=== PATIENT | female | born 1965 | race Caucasian/White ===

== ENCOUNTER 2020-05-30 13:15 | Outpatient (REF) | payer MEDICARE, OTHER, SELFPAY ==
[2020-05-30 13:58] LABS: MANUAL DIFF FLAG NO
[2020-05-30 14:02] LABS: Basophils Absolute Auto 0.1 X10*3/uL (0.0-0.2); Basophils Percent Auto 1.4 % (0-2); Eosinophils Absolute Auto 0.4 X10*3/uL (0.0-0.4); Eosinophils Percent Auto 5.3 % (0-4); Hematocrit 42.1 % (37-47); Imm Gran Abs Auto 0.01 X10*3/uL (0.00-0.03); Imm Gran Pct Auto 0.1 % (0.0-0.4); Lymphocytes Absolute Auto 3.3 X10*3/uL (1.2-4.9); Lymphocytes Percent Auto 44.7 % (20-40); Mean Corpuscular HGB Conc 30.9 g/dl (31.0-35.0); Mean Corpuscular Hemoglobin 27.7 pg (27.0-33.0); Mean Corpuscular Volume 89.6 fL (80-98); Mean Platelet Volume 10.5 fL (9.4-12.3); Monocytes Absolute Auto 0.5 X10*3/uL (0.1-1.2); Monocytes Percent Auto 6.3 % (2-11); Neutrophils Absolute Auto 3.1 X10*3/uL (2.0-8.3); Neutrophils Percent Auto 42.2 % (45-73); Platelet Count 393 X10*3/uL (160-400); Red Cell Distribution Width 14.8 % (11.0-16.0); White Blood Count 7.4 X10*3/uL (4.8-10.8)
[2020-05-30 14:43] LABS: Anion Gap 15 (12-20); Blood Urea Nitrogen 12 mg/dL (9-16); Calcium 9.3 mg/dL (8.4-10.2); Carbon Dioxide 25 mmol/L (22-29); Chloride 104 mmol/L (96-108); Estimated Glomerular Filt Rate > 60; Glucose Random 108 mg/dL (60-115); Potassium 4.3 mmol/l (3.3-5.1); Sodium 140 mmol/L (135-145)
[2020-05-30 15:13] LABS: TSH reflex Free T4 11.95 mIU/mL (0.32-4.0)
== END 2020-05-30 13:16 | disposition home or self-care (01) ==
LOC: HO.LAB 13:15
PROVIDERS: PCP Physician Assistant; Visit Provider Physician Assistant
DX: E03.9 Hypothyroidism, unspecified (principal); L40.9 Psoriasis, unspecified
CPT/HCPCS: 36415; 80048; 84439; 84443; 85025

== ENCOUNTER 2020-06-20 10:11 | Outpatient (REF) | payer MEDICARE, OTHER, SELFPAY ==
--- NOTE | 2020-06-20 10:16 | US_ITS ---
EXAMINATION: US THYROID CLINICAL INFORMATION: Iodine deficiency related diffuse (endemic) goiter. COMPARISON: None TECHNIQUE: Linear transducer almeida-scale and color Doppler examination with attention to the region of the thyroid. FINDINGS: SIZE: Measurements of the thyroid lobes and nodules are given in sagittal, anteroposterior and transverse dimensions respectively. Right Thyroid Lobe: 2.7 x 1.7 x 1.2 cm, volume 2.7 mL. Parenchyma: The gland echotexture is heterogeneous. Thyroid vascularity is increased. Left Thyroid Lobe: 2.9 x 1.3 x 1.4 cm, volume 2.7 mL. Parenchyma: The gland echotexture is heterogeneous. Thyroid vascularity is increased. Isthmus: 0.35 cm in maximum AP dimension. RIGHT THYROID LOBE: No nodules. ISTHMUS: No nodules. LEFT THYROID LOBE: No nodules. NODES: No lymphadenopathy is seen in the tissue surrounding the thyroid gland. US/US thyroid IMPRESSION: Heterogeneous thyroid gland with increased Doppler vascularity. This could represent thyroiditis. Correlate with thyroid function. No discrete focal nodules are identified..
== END 2020-06-20 10:12 | disposition home or self-care (01) ==
LOC: HO.HMGCX 10:11
PROVIDERS: Visit Provider Physician Assistant
DX: E01.0 Iodine-deficiency related diffuse (endemic) goiter (principal)
CPT/HCPCS: 76536

== ENCOUNTER → 2020-06-23 12:31 | Outpatient (BNVA) | payer MEDICARE, OTHER, SELFPAY | PROVIDERS: PCP Physician Assistant; Referring Provider Physician Assistant; Visit Provider Student in an Organized Health Care Education/Training Program | DX: M79.7 Fibromyalgia (principal); L40.9 Psoriasis, unspecified; Z79.899 Other long term (current) drug therapy | CPT/HCPCS: 99212 ==

== ENCOUNTER → 2020-10-19 15:04 | Outpatient (BNVA) | payer MEDICARE, SELFPAY | PROVIDERS: PCP Physician Assistant; Referring Provider Physician Assistant; Visit Provider Internal Medicine | DX: Z13.89 Encounter for screening for other disorder (principal) | CPT/HCPCS: Q3014 ==

== ENCOUNTER 2020-10-20 12:04 | Outpatient (REF) | payer MEDICARE, SELFPAY ==
[2020-10-20 14:11] LABS: Free T4 (Free Thyroxine) 1.03 ng/dL (0.71-1.85); Thyroid Stimulating Hormone 4.65 uIU/mL (0.32-4.0)
[2020-10-21 09:07] LABS: Thyroid Peroxidase Antibodies 417 IU/mL (<9)
[2020-10-21 17:56] LABS: Thyroglobulin Antibodies 54 IU/mL (< or = 1)
== END 2020-10-20 12:05 | disposition home or self-care (01) ==
LOC: HO.LAB 12:04
PROVIDERS: PCP Physician Assistant; Visit Provider Internal Medicine
DX: E03.9 Hypothyroidism, unspecified (principal)
CPT/HCPCS: 36415; 84439; 84443; 86376; 86800

== ENCOUNTER 2020-12-08 10:21 | Outpatient (REF) | payer MEDICARE, SELFPAY ==
[2020-12-08 11:32] LABS: Estimated Average Glucose 117 mg/dL; Hemoglobin A1c % 5.7 %
[2020-12-08 11:43] LABS: Alanine Aminotransferase 27 U/L (0-31); Albumin Level 4.3 g/dL (3.5-5.0); Alkaline Phosphatase 91 U/L (39-117); Anion Gap 13 (12-20); Aspartate Amino Transferase 25 U/L (5-31); Bilirubin Total 0.5 mg/dL (0.0-1.0); Blood Urea Nitrogen 13 mg/dL (9-16); Calcium 9.9 mg/dL (8.4-10.2); Carbon Dioxide 28 mmol/L (22-29); Chloride 108 mmol/L (96-108); Cholesterol 161 mg/dL; Estimated Glomerular Filt Rate > 60; Glucose Fasting 112 mg/dL (60-99); HDL Cholesterol 55 mg/dL; Iron 48 mcg/dL (30-160); LDL Cholesterol Calculated 83 mg/dl; Percent Iron Saturation 11 % (15-50); Potassium 4.6 mmol/L (3.3-5.1); Sodium 144 mmol/L (135-145); Total Iron Binding Capacity 419 mcg/dL (228-428); Total Protein 7.2 g/dL (6.5-8.0); Triglycerides 116 mg/dL; Unsaturated Iron Binding 371 ug/dL
[2020-12-08 11:54] LABS: Thyroid Stimulating Hormone 0.05 uIU/mL (0.32-4.0)
[2020-12-08 11:56] LABS: Free T4 (Free Thyroxine) 1.46 ng/dL (0.71-1.85)
== END 2020-12-08 10:22 | disposition home or self-care (01) ==
LOC: HO.LAB 10:21
PROVIDERS: Internal Medicine; PCP Physician Assistant; Visit Provider Physician Assistant
DX: Z13.220 Encounter for screening for lipoid disorders (principal); Z13.1 Encounter for screening for diabetes mellitus; E03.9 Hypothyroidism, unspecified; D50.9 Iron deficiency anemia, unspecified; F33.1 Major depressive disorder, recurrent, moderate
CPT/HCPCS: 36415; 80053; 80061; 83036; 83540; 84439; 84443

== ENCOUNTER → 2020-12-15 11:17 | Outpatient (BNVA) | payer MEDICARE, SELFPAY | PROVIDERS: PCP Physician Assistant; Visit Provider Internal Medicine | CPT/HCPCS: Q3014 ==

== ENCOUNTER 2020-12-27 12:31 | Outpatient (REF) | payer MEDICARE, SELFPAY ==
--- NOTE | ~2020-12-27 | MM_ITS ---
EXAMINATION: MM SCREENING DIGITAL BREAST TOMOSYNTHESIS, BILATERAL CLINICAL INFORMATION: Screening. Asymptomatic. The lifetime risk of breast cancer based on the Tyrer-Cuzick Model is 12%. COMPARISON: Mammography: 12/06/2018, 12/31/2014 TECHNIQUE: Digital breast tomosynthesis is performed in both the craniocaudal and mediolateral oblique views along with computer-aided detection (CAD). Synthesized 2D images are generated from the tomosynthesis. FINDINGS: The breasts are almost entirely fatty (ACR BI-RADS breast composition Category a). There are no significant masses, abnormal calcifications, or other abnormalities. Background stromal markings are unremarkable. The skin contours are smooth. MM/MM tomosynthesis screening BI IMPRESSION: No mammographic evidence of malignancy. ASSESSMENT: BI-RADS 1: Negative RECOMMENDATION: Routine annual mammography screening. This patient's information was entered into a reminder system with a target due date for their next mammogram.
== END 2020-12-27 12:32 | disposition home or self-care (01) ==
LOC: HO.MAMMO 12:31
PROVIDERS: PCP Physician Assistant; Visit Provider Physician Assistant
DX: Z12.31 Encounter for screening mammogram for malignant neoplasm of breast (principal)
CPT/HCPCS: 77063; 77067

== ENCOUNTER 2021-02-16 15:03 | Outpatient (REF) | payer MEDICARE, OTHER, SELFPAY ==
[2021-02-16 18:13] LABS: Thyroid Stimulating Hormone 10.73 uIU/mL (0.32-4.0)
== END 2021-02-16 15:04 | disposition home or self-care (01) ==
LOC: HO.LAB 15:03
PROVIDERS: PCP Physician Assistant; Visit Provider Internal Medicine
DX: E03.9 Hypothyroidism, unspecified (principal); E06.3 Autoimmune thyroiditis; Z79.899 Other long term (current) drug therapy
CPT/HCPCS: 36415; 84439; 84443; 99212

== ENCOUNTER 2021-06-27 12:31 | Outpatient (REF) | payer MEDICARE, OTHER, SELFPAY ==
[2021-06-27 13:37] LABS: MANUAL DIFF FLAG NO
[2021-06-27 14:38] LABS: Basophils Absolute Auto 0.1 X10*3/uL (0.0-0.2); Basophils Percent Auto 1.3 % (0-2); Eosinophils Absolute Auto 0.4 X10*3/uL (0.0-0.4); Eosinophils Percent Auto 4.4 % (0-4); Hematocrit 39.1 % (37.0-47.0); Hemoglobin 12.1 g/dl (12.0-16.0); Imm Gran Abs Auto 0.01 X10*3/uL (0.00-0.03); Imm Gran Pct Auto 0.1 % (0.0-0.4); Lymphocytes Absolute Auto 2.9 X10*3/uL (1.2-4.9); Lymphocytes Percent Auto 35.6 % (20-40); Mean Corpuscular HGB Conc 30.9 g/dl (31.0-35.0); Mean Corpuscular Hemoglobin 25.9 pg (27.0-33.0); Mean Corpuscular Volume 83.7 fL (80.0-98.0); Monocytes Absolute Auto 0.6 X10*3/uL (0.1-1.2); Neutrophils Absolute Auto 4.2 x10*3/uL (2.0-8.3); Neutrophils Percent Auto 51.6 % (45-73); Platelet Count 427 X10*3/uL (160-400); Red Blood Count 4.67 X10*6/uL (4.20-5.50); Red Cell Distribution Width 15.7 % (11.0-16.0); White Blood Count 8.2 X10*3/uL (4.8-10.8)
[2021-06-27 15:01] LABS: Alanine Aminotransferase 20 U/L (0-31); Albumin Level 4.6 g/dL (3.5-5.0); Alkaline Phosphatase 91 U/L (39-117); Anion Gap 13 (12-20); Aspartate Amino Transferase 22 U/L (5-31); Bilirubin Total 0.2 mg/dL (0.0-1.0); Blood Urea Nitrogen 9 mg/dL (9-16); C Reactive Protein 0.18 mg/dL (< or = 0.50); Calcium 9.9 mg/dL (8.4-10.2); Carbon Dioxide 28 mmol/L (22-29); Chloride 108 mmol/L (96-108); Estimated Glomerular Filt Rate > 60; Glucose Random 91 mg/dL (60-115); Potassium 4.7 mmol/L (3.3-5.1); Sodium 144 mmol/L (135-145); Total Protein 7.9 g/dL (6.5-8.0)
[2021-06-27 15:20] LABS: Free T4 (Free Thyroxine) 0.86 ng/dL (0.71-1.85); Thyroid Stimulating Hormone 8.48 uIU/mL (0.32-4.0)
[2021-06-27 15:43] LABS: Erythrocyte Sedimentation Rate 16 MM/HR (0-20)
[2021-06-28 04:23] LABS: HBS Num1 1.12 mIU/mL (0-7.99); HBc Num1 0.05 S/CO (0.00-0.79); Hepatitis B Core Antibody Nonreactive (Nonreactive); ~HepC Num1 0.22 S/CO (0.00-0.79); ~Hepatitis B Surface Antibody NONREACTIVE (Nonreactive); ~Hepatitis C Antibody Nonreactive (Nonreactive)
[2021-06-28 04:29] LABS: HBsAGNum1 0.17 S/CO (0.00-0.99); Hepatitis A Antibody IgM 0.19 Index (0-0.79); Hepatitis B Surface Antigen Negative (Negative); ~Hepatitis A Antibody IgM Nonreactive (Nonreactive)
[2021-06-29 22:06] LABS: TS Negative Control Passed; TS Panel A 2; TS Panel B 0; TS Positive Control Passed; TSpotTB Negative (Negative)
== END 2021-06-27 12:32 | disposition home or self-care (01) ==
LOC: HO.LAB 12:31
PROVIDERS: Internal Medicine; PCP Physician Assistant; Visit Provider Nurse Practitioner Family
DX: M79.7 Fibromyalgia (principal); L40.9 Psoriasis, unspecified; E03.9 Hypothyroidism, unspecified
CPT/HCPCS: 36415; 80053; 84439; 84443; 85025; 85652; 86140; 86481; 86704; 86706; 86709; 86803; 87340; 99212

== ENCOUNTER 2021-08-24 09:29 | Outpatient (REF) | payer MEDICARE, OTHER, SELFPAY ==
[2021-08-24 15:28] LABS: Free T4 (Free Thyroxine) 1.05 ng/dL (0.71-1.85); Thyroid Stimulating Hormone 2.45 uIU/mL (0.32-4.0); Vitamin D 25-OH Total 40.5 ng/mL (>30)
== END 2021-08-24 09:30 | disposition home or self-care (01) ==
LOC: HO.LAB 09:29
PROVIDERS: PCP Physician Assistant; Visit Provider Internal Medicine
DX: E03.9 Hypothyroidism, unspecified (principal); E55.9 Vitamin D deficiency, unspecified
CPT/HCPCS: 36415; 82306; 84439; 84443; Q3014

== ENCOUNTER 2021-10-02 11:01 | Outpatient (REF) | payer MEDICARE, OTHER, SELFPAY ==
[2021-10-02 11:37] LABS: Hemoglobin 11.9 g/dl (12.0-16.0); Mean Corpuscular HGB Conc 30.5 g/dl (31.0-35.0); Mean Corpuscular Hemoglobin 25.6 pg (27.0-33.0); Mean Corpuscular Volume 84.1 fL (80.0-98.0); Mean Platelet Volume 10.1 fL (9.4-12.3); Platelet Count 381 X10*3/uL (160-400); Red Blood Count 4.64 X10*6/uL (4.20-5.50); Red Cell Distribution Width 16.5 % (11.0-16.0); White Blood Count 6.8 X10*3/uL (4.8-10.8)
[2021-10-02 11:50] LABS: Estimated Average Glucose 123 mg/dL; Hemoglobin A1c % 5.9 %
[2021-10-02 12:16] LABS: Alanine Aminotransferase 24 U/L (0-31); Albumin Level 4.5 g/dL (3.5-5.0); Alkaline Phosphatase 77 U/L (39-117); Anion Gap 15 (12-20); Aspartate Amino Transferase 20 U/L (5-31); Bilirubin Total 0.4 mg/dL (0.0-1.0); Blood Urea Nitrogen 13 mg/dL (9-16); Calcium 10.2 mg/dL (8.4-10.2); Carbon Dioxide 27 mmol/L (22-29); Chloride 105 mmol/L (96-108); Cholesterol 217 mg/dL; Estimated Glomerular Filt Rate > 60; Glucose Fasting 102 mg/dL (60-99); HDL Cholesterol 81 mg/dL; Iron 28 mcg/dL (30-160); LDL Cholesterol Calculated 113 mg/dl; Magnesium 2.4 mg/dL (1.6-2.6); Percent Iron Saturation 6 % (15-50); Potassium 4.6 mmol/L (3.3-5.1); Sodium 142 mmol/L (135-145); Total Iron Binding Capacity 483 mcg/dL (228-428); Total Protein 7.6 g/dL (6.5-8.0); Triglycerides 115 mg/dL; Unsaturated Iron Binding 455 ug/dL
[2021-10-02 13:12] LABS: Folate 15.4 ng/mL (> or = 4.0); Vitamin B12 361 pg/mL (200-900)
== END 2021-10-02 11:02 | disposition home or self-care (01) ==
LOC: HO.LAB 11:01
PROVIDERS: PCP Physician Assistant; Visit Provider Physician Assistant
DX: Z13.220 Encounter for screening for lipoid disorders (principal); D50.9 Iron deficiency anemia, unspecified; E03.9 Hypothyroidism, unspecified; E66.09 Other obesity due to excess calories; Z68.37 Body mass index [BMI] 37.0-37.9, adult; E83.41 Hypermagnesemia
CPT/HCPCS: 36415; 80053; 80061; 82607; 82746; 83036; 83540; 83735; 85027

== ENCOUNTER → 2021-10-17 09:54 | Outpatient (BNV) | payer MEDICARE, SELFPAY | PROVIDERS: PCP Physician Assistant; Visit Provider Internal Medicine | DX: D50.9 Iron deficiency anemia, unspecified (principal); E53.8 Deficiency of other specified B group vitamins; Z98.84 Bariatric surgery status | CPT/HCPCS: 99213; 99214; G2211 ==

== ENCOUNTER 2021-11-28 11:41 | Outpatient (REF) | payer MEDICARE, OTHER, SELFPAY ==
[2021-11-28 13:09] LABS: Hematocrit 41.5 % (37.0-47.0); Hemoglobin 12.7 g/dl (12.0-16.0); Mean Corpuscular HGB Conc 30.6 g/dl (31.0-35.0); Mean Corpuscular Hemoglobin 27.2 pg (27.0-33.0); Mean Corpuscular Volume 88.9 fL (80.0-98.0); Mean Platelet Volume 11.6 fL (9.4-12.3); Platelet Count 449 X10*3/uL (160-400); Red Blood Count 4.67 X10*6/uL (4.20-5.50); Red Cell Distribution Width 19.1 % (11.0-16.0); White Blood Count 8.7 X10*3/uL (4.8-10.8)
[2021-11-28 13:33] LABS: Iron 45 mcg/dL (30-160); Percent Iron Saturation 11 % (15-50); Total Iron Binding Capacity 409 mcg/dL (228-428); Unsaturated Iron Binding 364 ug/dL
[2021-11-28 13:56] LABS: Thyroid Stimulating Hormone 2.47 uIU/mL (0.32-4.0)
[2021-11-28 13:57] LABS: Free T4 (Free Thyroxine) 1.04 ng/dL (0.71-1.85); Vitamin D 25-OH Total 46.2 ng/mL (>30)
== END 2021-11-28 11:42 | disposition home or self-care (01) ==
LOC: HO.LAB 11:41
PROVIDERS: PCP Physician Assistant; Visit Provider Internal Medicine
DX: D50.9 Iron deficiency anemia, unspecified (principal); E03.9 Hypothyroidism, unspecified; E55.9 Vitamin D deficiency, unspecified
CPT/HCPCS: 36415; 82306; 83540; 84439; 84443; 85027

== ENCOUNTER → 2021-11-29 11:02 | Outpatient (BNVA) | payer MEDICARE, OTHER, SELFPAY | PROVIDERS: PCP Physician Assistant; Visit Provider Internal Medicine | DX: Z13.89 Encounter for screening for other disorder (principal) ==

== ENCOUNTER → 2022-01-09 10:09 | Outpatient (BNVA) | payer MEDICARE, OTHER, SELFPAY | PROVIDERS: PCP Physician Assistant; Visit Provider Internal Medicine | DX: E03.9 Hypothyroidism, unspecified (principal); E55.9 Vitamin D deficiency, unspecified; E66.9 Obesity, unspecified; Z79.899 Other long term (current) drug therapy | CPT/HCPCS: Q3014 ==

== ENCOUNTER 2022-05-01 15:00 | Outpatient (REF) | payer MEDICARE, OTHER, SELFPAY ==
[2022-05-01 15:29] LABS: MANUAL DIFF FLAG NO
[2022-05-01 16:04] LABS: Basophils Percent Auto 0.4 % (0-2); Eosinophils Percent Auto 0.1 % (0-4); Hematocrit 40.2 % (37.0-47.0); Hemoglobin 12.7 g/dl (12.0-16.0); Imm Gran Abs Auto 0.04 X10*3/uL (0.00-0.03); Imm Gran Pct Auto 0.4 % (0.0-0.4); Lymphocytes Absolute Auto 2.1 X10*3/uL (1.2-4.9); Lymphocytes Percent Auto 20.8 % (20-40); Mean Corpuscular HGB Conc 31.6 g/dl (31.0-35.0); Mean Corpuscular Hemoglobin 27.9 pg (27.0-33.0); Mean Corpuscular Volume 88.4 fL (80.0-98.0); Mean Platelet Volume 10.9 fL (9.4-12.3); Monocytes Absolute Auto 0.5 X10*3/uL (0.1-1.2); Monocytes Percent Auto 4.7 % (2-11); Neutrophils Absolute Auto 7.5 x10*3/uL (2.0-8.3); Neutrophils Percent Auto 73.6 % (45-73); Platelet Count 438 X10*3/uL (160-400); Red Blood Count 4.55 X10*6/uL (4.20-5.50); Red Cell Distribution Width 14.6 % (11.0-16.0); White Blood Count 10.2 X10*3/uL (4.8-10.8)
[2022-05-01 16:25] LABS: Anion Gap 19 (12-20); Blood Urea Nitrogen 20 mg/dL (9-16); Calcium 10.1 mg/dL (8.4-10.2); Carbon Dioxide 23 mmol/L (22-29); Chloride 106 mmol/L (96-108); Estimated Glomerular Filt Rate > 60; Glucose Random 106 mg/dL (60-115); Potassium 4.5 mmol/L (3.3-5.1); Sodium 143 mmol/L (135-145)
[2022-05-04 10:11] LABS: TS Negative Control Passed; TS Panel A 1; TS Panel B 0; TS Positive Control Passed; TSpotTB Negative (Negative)
== END 2022-05-01 15:01 | disposition home or self-care (01) ==
LOC: HO.LAB 15:00
PROVIDERS: PCP Physician Assistant; Visit Provider Dermatology
DX: Z11.1 Encounter for screening for respiratory tuberculosis (principal); L30.9 Dermatitis, unspecified
CPT/HCPCS: 36415; 80048; 85025; 86481

== ENCOUNTER 2022-09-21 15:26 | Outpatient (REF) | payer OTHER, SELFPAY ==
--- NOTE | ~2022-09-21 | US_ITS ---
EXAMINATION: ULTRASOUND SOFT TISSUES RIGHT SHOULDER CLINICAL INFORMATION: Mass/palpable lump in the right posterior shoulder. COMPARISON: None TECHNIQUE: Using a linear transducer with grayscale and color modalities, ultrasound examination performed of the soft tissues of the posterior right shoulder. FINDINGS: The cutaneous, subcutaneous, muscular and fascial planes are unremarkable. Corresponding with the palpable finding described by the patient in the posterior right shoulder soft tissues, a 6.2 x 5.6 x 2.2 cm isoechoic, circumscribed mass is seen. This shows little associated color Doppler flow. No lymphadenopathy or fluid collection is seen. There is no foreign body. US/US extremity nonvascular IMPRESSION: Corresponding with the palpable finding in the posterior right shoulder, a 6.2 cm in maximal diameter circumscribed mass is seen. The possibility of a lipoma is raised; the exact etiology is indeterminate. If of continued clinical concern, this can be further evaluated with MRI.
== END 2022-09-21 15:27 | disposition home or self-care (01) ==
LOC: HO.US 15:26
PROVIDERS: PCP Nurse Practitioner Family; Visit Provider Nurse Practitioner Family
DX: R22.9 Localized swelling, mass and lump, unspecified (principal)
CPT/HCPCS: 76882

== ENCOUNTER → 2022-10-12 09:59 | Outpatient (BNVA) | payer OTHER, SELFPAY | PROVIDERS: PCP Physician Assistant; Referring Provider Nurse Practitioner Family; Visit Provider Surgery | DX: R22.9 Localized swelling, mass and lump, unspecified (principal) | CPT/HCPCS: 99202 ==

== ENCOUNTER 2022-10-22 07:07 | Day surgery (SDC) | payer OTHER, SELFPAY ==
[2022-10-16 11:42] VITALS: BMI 36.8
--- NOTE | 2022-10-19 11:32 | P.CONAN_ITS ---
Documented by User: Kamala Adam NP 10/19/22 11:35 HPI - Anesthesia Eval Consult details Narrative: 57yo F for Right Excision Mass of posterior shoulder PMFSH Active Problems Active Problems: All Active Problems (Updated 10/16/22 @ 11:09 by Salome Townsend RN) Hypothyroid (Acute) Psoriasis (Acute) Thyromegaly (Acute) Depression (Acute) Cervical cancer screening (Acute) Breast cancer screening (Acute) Screening for diabetes mellitus (DM) (Acute) Screening for hypercholesterolemia (Acute) Medicare annual wellness visit, initial (Acute) Hypermagnesemia (Acute) Obese (Acute) Deficiency anemia (Acute) Iron deficiency anemia (Chronic) BESSY (generalized anxiety disorder) (Acute) MDD (major depressive disorder), recurrent episode, moderate (Acute) Lump of skin (Acute) Obesity (Acute) Vitamin D deficiency (Acute) Psoriasis (Acute) Fibromyalgia (Acute) Past Medical History Medical History (Updated 10/16/22 @ 11:09 by Salome Townsend RN) Anemia Anxiety Depression Fibromyalgia Hypothyroid Obesity Psoriasis Vitamin D deficiency Family History Family History Father CVD (cardiovascular disease) Stroke Hypertension Myocardial infarction Thyroid cancer Mother Hypertension Maternal Grandmother Colon cancer Glaucoma Surgical History Surgical History (Updated 10/16/22 @ 11:37 by Salome Townsend RN) History of cholecystectomy History of gastric bypass History of tooth extraction Hx of colonoscopy S/P panniculectomy Social History Social History Household Members: None Housing: Other (Mobile Home) Alcohol intake: never Patient Tobacco Use Status: Former Tobacco user Quit Date: 2019 Cigarette Packs Per Day: 1 Years Smoked: 30 e-Cigarette/Vaping Use: Never Used Use of substances other than those prescribed or required for medical reasons: No Substance Use Type: Marijuana Are you DNR?: No Advance Directives: No Advance Directives Information Provided: Yes service: No Current occupational status: unemployed Cognitive needs: No Hearing needs: No Vision needs: No Meds Allergies Allergy/AdvReac Type Severity Reaction Status Date / Time Sulfa (Sulfonamide Allergy Intermediate RASH Verified 10/12/22 10:17 Antibiotics) [SULFA (SULFONAMIDE ANTIBIOTICS)] morphine [MORPHINE] Allergy Mild NIGHTMARES Verified 10/12/22 10:17 oxycodone [Percocet] Allergy Mild nausea and Verified 10/12/22 10:17 vomiting Penicillins Allergy Mild RASH Verified 10/12/22 10:17 Home Medications Medication Instructions Recorded Confirmed Last Taken Type gabapentin 300 mg capsule 300 mg PO TID PRN Pain 10/17/21 10/16/22 Unknown History tildrakizumab-asmn 100 mg/mL 100 mg subcut Q12W 10/12/22 10/16/22 Unknown History subcutaneous syringe (Ilumya) Exam Exam Date and Time: October 19, 2022 1132 Height,Weight and Vital Signs: Height 5 ft 7 in Weight 106.764 kg Pertinent Lab Results Pertinent Lab Results: Laboratory Tests 05/01/22 09/28/22 15:26 15:12 WBC 8.6 Hgb 13.2 Hct 42.3 Plt Count 370 Sodium 143 Potassium 4.5 Chloride 106 Carbon Dioxide 23 BUN 20 H D Creatinine 0.78 Assessment and Plan Assessment Anesthesia Assessment: Chart Reviewed Documented by User: Marin Kent MD 10/22/22 08:18 [facility] Past Medical History Medical History (Updated 10/16/22 @ 11:09 by Salome Townsend RN) Anemia Anxiety Depression Fibromyalgia Hypothyroid Obesity Psoriasis Vitamin D deficiency Family History Family History Father CVD (cardiovascular disease) Stroke Hypertension Myocardial infarction Thyroid cancer Mother Hypertension Maternal Grandmother Colon cancer Glaucoma Family history of problems with anesthesia: No Surgical History Surgical History (Updated 10/16/22 @ 11:37 by Salome Townsend RN) History of cholecystectomy History of gastric bypass History of tooth extraction Hx of colonoscopy S/P panniculectomy History of Problems with Anesthesia: No Social History Social History Household Members: None Housing: Other (Mobile Home) Alcohol intake: never Patient Tobacco Use Status: Former Tobacco user Quit Date: 2019 Cigarette Packs Per Day: 1 Years Smoked: 30 e-Cigarette/Vaping Use: Never Used Use of substances other than those prescribed or required for medical reasons: No Substance Use Type: Marijuana Are you DNR?: No Advance Directives: No Advance Directives Information Provided: Yes service: No Current occupational status: unemployed Cognitive needs: No Hearing needs: No Vision needs: No Meds Allergies Allergy/AdvReac Type Severity Reaction Status Date / Time Sulfa (Sulfonamide Allergy Intermediate RASH Verified 10/12/22 10:17 Antibiotics) [SULFA (SULFONAMIDE ANTIBIOTICS)] morphine [MORPHINE] Allergy Mild NIGHTMARES Verified 10/12/22 10:17 oxycodone [Percocet] Allergy Mild nausea and Verified 10/12/22 10:17 vomiting Penicillins Allergy Mild RASH Verified 10/12/22 10:17 Home Medications Medication Instructions Recorded Confirmed Last Taken Type gabapentin 300 mg capsule 300 mg PO TID PRN Pain 10/17/21 10/16/22 Unknown History tildrakizumab-asmn 100 mg/mL 100 mg subcut Q12W 10/12/22 10/16/22 Unknown History subcutaneous syringe (Ilumya) Exam Airway Mallampati Class: II TM Dist: >3cm Neck ROM: Limited Denture: Upper Loose/Missing/Broken Teeth: No Heart: rrr Lungs: cta Assessment and Plan Final Anesthetic Review Family History of Problems with Anesthesia: No History of Problems with Anesthesia: No NPO: Yes ASA Class: III Final Preanesthetic Review: No Changes in Pt Med Stat, Meds/Allgs Chart Reviewed, Consent Obtained/Reviewed and Anes Risks/Benef Reviewed Patient Risk: Intermediate Procedure Risk: Low Anesthetic Plan Anesthetic Plan: MAC: Disposition: Standard PACU
[2022-10-22 07:26] VITALS: BMI 36.0
[2022-10-22 07:36] VITALS: BP 144/50; PULSE 64; RESP 18; TEMP 36.4; O2SAT 97
[2022-10-22] MEDS: Lactated Ringers 1,000 ML 100 ML IVCONT (07:47)
[2022-10-22 08:14] VITALS: BP 116/47; PULSE 51; RESP 16; TEMP 36.3; O2SAT 96
--- NOTE | 2022-10-22 08:22 | PC.NURSE ---
pt initially stated pcn allergy rash, then while dr. guthrie present added shortness of breath (edited allergy and oharmacy aware. ok to use cefotetan 2g iv
--- NOTE | 2022-10-22 08:52 | W.PM.OPN ---
Operative Note Operative Note Date of Service: 10/22/22 Narrative: Preoperative diagnosis: [Right posterior shoulder lipoma] Postop diagnosis: [] Same Surgeon: [] Ab Prescription Clerk Lenses: [] Ezra Type of Anesthesia: [] MAC Indication for surgery: [] Symptomatic enlarging deeply situated right posterior shoulder lipoma Findings: [] Approximately 8 by7 cm large lipoma Procedure: [] Patient is brought to the operating room, placed in a room table supine position, and after an adequate level of MAC anesthesia was induced, the patient was placed in left lateral decubitus position. Right posterior shoulder was prepped and draped in usual sterile fashion and the premarked incision was infiltrated with local anesthesia. Incision was carried down through skin, subcutaneous tissue, with a large lipoma was encountered and using digital dissection was uneventfully enucleated with dimensions as described above. Wound was irrigated, secured hemostasis, and closed in the following manner; interrupted inverted deep dermal 3-0 Vicryl interrupted sutures followed by running subcuticular 4-0 Vicryl sutures were placed. Steri-Strips and sterile dressings were applied. Sponge, needle, and instrument counts were reported to be correct. Patient tolerated the procedure well and emerge from anesthesia in stable condition. EBL 0
[2022-10-22 08:59] VITALS: BP 98/62; PULSE 68; RESP 16; TEMP 36.3; O2SAT 96
== END 2022-10-22 10:00 | disposition home or self-care (01) ==
PROVIDERS: PCP Physician Assistant; Visit Provider Surgery
PROC: (CPT 23071; principal; 2022-10-22 08:50)
DX: D17.21 Benign lipomatous neoplasm of skin and subcutaneous tissue of right arm (principal); D50.9 Iron deficiency anemia, unspecified; E55.9 Vitamin D deficiency, unspecified; L40.8 Other psoriasis; E03.9 Hypothyroidism, unspecified; F33.1 Major depressive disorder, recurrent, moderate; F41.1 Generalized anxiety disorder; M79.7 Fibromyalgia; E66.9 Obesity, unspecified; Z68.36 Body mass index [BMI] 36.0-36.9, adult; Z79.899 Other long term (current) drug therapy; Z88.0 Allergy status to penicillin; Z88.2 Allergy status to sulfonamides; Z88.8 Allergy status to other drugs, medicaments and biological substances; Z98.84 Bariatric surgery status; Z87.891 Personal history of nicotine dependence; F12.90 Cannabis use, unspecified, uncomplicated
CPT/HCPCS: 23071; 88304; J0690; J1885; J2250; J2405; J3010

== ENCOUNTER → 2022-10-30 09:02 | Outpatient (BNVA) | payer OTHER, SELFPAY | PROVIDERS: PCP Physician Assistant; Visit Provider Surgery ==

== ENCOUNTER 2022-11-05 12:13 | Outpatient (REF) | payer OTHER, SELFPAY ==
--- NOTE | ~2022-11-05 | XR_ITS ---
EXAMINATION: XR CERVICAL SPINE CLINICAL INFORMATION: Neck pain COMPARISON: None available. TECHNIQUE: 4 views of the cervical spine were obtained including swimmer's view. FINDINGS: Bone alignment is normal. No fracture or dislocation. Multilevel degenerative spondylosis and degenerative disc disease from C4-C5 to C6-C7. Prevertebral soft tissues are normal. XR/XR cervical spine 2V IMPRESSION: Degenerative changes.
== END 2022-11-05 12:14 | disposition home or self-care (01) ==
LOC: HO.XRAY 12:13
PROVIDERS: PCP Physician Assistant; Visit Provider Nurse Practitioner Family
DX: M54.2 Cervicalgia (principal)
CPT/HCPCS: 72040

== ENCOUNTER 2022-12-05 10:56 | Outpatient (RCR) | payer OTHER, SELFPAY ==
--- NOTE | 2022-12-05 12:00 | MHC.PT.EP ---
[facility] [place] Office [place] Office [place] Office [address] Edson Lockhart [address] [phone] F: [phone] F: [phone] F: [phone] F: [phone] Physical Therapy Plan of Care Date of Evaluation: Date of Surgery: lipoma removed 3 months ago Diagnosis: cervicalgia Assessment: Patient is a 57 year old R handed female who presents with s/s consistent with cervicalgia, neck pain. She is disabled and not currently working. Patient past medical history includes fibromyalgia and gastric bypass surgery. Current impairments include pain, posture, ROM, strength, activity tolerance and functional mobility. Functional limitations include decreased ability to sleep, dress, lift, carry and do hair. Patient is motivated with good rehab potential. Skilled PT will address impairments and functional limitations in order to achieve goals. Frequency and Duration: The patient will be seen 2x/week for 5 weeks Short Term Goals: I with HEP - 2 weeks Full AROM R shoulder - 3 weeks Full rotation pain free of c-spine - 3 weeks Halfway Goals: Improved postural awareness - 5 weeks no s/s into R UE with ADLs - 5 weeks NPDI 20% or less - 5 weeks Strength 4+/5 or better - 5 weeks (-) R impingement cluster - 5 weeks Able to paddleboard pain free - 5 weeks Treatment Plan: Modalities to reduce pain, spasms and effusion. Manual therapy to restore motion and function. Therapeutic exercise to improve strength and flexibility. Neuromuscular re-education for posture and balance. Therapeutic activities to return to functional activities of daily living. Electronically signed by: Abe Fierro, PT Please sign and return to therapist. Thank you for your referral.
--- NOTE | 2023-01-15 09:01 | MHC.PT.DC ---
[facility] [place] Office [place] Office [place] Office [address] Edson Lockhart [address] [facility] [phone] F: [phone] F: [phone] F: [phone] F: [phone] Physical Therapy Discharge Report Diagnosis: cervicalgia Date of Surgery: lipoma removed 3 months ago Date of Evaluation: 12/05/22 Date of Discharge: 12/06/22 Treatments to Date: 1 Cancellations to Date: No Shows to Date: Discharge Status: Patient Elected to Stop Discharge Summary: Pt did not return after evaluation. Patient is a 57 year old R handed female who presents with s/s consistent with cervicalgia, neck pain. She is disabled and not currently working. Patient past medical history includes fibromyalgia and gastric bypass surgery. Current impairments include pain, posture, ROM, strength, activity tolerance and functional mobility. Functional limitations include decreased ability to sleep, dress, lift, carry and do hair. Patient is motivated with good rehab potential. Skilled PT will address impairments and functional limitations in order to achieve goals. Electronically signed by: Abe Fierro, PT Please sign and return to therapist. Thank you for your referral.
== END 2023-01-15 09:03 | disposition home or self-care (01) ==
LOC: HO.PTCHIC 10:56
PROVIDERS: PCP Internal Medicine; Visit Provider Nurse Practitioner Family
DX: M54.2 Cervicalgia (principal)
CPT/HCPCS: 97110; 97162

== ENCOUNTER → 2022-12-17 13:48 | Outpatient (BNVA) | payer OTHER, SELFPAY | PROVIDERS: PCP Internal Medicine; Visit Provider Anesthesiology | DX: M50.30 Other cervical disc degeneration, unspecified cervical region (principal); M54.12 Radiculopathy, cervical region; G56.01 Carpal tunnel syndrome, right upper limb; G56.21 Lesion of ulnar nerve, right upper limb; G89.4 Chronic pain syndrome | CPT/HCPCS: 99202 ==

== ENCOUNTER 2022-12-18 08:59 | Outpatient (REF) | payer OTHER, SELFPAY ==
[2022-12-18 10:30] LABS: Hematocrit 41.2 % (37.0-47.0); Hemoglobin 12.8 g/dl (12.0-16.0); Mean Corpuscular HGB Conc 31.1 g/dl (31.0-35.0); Mean Corpuscular Hemoglobin 26.9 pg (27.0-33.0); Mean Corpuscular Volume 86.7 fL (80.0-98.0); Mean Platelet Volume 10.5 fL (9.4-12.3); Platelet Count 397 X10*3/uL (160-400); Red Blood Count 4.75 X10*6/uL (4.20-5.50); Red Cell Distribution Width 15.5 % (11.0-16.0); White Blood Count 5.9 X10*3/uL (4.8-10.8)
[2022-12-18 10:59] LABS: Creatinine Urine 179.84 mg/dL; Microalbum/Creatinine Ratio Ur 2.7 ug/mg cr
[2022-12-18 11:08] LABS: Alanine Aminotransferase 17 U/L (0-31); Albumin Level 4.6 g/dL (3.5-5.0); Alkaline Phosphatase 82 U/L (39-117); Anion Gap 15 (12-20); Aspartate Amino Transferase 17 U/L (5-31); Bilirubin Total 0.6 mg/dL (0.0-1.0); Blood Urea Nitrogen 16 mg/dL (9-16); Calcium 9.9 mg/dL (8.4-10.2); Carbon Dioxide 26 mmol/L (22-29); Chloride 108 mmol/L (96-108); Cholesterol 158 mg/dL; Estimated Glomerular Filt Rate > 60; Glucose Fasting 101 mg/dL (60-99); HDL Cholesterol 58 mg/dL; LDL Cholesterol Calculated 79 mg/dl; Potassium 4.9 mmol/L (3.3-5.1); Sodium 144 mmol/L (135-145); Total Protein 7.5 g/dL (6.5-8.0); Triglycerides 107 mg/dL
[2022-12-18 11:19] LABS: Free T4 (Free Thyroxine) 1.13 ng/dL (0.71-1.85)
[2022-12-18 11:25] LABS: TSH reflex Free T4 2.97 uIU/mL (0.32-4.0); Thyroid Stimulating Hormone 2.97 uIU/mL (0.32-4.0)
== END 2022-12-18 09:00 | disposition home or self-care (01) ==
LOC: HO.LAB 08:59
PROVIDERS: Internal Medicine; PCP Physician Assistant; Visit Provider Physician Assistant
DX: I10 Essential (primary) hypertension (principal); E03.9 Hypothyroidism, unspecified
CPT/HCPCS: 36415; 80053; 80061; 82043; 84439; 84443; 85027

== ENCOUNTER 2023-01-31 07:18 | Outpatient (REF) | payer OTHER, SELFPAY ==
--- NOTE | 2023-01-31 08:34 | EMG_ITS ---
Bilateral median and ulnar motor and sensory studies were performed. Bilateral radial sensory studies were performed and paraspinal muscles were tested with a needle. IMPRESSION: 1. Mild bilateral median neuropathy across carpal tunnel. 2. Mild bilateral ulnar neuropathy across cubital tunnel. MD LEATHA Dawn/NILAM / [id number]
== END 2023-01-31 07:19 | disposition home or self-care (01) ==
LOC: HO.MRI 07:18
PROVIDERS: PCP Physician Assistant; Visit Provider Anesthesiology
DX: M50.30 Other cervical disc degeneration, unspecified cervical region (principal); M54.12 Radiculopathy, cervical region
CPT/HCPCS: 72141; 95886; 95911

== ENCOUNTER → 2023-02-06 12:55 | Outpatient (BNVA) | payer OTHER, SELFPAY | PROVIDERS: Visit Provider Anesthesiology | DX: M50.30 Other cervical disc degeneration, unspecified cervical region (principal); M54.12 Radiculopathy, cervical region; G56.20 Lesion of ulnar nerve, unspecified upper limb; G56.00 Carpal tunnel syndrome, unspecified upper limb; G89.4 Chronic pain syndrome | CPT/HCPCS: 99212 ==

== ENCOUNTER 2023-02-20 14:00 | Outpatient (AMB) | payer OTHER, SELFPAY ==
[2023-02-20 14:05] VITALS: BP 126/80; PULSE 94; O2SAT 97; BMI 36.6
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
[2023-02-20 14:26] VITALS: BP 140/78
== END 2023-02-20 14:35 | disposition home or self-care (01) ==
PROVIDERS: PCP Physician Assistant; Visit Provider Physician Assistant
DX: I10 Essential (primary) hypertension (principal); L40.9 Psoriasis, unspecified; E66.09 Other obesity due to excess calories; Z68.37 Body mass index [BMI] 37.0-37.9, adult; M48.02 Spinal stenosis, cervical region
CPT/HCPCS: 99214

== ENCOUNTER 2023-02-21 09:03 | Outpatient (REF) | payer OTHER, SELFPAY ==
[2023-02-21 10:25] LABS: Hematocrit 43.2 % (37.0-47.0); Hemoglobin 13.3 g/dl (12.0-16.0); Mean Corpuscular HGB Conc 30.8 g/dl (31.0-35.0); Mean Corpuscular Hemoglobin 27.1 pg (27.0-33.0); Mean Platelet Volume 10.8 fL (9.4-12.3); Platelet Count 415 X10*3/uL (160-400); Red Blood Count 4.91 X10*6/uL (4.20-5.50); Red Cell Distribution Width 15.4 % (11.0-16.0); White Blood Count 6.5 X10*3/uL (4.8-10.8)
[2023-02-21 11:06] LABS: Alanine Aminotransferase 22 U/L (0-31); Albumin Level 4.3 g/dL (3.5-5.0); Alkaline Phosphatase 76 U/L (39-117); Anion Gap 12 (12-20); Aspartate Amino Transferase 20 U/L (5-31); Bilirubin Total 0.4 mg/dL (0.0-1.0); Blood Urea Nitrogen 8 mg/dL (9-16); Carbon Dioxide 30 mmol/L (22-29); Chloride 107 mmol/L (96-108); Estimated Glomerular Filt Rate > 60; Glucose Fasting 96 mg/dL (60-99); Potassium 4.6 mmol/L (3.3-5.1); Sodium 144 mmol/L (135-145); Total Protein 7.4 g/dL (6.5-8.0)
[2023-02-21 12:03] LABS: Free T4 (Free Thyroxine) 0.66 ng/dL (0.71-1.85)
== END 2023-02-21 09:04 | disposition home or self-care (01) ==
LOC: HO.LAB 09:03
PROVIDERS: PCP Physician Assistant; Visit Provider Physician Assistant
DX: Z13.1 Encounter for screening for diabetes mellitus (principal); E03.9 Hypothyroidism, unspecified
CPT/HCPCS: 36415; 80053; 84439; 84443; 85027

== ENCOUNTER 2023-02-26 12:49 | Outpatient (AMB) | payer OTHER, SELFPAY ==
--- NOTE | 2023-02-26 13:03 | A.SPINEOV_ITS ---
Intake Intake Visit Reasons: spinal stenosis Intake Note: Ms. Robertson is here today c/o neck pain. [place] done [place] [facility] [place] Sales Account Representative Required: No Allergies Sulfa (Sulfonamide Antibiotics) [SULFA (SULFONAMIDE ANTIBIOTICS)] Allergy (I ntermediate, Verified 02/20/23 14:15) RASH morphine [MORPHINE] Allergy (Mild, Verified 02/20/23 14:15) NIGHTMARES oxycodone [Percocet] Allergy (Mild, Verified 02/20/23 14:15) nausea and vomiting Penicillins Allergy (Mild, Verified 02/20/23 14:15) Anaphylaxis Assessment & Plan Assessment & Plan (1) Cervical myelopathy: Code(s): G95.9 - Disease of spinal cord, unspecified Plan Dear Dr Bell, Thank you for referring Mrs Robertson to our office today. She is a very nice 57-year-old female with a history of psoriatic arthritis who presents here to a office today for evaluation of a set of symptoms that she has had for 2+ years. This includes neck pain which radiates down across the top of her shoulders and goes into her elbows and if she extends her head backwards will also give her numbness into her hands. She underwent a series of conservative treatments including physical therapy, anti-inflammatories including ibuprofen, gabapentin and has seen no relief from these symptoms. She also tried some cortisone injections in her shoulders thinking that it could be coming from that spot but it did not help. She underwent an MRI showing significant spinal cord compression with myelomalacia at C6-7 and is here to see us for evaluation. She does not report any gait instability but does report that her hands are numb and she drops things . This is concerning her. Also when she is riding her bike and her head is in an extended position her hands will go numb. PMH: She has a history of gastric bypass, panniculectomy. Apparently she suffers from what is called dumping syndrome, where she will have a syncopal event if she eats or drinks certain foods including chocolate. She has had this worked up, underwent a stress test and it was negative. History of psoriatic arthritis, hypothyroidism, hypertension, hyper magnesium, iron deficiency anemia, anxiety, depression, lipoma removal, fibromyalgia Social hx: She does not smoke Medications: Levothyroxine, gabapentin, ibuprofen, intramuscular B12 injections, and she also takes certolizumab for her psoriatic arthritis Allergies: Penicillin, morphine, Percocet and sulfa Physical exam: The patient is able to stand on her own and walk with what appears to be normal gait, she does not have any focal strength loss outside of some mild hand weakness. She does have hyperreflexia in the right arm as well as both lower extremities with clonus in the right ankle. Negative Rpice sign. Imaging review: Cervical MRI done at [facility] shows multilevel degenerative disc disease, C4-5, C5-6 both have foraminal narrowing on the left, but at C6-7 there was a significant collapse of the disc with a posterior disc bulge and moderate to severe spinal cord compression with cord signal change posteriorly. Impression: This is a 57-year-old female history of psoriatic arthritis, who presents with a progressive cervical myelopathy with cord signal change and hyperreflexia in the setting of neck pain with bilateral arm pain and numbness of her hands. She also has weakness of her hands bilaterally. I reviewed her imaging with Dr. Hyatt, because of the compression of the spinal cord and the cord signal change, we think she should undergo anterior cervical fusion at C6- 7. We discussed the procedure length with the patient. We quoted success for improvement of symptoms at 90% for her arm pain. Pt was given risk and benefits of surgery including but not limited to infection, hematoma , nerve injury,durotomy, weakness,bowel/bladder injury, persistent pain, vocal hoarseness. The patient wishes to proceed with surgery. Pt is aware they should stop their motrin, aspirin 7 days prior to surgery. She will also stop her certolizumab 2 weeks prior surgery. All questions were answered to the best of our ability. If there is anything about this patients medical history that we have overlooked or concerns you have about us proceeding with surgery we would appreciate any input you can offer. Thank you for allowing us to care for your patient. The total time spent with this visit with this patient was 45 minutes reviewing history, physical exam, cervical spine imaging review, and implementation of treatment plan or further diagnostic testing Lexx Hyatt MD,PhD [facility] Coding Level of Care Code New Pt Level 4 (62545) Diagnoses Cervical myelopathy G95.9
== END 2023-02-26 13:50 | disposition home or self-care (01) ==
PROVIDERS: PCP Physician Assistant; Referring Provider Nurse Practitioner Family; Visit Provider Physician Assistant
DX: G95.9 Disease of spinal cord, unspecified (principal)
CPT/HCPCS: 99204

== ENCOUNTER → 2023-02-26 12:49 | Outpatient (BNVA) | payer OTHER, SELFPAY | PROVIDERS: PCP Physician Assistant; Visit Provider Physician Assistant | DX: G95.9 Disease of spinal cord, unspecified (principal) | CPT/HCPCS: 99202 ==

== ENCOUNTER → 2023-03-21 10:49 | Outpatient (BNV) | payer OTHER, SELFPAY | PROVIDERS: PCP Physician Assistant; Visit Provider Neurological Surgery | DX: M50.023 Cervical disc disorder at C6-C7 level with myelopathy (principal) | CPT/HCPCS: 20936; 22551; 22845; 22853 ==

== ENCOUNTER 2023-03-21 14:53 | Inpatient (IN) | payer OTHER, SELFPAY ==
[2023-03-14 15:18] VITALS: BMI 36.0
--- NOTE | 2023-03-20 13:44 | P.CONAN_ITS ---
Documented by User: Kamala Adam NP 03/20/23 13:47 HPI - Anesthesia Eval Consult details Narrative: 57yo F for Ant Cerv Discectomy w/ fusion s/p shoulder mass excision 10/2022 with [place] PMFSH Active Problems Active Problems: All Active Problems (Updated 03/18/23 @ 15:14 by Tayla Kingston MD) Hypothyroid (Acute) Psoriasis (Acute) Thyromegaly (Acute) Depression (Acute) Cervical cancer screening (Acute) Breast cancer screening (Acute) Screening for diabetes mellitus (DM) (Acute) Screening for hypercholesterolemia (Acute) Medicare annual wellness visit, initial (Acute) Hypermagnesemia (Acute) Obese (Acute) Deficiency anemia (Acute) Iron deficiency anemia (Chronic) BESSY (generalized anxiety disorder) (Acute) MDD (major depressive disorder), recurrent episode, moderate (Acute) Lump of skin (Acute) Radiculopathy, cervical (Acute) Carpal tunnel syndrome (Acute) Cubital tunnel syndrome (Acute) Chronic pain syndrome (Acute) HTN (hypertension) (Acute) Spinal stenosis, cervical region (Acute) Cervical myelopathy (Acute) Degenerative disc disease, cervical (Acute) Neck Pain (Acute) Obesity (Acute) Vitamin D deficiency (Acute) Psoriasis (Acute) Fibromyalgia (Acute) Past Medical History Medical History Anemia Anxiety Degenerative disc disease, cervical Depression Fibromyalgia History of lipoma Hypothyroid Lipoma of back (10/22/22) Neck Pain Obesity Psoriasis Vitamin D deficiency Family History Family History Father CVD (cardiovascular disease) Stroke Hypertension Myocardial infarction Thyroid cancer Mother Hypertension Maternal Grandmother Colon cancer Glaucoma Family history of problems with anesthesia: No Surgical History Surgical History History of cholecystectomy History of gastric bypass History of shoulder surgery History of tooth extraction Hx of colonoscopy S/P panniculectomy History of Problems with Anesthesia: No Social History Social History Household Members: None Housing: Other (Mobile Home) Housing Other:: mobile home Are you a primary direct care provider to a significant other at home: No Do you presently have visiting nurse or other home services: No Alcohol intake: never Patient Tobacco Use Status: Former Tobacco user Quit Date: 2019 Tobacco use type: Cigarette Cigarette Packs Per Day: 1 Years Smoked: 30 e-Cigarette/Vaping Use: Never Used Use of substances other than those prescribed or required for medical reasons: No Have you been hit, kicked, punched, or otherwise hurt by someone within the past year? If so, by whom?: No Are you DNR?: No Advance Directives: No Advance Directives Information Provided: Yes Advance Directives on File: No Recently lost weight without trying: No service: No Current occupational status: unemployed Cognitive needs: No Hearing needs: No Vision needs: No Meds Allergies Allergy/AdvReac Type Severity Reaction Status Date / Time morphine [MORPHINE] Allergy Intermediate NIGHTMARES Verified 03/14/23 15:14 oxycodone [Percocet] Allergy Intermediate nausea and Verified 03/14/23 15:14 vomiting Penicillins Allergy Intermediate rash,sob Verified 03/14/23 15:14 Sulfa (Sulfonamide Allergy Intermediate RASH Verified 03/14/23 15:14 Antibiotics) [SULFA (SULFONAMIDE ANTIBIOTICS)] Home Medications Medication Instructions Recorded Confirmed Last Taken Type gabapentin 300 mg capsule 300 mg PO TID PRN Pain 10/17/21 03/18/23 Unknown History certolizumab pegol 400 mg (200 mg 200 mg subcut Q2W 02/20/23 03/18/23 03/05/23 History x 2 vials) subcutaneous kit Exam Exam Date and Time: March 20, 2023 1344 Height,Weight and Vital Signs: Height 5 ft 7 in Weight 104.326 kg Pertinent Lab Results Pertinent Lab Results: Laboratory Tests 02/21/23 02/21/23 09:22 09:22 WBC 6.5 Hgb 13.3 Hct 43.2 Plt Count 415 H Sodium 144 Potassium 4.6 Chloride 107 Carbon Dioxide 30 H BUN 8 L Creatinine 0.86 Assessment and Plan Assessment Anesthesia Assessment: Chart Reviewed Final Anesthetic Review Family History of Problems with Anesthesia: No History of Problems with Anesthesia: No Documented by User: Daina Pandey MD 03/21/23 11:02 [facility] Past Medical History Medical History Anemia Anxiety Degenerative disc disease, cervical Depression Fibromyalgia History of lipoma Hypothyroid Lipoma of back (10/22/22) Neck Pain Obesity Psoriasis Vitamin D deficiency Family History Family History Father CVD (cardiovascular disease) Stroke Hypertension Myocardial infarction Thyroid cancer Mother Hypertension Maternal Grandmother Colon cancer Glaucoma Surgical History Surgical History History of cholecystectomy History of gastric bypass History of shoulder surgery History of tooth extraction Hx of colonoscopy S/P panniculectomy Social History Social History Household Members: None Housing: Other (Mobile Home) Housing Other:: mobile home Are you a primary direct care provider to a significant other at home: No Do you presently have visiting nurse or other home services: No Alcohol intake: never Patient Tobacco Use Status: Former Tobacco user Quit Date: 2019 Tobacco use type: Cigarette Cigarette Packs Per Day: 1 Years Smoked: 30 e-Cigarette/Vaping Use: Never Used Use of substances other than those prescribed or required for medical reasons: No Have you been hit, kicked, punched, or otherwise hurt by someone within the past year? If so, by whom?: No Are you DNR?: No Advance Directives: No Advance Directives Information Provided: Yes Advance Directives on File: No Recently lost weight without trying: No service: No Current occupational status: unemployed Cognitive needs: No Hearing needs: No Vision needs: No Meds Allergies Allergy/AdvReac Type Severity Reaction Status Date / Time morphine [MORPHINE] Allergy Intermediate NIGHTMARES Verified 03/14/23 15:14 oxycodone [Percocet] Allergy Intermediate nausea and Verified 03/14/23 15:14 vomiting Penicillins Allergy Intermediate rash,sob Verified 03/14/23 15:14 Sulfa (Sulfonamide Allergy Intermediate RASH Verified 03/14/23 15:14 Antibiotics) [SULFA (SULFONAMIDE ANTIBIOTICS)] Home Medications Medication Instructions Recorded Confirmed Last Taken Type gabapentin 300 mg capsule 300 mg PO TID PRN Pain 10/17/21 03/18/23 Unknown History certolizumab pegol 400 mg (200 mg 200 mg subcut Q2W 02/20/23 03/18/23 03/05/23 History x 2 vials) subcutaneous kit Exam Airway Mallampati Class: II TM Dist: <=3cm Neck ROM: Limited Heart: rrr Lungs: cta Assessment and Plan Assessment Anesthesia Assessment: Anesthesia Plan Discussed Final Anesthetic Review NPO: Yes ASA Class: III Final Preanesthetic Review: No Changes in Pt Med Stat, Meds/Allgs Chart Reviewed, Consent Obtained/Reviewed and Anes Risks/Benef Reviewed Patient Risk: Intermediate Procedure Risk: Intermediate Anesthetic Plan Anesthetic Plan: GA Disposition: Standard PACU
[2023-03-21] VITALS (12 sets, daily range): BP systolic 139–177; BP diastolic 66–88; PULSE 60–81; RESP 12–18; TEMP 36.3–36.7; O2SAT 95–99; BMI 36.8; BMI 38.2
--- NOTE | ~2023-03-21 | FL_ITS ---
EXAMINATION: XR FLUOROSCOPY WITH IMAGES CLINICAL INFORMATION: Anterior cervical discectomy COMPARISON: None available. TECHNIQUE: Fluoroscopy Supervised By: Dr. Khadar Hyatt Fluoroscopy Time: 0.0 minutes. Cumulative Dose: 3.23 mGy. DAP: 0.505 Gycm2. Images: 3. FINDINGS: Images demonstrate anterior surgical instruments and disc prosthesis at the C6-C7 level. FL/FL guidance in OR IMPRESSION: Fluoroscopy guidance for cervical spine surgery
--- NOTE | 2023-03-21 10:23 | MHC.SHP ---
Pre-Procedural Eval Section A Date of Service: 03/21/23 The patient is an INPATIENT: No Changes since office visit: No Cold of Flu in the past 2 weeks, No New Medical Problems, No Changes in Medication and No Patient answered all questions Section B Chief Complaint: Disease of spinal cord, unspecified Allergies: Allergies Allergy/AdvReac Type Severity Reaction Status Date / Time morphine [MORPHINE] Allergy Intermediate NIGHTMARES Verified 03/14/23 15:14 oxycodone [Percocet] Allergy Intermediate nausea and Verified 03/14/23 15:14 vomiting Penicillins Allergy Intermediate rash,sob Verified 03/14/23 15:14 Sulfa (Sulfonamide Allergy Intermediate RASH Verified 03/14/23 15:14 Antibiotics) [SULFA (SULFONAMIDE ANTIBIOTICS)] Review of Systems Sugical H&P ROS: Negative: Constitution, Cardiovascular, Respiratory, Neurological, Psychiatric, Hem-Onc, Allergic/Immunologic, Gastrointestinal, Genitourinary, Musculoskeletal, Integumentary, Endocrine and Eyes/Ears/Nose/Throat Exam Surgical H&P Exam: Not Evaluated: HEENT, Not Evaluated: Heart, Not Evaluated: Lungs, Not Evaluated: Extremities, Not Evaluated: Abdomen, Not Evaluated: Skin and Not Evaluated: Neurological Plan Diagnosis/Plan: Unchanged I have reviewed the history and physical and performed a pertinent physical examination on my patient. No changes have occurred unless specified. plan is for C6-7 ACDF as planned Time Spent With Patient Time: Total time managing care of this patient today _10___ minutes.
[2023-03-21] MEDS: Gabapentin 300 MG CAPSULE PO ×2 (11:51→21:01)
[2023-03-21] MEDS: methocarbamoL 750 MG TABLET PO (11:51)
[2023-03-21] MEDS: Lactated Ringers 1,000 ML 100 ML IVCONT (11:57)
[2023-03-21] MEDS: vancomycin HCL 1,500 MG in 0.9 % Sodium Chloride 500 ML 333.33 MG IV ×2 (11:57→23:33)
--- NOTE | 2023-03-21 14:14 | P.OP_ITS ---
Operative Note Operative Note Date of Service: 03/21/23 Narrative: Preoperative Diagnosis: Cervical myelopathy Procedure: C6-7 Anterior discectomy, arthrodesis and implantation cage ; C6-7 anterior instrumentation ; local autograft; microscope Informed Consent was obtained for this operation. I have explained the nature, purpose and benefits of the operation. I have discussed the risks and benefit of the operation including possible complications or adverse events with patient/family. Alternative(s) were discussed with the patient with their relative benefits and risks as well as the consequences of not accepting the operation were included in obtaining consent. Surgeon: NOMI MALCOLM MD, PHD Procedure Assisted By: Lexx Miranda Description of Procedure: Patient is having symptoms of cervical myelopathy. An MRI shows spinal cord compression C6-C7 The procedure complications were explained. The patient was consented. The patient was brought to the operating room and endotracheally intubated. The patient was put in supine position with slight extension of the neck. Prep and drape was done followed by timeout. A mid cervical incision was made followed by opening of the platysma. The prevertebral fascia was reached following the natural planes while the physician licensed occupational therapy assistant provided manual retraction. The prevertebral fascia was opened to expose the disc space. A spinal needle was placed in the disk space to confirm the correct level with xray. The longus colli muscles were released bilaterally and a self retaining retractor was inserted. Two [place] pins were placed in the C6 and C7 vertebral bodies and distraction was give over the interspace. The discectomy was completed toward the posterior annulus of the disc. The microscope was brought in. The remainder of the discectomy was completed. The posterior ligament was opened and resected to expose the underlying dura. Osteophytes were resected from the body of C6 and C7 and saved for autograft. Bilateral foraminotomies were done. The endplates were prepared after which a 6 mm [place] cage filled with autograft was inserted into the disc space. A separate attached plate was locked down with 2 x 14 mm screws as anterior instrumentation. Final x-rays in AP and lateral projection showed a satisfactory position of the implant. The physician licensed occupational therapy assistant took over. The [place] pin was removed. Hemostasis was done. He closed the incision in 2 layers with a 3-0 Vicryl. Steri-Strips used to appro ximate incision. An OpSite with Tegaderm was used to cover the incision. All sponge and needle counts were correct. Patient was extubated and transported in stable is to recovery room. Anesthesia: General Estimated Blood Loss (ml): 20 mL Duration of Surgery: Less than 60 minute Postoperative Plan: Discharge home Complications: None
[2023-03-21] MEDS: HYDROmorphone HCl 0.5 MG/0.5 ML SYRINGE 0.25 MG IVPUSH (14:50)
--- NOTE | 2023-03-21 14:54 | PM.DS ---
DS: Providers Provider Date of Service: 03/22/23 Primary care physician: Ayad Brewer PA-C DS: Summary Time Spent with Patient Time attestation: Total time managing care of this patient today ____ minutes. Discharge coordination time: Less than 30 minutes Quality: Safe Use of Opioids Does Pt have an Active Cancer Diagnosis on the Problem List?: No Quality: Stroke Does the patient have a stroke diagnosis?: No Physical Exam Vital Signs: Vital Signs: Last Vital Signs Temp 98.0 F 03/21/23 14:40 Pulse 81 03/21/23 14:40 Resp 18 03/21/23 14:45 BP 155/83 H 03/21/23 14:40 Pulse Ox 98 03/21/23 14:40 O2 Del Method Nasal Cannula wit h Capnography 03/21/23 14:40 O2 Flow Rate 3 03/21/23 14:40 BMI result Body Mass Index 36.8 Discharge Plan Discharge Anticipated Discharge Date/Time: 03/22/23 08:56 Patient Disposition: Home, Self-Care Discharge Diagnosis: s/p C6-7 ACDF Referrals: Ayad Brewer PA-C [Primary Care Provider] - 1 Week Discharge Medications: New hydromorphone [Dilaudid] 2 mg tablet 2 mg PO Q6H Qty: 24 0RF Rx Instructions: Partial Fill upon patient request. acetaminophen 500 mg tablet 1,000 mg PO Q8H Qty: 30 0RF docusate sodium 100 mg capsule 100 mg PO BID Qty: 20 0RF Continued ferrous sulfate 325 mg (65 mg iron) tablet 325 mg PO DAILY Qty: 90 1RF gabapentin 300 mg capsule 300 mg PO TID PRN (Reason: Pain) cyanocobalamin (vitamin B-12) 1,000 mcg/mL solution 1,000 mcg IM QMONTH Qty: 12 19RF (DME) Syringe 3cc/21Gx1 3 mL 21 gauge x 1 Syringe Qty: 1 12RF Rx Instructions: As Directed lisinopril 5 mg tablet 5 mg PO DAILY 30 Days Qty: 30 3RF Hold Instructions: Doctor's Order (DME) Blood Pressure Cuff Misc See Rx Instructions .ROUTE .MEDSUPPLY Qty: 1 0RF Rx Instructions: As directed levothyroxine 125 mcg tablet 125 mcg PO DAILY 30 Days Qty: 30 11RF Held certolizumab pegol 400 mg (200 mg x 2 vials) kit 200 mg subcut Q2W Hold Instructions: Resume on 04/05/23. Discharge Orders: Discharge Order (Routine); Ordered 03/22/23 Ordered By: Dominik Sandoval Diet: Advance to usual diet Activity on Discharge: As tolerated Activity Restrictions/Additional Instructions: After your spinal surgery we ask you to observe the following restrictions/guidelines: Activity: It is normal to feel some discomfort as you increase your activity, but that will improve with time. We ask you avoid heavy lifting or acitivities that cause pain. As a general rule, 8lbs is a safe limit for lifting right after surgery. Walk as much as you feel comfortable but not to exhaustion. You will feel extra tired the first few days after surgery. Stay well hydrated. It is OK to walk up and down stairs You may return to driving when you are off narcotics (such as vicodin, oxycodone, dilaudid, etc), and you are back to normal functional capacity. If you have any concerns please check with office before driving. Return to work is specific to each patient and each surgery, so please speak with your doctor/PA at first follow up. Please bring paperwork such as FMLA at that time if you need it filled out. Medications: We will give you a short supply of narcotics after surgery (usually one weeks worth). If you need more please call the office but do not use more than prescribed. You will need to give our office 48 hours notice if you need narcotics refilled and we do not fill narcotics on weekends or evenings. If you are on a narcotic, it is a good idea to take a stool softener such as colace or senna to avoid constipation If you take blood thinner such as aspirin, Plavix, Coumadin, Effient, Eliquis etc for conditions such as Afib, DVT, Pulmonary embolus, coronary disease, stents etc please speak with your surgeon about specific details as to when you can resume these medications. You can resume NSAIDs on post op day 1 (eg: Motrin, Naproxen, etc). Follow up: Please call the office, , after surgery to arrange a 3 week follow up for wound check. Wound Care: You may remove your dressing on the first day after surgery. You may leave open to air. Please do not remove the steri strips underneath. they will fall off on their own in one week. IT IS NORMAL FOR THE WOUND TO OOZE OR BE BLOODY FOR A FEW DAYS AFTER SURGERY. IF THIS HAPPENS JUST PLACE NEW DRESSING OVER IT TO AVOID STAINING CLOTHES. You may shower on post op day # 1 We ask that you do not let the water soak the wound. If it does get wet, just towel dry lightly. Please do not scrub your incision or place any type of chemical/ointment on the wound. No tub baths, pools or jacuzzis for one month. If you have any leaking or redness from your wound, or fevers, please call office Care Plan Goals: Return to activity as tolerated Health Concerns: None Plan of Treatment: Follow-up in the office in 3 weeks Assessment: Stable
--- NOTE | 2023-03-21 14:57 | HO.NEUROPN_ITS ---
Neurosurgery Operative Note Date of Service: 03/21/23 Narrative: POD: 0 Procedure: C6-7 ACDF Patient seen in PACU. Patient reports she is up conversing and is otherwise doing well. She feels her symptoms are much better than pre-operatively. She still reports mild pain in her shoulders, terminating superior to the deltoids. She did endorse some nausea as well, both an antiemetic and pain medication were placed in her orders. Afebrile, vital signs stable. CNII-XII grossly intact. Full strength 5/5 in UE. Sensation intact and equal in UE. Anterior neck dressing C/D/I. No sanguineous drainage. Area is dry. Plan: Will be admitted to [address] [place] [id number] for recovery, pain management, and further evaluation. I will round on the patient in the morning, and if she is doing well she can be discharged pending PT eval. This was discussed with Dr. Hyatt who is in agreement with this plan. Dominik Hyatt MD,PhD [facility]
[2023-03-21] MEDS: Ketorolac Tromethamine 15 MG/ML VIAL IVPUSH ×2 (16:15→21:02)
[2023-03-21] MEDS: oxyCODONE HCl Immed Release 5 MG TABLET 10 MG PO (17:53)
[2023-03-21] MEDS: 0.9 % Sodium Chloride 1,000 ML 75 ML IVCONT (18:23)
--- NOTE | 2023-03-21 18:53 | PHA.MEDREC ---
Pharmacy Consult ? Medication Reconciliation Pharmacy has reviewed the medication reconciliation completed by nursing. Per PC's note, he did prescribed lisinopril but most recent not reported that lisinopril is on hold. Therefore left unconfirmed. Amanda Christian, KristineD
[2023-03-21] MEDS: Acetaminophen 1,000 MG/100 ML PIGGYBACK 400 MG IV (19:13)
[2023-03-21] MEDS: Acetaminophen 325 MG TABLET 975 MG PO (21:00)
[2023-03-21] MEDS: Docusate Sodium 100 MG CAPSULE PO (21:01)
[2023-03-22] MEDS: Ketorolac Tromethamine 15 MG/ML VIAL IVPUSH ×2 (02:19→07:59)
[2023-03-22] MEDS: Acetaminophen 325 MG TABLET 975 MG PO ×2 (02:21→07:58)
[2023-03-22 03:08] VITALS: BP 142/65; PULSE 60; RESP 18; TEMP 36.3; O2SAT 96
[2023-03-22 03:12] VITALS: RESP 18
[2023-03-22] MEDS: HYDROmorphone HCl 1 MG/ML SYRINGE IVPUSH ×2 (03:12→06:33)
--- NOTE | 2023-03-22 04:07 | PC.NURSE ---
2030; Patient ambulated in the hallway with standby assist. Patient ambulated with a steady gait, no complaints of discomfort. Ambulated to the bathroom with standby assist.
[2023-03-22 06:30] VITALS: BP 148/75; PULSE 72
[2023-03-22 06:33] VITALS: RESP 18
[2023-03-22 07:52] VITALS: BP 126/74; PULSE 60; RESP 16; TEMP 36.6; O2SAT 95
[2023-03-22 07:56] VITALS: BP 126/74; PULSE 60; O2SAT 95
[2023-03-22] MEDS: Gabapentin 300 MG CAPSULE PO (07:58)
[2023-03-22] MEDS: Docusate Sodium 100 MG CAPSULE PO (07:58)
--- NOTE | 2023-03-22 09:03 | HO.NEUROPN_ITS ---
Neurosurgery Operative Note Date of Service: 03/22/23 Narrative: POD: 1 Procedure: C6-7 ACDF Patient seen on [address] sitting upright eating breakfast. Patient reports she is getting up out of bed, ambulating, voiding and is otherwise feeling well. She feels her symptoms continue to improve and feel better than pre-operatively. She still reports mild pain in her R shoulders terminating superior to the deltoid. No pain reported in L shoulder this morning.?She endorses good control of pain with her pain medication regimen. Afebrile, vital signs stabe. CNII-XII grossly intact. Full strength 5/5 in UE. Sensation intact and equal in UE. Anterior neck dressing C/D/I, with some slight staining. No sanguineous drainage, no signs of hematoma. Area is dry. Plan: The patient is seen physical therapy, is up able to ambulate, eat, void and has a pleasant positive demeanor. She may be discharged home, her medications have been sent to [facility] on [address]. This was discussed with Dr. Hyatt who is in agreement with this plan. Dominik Hyatt MD,PhD [facility]
--- NOTE | 2023-03-22 09:36 | MHC.CM.PN ---
Patient discharged prior to being seen by cayla.
--- NOTE | 2023-03-22 09:52 | MHC.CM.PN ---
IMM 03/22/23 Female 57 S/P C6-7 ACDF She is discharged to home self care today. She has arranged for transport home from her brother.
[2023-03-22] MEDS: oxyCODONE HCl Immed Release 5 MG TABLET 10 MG PO (11:41)
--- NOTE | 2023-03-22 14:44 | HO.POSTANES ---
Post Anesthesia Evaluation Post Anesthesia Evaluation Date of Service: 03/21/23 Vital Signs: Vital Signs Temp Pulse Resp BP Pulse Ox O2 Del Method 03/22/23 07:56 60 126/74 95 03/22/23 07:52 97.8 F 60 16 126/74 95 Room Air 03/22/23 06:30 72 148/75 H 03/22/23 06:33 18 03/22/23 03:12 18 03/22/23 03:08 97.3 F 60 18 142/65 H 96 Room Air Anesthesia: General Endotracheal-GETA Mental Status: Awake Pain Control: Satisfactory Nausea/Vomiting: None Hydration: Adequate Anesthesia-Related Issues: No Anes. Related Issues
== END 2023-03-22 14:45 | disposition home or self-care (01) | DRG 473 ==
LOC: HO.SSS 14:55 → HO.S3 17:11
PROVIDERS: Admitting Provider Physician Assistant; PCP Physician Assistant; Visit Provider Neurological Surgery
PROC: 0RG10A0 Fusion of Cervical Vertebral Joint with Interbody Fusion Device, Anterior Approach, Anterior Column, Open Approach (ICD-10-PCS; principal; 2023-03-21 12:50)
DX: M50.023 Cervical disc disorder at C6-C7 level with myelopathy (principal); E03.9 Hypothyroidism, unspecified; Z98.84 Bariatric surgery status; Z87.891 Personal history of nicotine dependence; Z79.890 Hormone replacement therapy; Z79.899 Other long term (current) drug therapy
CPT/HCPCS: 97162; C1713; J0131; J1100; J1170; J1885; J2371; J2405; J3010; J3371

== ENCOUNTER 2023-04-12 13:13 | Outpatient (AMB) | payer OTHER, SELFPAY ==
--- NOTE | 2023-04-12 13:23 | HO.SPINEOV ---
Intake Intake Visit Reasons: 1st post op Intake Note: Ms. Robertson is here today for her 1st post-op visit. 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 Required: No Allergies morphine [MORPHINE] Allergy (Intermediate, Verified 03/14/23 15:14) NIGHTMARES oxycodone [Percocet] Allergy (Intermediate, Verified 03/14/23 15:14) nausea and vomiting Penicillins Allergy (Intermediate, Verified 03/14/23 15:14) rash,sob Sulfa (Sulfonamide Antibiotics) [SULFA (SULFONAMIDE ANTIBIOTICS)] Allergy (Intermediate, Verified 03/14/23 15:14) RASH Assessment & Plan Assessment & Plan (1) History of cervical spinal surgery: Code(s): Z98.890 - Other specified postprocedural states Plan The patient is a 57-year-old female comes in for 1st postoperative visit after a C6-7 ACDF. She states that she feels much better today than she did pre-operatively. She reports that she has regained full strength and sensation in her bilateral upper extremities and is able to pick things up, grasp them and move them without difficulty. She feels like she has very little restrictions at this time, and states that the only day that she felt that she had significant neck pain was the day in which she slept over a friend's house on a new mattress. Overall she feels like she is significantly improved and is very happy with her surgery. On physical exam her incision site is well healing without any signs of erythema, edema, or fluctuance. She is able to rise from a seated position without difficulty he has full strength of her bilateral upper extremities. She is able to ambulate well without any deficit. She was scheduled for a follow-up in 6 weeks for 2nd postoperative visit. She will need to have cervical spine x-rays completed before her visit which had been ordered for her. If she continues to do well from now until her next visit she may be discharged as a patient after that. Total amount of time spent in this visit was 20 minutes in discussion of symptoms, and subsequent plan of care. Dominik Hyatt MD,PhD [facility] Orders: Orders XR cervical spine 4V 05/03/23 Z98.890 - Other specified postprocedural states Coding Level of Care Code Est Pt Level 3 (54590) Diagnoses History of cervical spinal surgery Z98.890
== END 2023-04-12 13:51 | disposition home or self-care (01) ==
PROVIDERS: PCP Physician Assistant; Visit Provider Physician Assistant
DX: Z98.890 Other specified postprocedural states (principal)
CPT/HCPCS: 99213

== ENCOUNTER → 2023-04-12 13:13 | Outpatient (BNVA) | payer OTHER, SELFPAY | PROVIDERS: PCP Physician Assistant; Visit Provider Physician Assistant | DX: Z48.89 Encounter for other specified surgical aftercare (principal) | CPT/HCPCS: 99212 ==

== ENCOUNTER 2023-05-03 10:26 | Outpatient (REF) | payer OTHER, SELFPAY | END 2023-05-03 10:27 | disposition home or self-care (01) | LOC: HO.HOSX 10:26 | PROVIDERS: Visit Provider Physician Assistant | DX: Z13.89 Encounter for screening for other disorder (principal) ==

== ENCOUNTER 2023-05-14 11:37 | Outpatient (AMB) | payer OTHER, SELFPAY ==
--- NOTE | 2023-05-14 11:42 | MHC.PC.OV ---
Vital Signs 05/14/23 11:46 Height 5 ft 4.57 in Weight 236 lb 8 oz BMI 39.9 BP 142/90 H Blood Pressure Location Lt brachial Position Sitting Respiration 17 Pulse 76 Pulse Source Pulse Oximeter Pulse Oximetry (%) 98 Oxygen Delivery Method Room Air Intake Visit Reasons: f/u HTN Intake Note: Pt is here for F/U HTN and Spine surgery done 03/22. ? UTI symptoms since last with LBP. 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 Accompanied by: Self / Same As Patient Allergies morphine [MORPHINE] Allergy (Intermediate, Verified 05/14/23 12:14) NIGHTMARES oxycodone [Percocet] Allergy (Intermediate, Verified 05/14/23 12:14) nausea and vomiting Penicillins Allergy (Intermediate, Verified 05/14/23 12:14) rash,sob Sulfa (Sulfonamide Antibiotics) [SULFA (SULFONAMIDE ANTIBIOTICS)] Allergy (Intermediate, Verified 05/14/23 12:14) RASH Medication List - Last Reconciled 05/14/23 by Ayad Brewer PA-C acetaminophen 1,000 mg (2 x 500 mg) PO Q8H certolizumab pegol 200 mg subcut Q2W cyanocobalamin (vitamin B-12) 1,000 mcg IM QMONTH docusate sodium 100 mg PO BID ferrous sulfate 325 mg PO DAILY gabapentin 300 mg PO TID PRN levothyroxine 125 mcg PO DAILY 30 days lisinopril 5 mg PO DAILY 30 days miscellaneous medical supply (Blood Pressure Cuff) As directed syringe with needle (Syringe) As Directed Tobacco use date assessed: 02/20/23 Dental Screening Dental Screen Date: 05/14/23 Did you have a dental visit in the last 12 months?: Yes Did you have a dental problem in the last 6 months where you did not have access to dental care?: No Was dental information given to patient?: Patient has dentist HPI f/u HTN HPI Details Patient is a 57-year-old female here today for follow-up visit.? Patient has a past medical history significant for hypothyroidism, fibromyalgia, obesity Concern--> reports over last 6 days having decreased urinary output and dysuria. She feels she has UTI. Urinalysis today in office showing 3+ leukocytes and RBCs. .. Cervical spine disc disease: Recently underwent cervical spine surgery and reports better strength in her upper extremities unless pain down her left upper extremity. Has been taken off her sorry as his medication to help heal after surgery. She does report increase right shoulder pain. Hypertension: Has been able to get herself a blood pressure cuff to do home blood pressure monitoring. Today in office blood pressures are elevated. She is willing to start lisinopril 5 mg to control blood pressure. . Psoriasis: Followed by [employer] commerce consultant and has been started on new disease modifying injection. Reports much more clear skin over upper extremities and happy with the results. Denies any significant side effects of the injectable therapy. .. Hypothyroidism:? Has been more consistent with the use of her levothyroxine. Most recent TSH elevated due to not using levothyroxine med. Patient continues to follow Endocrinology and most recent TSH stable.? Continues on levothyroxine 125 mcg. .. Fibromyalgia:? Has seen rheumatology and continues on gabapentin 300 mg t.i.d though reports she only takes gabapentin on an as-needed basis at night for sleep. ?.. Obesity:? Patient does understand her BMI is over 30 and has been working on being more physically active and adapting to better eating habits to reduce her weight though has not been successful. [facility] Medical History History of lipoma Degenerative disc disease, cervical Neck Pain Lipoma of back (10/22/22) Hypothyroid Anemia Depression Anxiety Obesity Vitamin D deficiency Psoriasis Fibromyalgia Surgical History History of shoulder surgery History of tooth extraction Hx of colonoscopy S/P panniculectomy History of cholecystectomy History of gastric bypass Family History Father CVD (cardiovascular disease) Stroke Hypertension Myocardial infarction Thyroid cancer Mother Hypertension Maternal Grandmother Colon cancer Glaucoma Social History Household Members: None Housing: House Housing Other:: mobile home Are you a primary gericare aide to a significant other at home: No Do you presently have visiting nurse or other home services: No Alcohol intake: never Patient Tobacco Use Status: Former Tobacco user Quit Date: 2019 Tobacco use type: Cigarette Cigarette Packs Per Day: 1 Years Smoked: 30 e-Cigarette/Vaping Use: Never Used Second Hand Smoke Exposure: No service: No Current occupational status: unemployed Cognitive needs: No Hearing needs: No Vision needs: No Questionnaire Thrive Questionnaire Date Thrive assessed: 03/22/23 BESSY-7 AMB Questionnaire BESSY-7 Date BESSY - 7 assessed: 02/20/23 Source: Developed by Drs. Fish Damon, Marguerite Thompson, Vishal Churchill and colleagues, with an educational shea from [employer]. Review of Systems Const Denies headache(s) Eyes Denies loss of vision ENT Denies vertigo, Denies dizziness, Denies headache(s) and Denies sore throat Card Denies chest pain, Denies leg edema and Denies lightheadedness Resp Denies cough, Denies hemoptysis and Denies wheezing GI Denies abdominal pain, Denies melena, Denies constipation, Denies diarrhea and Denies vomiting Denies urinary frequency, Reports dysuria, Reports urinary hesitancy and Denies urinary urgency Musc Denies arthralgias, Denies joint swelling, Denies numbness and Denies tingling Neuro Denies Abnormal speech present, Denies behavioral changes, Denies vertigo, Denies dizziness, Denies headache(s), Denies loss of vision, Denies memory loss, Denies numbness and Denies tingling Psych Denies anxiety, Denies behavioral changes, Denies depression, Denies memory loss and Denies panic attacks Uli/Lymph Denies easy bleeding and Denies easy bruising Aller/Immun Denies wheezing Physical exam (Primary Care) Vital Signs: Last Vital Signs Pulse 76 05/14/23 11:46 Resp 17 05/14/23 11:46 BP 142/90 H 05/14/23 11:46 Pulse Ox 98 05/14/23 11:46 Oxygen Delivery Method Room Air 05/14/23 11:46 BMI result Body Mass Index 39.9 Tobacco/Smoking Status: Tobacco use Status Tobacco use date assessed 02/20/23 05/14/23 11:42 Patient Tobacco Use Status Former Tobacco user 05/14/23 11:42 Tobacco use type Cigarette 05/14/23 11:42 e-Cigarette/Vaping Use Never Used 05/14/23 11:42 Thrive Assessment: Date of Thrive Assessment Date Thrive assessed 03/22/23 05/14/23 11:42 Const General: healthy appearing, no acute distress, alert and awake Nutritional Appearance: well nourished Orientation/consciousness: oriented to person, oriented to place and oriented to time HENMT Ears: TM's normal bilaterally General nose exam: Normal nasal mucous membranes and turbinates present Eyes Conjunctivae: conjunctivae normal Sclerae: sclerae normal Pupils: Equal, round and reactive pupils present Neck Neck: Yes no lymphadenopathy and Yes no JVD Thyroid: Thyroid normal Carotids: no bruits Resp Effort & Inspection: normal respiratory effort and not tachypneic Auscultation: no crackles, no rales, no rhonchi and no wheezes Cardio Rate: regular rate Rhythm: regular rhythm Heart sounds: no murmurs and normal S1 and S2 GI Palpation (GI): Soft to palpation, nontender, no hepatomegaly and no splenomegaly Auscultation: normal bowel sounds Skin General skin exam: no rashes or lesions noted and dry skin Neuro General: oriented to person, oriented to place and oriented to time Cranial nerves: Yes Equal, round and reactive pupils present Speech: No Abnormal speech present Gait exam (Neuro): Normal gait present Motor exam (neuro): no tremor noted Extrem Right upper extremity: full ROM Left upper extremity: full ROM Right lower extremity: full ROM; no edema Left lower extremity: full ROM; no edema Psych Mental Status: mental status grossly normal Speech and movement: Normal speech and movement present Affect: normal affect Attitude: cooperative Thought process: Normal thought process present Assessment and Plan Assessment & Plan (1) HTN (hypertension): Code(s): I10 - Essential (primary) hypertension Qualifiers: Hypertension type: primary hypertension Qualified Code(s): I10 - Essential (primary) hypertension Plan: Blood pressure is still elevated today in office. She is willing to start lisinopril 5 mg. Advised to monitor blood pressure at home with goal blood pressure to be below 140/90 (2) Psoriasis: Code(s): L40.9 - Psoriasis, unspecified Plan: Has been started on new disease modifying drug which has been helpful for her psoriasis. (3) Obese: Code(s): E66.9 - Obesity, unspecified Qualifiers: Body mass index: BMI 37.0-37.9 Obesity classification: adult class 2 (BMI 35 - 39.9) Obesity type: due to excess calories Serious obesity comorbidity presence: without serious comorbidity Qualified Code(s): E66.09 - Other obesity due to excess calories; Z68.37 - Body mass index [BMI] 37.0-37.9, adult Plan: Has lost some weight since last office visit.. Patient does understand her BMI remains above 30 will continue working on dietary modifications and being more physically active to reduce her weight. (4) Spinal stenosis, cervical region: Code(s): M48.02 - Spinal stenosis, cervical region Plan: She is status post cervical spine surgery. Doing better with less weakness in the upper extremities. (5) UTI (urinary tract infection): Code(s): N39.0 - Urinary tract infection, site not specified Qualifiers: Hematuria presence: with hematuria Urinary tract infection type: acute cystitis Qualified Code(s): N30.01 - Acute cystitis with hematuria Plan: Today's urinalysis showing positive evidence a UTI. Will supply patient with ciprofloxacin Orders: Orders Microalbumin, Random (w Creat) Today I10 - Essential (primary) hypertension Comprehensive [place]. Panel Fast Today I10 - Essential (primary) hypertension IRON PROFILE Today D50.9 - Iron deficiency anemia, unspecified Medications: New ciprofloxacin HCl 250 mg PO BID 5 days 10 tabs 0RF N39.0 - Urinary tract infection, site not specified Refilled lisinopril 5 mg PO DAILY 30 days 30 tabs 3RF I10 - Essential (primary) hypertension Coding Level of Care Code Est Pt Level 4 (18085) Diagnoses Primary hypertension I10 Hypertension type: primary hypertension Psoriasis L40.9 Class 2 obesity due to excess calories without serious comorbidity with body mass index (BMI) of 37.0 to 37.9 in adult E66.09; Z68.37 Body mass index: BMI 37.0-37.9 Obesity classification: adult class 2 (BMI 35 - 39.9) Obesity type: due to excess calories Serious obesity comorbidity presence: without serious comorbidity Spinal stenosis, cervical region M48.02 Acute cystitis with hematuria N30.01 Hematuria presence: with hematuria Urinary tract infection type: acute cystitis
[2023-05-14 11:46] VITALS: BP 142/90; PULSE 76; RESP 17; O2SAT 98; BMI 39.9
== END 2023-05-14 12:30 | disposition home or self-care (01) ==
PROVIDERS: PCP Physician Assistant; Visit Provider Physician Assistant
DX: I10 Essential (primary) hypertension (principal); L40.9 Psoriasis, unspecified; E66.09 Other obesity due to excess calories; Z68.37 Body mass index [BMI] 37.0-37.9, adult; M48.02 Spinal stenosis, cervical region; N30.01 Acute cystitis with hematuria
CPT/HCPCS: 99214

== ENCOUNTER 2023-05-15 09:04 | Outpatient (REF) | payer OTHER, SELFPAY ==
[2023-05-17 21:48] LABS: TS Negative Control Passed; TS Panel A 0; TS Panel B 0; TS Positive Control Passed; TSpotTB Negative (Negative)
== END 2023-05-15 09:05 | disposition home or self-care (01) ==
LOC: HO.LAB 09:04
PROVIDERS: PCP Physician Assistant; Visit Provider Dermatology
DX: I10 Essential (primary) hypertension (principal); D50.9 Iron deficiency anemia, unspecified; E03.9 Hypothyroidism, unspecified; L40.3 Pustulosis palmaris et plantaris
CPT/HCPCS: 36415; 80053; 82043; 82570; 83540; 84443; 85025; 86481

== ENCOUNTER 2023-05-24 13:27 | Outpatient (AMB) | payer OTHER, SELFPAY ==
--- NOTE | 2023-05-24 13:50 | HO.SPINEOV ---
Intake Intake Visit Reasons: 2nd post op with xrays Allergies morphine [MORPHINE] Allergy (Intermediate, Verified 05/14/23 12:14) NIGHTMARES oxycodone [Percocet] Allergy (Intermediate, Verified 05/14/23 12:14) nausea and vomiting Penicillins Allergy (Intermediate, Verified 05/14/23 12:14) rash,sob Sulfa (Sulfonamide Antibiotics) [SULFA (SULFONAMIDE ANTIBIOTICS)] Allergy (Intermediate, Verified 05/14/23 12:14) RASH Assessment & Plan Assessment & Plan (1) S/P spinal surgery: Code(s): Z98.890 - Other specified postprocedural states Plan Procedure: C6-7 ACDF The patient is a 57-year-old female who comes in for her 2nd postoperative visit. Teri reports that she continues to do well, and has had an uncomplicated healing course. She reports that she is back to her normal activities including driving, bike riding, and walking / cardio exercise. She feels that she healed very quickly, and is very satisfied with her surgery. We had her get a set of x-rays today, which shows stable placement of her cage construct at C6-7. She reports no concerns at this time, aside from some right shoulder pain/tenderness which she states she believes is due to her psoriatic arthritis. She did inquire about restarting her psoriasis medications which I advised her to not begin at her last appointment. I do believe that she is far enough out from her surgery to begin them again at this point. On physical exam she has full strength of her upper and lower extremities. She does have full range of motion of both shoulders. Her incision site is well healed, without signs of drainage. She is able to ambulate well, rises from a seated position without difficulty. Teri will not need to follow up with our office routinely any further. She was encouraged to reach out to our office if she feels she needs to see us for any future concerns. Dominik Hyatt MD,PhD [facility] [place] Coding Level of Care Code Global (04147) Diagnoses S/P spinal surgery Z98.890
== END 2023-05-24 13:56 | disposition home or self-care (01) ==
PROVIDERS: PCP Physician Assistant; Visit Provider Physician Assistant
DX: Z98.890 Other specified postprocedural states (principal)
CPT/HCPCS: 99024

== ENCOUNTER → 2023-05-24 13:27 | Outpatient (BNVA) | payer OTHER, SELFPAY | PROVIDERS: PCP Physician Assistant; Visit Provider Physician Assistant ==

== ENCOUNTER 2023-05-24 13:29 | Outpatient (REF) | payer OTHER, SELFPAY ==
--- NOTE | ~2023-05-24 | XR_ITS ---
EXAMINATION: XR CERVICAL SPINE CLINICAL INFORMATION: Other specified postprocedural states. COMPARISON: Radiographs dated 11/05/2022. TECHNIQUE: Frontal and lateral (neutral, flexion and extension) views of the cervical spine were obtained. FINDINGS: There is bony demineralization. At C4-C5 and C5-C6, there is moderately severe degenerative disc disease and spondylosis. At C6-C7, there is an intact anterior Low Profile fixator device. No hardware failure loosening is seen. There is no acute fracture or spondylolisthesis. No instability is seen with flexion or extension. The posterior elements are intact. The dens is intact. No prevertebral soft tissue swelling or gas is seen. XR/XR cervical spine 4V IMPRESSION: 1. There is well-maintained alignment status-post C6-C7 anterior fusion and discectomy. No hardware failure or loosening is seen. 2. At C4-C5 and C5-C6, there is moderately severe degenerative disc disease and spondylosis. 3. There is no instability with flexion or extension.
== END 2023-05-24 13:30 | disposition home or self-care (01) ==
LOC: HO.HOSX 13:29
PROVIDERS: Visit Provider Physician Assistant
DX: Z09 Encounter for follow-up examination after completed treatment for conditions other than malignant neoplasm (principal)
CPT/HCPCS: 72050; 99212

== ENCOUNTER 2023-09-24 11:10 | Outpatient (AMB) | payer OTHER, SELFPAY ==
[2023-09-24 11:14] VITALS: BP 160/82; PULSE 65; RESP 17; O2SAT 99; BMI 37.0
--- NOTE | 2023-09-24 11:14 | MHC.PC.OV ---
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 [employer] Required: No Accompanied by: Self / Same As Patient Allergies morphine [MORPHINE] Allergy (Intermediate, Verified 09/24/23 11:32) NIGHTMARES oxycodone [Percocet] Allergy (Intermediate, Verified 09/24/23 11:32) nausea and vomiting Penicillins Allergy (Intermediate, Verified 09/24/23 11:32) rash,sob Sulfa (Sulfonamide Antibiotics) [SULFA (SULFONAMIDE ANTIBIOTICS)] Allergy (Intermediate, Verified 09/24/23 11:32) RASH Medication List - Last Reconciled 09/24/23 by Ayad Brewer PA-C acetaminophen 1,000 mg (2 x 500 mg) PO Q8H certolizumab pegol 200 mg subcut Q2W cyanocobalamin (vitamin B-12) 1,000 mcg IM QMONTH docusate sodium 100 mg PO BID ferrous sulfate 325 mg PO DAILY gabapentin 300 mg PO TID PRN levothyroxine 125 mcg PO DAILY 30 days miscellaneous medical supply (Blood Pressure Cuff) As directed syringe with needle (Syringe) As Directed Tobacco use date assessed: 09/24/23 Dental Screening Dental Screen Date: 09/24/23 Did you have a dental visit in the last 12 months?: Yes Did you have a dental problem in the last 6 months where you did not have access to dental care?: No Was dental information given to patient?: Patient has dentist HPI f/u HTN HPI Details Patient is a 58-year-old female here today for follow-up visit.? Patient has a past medical history significant for hypothyroidism, fibromyalgia, obesity Concern--> inability to lose weight .. Hypertension: Has been able to get herself a blood pressure cuff to do home blood pressure monitoring. Today in office blood pressures are elevated. She reports starting lisinopril though made her psoriasis dermatology manifestation worse. PLAN: Will try to help her lose weight, advised to monitor blood pressure at home . Psoriasis: Followed by clothing trades workers and has been started on new disease modifying injection which did not help her psoriasis. She is due to try a new disease modifying drug. .. Hypothyroidism:? Has been more consistent with the use of her levothyroxine. Most recent TSH elevated due to not using levothyroxine med. Patient continues to follow Endocrinology and most recent TSH stable.? Continues on levothyroxine 125 mcg. .. Fibromyalgia:? Has seen rheumatology and continues on gabapentin 300 mg t.i.d though reports she only takes gabapentin on an as-needed basis at night for sleep. ?.. Obesity:? Patient does understand her BMI is over 30 and has been working on being more physically active and adapting to better eating habits to reduce her weight though has not been successful. Has a history of bariatric surgery years ago with Dr. Wiggins though has seemed to gain her weight back. She reports she has a mostly vegetarian diet and is somewhat physically active riding her bike and walking on a nearly everyday basis. She was found to have a slightly elevated fasting blood sugar 104 She is interested in GP 1 to help her reduce her weight. Is again interested in being seen by cardiology clinical nurse specialist [facility] Medical History History of lipoma Degenerative disc disease, cervical Neck Pain Lipoma of back (10/22/22) Hypothyroid Anemia Depression Anxiety Obesity Vitamin D deficiency Psoriasis Fibromyalgia Surgical History History of shoulder surgery History of tooth extraction Hx of colonoscopy S/P panniculectomy History of cholecystectomy History of gastric bypass Family History Father CVD (cardiovascular disease) Stroke Hypertension Myocardial infarction Thyroid cancer Mother Hypertension Maternal Grandmother Colon cancer Glaucoma Social History Household Members: None Housing: House Housing Other:: mobile home Are you a primary care management specialist to a significant other at home: No Do you presently have visiting nurse or other home services: No Alcohol intake: never Comment: rings appropriately Patient Tobacco Use Status: Former Tobacco user Quit Date: 2019 Tobacco use type: Cigarette Cigarette Packs Per Day: 1 Years Smoked: 30 e-Cigarette/Vaping Use: Never Used Second Hand Smoke Exposure: No service: No Current occupational status: unemployed Cognitive needs: No Hearing needs: No Vision needs: No Questionnaire PHQ-9 Over the last 2 weeks, how often have you been bothered by any of the following problems? 1. Little interest or pleasure in doing things: more than half the days 2. Feeling down, depressed, or hopeless: more than half the days 3. Trouble falling or staying asleep, or sleeping too much: more than half the days 4. Feeling tired or having little energy: nearly every day 5. Poor appetite or overeating: nearly every day 6. Feeling bad about yourself - or that you are a failure or have let yourself or your family down: more than half the days 7. Trouble concentrating on things, such as reading the newspaper or watching television: several days 8. Moving or speaking so slowly that other people could have noticed. Or the opposite - being so fidgety or restless that you have been moving around a lot more than usual: more than half the days 9. Thoughts that you would be better off or of hurting yourself in some way: several days Total score: 18 [id number] - PHQ-9 Billing: Yes Source: Developed by Drs. Fish Damon, Marguerite Thompson, Vishal Churchill and colleagues, with an educational shea from [employer]. Thrive Questionnaire Date Thrive assessed: 09/24/23 I am a: Patient What is your living situation today?: I have a steady place to live Within the past 12 months, did the food you bought not last and you didn't have the money to get more?: Never true Within the past 12 months, did you worry whether your food would run out before you got money to buy more?: Never true Do you have trouble paying for medicines?: No Do you have trouble getting transportation to medical appointments?: No Do you have trouble paying your heating and electricity bill?: No Do you have trouble taking care of your child, family member or friend?: No Do you have trouble with day-to-day activities such as bathing, preparing meals, shopping, managing finances, etc.?: No Are you currently unemployed and looking for a job?: No Are you interested in more education?: No Please select the resources that you would like help with: None Currently or been in a relationship where the following occur: no concerns reported THRIVE Score: 0 AUDIT C Alcohol Use Questionnaire (AUDIT-C) 1. How often do you have a drink containing alcohol?: Monthly or less 2. How many drinks containing alcohol do you have on a typical day when you are drinking?: 1 or 2 3. How often do you have six or more drinks on one occasion?: Never Total Score: 1 BESSY-7 AMB Questionnaire BESSY-7 Date BESSY - 7 assessed: 09/24/23 Feeling nervous, anxious, or on edge: 3 = Nearly every day Not being able to stop or control worryin = Nearly every day Worrying too much about different things: 3 = Nearly every day Trouble relaxin = More than half the days Being so restless that it is hard to sit still: 1 = Several days Becoming easily annoyed or irritable: 3 = Nearly every day Feeling afraid as if something awful might happen: 2 = More than half the days Total BESSY-7 score (0-4 normal; 5-9 mild; 10-14 moderate; 15-21 severe): 17 Source: Developed by Drs. Fish Damon, Marguerite Thompson, Vishal Churchill and colleagues, with an educational shea from [employer]. BESSY-7 Assessment Billing BESSY-7 Assessment Tool: BESSY-7 Assessment [id number] Review of Systems Const Denies headache(s) Eyes Denies loss of vision ENT Denies vertigo, Denies dizziness, Denies headache(s) and Denies sore throat Card Denies chest pain, Denies leg edema and Denies lightheadedness Resp Denies cough, Denies hemoptysis and Denies wheezing GI Denies abdominal pain, Denies melena, Denies constipation, Denies diarrhea and Denies vomiting Denies urinary frequency, Denies dysuria and Denies urinary urgency Musc Denies arthralgias, Denies joint swelling, Denies numbness and Denies tingling Neuro Denies Abnormal speech present, Denies behavioral changes, Denies vertigo, Denies dizziness, Denies headache(s), Denies loss of vision, Denies memory loss, Denies numbness and Denies tingling Psych Denies anxiety, Denies behavioral changes, Denies depression, Denies memory loss and Denies panic attacks Uli/Lymph Denies easy bleeding and Denies easy bruising Aller/Immun Denies wheezing Physical exam (Primary Care) Vital Signs: Last Vital Signs Pulse 65 09/24/23 11:14 Resp 17 09/24/23 11:14 BP 160/82 H 09/24/23 11:14 Pulse Ox 99 09/24/23 11:14 Oxygen Delivery Method Room Air 09/24/23 11:14 BMI result Body Mass Index 37.0 BMI Assessment/Plan discussion: High Tobacco/Smoking Status: Tobacco use Status Tobacco use date assessed 09/24/23 09/24/23 11:25 Patient Tobacco Use Status Former Tobacco user 09/24/23 11:14 Tobacco use type Cigarette 09/24/23 11:14 e-Cigarette/Vaping Use Never Used 09/24/23 11:14 PHQ-9: PHQ-9 Score PHQ-9: Total score 18 09/24/23 11:34 Thrive Assessment: Date of Thrive Assessment Date Thrive assessed 09/24/23 09/24/23 11:25 Currently or been in a relationship where the following occur: no concerns reported Const General: healthy appearing, no acute distress, alert and awake Nutritional Appearance: well nourished Orientation/consciousness: oriented to person, oriented to place and oriented to time HENMT Ears: TM's normal bilaterally General nose exam: Normal nasal mucous membranes and turbinates present Eyes Conjunctivae: conjunctivae normal Sclerae: sclerae normal Pupils: Equal, round and reactive pupils present Neck Neck: Yes no lymphadenopathy and Yes no JVD Thyroid: Thyroid normal Carotids: no bruits Resp Effort & Inspection: normal respiratory effort and not tachypneic Auscultation: no crackles, no rales, no rhonchi and no wheezes Cardio Rate: regular rate Rhythm: regular rhythm Heart sounds: no murmurs and normal S1 and S2 GI Palpation (GI): Soft to palpation, nontender, no hepatomegaly and no splenomegaly Auscultation: normal bowel sounds Skin General skin exam: no rashes or lesions noted and dry skin Neuro General: oriented to person, oriented to place and oriented to time Cranial nerves: Yes Equal, round and reactive pupils present Speech: No Abnormal speech present Gait exam (Neuro): Normal gait present Motor exam (neuro): no tremor noted Extrem Right upper extremity: full ROM Left upper extremity: full ROM Right lower extremity: full ROM; no edema Left lower extremity: full ROM; no edema Psych Mental Status: mental status grossly normal Speech and movement: Normal speech and movement present Affect: normal affect Attitude: cooperative Thought process: Normal thought process present Assessment and Plan Assessment & Plan (1) HTN (hypertension): Code(s): I10 - Essential (primary) hypertension Qualifiers: Hypertension type: primary hypertension Qualified Code(s): I10 - Essential (primary) hypertension Plan: Blood pressure remains elevated today in office. Strongly advised to start new blood pressure medication amlodipine 2 stabilize her blood pressure though patient declines. She attributes her blood pressure being high due to her weight and would like to focus on reducing her weight. She is interested in trying a GLP1 (2) Elevated fasting glucose: Code(s): R73.01 - Impaired fasting glucose Plan: Noted most recent fasting blood sugar 104. She is concerned about this and would like to try GLP 1 for weight loss. (3) Obese: Code(s): E66.9 - Obesity, unspecified Qualifiers: Obesity type: due to excess calories Obesity classification: adult class 2 (BMI 35 - 39.9) Serious obesity comorbidity presence: without serious comorbidity Body mass index: BMI 37.0-37.9 Qualified Code(s): E66.09 - Other obesity due to excess calories; Z68.37 - Body mass index [BMI] 37.0-37.9, adult Plan: Patient does understand her BMI is over 30 and has been working on better eating habits and trying to be more physically active though has not been effective on losing weight. She has a history of bariatric surgery though unfortunately gained weight back. She does feel very frustrated about not losing weight. She is interested in articulating and weight management program again. Orders: Orders TSH reflex Free T4 Today E03.9 - Hypothyroidism, unspecified Comprehensive [place]. Panel Fast Today R73.01 - Impaired fasting glucose Magnesium Today E83.41 - Hypermagnesemia Hemoglobin A1c Today R73.01 - Impaired fasting glucose Referrals Medical Weight Management Referral E66.09 - Other obesity due to excess calories, Z68.37 - Body mass index [BMI] 37.0-37.9, adult Medications: New semaglutide (weight loss) (Wegovy) administer weeks 1 through 4 of therapy 0.25 mg (0.5 mL) subcut QWEEK 4 weeks 2 mL 0RF E66.09 - Other obesity due to excess calories, Z68.37 - Body mass index [BMI] 37.0-37.9, adult Coding Level of Care Code Est Pt Level 4 (91797) Diagnoses Primary hypertension I10 Hypertension type: primary hypertension Elevated fasting glucose R73.01 Class 2 obesity due to excess calories without serious comorbidity with body mass index (BMI) of 37.0 to 37.9 in adult E66.09; Z68.37 Obesity type: due to excess calories Obesity classification: adult class 2 (BMI 35 - 39.9) Serious obesity comorbidity presence: without serious comorbidity Body mass index: BMI 37.0-37.9 Additional Codes BESSY-7 Assessment Billing - BESSY-7 Assessment Tool: BESSY-7 Assessment [id number] ([id number])
== END 2023-09-24 12:01 | disposition home or self-care (01) ==
PROVIDERS: PCP Physician Assistant; Visit Provider Physician Assistant
DX: I10 Essential (primary) hypertension (principal); R73.01 Impaired fasting glucose; E66.09 Other obesity due to excess calories; Z68.37 Body mass index [BMI] 37.0-37.9, adult
CPT/HCPCS: 99214

== ENCOUNTER 2023-09-25 07:50 | Outpatient (REF) | payer OTHER, SELFPAY ==
[2023-09-25 09:08] LABS: Estimated Average Glucose 111 mg/dL; Hemoglobin A1c % 5.5 % (<6.0)
[2023-09-25 09:19] LABS: Creatinine Urine 187.91 mg/dL; Microalbum/Creatinine Ratio Ur 4.2 ug/mg cr (<30)
[2023-09-25 09:20] LABS: Alanine Aminotransferase 24 U/L (0-31); Albumin Level 4.3 g/dL (3.5-5.0); Alkaline Phosphatase 84 U/L (39-117); Anion Gap 11 (12-20); Aspartate Amino Transferase 23 U/L (5-31); Bilirubin Total 0.5 mg/dL (0.0-1.0); Blood Urea Nitrogen 11 mg/dL (9-16); Calcium 9.5 mg/dL (8.4-10.2); Carbon Dioxide 30 mmol/L (22-29); Chloride 108 mmol/L (96-108); Estimated Glomerular Filt Rate > 60; Glucose Fasting 102 mg/dL (60-99); Magnesium 2.4 mg/dL (1.6-2.6); Potassium 3.7 mmol/L (3.3-5.1); Sodium 145 mmol/L (135-145); Total Protein 7.5 g/dL (6.5-8.0)
[2023-09-25 09:36] LABS: TSH reflex Free T4 4.18 uIU/mL (0.32-4.0)
[2023-09-25 10:09] LABS: Free T4 (Free Thyroxine) 0.99 ng/dL (0.71-1.85)
== END 2023-09-25 07:51 | disposition home or self-care (01) ==
LOC: HO.LAB 07:50
PROVIDERS: PCP Physician Assistant; Visit Provider Physician Assistant
DX: E03.9 Hypothyroidism, unspecified (principal); E83.41 Hypermagnesemia; R80.9 Proteinuria, unspecified; R73.01 Impaired fasting glucose
CPT/HCPCS: 36415; 80053; 82043; 82570; 83036; 83735; 84439; 84443

== ENCOUNTER 2023-12-26 11:04 | Outpatient (AMB) | payer OTHER, SELFPAY ==
[2023-12-26 11:14] VITALS: BP 152/78; PULSE 94; O2SAT 96; BMI 35.3
--- NOTE | 2023-12-26 11:14 | MHC.PC.OV ---
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: No Accompanied by: Self / Same As Patient Allergies morphine [MORPHINE] Allergy (Intermediate, Verified 12/26/23 11:32) NIGHTMARES oxycodone [Percocet] Allergy (Intermediate, Verified 12/26/23 11:32) nausea and vomiting Penicillins Allergy (Intermediate, Verified 12/26/23 11:32) rash,sob Sulfa (Sulfonamide Antibiotics) [SULFA (SULFONAMIDE ANTIBIOTICS)] Allergy (Intermediate, Verified 12/26/23 11:32) RASH Medication List - Last Reconciled 12/26/23 by Ayad Brewer PA-C acetaminophen 1,000 mg (2 x 500 mg) PO Q8H certolizumab pegol 200 mg subcut Q2W cyanocobalamin (vitamin B-12) 1,000 mcg IM QMONTH docusate sodium 100 mg PO BID ferrous sulfate 325 mg PO DAILY gabapentin 300 mg PO TID PRN levothyroxine 125 mcg PO DAILY 30 days metformin ER 500 mg PO DAILY 30 days miscellaneous medical supply (Blood Pressure Cuff) As directed semaglutide (weight loss) (Wegovy) 0.5 mg (0.5 mL) subcut QWEEK 4 weeks syringe with needle (Syringe) As Directed Tobacco use date assessed: 09/24/23 Dental Screening Dental Screen Date: 09/24/23 HPI f/u IGM/ Weight check HPI Details Patient is a 58-year-old female here today for follow-up visit.? Patient has a past medical history significant for hypothyroidism, fibromyalgia, obesity Concern--> has broke out with a rash over the last month. She is stopped taking the biologic for her psoriasis. 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 Does have beclomethasone topical treatment. .. Hypertension: Blood pressure slightly elevated today in office though on recheck blood pressure improved. . Psoriasis: Followed by ship laborer and has been started on new disease modifying injection which did not help her psoriasis. She is due to try a new disease modifying drug. .. Hypothyroidism:? Has been more consistent with the use of her levothyroxine. Most recent TSH elevated due to not using levothyroxine med. Patient continues to follow Endocrinology and most recent TSH stable.? Continues on levothyroxine 125 mcg. .. Fibromyalgia:? Has seen rheumatology and continues on gabapentin 300 mg t.i.d though reports she only takes gabapentin on an as-needed basis at night for sleep. ?.. Obesity:? Patient does understand her BMI is over 30 and has been working on being more physically active and adapting to better eating habits to reduce her weight though has not been successful. Has a history of bariatric surgery years ago with Dr. Wiggins though has seemed to gain her weight back. She reports she has a mostly vegetarian diet and is somewhat physically active riding her bike and walking on a nearly everyday basis. She was found to have a slightly elevated fasting blood sugar 104. She is started GLP 1 has lost significant amount of weight. She does admit she has not been to physically active with formal exercises and will try to do so. Laboratory Tests 09/11/23 09/25/23 09/25/23 10:25 07:54 07:55 RBC 4.57 Fasting Glucose 102 H Hemoglobin A1c % 5.5 TSH 4.18 H Urine Microalbumin 8.0 PFSH Medical History History of lipoma Degenerative disc disease, cervical Neck Pain Lipoma of back (10/22/22) Hypothyroid Anemia Depression Anxiety Obesity Vitamin D deficiency Psoriasis Fibromyalgia Surgical History History of shoulder surgery History of tooth extraction Hx of colonoscopy S/P panniculectomy History of cholecystectomy History of gastric bypass Family History Father CVD (cardiovascular disease) Stroke Hypertension Myocardial infarction Thyroid cancer Mother Hypertension Maternal Grandmother Colon cancer Glaucoma Social History Household Members: None Housing: House Housing Other:: mobile home Are you a primary home health care coordinator to a significant other at home: No Do you presently have visiting nurse or other home services: No Alcohol intake: never Comment: rings appropriately Patient Tobacco Use Status: Former Tobacco user Quit Date: 2019 Tobacco use type: Cigarette Cigarette Packs Per Day: 1 Years Smoked: 30 e-Cigarette/Vaping Use: Never Used Second Hand Smoke Exposure: No service: No Current occupational status: unemployed Cognitive needs: No Hearing needs: No Vision needs: No Questionnaire Thrive Questionnaire Date Thrive assessed: 09/24/23 BESSY-7 AMB Questionnaire BESSY-7 Date BESSY - 7 assessed: 09/24/23 Source: Developed by Drs. Fish Damon, Marguerite Thompson, Vishal Churchill and colleagues, with an educational shea from [employer]. Review of Systems Const Denies headache(s) Eyes Denies loss of vision ENT Denies vertigo, Denies dizziness, Denies headache(s) and Denies sore throat Card Denies chest pain, Denies leg edema and Denies lightheadedness Resp Denies cough, Denies hemoptysis and Denies wheezing GI Denies abdominal pain, Denies melena, Denies constipation, Denies diarrhea and Denies vomiting Denies urinary frequency, Denies dysuria and Denies urinary urgency Musc Denies arthralgias, Denies joint swelling, Denies numbness and Denies tingling Neuro Denies Abnormal speech present, Denies behavioral changes, Denies vertigo, Denies dizziness, Denies headache(s), Denies loss of vision, Denies memory loss, Denies numbness and Denies tingling Psych Denies anxiety, Denies behavioral changes, Denies depression, Denies memory loss and Denies panic attacks Uli/Lymph Denies easy bleeding and Denies easy bruising Aller/Immun Denies wheezing Physical exam (Primary Care) Vital Signs: Last Vital Signs Pulse 94 12/26/23 11:14 BP 130/78 12/26/23 11:48 Pulse Ox 96 12/26/23 11:14 Oxygen Delivery Method Room Air 12/26/23 11:14 BMI result Body Mass Index 35.3 Tobacco/Smoking Status: Tobacco use Status Tobacco use date assessed 09/24/23 12/26/23 11:22 Patient Tobacco Use Status Former Tobacco user 12/26/23 11:22 Tobacco use type Cigarette 12/26/23 11:22 e-Cigarette/Vaping Use Never Used 12/26/23 11:22 Thrive Assessment: Date of Thrive Assessment Date Thrive assessed 09/24/23 12/26/23 11:22 Const General: healthy appearing, no acute distress, alert and awake Nutritional Appearance: well nourished Orientation/consciousness: oriented to person, oriented to place and oriented to time HENMT Ears: TM's normal bilaterally General nose exam: Normal nasal mucous membranes and turbinates present Eyes Conjunctivae: conjunctivae normal Sclerae: sclerae normal Pupils: Equal, round and reactive pupils present Neck Neck: Yes no lymphadenopathy and Yes no JVD Thyroid: Thyroid normal Carotids: no bruits Resp Effort & Inspection: normal respiratory effort and not tachypneic Auscultation: no crackles, no rales, no rhonchi and no wheezes Cardio Rate: regular rate Rhythm: regular rhythm Heart sounds: no murmurs and normal S1 and S2 GI Palpation (GI): Soft to palpation, nontender, no hepatomegaly and no splenomegaly Auscultation: normal bowel sounds Skin Other: + rash noted underneath each breast, on arms and legs, palms and soles. General skin exam: dry skin Neuro General: oriented to person, oriented to place and oriented to time Cranial nerves: Yes Equal, round and reactive pupils present Speech: No Abnormal speech present Gait exam (Neuro): Normal gait present Motor exam (neuro): no tremor noted Extrem Right upper extremity: full ROM Left upper extremity: full ROM Right lower extremity: full ROM; no edema Left lower extremity: full ROM; no edema Psych Mental Status: mental status grossly normal Speech and movement: Normal speech and movement present Affect: normal affect Attitude: cooperative Thought process: Normal thought process present Assessment and Plan Assessment & Plan (1) HTN (hypertension): Code(s): I10 - Essential (primary) hypertension Qualifiers: Hypertension type: primary hypertension Qualified Code(s): I10 - Essential (primary) hypertension Plan: Blood pressure slightly elevated on initial reading though stabilize during 2nd reading. She continues to manage her blood pressure with lifestyle and dietary modifications. She attributes her blood pressure being high due to her weight and would like to focus on reducing her weight. She is interested in trying a GLP1 Goal blood pressure is to be below 140/90 (2) Elevated fasting glucose: Code(s): R73.01 - Impaired fasting glucose Plan: Noted most recent fasting blood sugar 104. (3) Obese: Code(s): E66.9 - Obesity, unspecified Qualifiers: Body mass index: BMI 37.0-37.9 Obesity classification: adult class 2 (BMI 35 - 39.9) Obesity type: due to excess calories Serious obesity comorbidity presence: without serious comorbidity Qualified Code(s): E66.09 - Other obesity due to excess calories; Z68.37 - Body mass index [BMI] 37.0-37.9, adult Plan: Patient has lost weight since starting GLP 1. Has struggled with weight her whole entire life. Does seem to have some kind of insulin resistance as she does have slightly elevated fasting blood sugars. 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 Will continue on GLP 1 and up titrate per response. (4) Psoriasis: Code(s): L40.9 - Psoriasis, unspecified Plan: Seems to be having a psoriasis flare. Does have topical steroid treatment available to her. Has stopped biologic agent. Has been having difficulty getting biological agents due to insurance issues. Does follow a ship laborer and has upcoming appointment in 4 months. Orders: Orders Comprehensive [place]. Panel Fast Today R73.09 - Other abnormal glucose IRON PROFILE Today D50.9 - Iron deficiency anemia, unspecified Hemoglobin A1c Today R73.09 - Other abnormal glucose Complete Blood Count no Diff Today D53.9 - Nutritional anemia, unspecified TSH reflex Free T4 Today E03.9 - Hypothyroidism, unspecified Medications: Changed From metformin ER 500 mg PO DAILY 30 days 30 tabs 1RF R73.09 - Other abnormal glucose To metformin ER 500 mg PO DAILY 90 tabs 1RF 90 days R73.09 - Other abnormal glucose Patient Instructions: Goal: Blood pressure to be below 140/90 Barrier: Adherence to physical activity and healthy eating habits. Coding Level of Care Code Est Pt Level 4 (64736) Diagnoses Primary hypertension I10 Hypertension type: primary hypertension Elevated fasting glucose R73.01 Class 2 obesity due to excess calories without serious comorbidity with body mass index (BMI) of 37.0 to 37.9 in adult E66.09; Z68.37 Body mass index: BMI 37.0-37.9 Obesity classification: adult class 2 (BMI 35 - 39.9) Obesity type: due to excess calories Serious obesity comorbidity presence: without serious comorbidity Psoriasis L40.9
[2023-12-26 11:48] VITALS: BP 130/78
== END 2023-12-26 11:59 | disposition home or self-care (01) ==
PROVIDERS: PCP Physician Assistant; Visit Provider Physician Assistant
DX: I10 Essential (primary) hypertension (principal); R73.01 Impaired fasting glucose; E66.09 Other obesity due to excess calories; Z68.37 Body mass index [BMI] 37.0-37.9, adult; L40.9 Psoriasis, unspecified
CPT/HCPCS: 99214

== ENCOUNTER 2023-12-31 08:26 | Outpatient (REF) | payer OTHER, SELFPAY ==
[2023-12-31 09:04] LABS: Hematocrit 41.9 % (37.0-47.0); Hemoglobin 13.2 g/dl (12.0-16.0); Mean Corpuscular HGB Conc 31.5 g/dl (31.0-35.0); Mean Corpuscular Hemoglobin 27.7 pg (27.0-33.0); Mean Corpuscular Volume 87.8 fL (80.0-98.0); Mean Platelet Volume 10.6 fL (9.4-12.3); Platelet Count 402 X10*3/uL (160-400); Red Blood Count 4.77 X10*6/uL (4.20-5.50); Red Cell Distribution Width 14.1 % (11.0-16.0); White Blood Count 7.1 X10*3/uL (4.8-10.8)
[2023-12-31 09:34] LABS: Estimated Average Glucose 114 mg/dL; Hemoglobin A1c % 5.6 % (<6.0)
[2023-12-31 09:37] LABS: Alanine Aminotransferase 18 U/L (0-31); Albumin Level 4.3 g/dL (3.5-5.0); Alkaline Phosphatase 101 U/L (39-117); Anion Gap 12 (12-20); Aspartate Amino Transferase 19 U/L (5-31); Bilirubin Total 0.3 mg/dL (0.0-1.0); Blood Urea Nitrogen 9 mg/dL (9-16); Calcium 9.8 mg/dL (8.4-10.2); Carbon Dioxide 27 mmol/L (22-29); Chloride 109 mmol/L (96-108); Estimated Glomerular Filt Rate > 60; Glucose Fasting 103 mg/dL (60-99); Iron 38 mcg/dL (30-160); Percent Iron Saturation 12 % (15-50); Potassium 4.3 mmol/L (3.3-5.1); Sodium 144 mmol/L (135-145); Total Iron Binding Capacity 324 mcg/dL (228-428); Total Protein 7.5 g/dL (6.5-8.0); Unsaturated Iron Binding 286 ug/dL
[2023-12-31 09:53] LABS: TSH reflex Free T4 0.11 uIU/mL (0.32-4.0)
== END 2023-12-31 08:27 | disposition home or self-care (01) ==
LOC: HO.LAB 08:26
PROVIDERS: PCP Physician Assistant; Visit Provider Physician Assistant
DX: R73.09 Other abnormal glucose (principal); D50.9 Iron deficiency anemia, unspecified; D53.9 Nutritional anemia, unspecified; E03.9 Hypothyroidism, unspecified
CPT/HCPCS: 36415; 80053; 83036; 83540; 84439; 84443; 85027

== ENCOUNTER 2024-01-04 19:26 | Emergency (ER) | payer OTHER, SELFPAY ==
--- NOTE | ~2024-01-04 | XR_ITS ---
EXAMINATION: XR CHEST CLINICAL INFORMATION: fall, pain with breathing COMPARISON: None available. TECHNIQUE: 2 views of the chest were obtained. FINDINGS: The lungs are adequately expanded. No focal consolidation, effusion, edema, or pneumothorax. The cardiomediastinal silhouette is within normal limits for technique. No acute osseous abnormality. XR/XR chest 2V IMPRESSION: No acute pulmonary disease. No displaced rib fracture.
[2024-01-04 19:36] VITALS: BP 118/88; PULSE 64; RESP 20; TEMP 36.2; O2SAT 99; BMI 36.0
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
== END 2024-01-04 23:03 | disposition left against medical advice (07) ==
PROVIDERS: Emergency Provider Emergency Medicine; PCP Physician Assistant
DX: Z04.3 Encounter for examination and observation following other accident (principal); R07.81 Pleurodynia
CPT/HCPCS: 71046; 99281; 99283

== ENCOUNTER 2024-01-20 09:42 | Outpatient (AMB) | payer OTHER, SELFPAY ==
[2024-01-20 09:43] VITALS: BP 114/72; PULSE 73; BMI 34.9
--- NOTE | 2024-01-20 09:43 | MHC.OFFVIS ---
Vital Signs 01/20/24 09:43 Height 5 ft 7 in Weight 222 lb 10.67 oz BMI 34.9 BP 114/72 Blood Pressure Location Rt brachial Position Sitting Pulse 73 Pulse Source Pulse Oximeter Intake Visit Reasons: F/U Hypothyroidism Intake Note: Patient presents today for Hypothyroidism follow up, last seen by Dr. Haider on 01/09/2022. 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: No Accompanied by: Self / Same As Patient Allergies morphine [MORPHINE] Allergy (Intermediate, Verified 01/20/24 09:47) NIGHTMARES oxycodone [Percocet] Allergy (Intermediate, Verified 01/20/24 09:47) nausea and vomiting Penicillins Allergy (Intermediate, Verified 01/20/24 09:47) rash,sob Sulfa (Sulfonamide Antibiotics) [SULFA (SULFONAMIDE ANTIBIOTICS)] Allergy (Intermediate, Verified 01/20/24 09:47) RASH Medication List - Last Reconciled 01/20/24 by Fish Costa MD acetaminophen 1,000 mg (2 x 500 mg) PO Q8H azithromycin 250 mg PO DIRECTED certolizumab pegol 200 mg subcut Q2W cyanocobalamin (vitamin B-12) 1,000 mcg IM QMONTH docusate sodium 100 mg PO BID ferrous sulfate 325 mg PO DAILY gabapentin 300 mg PO TID 30 days levothyroxine 125 mcg PO DAILY 30 days metformin ER 500 mg PO DAILY 90 days miscellaneous medical supply (Blood Pressure Cuff) As directed semaglutide (weight loss) (Wegovy) 1 mg (0.5 mL) subcut QWEEK 4 weeks syringe with needle (Syringe) As Directed HPI Comments Details: 58 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 She was previously followed by Jacqueline Schmitt. The patient last saw Dr. Haider on 01/09/2022 First diagnosed with Hypothyroidism in 2013. Currently using Levothyroxine 125 mcg PO daily. She takes this in the evening approximately 2-3 hours after dinner. Does report difficulty losing weight and fatigue. Menses: Postmenopausal Biotin: Denies using this. She is frustrated by her inability to lose weight. Labs: Laboratory Tests 11/28/21 11/28/21 11:55 11:55 25-OH Vitamin D Total 46.2 TSH 2.47 Free T4 1.04 Had lost 20 lbs . Takes L-t4 every morning on empty stomach and away from other meds . No sx of hyperthyroidism , C/O fatigue PFSH Medical History (Updated 01/07/24 @ 00:01 by Stefanie Galvan) History of lipoma Degenerative disc disease, cervical Neck Pain Lipoma of back (10/22/22) Hypothyroid Anemia Depression Anxiety Obesity Vitamin D deficiency Psoriasis Fibromyalgia Surgical History Hx of neck surgery History of shoulder surgery History of tooth extraction Hx of colonoscopy S/P panniculectomy History of cholecystectomy History of gastric bypass Family History Father CVD (cardiovascular disease) Stroke Hypertension Myocardial infarction Thyroid cancer Mother Hypertension Maternal Grandmother Colon cancer Glaucoma Social History Household Members: None Housing: House Housing Other:: mobile home Are you a primary medical care evaluation specialist to a significant other at home: No Do you presently have visiting nurse or other home services: No Alcohol intake: never Comment: rings appropriately Patient Tobacco Use Status: Former Tobacco user Tobacco use type: Cigarette Cigarette Packs Per Day: 1 Years Smoked: 30 e-Cigarette/Vaping Use: Never Used Second Hand Smoke Exposure: No service: No Current occupational status: unemployed Cognitive needs: No Hearing needs: No Vision needs: No Physical Exam Vital Signs: Last Vital Signs Pulse 73 01/20/24 09:43 BP 114/72 01/20/24 09:43 BMI result Body Mass Index 34.9 Const Other: Thyroid gland is of normal size weighs about 15 g. There are no thyroid nodules palpated Assessment & Plan Assessment & Plan (1) Hypothyroid: Code(s): E03.9 - Hypothyroidism, unspecified Category: Medical Qualifiers: Hypothyroidism type: unspecified Qualified Code(s): E03.9 - Hypothyroidism, unspecified Plan: This 58-year-old white female with a history of hypothyroidism being treated with levothyroxine 125 mcg q.d.. She appears to be clinically euthyroid but has suppressed TSH. Will decrease levothyroxine to 112 mcg and recheck TSH and free T4 in 6 weeks time. We will talk to the patient about using branded levothyroxine namely Synthroid but patient wants to stay on generic Orders: Orders Thyroid Stimulating Hormone 6 Weeks E03.9 - Hypothyroidism, unspecified Free T4 (Free Thyroxine) 6 Weeks E03.9 - Hypothyroidism, unspecified Medications: New levothyroxine 112 mcg PO DAILY 30 tabs 4RF Discontinued levothyroxine Discontinued Reason: Doctor's Order 125 mcg PO DAILY 30 days 30 tabs 3RF Coding Level of Care Code Est Pt Level 3 (93645) Diagnoses Hypothyroidism, unspecified type E03.9 Hypothyroidism type: unspecified
== END 2024-01-20 10:08 | disposition home or self-care (01) ==
PROVIDERS: PCP Physician Assistant; Visit Provider Internal Medicine Endocrinology, Diabetes & Metabolism
DX: E03.9 Hypothyroidism, unspecified (principal)
CPT/HCPCS: 99213

== ENCOUNTER → 2024-01-20 09:42 | Outpatient (BNVA) | payer OTHER, SELFPAY | PROVIDERS: PCP Physician Assistant; Visit Provider Internal Medicine Endocrinology, Diabetes & Metabolism | DX: E03.9 Hypothyroidism, unspecified (principal) | CPT/HCPCS: 99212 ==

== ENCOUNTER 2024-01-20 14:52 | Outpatient (AMB) | payer OTHER, SELFPAY ==
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
[2024-01-20 15:05] VITALS: BP 160/78; PULSE 55; O2SAT 97; BMI 34.7
== END 2024-01-20 15:22 | disposition home or self-care (01) ==
PROVIDERS: PCP Physician Assistant; Visit Provider Physician Assistant
DX: H66.001 Acute suppurative otitis media without spontaneous rupture of ear drum, right ear (principal); S29.011S Strain of muscle and tendon of front wall of thorax, sequela
CPT/HCPCS: 99213

== ENCOUNTER 2024-02-24 08:56 | Outpatient (REF) | payer OTHER, SELFPAY ==
[2024-02-24 10:09] LABS: Free T4 (Free Thyroxine) 1.14 ng/dL (0.71-1.85); Thyroid Stimulating Hormone 3.54 uIU/mL (0.32-4.0)
== END 2024-02-24 08:57 | disposition home or self-care (01) ==
LOC: HO.LAB 08:56
PROVIDERS: PCP Physician Assistant; Visit Provider Internal Medicine Endocrinology, Diabetes & Metabolism
DX: E03.9 Hypothyroidism, unspecified (principal)
CPT/HCPCS: 36415; 84439; 84443

== ENCOUNTER 2024-03-16 08:39 | Outpatient (AMB) | payer OTHER, SELFPAY ==
--- NOTE | 2024-03-16 08:40 | A.OFFVIS_ITS ---
Vital Signs 03/16/24 08:59 Height 5 ft 7 in Weight 207 lb 7.28 oz BMI 32.5 BP 115/72 Blood Pressure Location Lt brachial Position Sitting Pulse 66 Pulse Source Pulse Oximeter Pulse Oximetry (%) 97 Oxygen Delivery Method Room Air Intake Visit Reasons: arthropathic Psoriasis Intake Note: Patient presents for arthropathic Psoriasis. 'Usually in palms and hands but feeling itchy everywhere. Been feeling symptoms for 8 years now. Taking Cimzia for it. Allergies morphine [MORPHINE] Allergy (Intermediate, Verified 03/16/24 08:55) NIGHTMARES oxycodone [Percocet] Allergy (Intermediate, Verified 03/16/24 08:55) nausea and vomiting Penicillins Allergy (Intermediate, Verified 03/16/24 08:55) rash,sob Sulfa (Sulfonamide Antibiotics) [SULFA (SULFONAMIDE ANTIBIOTICS)] Allergy (Intermediate, Verified 03/16/24 08:55) RASH Medication List - Last Reconciled 03/16/24 by Aditya Gant MD acetaminophen 1,000 mg (2 x 500 mg) PO Q8H certolizumab pegol 200 mg subcut Q2W cyanocobalamin (vitamin B-12) 1,000 mcg IM QMONTH docusate sodium 100 mg PO BID ferrous sulfate 325 mg PO DAILY gabapentin 300 mg PO TID 30 days levothyroxine 125 mcg PO DAILY levothyroxine 112 mcg PO DAILY metformin ER 500 mg PO DAILY 90 days miscellaneous medical supply (Blood Pressure Cuff) As directed semaglutide (weight loss) (Wegovy) 1.7 mg (0.75 mL) subcut QWEEK 4 weeks syringe with needle (Syringe) As Directed HPI Comments Details: This is a 58-year-old female with psoriasis, fibromyalgia and osteoarthritis who presents for follow-up. She states that she was diagnosed with psoriasis about 8 years ago and has been on different DMARDs. She was on methotrexate earlier and stated that it was not effective. She was also on Humira & Ilumya, she does not recall why they were change, he has been on Cimzia for the last 6 months. She states that her skin is doing well overall. She states that she has diffuse pain to light touch everywhere. States that her psoriasis is relatively well controlled. [facility] Medical History History of lipoma Degenerative disc disease, cervical Neck Pain Lipoma of back (10/22/22) Hypothyroid Anemia Depression Anxiety Obesity Vitamin D deficiency Psoriasis Fibromyalgia Surgical History Hx of neck surgery History of shoulder surgery History of tooth extraction Hx of colonoscopy S/P panniculectomy History of cholecystectomy History of gastric bypass Family History Father CVD (cardiovascular disease) Stroke Hypertension Myocardial infarction Thyroid cancer Mother Hypertension Maternal Grandmother Colon cancer Glaucoma Social History Household Members: None Housing: House Housing Other:: mobile home Are you a primary complex care nurse to a significant other at home: No Do you presently have visiting nurse or other home services: No Alcohol intake: never Comment: rings appropriately Patient Tobacco Use Status: Former Tobacco user Tobacco use type: Cigarette Cigarette Packs Per Day: 1 Years Smoked: 30 e-Cigarette/Vaping Use: Never Used Second Hand Smoke Exposure: No service: No Current occupational status: unemployed Cognitive needs: No Hearing needs: No Vision needs: No Female Reproductive History Menstrual Total pregnancies: 3 Number of Living Children: 2 Ab spontaneous: 1 Review of Systems Const Reports fatigue ENT Reports neck pain Musc Reports back pain, Reports myalgias, Reports arthralgias, Denies joint swelling, Reports neck pain and Reports numbness Skin/Breast Reports pruritus Neuro Reports numbness Psych Reports abnormal sleep pattern and Reports anxiety Endo Reports fatigue Physical Exam Vital Signs: Last Vital Signs Pulse 66 03/16/24 08:59 BP 115/72 03/16/24 08:59 Pulse Ox 97 03/16/24 08:59 Oxygen Delivery Method Room Air 03/16/24 08:59 BMI result Body Mass Index 32.5 Const General: cooperative and healthy appearing Nutritional Appearance: obese Orientation/consciousness: oriented to time Limitations: no limitations HEENT Head: Yes normocephalic and Yes atraumatic Mouth: oropharynx normal Resp Effort & Inspection: normal respiratory effort and able to speak in complete sentences Auscultation: clear to auscultation bilaterally Cardio Rate: regular rate Rhythm: regular rhythm GI Inspection: No distended Palpation (GI): Soft to palpation and nontender Skin General skin exam: no rashes or lesions noted Neuro General: oriented to time Extrem Other: Mild osteoarthritic changes of both hands with no active synovitis 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 She is currently on Cimzia 200 mg every other week. I do not see any active psoriatic arthritis or psoriasis on exam. I think both are well controlled with Cimzia Her complaints today are due to fibromyalgia Discussed management of fibromyalgia with patient. Is a noninflammatory, non- autoimmune central afferent processing disorder leading to a diffuse pain syndrome. I suggested that patient try to address her underlying psychiatric issues, anxiety/depression. She stated that she was evaluated by multiple psychologists in the past and she did not feel it was helpful. I suggested evaluation by a psychiatrist. Try to follow sleep hygiene practices. Consider a referral for a sleep study by her PCP. Patient's cycles at least 3 days a week. Advised patient not to stop and consider adding some low-impact exercises such as water aerobics, stretching, light weights, yoga She takes gabapentin 600 mg nightly and it seems to help Follow-up with PCP Plan I spent 30 minutes reviewing patient's chart, evaluating patient, counseling patient and documenting in the chart Coding Level of Care Code New Pt Level 3 (08762) Diagnoses Fibromyalgia M79.7
[2024-03-16 08:59] VITALS: BP 115/72; PULSE 66; O2SAT 97; BMI 32.5
== END 2024-03-16 09:22 | disposition home or self-care (01) ==
PROVIDERS: PCP Physician Assistant; Visit Provider Student in an Organized Health Care Education/Training Program
DX: M79.7 Fibromyalgia (principal)
CPT/HCPCS: 99203

== ENCOUNTER → 2024-03-16 08:39 | Outpatient (BNVA) | payer OTHER, SELFPAY | PROVIDERS: PCP Physician Assistant; Visit Provider Student in an Organized Health Care Education/Training Program | DX: M79.7 Fibromyalgia (principal) | CPT/HCPCS: 99202 ==

== ENCOUNTER 2024-03-16 13:43 | Outpatient (AMB) | payer OTHER, SELFPAY ==
[2024-03-16 13:46] VITALS: BP 122/84; PULSE 76; O2SAT 98; BMI 32.4
--- NOTE | 2024-03-16 13:46 | MHC.PC.OV ---
Vital Signs 03/16/24 13:46 Height 5 ft 7 in Weight 207 lb 0.4 oz BMI 32.4 BP 122/84 Blood Pressure Location Lt brachial Position Sitting Pulse 76 Pulse Source Pulse Oximeter Pulse Oximetry (%) 98 Oxygen Delivery Method Room Air Intake Visit Reasons: Leg pain, bump painful Finish Specialist Required: No Allergies morphine [MORPHINE] Allergy (Intermediate, Verified 03/16/24 13:47) NIGHTMARES oxycodone [Percocet] Allergy (Intermediate, Verified 03/16/24 13:47) nausea and vomiting Penicillins Allergy (Intermediate, Verified 03/16/24 13:47) rash,sob Sulfa (Sulfonamide Antibiotics) [SULFA (SULFONAMIDE ANTIBIOTICS)] Allergy (Intermediate, Verified 03/16/24 13:47) RASH Medication List - Last Reconciled 03/16/24 by Catie Geronimo PA-C acetaminophen 1,000 mg (2 x 500 mg) PO Q8H certolizumab pegol 200 mg subcut Q2W cyanocobalamin (vitamin B-12) 1,000 mcg IM QMONTH docusate sodium 100 mg PO BID ferrous sulfate 325 mg PO DAILY gabapentin 300 mg PO TID 30 days levothyroxine 125 mcg PO DAILY levothyroxine 112 mcg PO DAILY metformin ER 500 mg PO DAILY 90 days miscellaneous medical supply (Blood Pressure Cuff) As directed semaglutide (weight loss) (Wegovy) 1.7 mg (0.75 mL) subcut QWEEK 4 weeks syringe with needle (Syringe) As Directed Tobacco use date assessed: 09/24/23 Dental Screening Dental Screen Date: 09/24/23 HPI Leg pain, bump painful HPI Details 58-year-old female with past medical history fibromyalgia, psoriasis, hypothyroid, depression, generalized anxiety disorder, hypertension, and impaired glucose tolerance last seen by TEJAL 01/2024 coming in for acute problem.? In review of the notes, patient was seen by Rheumatology March 2024 considered stable on Cimzia for psoriatic arthritis and referred to psychiatry for further management of fibromyalgia along with low-impact exercises. Patient states she has a mass on the medial aspect of the right lower leg that is painful and soft that she 1st noticed 2 weeks ago and has been growing over the last few weeks. She denies any redness over the area but does state sometimes it is warm. The mass does not change but it has been growing. She also mentions she continues to have discomfort in her right ear after being evaluated at her last appointment. [facility] Medical History History of lipoma Degenerative disc disease, cervical Neck Pain Lipoma of back (10/22/22) Hypothyroid Anemia Depression Anxiety Obesity Vitamin D deficiency Psoriasis Fibromyalgia Surgical History Hx of neck surgery History of shoulder surgery History of tooth extraction Hx of colonoscopy S/P panniculectomy History of cholecystectomy History of gastric bypass Family History Father CVD (cardiovascular disease) Stroke Hypertension Myocardial infarction Thyroid cancer Mother Hypertension Maternal Grandmother Colon cancer Glaucoma Social History Household Members: None Housing: House Housing Other:: mobile home Are you a primary long term care phlebotomist to a significant other at home: No Do you presently have visiting nurse or other home services: No Alcohol intake: never Comment: rings appropriately Patient Tobacco Use Status: Former Tobacco user Tobacco use type: Cigarette Cigarette Packs Per Day: 1 Years Smoked: 30 e-Cigarette/Vaping Use: Never Used Second Hand Smoke Exposure: No service: No Current occupational status: unemployed Cognitive needs: No Hearing needs: No Vision needs: No Questionnaire Thrive Questionnaire Date Thrive assessed: 09/24/23 AUDIT C Alcohol Use Questionnaire (AUDIT-C) 1. How often do you have a drink containing alcohol?: Monthly or less 2. How many drinks containing alcohol do you have on a typical day when you are drinking?: 1 or 2 3. How often do you have six or more drinks on one occasion?: Never Total Score: 1 BESSY-7 AMB Questionnaire BESSY-7 Date BESSY - 7 assessed: 09/24/23 Source: Developed by Drs. Fish Damon, Marguerite Thompson, Vishal Churchill and colleagues, with an educational shea from [employer]. Review of Systems Const Denies body aches, Denies chills, Denies fever(s), Denies headache(s) and Denies poor appetite Eyes Reports no additional complaints ENT Details: Right ear difficulty hearing and buzzing sound Denies dizziness and Denies headache(s) Card Denies chest pain, Denies syncope, Denies edema, Denies irregular heart rhythm, Denies lightheadedness and Denies dyspnea Resp Denies cough and Denies dyspnea GI Denies abdominal pain, Denies constipation, Denies diarrhea, Denies nausea and Denies vomiting Reports no additional complaints Musc Reports as per HPI and Denies abnormal gait Skin/Breast Reports system reviewed and no additional complaints, except as documented Neuro Denies abnormal gait, Denies dizziness, Denies syncope and Denies headache(s) Psych Reports no additional complaints Physical exam (Primary Care) Vital Signs: Last Vital Signs Pulse 76 03/16/24 13:46 BP 122/84 03/16/24 13:46 Pulse Ox 98 03/16/24 13:46 Oxygen Delivery Method Room Air 03/16/24 13:46 BMI result Body Mass Index 32.4 Tobacco/Smoking Status: Tobacco use Status Tobacco use date assessed 09/24/23 03/16/24 13:47 Patient Tobacco Use Status Former Tobacco user 03/16/24 13:47 Tobacco use type Cigarette 03/16/24 13:47 e-Cigarette/Vaping Use Never Used 03/16/24 13:47 Thrive Assessment: Date of Thrive Assessment Date Thrive assessed 09/24/23 03/16/24 13:47 Const General: cooperative, healthy appearing, comfortable and no acute distress Orientation/consciousness: patient oriented x3 HENMT Head: Yes normocephalic Ears: hearing grossly normal bilaterally, TM normal on the left and TM abnormal bulging on the right and dull on the right General nose exam: Normal external nose present Eyes General: appearance normal, both eyes and all related structures Conjunctivae: conjunctivae normal Neck Neck: Yes full ROM and Yes no lymphadenopathy Resp Effort & Inspection: normal respiratory effort Auscultation: clear to auscultation bilaterally, no crackles, no rales, no rhonchi and no wheezes Cardio Rate: regular rate Rhythm: regular rhythm Skin General skin exam: no rashes or lesions noted Neuro General: patient oriented x3 Gait exam (Neuro): Normal gait present Extrem Other: Soft, small bulge on the medial lower aspect of the right lower extremity tender to deep palpation without overlying erythema or warmth. No skin changes or edema of bilateral lower extremities. General: Yes full ROM and No edema Psych Affect: normal affect Attitude: cooperative Insight: Good insight present (Psych) Judgement: Good judgement present (Psych) Assessment and Plan Assessment & Plan (1) Otitis media: Code(s): H66.90 - Otitis media, unspecified, unspecified ear Qualifiers: Otitis media type: suppurative Chronicity: acute Laterality: right Recurrence: non-recurrent Spontaneous tympanic membrane rupture: without spontaneous rupture Qualified Code(s): H66.001 - Acute suppurative otitis media without spontaneous rupture of ear drum, right ear Plan: Patient continues to have bulging of the right TM without erythema or pain. Endorses a fullness feeling along with a buzzing in her ear. Declines additional antibiotics at this time. Referral to Ear Nose and Throat placed. Follow up at next appointment. (2) Mass of lower extremity: Code(s): R22.40 - Localized swelling, mass and lump, unspecified lower limb Plan: Ordered for stat ultrasound of right lower extremity for evaluation of medial mass. We will follow up after results. Plan This note was constructed using voice recognition software. While every effort has been made to ensure accuracy and volunteer services supervisor, still areas may have been included sometimes these areas may affect the content or meeting of the given symptoms. Total time spent caring for the patient today was 30 minutes. This includes time spent before the visit reviewing the chart, time spent during the visit, and time spent after the visit and documentation. Orders: Orders US venous duplex LE RT Today R22.40 - Localized swelling, mass and lump, unspecified lower limb Referrals Ear/Nose/Throat Referral H66.001 - Acute suppurative otitis media without spontaneous rupture of ear drum, right ear Coding Level of Care Code Est Pt Level 4 (68024) Diagnoses Non-recurrent acute suppurative otitis media of right ear without spontaneous rupture of tympanic membrane H66.001 Otitis media type: suppurative Chronicity: acute Laterality: right Recurrence: non-recurrent Spontaneous tympanic membrane rupture: without spontaneous rupture Mass of lower extremity R22.40
== END 2024-03-16 14:14 | disposition home or self-care (01) ==
PROVIDERS: PCP Physician Assistant
DX: H66.001 Acute suppurative otitis media without spontaneous rupture of ear drum, right ear (principal); R22.40 Localized swelling, mass and lump, unspecified lower limb
CPT/HCPCS: 99214

== ENCOUNTER 2024-03-24 11:14 | Outpatient (REF) | payer OTHER, SELFPAY ==
--- NOTE | ~2024-03-24 | US_ITS ---
EXAMINATION: US EXTREMITY NONVASCULAR COMPLETE, LEFT CLINICAL INFORMATION: Medial right lower leg swelling/mass. COMPARISON: None. TECHNIQUE: Grayscale and Doppler images were obtained in the region of the patient's complaint. FINDINGS: No soft tissue mass or fluid collection. No inflammatory change. No significant simultaneous edema. US/US extremity nonvascular rivas IMPRESSION: Unremarkable examination. Electronically signed by: Reji Nolan MD 03/24/2024 02:25 PM EDT
== END 2024-03-24 11:15 | disposition home or self-care (01) ==
LOC: HO.HMGCX 11:14
PROVIDERS: PCP Physician Assistant
DX: R22.40 Localized swelling, mass and lump, unspecified lower limb (principal)
CPT/HCPCS: 76882

== ENCOUNTER 2024-03-31 11:18 | Outpatient (AMB) | payer OTHER, SELFPAY ==
[2024-03-31 11:24] VITALS: BP 132/80; PULSE 68; O2SAT 97; BMI 32.1
--- NOTE | 2024-03-31 11:24 | A.OFFPC_ITS ---
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 Accompanied by: Self / Same As Patient Allergies morphine [MORPHINE] Allergy (Intermediate, Verified 03/31/24 11:30) NIGHTMARES oxycodone [Percocet] Allergy (Intermediate, Verified 03/31/24 11:30) nausea and vomiting Penicillins Allergy (Intermediate, Verified 03/31/24 11:30) rash,sob Sulfa (Sulfonamide Antibiotics) [SULFA (SULFONAMIDE ANTIBIOTICS)] Allergy (Intermediate, Verified 03/31/24 11:30) RASH Medication List - Last Reconciled 03/31/24 by Ayad Brewer PA-C acetaminophen 1,000 mg (2 x 500 mg) PO Q8H certolizumab pegol 200 mg subcut Q2W cyanocobalamin (vitamin B-12) 1,000 mcg IM QMONTH docusate sodium 100 mg PO BID ferrous sulfate 325 mg PO DAILY gabapentin 300 mg PO TID 30 days levothyroxine 125 mcg PO DAILY levothyroxine 112 mcg PO DAILY metformin ER 500 mg PO DAILY 90 days miscellaneous medical supply (Blood Pressure Cuff) As directed semaglutide (weight loss) (Ashgovy) 1.7 mg (0.75 mL) subcut QWEEK 4 weeks syringe with needle (Syringe) As Directed Tobacco use date assessed: 09/24/23 Dental Screening Dental Screen Date: 09/24/23 HPI f/u IGM, Weight check HPI Details Patient is a 58-year-old female here today for follow-up visit.? Patient has a past medical history significant for hypothyroidism, fibromyalgia, obesity Concern--> has noted cystic like rashes over her axillary, groin and gluteal fold regions over the last few weeks. Has been trying to use antibacterial soaps and cleaning all over sheets. Of note this has started since increasing her dose of disease modifying drug for her psoriatic arthritis. .. Hypertension: Blood pressure acceptable today in office. . 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 .. Hypothyroidism:? Has been more consistent with the use of her levothyroxine. Most recent TSH elevated due to not using levothyroxine med. Patient continues to follow Endocrinology and most recent TSH stable.? Continues on levothyroxine 125 mcg. .. Fibromyalgia:? Has seen rheumatology and continues on gabapentin 300 mg t.i.d t kaitlin reports she only takes gabapentin on an as-needed basis at night for sleep. ?.. Obesity:? Patient continues on Wegovy which has offered her benefit on weight loss and some glycemic control. She would like to continue on 1.7 mg weekly. Laboratory Tests 12/31/23 02/24/24 03/16/24 08:46 09:05 13:23 RBC 4.77 Ferritin 12 TSH 0.11 L 3.54 PFSH Medical History History of lipoma Degenerative disc disease, cervical Neck Pain Lipoma of back (10/22/22) Hypothyroid Anemia Depression Anxiety Obesity Vitamin D deficiency Psoriasis Fibromyalgia Surgical History Hx of neck surgery History of shoulder surgery History of tooth extraction Hx of colonoscopy S/P panniculectomy History of cholecystectomy History of gastric bypass Family History Father CVD (cardiovascular disease) Stroke Hypertension Myocardial infarction Thyroid cancer Mother Hypertension Maternal Grandmother Colon cancer Glaucoma Social History Household Members: None Housing: House Housing Other:: mobile home Are you a primary point of care specialist to a significant other at home: No Do you presently have visiting nurse or other home services: No Alcohol intake: never Comment: rings appropriately Patient Tobacco Use Status: Former Tobacco user Tobacco use type: Cigarette Cigarette Packs Per Day: 1 Years Smoked: 30 e-Cigarette/Vaping Use: Never Used Second Hand Smoke Exposure: No service: No Current occupational status: unemployed Cognitive needs: No Hearing needs: No Vision needs: No Questionnaire Thrive Questionnaire Date Thrive assessed: 09/24/23 BESSY-7 AMB Questionnaire BESSY-7 Date BESSY - 7 assessed: 09/24/23 Source: Developed by Drs. Fish Damon, Marguerite Thompson, Vishal Churchill and colleagues, with an educational shea from [employer] Plan. Review of Systems Const Denies headache(s) Eyes Denies loss of vision ENT Denies vertigo, Denies dizziness, Denies headache(s) and Denies sore throat Card Denies chest pain, Denies leg edema and Denies lightheadedness Resp Denies cough, Denies hemoptysis and Denies wheezing GI Denies abdominal pain, Denies melena, Denies constipation, Denies diarrhea and Denies vomiting Denies urinary frequency, Denies dysuria and Denies urinary urgency Musc Denies arthralgias, Denies joint swelling, Denies numbness and Denies tingling Neuro Denies Abnormal speech present, Denies behavioral changes, Denies vertigo, Denies dizziness, Denies headache(s), Denies loss of vision, Denies memory loss, Denies numbness and Denies tingling Psych Denies anxiety, Denies behavioral changes, Denies depression, Denies memory loss and Denies panic attacks Uli/Lymph Denies easy bleeding and Denies easy bruising Aller/Immun Denies wheezing Physical exam (Primary Care) Vital Signs: Last Vital Signs Pulse 68 03/31/24 11:24 BP 132/80 03/31/24 11:24 Pulse Ox 97 03/31/24 11:24 Oxygen Delivery Method Room Air 03/31/24 11:24 BMI result Body Mass Index 32.1 Tobacco/Smoking Status: Tobacco use Status Tobacco use date assessed 09/24/23 03/31/24 11:24 Patient Tobacco Use Status Former Tobacco user 03/31/24 11:24 Tobacco use type Cigarette 03/31/24 11:24 e-Cigarette/Vaping Use Never Used 03/31/24 11:24 Thrive Assessment: Date of Thrive Assessment Date Thrive assessed 09/24/23 03/31/24 11:24 Const General: healthy appearing, no acute distress, alert and awake Nutritional Appearance: well nourished Orientation/consciousness: oriented to person, oriented to place and oriented to time HENMT Ears: TM's normal bilaterally General nose exam: Normal nasal mucous membranes and turbinates present Eyes Conjunctivae: conjunctivae normal Sclerae: sclerae normal Pupils: Equal, round and reactive pupils present Neck Neck: Yes no lymphadenopathy and Yes no JVD Thyroid: Thyroid normal Carotids: no bruits Resp Effort & Inspection: normal respiratory effort and not tachypneic Auscultation: no crackles, no rales, no rhonchi and no wheezes Cardio Rate: regular rate Rhythm: regular rhythm Heart sounds: no murmurs and normal S1 and S2 GI Palpation (GI): Soft to palpation, nontender, no hepatomegaly and no splenomegaly Auscultation: normal bowel sounds Skin General skin exam: no rashes or lesions noted and dry skin Neuro General: oriented to person, oriented to place and oriented to time Cranial nerves: Yes Equal, round and reactive pupils present Speech: No Abnormal speech present Gait exam (Neuro): Normal gait present Motor exam (neuro): no tremor noted Extrem Other: NOTED SOME DILATED VARICOSITIES LOWER EXTREMITIES, THEY ARE SOMEWHAT TENDER TO PALPATION. Right upper extremity: full ROM Left upper extremity: full ROM Right lower extremity: full ROM; no edema Left lower extremity: full ROM; no edema Psych Mental Status: mental status grossly normal Speech and movement: Normal speech and movement present Affect: normal affect Attitude: cooperative Thought process: Normal thought process present Assessment and Plan Assessment & Plan (1) Folliculitis: Code(s): L73.9 - Follicular disorder, unspecified Plan: Patient's skin manifestation appears to be folliculitis. Will supply patient with 1 week's worth of doxycycline. Unclear if this is secondary to the change in dose of her disease modifying drug. Could be a bit more immunocompromised at this time.. Warned her about UV radiation exposure during treatment with doxycycline. (2) HTN (hypertension): Code(s): I10 - Essential (primary) hypertension Qualifiers: Hypertension type: primary hypertension Qualified Code(s): I10 - Essential (primary) hypertension Plan: Blood pressure acceptable today in office. Is able to manage her blood pressure withlifestyle and dietary modifications . Goal blood pressure is to be below 140/90 (3) Elevated fasting glucose: Code(s): R73.01 - Impaired fasting glucose Plan: Noted most recent fasting blood sugar 104. (4) Obese: Code(s): E66.9 - Obesity, unspecified Qualifiers: Body mass index: BMI 37.0-37.9 Obesity classification: adult class 2 (BMI 35 - 39.9) Obesity type: due to excess calories Serious obesity comorbidity presence: without serious comorbidity Qualified Code(s): E66.09 - Other obesity due to excess calories; Z68.37 - Body mass index [BMI] 37.0-37.9, adult Plan: Patient has lost weight since starting GLP 1. Has struggled with weight her whole entire life. It does seem that GLP 1 injections have offered her benefit on weight loss. She would like to continue 1.7 mg weekly (5) Psoriasis: Code(s): L40.9 - Psoriasis, unspecified Plan: Has started new disease modifying drug and has significantly cleared her psoriasis skin manifestations. Unfortunately has developed some rash cystic like lesions over her axillary and groin regions. (6) Symptomatic varicose veins: Code(s): I83.899 - Varicose veins of unspecified lower extremity with other complications Qualifiers: Laterality: right Qualified Code(s): I83.891 - Varicose veins of right lower extremity with other complications Plan: She has noted painful varicosities in her lower extremities. Ultrasound of lower extremity without any significant from flatus. Will like to see a vascular surgeon about treatment for varicosities. Orders: Orders 2 Microalbumin, Random (w Creat) Today I10 - Essential (primary) hypertension Comprehensive [place]. Panel Fast Today I10 - Essential (primary) hypertension Complete Blood Count no Diff Today I10 - Essential (primary) hypertension IRON PROFILE Today D50.9 - Iron deficiency anemia, unspecified Magnesium Today E83.41 - Hypermagnesemia TSH reflex Free T4 Today E03.9 - Hypothyroidism, unspecified Referrals Vascular Surgery Referral I83.899 - Varicose veins of unspecified lower extremity with other complications Medications: New doxycycline monohydrate 100 mg PO BID 14 caps 0RF 7 days L73.9 - Follicular disorder, unspecified Changed From semaglutide (weight loss) (Wegovy) administer weeks 13 through 16 of therapy 1.7 mg (0.75 mL) subcut QWEEK 4 weeks 3 mL 1RF E66.09 - Other obesity due to excess calories, I10 - Essential (primary) hypertension, Z68.37 - Body mass index [BMI] 37.0-37.9, adult To semaglutide (weight loss) (Wegovy) 1.7 mg (0.75 mL) subcut QWEEK 3 mL 1RF 4 weeks E66.09 - Other obesity due to excess calories, I10 - Essential (primary) hypertension, Z68.37 - Body mass index [BMI] 37.0-37.9, adult Coding Level of Care Code Est Pt Level 4 (59230) Diagnoses Folliculitis L73.9 Primary hypertension I10 Hypertension type: primary hypertension Elevated fasting glucose R73.01 Class 2 obesity due to excess calories without serious comorbidity with body mass index (BMI) of 37.0 to 37.9 in adult E66.09; Z68.37 Body mass index: BMI 37.0-37.9 Obesity classification: adult class 2 (BMI 35 - 39.9) Obesity type: due to excess calories Serious obesity comorbidity presence: without serious comorbidity Psoriasis L40.9 Symptomatic varicose veins of right lower extremity I83.891 Laterality: right
== END 2024-03-31 11:50 | disposition home or self-care (01) ==
PROVIDERS: PCP Physician Assistant; Visit Provider Physician Assistant
DX: L73.9 Follicular disorder, unspecified (principal); I10 Essential (primary) hypertension; R73.01 Impaired fasting glucose; E66.09 Other obesity due to excess calories; Z68.37 Body mass index [BMI] 37.0-37.9, adult; L40.9 Psoriasis, unspecified; I83.891 Varicose veins of right lower extremity with other complications
CPT/HCPCS: 99214

== ENCOUNTER 2024-05-19 14:48 | Outpatient (AMB) | payer OTHER, SELFPAY ==
[2024-05-19 15:14] VITALS: BP 140/84; PULSE 70; O2SAT 98; BMI 31.9
--- NOTE | 2024-05-19 15:14 | AM.OFFVISMDC ---
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 Accompanied by: Self / Same As Patient Allergies morphine [MORPHINE] Allergy (Intermediate, Verified 05/19/24 15:20) NIGHTMARES oxycodone [Percocet] Allergy (Intermediate, Verified 05/19/24 15:20) nausea and vomiting Penicillins Allergy (Intermediate, Verified 05/19/24 15:20) rash,sob Sulfa (Sulfonamide Antibiotics) [SULFA (SULFONAMIDE ANTIBIOTICS)] Allergy (Intermediate, Verified 05/19/24 15:20) RASH Medication List - Last Reconciled 05/19/24 by Ayad Brewer PA-C acetaminophen 1,000 mg (2 x 500 mg) PO Q8H alcohol swabs (Alcohol Wipes) 1 pad topical DIRECTED certolizumab pegol 200 mg subcut Q2W cyanocobalamin (vitamin B-12) 1,000 mcg IM QMONTH docusate sodium 100 mg PO BID doxycycline monohydrate 100 mg PO BID 7 days ferrous sulfate 325 mg PO DAILY gabapentin 300 mg PO TID 30 days levothyroxine 125 mcg PO DAILY levothyroxine 112 mcg PO DAILY metformin ER 500 mg PO DAILY 90 days miscellaneous medical supply (Blood Pressure Cuff) As directed semaglutide (weight loss) (Wegovy) 1.7 mg (0.75 mL) subcut QWEEK 4 weeks syringe with needle (Syringe) As Directed syringe with needle (Syringe) As Directed HPI V G0439 HPI Details Patient is a 58-year-old female here today for follow-up visit.? Patient has a past medical history significant for hypothyroidism, fibromyalgia, obesity Today we discussed patient's need for mammogram and cervical cancer screening, inpatient willing to start screening. Patient was educated on the importance of such screenings. Patient is up-to-date with immunizations. [place] of care was reviewed with the patient and she was provided with a written screening schedule. Patient has declined a healthcare proxy form and she was provided with a MOLST form. Laboratory Tests 05/16/23 07/22/24 08/12/24 09:29 09:05 13:23 RBC 4.77 Ferritin 12 Cholesterol 158 TSH 3.54 HPI Comments History of Present Illness Details reviewed past medical history- yes reviewed surgical / hospitalization history- yes reviewed current medications- yes reviewed family history- yes home safety throw rugs? grab bars? raised toilet seat? working smoke detectors? activities of daily living difficulty bathing or showering? difficulty dressing? difficulty using the toilet? difficulty getting in and out of bed? difficulty walking? receives help from other person's with any of the above tasks? instrumental activities of daily living uses telephone - gets to place out of walking distance- go shopping for groceries- repairs own meals- does own minor home maintenance- does own laundry- does own housework- manages own money- currently takes medication- end of life planning discussed advanced directives- yes advanced directives on file? discussed wishes expressed in advanced directives. fall risk have you had any falls with injuries in the past year? have you had 2 or more falls in the past year? fall risk assessment: [facility] Medical History History of lipoma Degenerative disc disease, cervical Neck Pain Lipoma of back (10/22/22) Hypothyroid Anemia Depression Anxiety Obesity Vitamin D deficiency Psoriasis Fibromyalgia Surgical History Hx of neck surgery History of shoulder surgery History of tooth extraction Hx of colonoscopy S/P panniculectomy History of cholecystectomy History of gastric bypass Family History Father CVD (cardiovascular disease) Stroke Hypertension Myocardial infarction Thyroid cancer Mother Hypertension Maternal Grandmother Colon cancer Glaucoma Social History Household Members: None Housing: House Housing Other:: mobile home Are you a primary healthcare technician to a significant other at home: No Do you presently have visiting nurse or other home services: No Alcohol intake: never Comment: rings appropriately Patient Tobacco Use Status: Former Tobacco user Tobacco use type: Cigarette Cigarette Packs Per Day: 1 Years Smoked: 30 e-Cigarette/Vaping Use: Never Used Second Hand Smoke Exposure: No service: No Current occupational status: unemployed Cognitive needs: No Hearing needs: No Vision needs: No Questionnaire Mini Mental State Exam (MMSE) Orientation What is the (year) (season) (date) (day) (month)?: year and season Where are we (state) (county) (town or city) (hospital) (floor[place]: county Attention & Calculation (CHOOSE ONE) Spell WORLD backwards (DLROW): 5 letters Score Score: 8 Activity of Daily Living Bathing - sponge bath, tub bath or shower: receives no assistance (gets in/out by self, if usual bathing means Dressing - getting clothes from closets & drawers, including inner/outer garments & fasteners.: gets clothes & gets completely dressed without help Toileting - going to the 'toilet room' for urine/bowel elimination & cleaning self/arranging clothes: goes to toilet room, cleans self, arranges clothes without help Transfer: moves in & out of bed and chair without help (may use support object) Continence: controls urination/bowel movements completely by self Feeding: feeds self without help Total Score: 0 Information obtained from: patient Using telephone: independent Traveling: independent Shopping: independent Preparing meals: independent Housework: independent Taking medicine: independent Managing money: independent Physical Exam Vital Signs: Last Vital Signs Pulse 70 05/19/24 15:14 BP 140/84 H 05/19/24 15:14 Pulse Ox 98 05/19/24 15:14 Oxygen Delivery Method Room Air 05/19/24 15:14 BMI result Body Mass Index 31.9 HEENT Other: hearing screening whisper test- pass Eyes Other: vision screening- 20 20 OS OD OU Other: urinary incontinence? no Neuro Other: balance Romberg- normal tandem walk test- able walk-in turned test- able rise from sit to stand- within 2 seconds Assessment & Plan Assessment & Plan (1) Annual wellness visit: Code(s): Z00.00 - Encounter for general adult medical examination without abnormal findings Plan: As per HPI (2) Breast cancer screening: Code(s): Z12.39 - Encounter for other screening for malignant neoplasm of breast Qualifiers: Breast cancer screening modality: mammogram Qualified Code(s): Z12.31 - Encounter for screening mammogram for malignant neoplasm of breast Plan: Patient willing to do screening mammogram (3) Colon cancer screening: Code(s): Z12.11 - Encounter for screening for malignant neoplasm of colon Plan: Patient at average risk Patient willing to do Cologuard Orders: Orders MM screening mammo BI Today Z12.31 - Encounter for screening mammogram for malignant neoplasm of breast Referrals Cologuard Test Z12.11 - Encounter for screening for malignant neoplasm of colon STORE PROM[facility]ER Referral Z12.4 - Encounter for screening for malignant neoplasm of cervix Coding Level of Care Code Medicare Subsequent (G0439) Diagnoses Annual wellness visit Z00.00 Encounter for screening mammogram for malignant neoplasm of breast Z12.31 Breast cancer screening modality: mammogram Colon cancer screening Z12.11 CPT Codes Advance Care Planning - Time spent: 1-15 minutes, on File ([id number]) Advance Care Planning Advance Care Planning discussion: Completed/Scanned Date of discussion: 05/19/24 Forms completed: DIMITRI Time spent: 1-15 minutes, on File Actual minutes spent: 5
== END 2024-05-19 15:46 | disposition home or self-care (01) ==
PROVIDERS: PCP Physician Assistant; Visit Provider Physician Assistant
DX: Z00.00 Encounter for general adult medical examination without abnormal findings (principal); Z12.31 Encounter for screening mammogram for malignant neoplasm of breast; Z12.11 Encounter for screening for malignant neoplasm of colon

== ENCOUNTER → 2024-05-19 14:48 | Outpatient (BNVA) | payer OTHER, SELFPAY | PROVIDERS: PCP Physician Assistant; Visit Provider Physician Assistant | DX: Z00.00 Encounter for general adult medical examination without abnormal findings (principal) | CPT/HCPCS: 90471 ==

== ENCOUNTER 2024-06-03 09:32 | Outpatient (REF) | payer OTHER, SELFPAY ==
[2024-06-03 09:55] LABS: MANUAL DIFF FLAG NO
[2024-06-03 10:36] LABS: Basophils Absolute Auto 0.1 X10*3/uL (0.0-0.2); Basophils Percent Auto 1.5 % (0-2); Eosinophils Absolute Auto 0.2 X10*3/uL (0.0-0.4); Eosinophils Percent Auto 3.6 % (0-4); Hematocrit 38.5 % (37.0-47.0); Hemoglobin 12.3 g/dl (12.0-16.0); Imm Gran Abs Auto 0.01 X10*3/uL (0.00-0.03); Imm Gran Pct Auto 0.2 % (0.0-0.4); Lymphocytes Absolute Auto 2.6 X10*3/uL (1.2-4.9); Lymphocytes Percent Auto 39.5 % (20-40); Mean Corpuscular HGB Conc 31.9 g/dl (31.0-35.0); Mean Corpuscular Hemoglobin 28.5 pg (27.0-33.0); Mean Corpuscular Volume 89.1 fL (80.0-98.0); Mean Platelet Volume 10.9 fL (9.4-12.3); Monocytes Absolute Auto 0.5 X10*3/uL (0.1-1.2); Monocytes Percent Auto 7.7 % (2-11); Neutrophils Absolute Auto 3.2 x10*3/uL (2.0-8.3); Neutrophils Percent Auto 47.5 % (45-73); Platelet Count 379 X10*3/uL (160-400); Red Blood Count 4.32 X10*6/uL (4.20-5.50); Red Cell Distribution Width 15.7 % (11.0-16.0); White Blood Count 6.6 X10*3/uL (4.8-10.8)
[2024-06-03 11:29] LABS: Alanine Aminotransferase 23 U/L (0-31); Albumin Level 4.2 g/dL (3.5-5.0); Alkaline Phosphatase 89 U/L (39-117); Anion Gap 13 (12-20); Aspartate Amino Transferase 21 U/L (5-31); Bilirubin Total 0.3 mg/dL (0.0-1.0); Blood Urea Nitrogen 8 mg/dL (9-16); Calcium 9.4 mg/dL (8.4-10.2); Carbon Dioxide 28 mmol/L (22-29); Chloride 105 mmol/L (96-108); Estimated Glomerular Filt Rate > 60; Glucose Random 84 mg/dL (60-115); Potassium 3.7 mmol/L (3.3-5.1); Sodium 142 mmol/L (135-145); Total Protein 7.8 g/dL (6.5-8.0)
[2024-06-06 03:14] LABS: TS Negative Control Passed; TS Panel A 1; TS Panel B 1; TS Positive Control Passed; TSpotTB Negative (Negative)
== END 2024-06-03 09:33 | disposition home or self-care (01) ==
LOC: HO.LAB 09:32
PROVIDERS: PCP Physician Assistant; Visit Provider Dermatology
DX: L40.0 Psoriasis vulgaris (principal)
CPT/HCPCS: 36415; 80053; 85025; 86481

== ENCOUNTER 2024-06-22 12:35 | Outpatient (REF) | payer OTHER, SELFPAY | END 2024-06-22 12:36 | disposition home or self-care (01) | LOC: HO.MAMMO 12:35 | PROVIDERS: PCP Physician Assistant; Visit Provider Physician Assistant | DX: Z13.89 Encounter for screening for other disorder (principal) ==

== ENCOUNTER 2024-06-24 15:28 | Outpatient (AMB) | payer OTHER, SELFPAY ==
[2024-06-24 15:36] VITALS: BP 126/84; PULSE 91; O2SAT 97; BMI 31.0
--- NOTE | 2024-06-24 15:36 | A.OFFPC_ITS ---
Vital Signs 3 06/24/24 15:36 Height 5 ft 7 in Weight 198 lb BMI 31.0 BP 126/84 Blood Pressure Location Lt brachial Position Sitting Pulse 91 Pulse Source Pulse Oximeter Pulse Oximetry (%) 97 Oxygen Delivery Method Room Air Intake Visit Reasons: possible allergic reaction open sores Wet Trimmer Required: No Accompanied by: Self / Same As Patient Allergies morphine [MORPHINE] Allergy (Intermediate, Verified 06/24/24 15:49) NIGHTMARES oxycodone [Percocet] Allergy (Intermediate, Verified 06/24/24 15:49) nausea and vomiting Penicillins Allergy (Intermediate, Verified 06/24/24 15:49) rash,sob Sulfa (Sulfonamide Antibiotics) [SULFA (SULFONAMIDE ANTIBIOTICS)] Allergy (Intermediate, Verified 06/24/24 15:49) RASH Medication List - Last Reconciled 06/24/24 by Ayad Brewer PA-C acetaminophen 1,000 mg (2 x 500 mg) PO Q8H alcohol swabs (Alcohol Wipes) 1 pad topical DIRECTED certolizumab pegol 200 mg subcut Q2W cyanocobalamin (vitamin B-12) 1,000 mcg IM QMONTH docusate sodium 100 mg PO BID doxycycline monohydrate 100 mg PO BID 7 days ferrous sulfate 325 mg PO DAILY gabapentin 300 mg PO TID 30 days levothyroxine 125 mcg PO DAILY levothyroxine 112 mcg PO DAILY metformin ER 500 mg PO DAILY 90 days miscellaneous medical supply (Blood Pressure Cuff) As directed semaglutide (weight loss) (Wegovy) 1.7 mg (0.75 mL) subcut QWEEK 4 weeks syringe with needle (Syringe) As Directed syringe with needle (Syringe) As Directed Tobacco use date assessed: 06/24/24 Dental Screening Dental Screen Date: 06/24/24 HPI possible allergic reaction open sores 2 HPI0 Details Patient is a 58-year-old female here today for problem visit. She reports her skin issue has gotten worse over the last 2 months. She has found more try plaque-like skin lesions over her entire body. She has changed her biologic for her psoriasis recently with her sap analyst. She reports some of the skin manifestations do, but has pustules that she is able to express purulent material from. She recently underwent dental work and is on an antibiotic( azithromycin). [facility] Medical History History of lipoma Degenerative disc disease, cervical Neck Pain Lipoma of back (10/22/22) Hypothyroid Anemia Depression Anxiety Obesity Vitamin D deficiency Psoriasis Fibromyalgia Surgical History Hx of neck surgery History of shoulder surgery History of tooth extraction Hx of colonoscopy S/P panniculectomy History of cholecystectomy History of gastric bypass Family History Father CVD (cardiovascular disease) Stroke Hypertension Myocardial infarction Thyroid cancer Mother Hypertension Maternal Grandmother Colon cancer Glaucoma Social History Household Members: None Housing: House Housing Other:: mobile home Are you a primary post anesthesia care unit nurse to a significant other at home: No Do you presently have visiting nurse or other home services: No Alcohol intake: never Comment: rings appropriately Patient Tobacco Use Status: Former Tobacco user Tobacco use type: Cigarette Cigarette Packs Per Day: 1 Years Smoked: 30 Packs Per Year: 30 e-Cigarette/Vaping Use: Never Used Second Hand Smoke Exposure: No service: No Current occupational status: unemployed Cognitive needs: No Hearing needs: No Vision needs: No Questionnaire PHQ-9 Over the last 2 weeks, how often have you been bothered by any of the following problems? 1. Little interest or pleasure in doing things: more than half the days 2. Feeling down, depressed, or hopeless: more than half the days 3. Trouble falling or staying asleep, or sleeping too much: more than half the days 4. Feeling tired or having little energy: nearly every day 5. Poor appetite or overeating: nearly every day 6. Feeling bad about yourself - or that you are a failure or have let yourself or your family down: more than half the days 7. Trouble concentrating on things, such as reading the newspaper or watching television: several days 8. Moving or speaking so slowly that other people could have noticed. Or the opposite - being so fidgety or restless that you have been moving around a lot more than usual: more than half the days 9. Thoughts that you would be better off or of hurting yourself in some way: several days Total score: 18 Depression Screening Interpretation: Positive Depression Screening Follow-up: Existing condition Depression Screening Done: Yes 15439 - PHQ-9 Billing: Yes Source: Developed by Drs. Fish Damon, Marguerite Thompson, Vishal Churchill and colleagues, with an educational shea from [employer]. Thrive Questionnaire Date Thrive assessed: 06/24/24 I am a: Patient What is your living situation today?: I have a steady place to live Within the past 12 months, did the food you bought not last and you didn't have the money to get more?: Never true Within the past 12 months, did you worry whether your food would run out before you got money to buy more?: Never true Do you have trouble paying for medicines?: No Do you have trouble getting transportation to medical appointments?: No Do you have trouble paying your heating and electricity bill?: No Do you have trouble taking care of your child, family member or friend?: No Do you have trouble with day-to-day activities such as bathing, preparing meals, shopping, managing finances, etc.?: No Are you currently unemployed and looking for a job?: No Are you interested in more education?: No Please select the resources that you would like help with: None Currently or been in a relationship where the following occur: No concerns reported THRIVE Score: 0 AUDIT C Alcohol Use Questionnaire (AUDIT-C) 1. How often do you have a drink containing alcohol?: Monthly or less 2. How many drinks containing alcohol do you have on a typical day when you are drinking?: 1 or 2 3. How often do you have six or more drinks on one occasion?: Never Total Score: 1 BESSY-7 AMB Questionnaire BESSY-7 Date BESSY - 7 assessed: 06/24/24 Feeling nervous, anxious, or on edge: 0 = Not at all Not being able to stop or control worryin = Not at all Worrying too much about different things: 0 = Not at all Trouble relaxin = Not at all Being so restless that it is hard to sit still: 0 = Not at all Becoming easily annoyed or irritable: 0 = Not at all Feeling afraid as if something awful might happen: 0 = Not at all Total BESSY-7 score (0-4 normal; 5-9 mild; 10-14 moderate; 15-21 severe): 0 Source: Developed by Drs. Fish Damon, Marguerite Thompson, Vishal Churchill and colleagues, with an educational shea from [employer]. BESSY-7 Assessment Billing BESSY-7 Assessment Tool: BESSY-7 Assessment 25322 Review of Systems Const Denies headache(s) Eyes Denies loss of vision ENT Denies vertigo, Denies dizziness, Denies headache(s) and Denies sore throat Card Denies chest pain, Denies leg edema and Denies lightheadedness Resp Denies cough, Denies hemoptysis and Denies wheezing GI Denies abdominal pain, Denies melena, Denies constipation, Denies diarrhea and Denies vomiting Denies urinary frequency, Denies dysuria and Denies urinary urgency Musc Denies arthralgias, Denies joint swelling, Denies numbness and Denies tingling Neuro Denies Abnormal speech present, Denies behavioral changes, Denies vertigo, Denies dizziness, Denies headache(s), Denies loss of vision, Denies memory loss, Denies numbness and Denies tingling Psych Denies anxiety, Denies behavioral changes, Denies depression, Denies memory loss and Denies panic attacks Uli/Lymph Denies easy bleeding and Denies easy bruising Aller/Immun Denies wheezing Physical exam (Primary Care) Vital Signs: Last Vital Signs Pulse 91 06/24/24 15:36 BP 126/84 06/24/24 15:36 Pulse Ox 97 06/24/24 15:36 Oxygen Delivery Method Room Air 06/24/24 15:36 BMI result Body Mass Index 31.0 Tobacco/Smoking Status: Tobacco use Status Tobacco use date assessed 06/24/24 06/24/24 15:37 Patient Tobacco Use Status Former Tobacco user 06/24/24 15:37 Tobacco use type Cigarette 06/24/24 15:37 e-Cigarette/Vaping Use Never Used 06/24/24 15:37 PHQ-9: PHQ-9 Score PHQ-9: Total score 18 06/24/24 15:59 Depression Screening Interpretation: Positive Depression Screening Follow-up: Existing condition Thrive Assessment: Date of Thrive Assessment Date Thrive assessed 11/20/24 11/20/24 15:37 Currently or been in a relationship where the following occur: No concerns reported Const General: healthy appearing, no acute distress, alert and awake Nutritional Appearance: well nourished Orientation/consciousness: oriented to person, oriented to place and oriented to time HENMT Ears: TM's normal bilaterally General nose exam: Normal nasal mucous membranes and turbinates present Eyes Conjunctivae: conjunctivae normal Sclerae: sclerae normal Pupils: Equal, round and reactive pupils present Neck Neck: Yes no lymphadenopathy and Yes no JVD Thyroid: Thyroid normal Carotids: no bruits Resp Effort & Inspection: normal respiratory effort and not tachypneic Auscultation: no crackles, no rales, no rhonchi and no wheezes Cardio Rate: regular rate Rhythm: regular rhythm Heart sounds: no murmurs and normal S1 and S2 GI Palpation (GI): Soft to palpation, nontender, no hepatomegaly and no splenomegaly Auscultation: normal bowel sounds Skin Other: Neuro General: oriented to person, oriented to place and oriented to time Cranial nerves: Yes Equal, round and reactive pupils present Speech: No Abnormal speech present Gait exam (Neuro): Normal gait present Motor exam (neuro): no tremor noted Extrem Right upper extremity: full ROM Left upper extremity: full ROM Right lower extremity: full ROM; no edema Left lower extremity: full ROM; no edema Psych Mental Status: mental status grossly normal Speech and movement: Normal speech and movement present Affect: normal affect Attitude: cooperative Thought process: Normal thought process present Coding Level of Care Code Est Pt Level 4 (14122) Diagnoses Psoriasis L40.9 Immunocompromised D84.9 Additional Codes PHQ-9 - 22652 - PHQ-9 Billing: Yes ([id number]) BESSY-7 Assessment Billing - BESSY-7 Assessment Tool: BESSY-7 Assessment [id number] ([id number]) Assessment & Plan Assessment & Plan (1) Psoriasis: Comment: dx 2016 MTX ineffective Humira Ilumya effective insurance issues Cimzia approx 09/2023 Code(s): L40.9 - Psoriasis, unspecified Category: Medical Plan: PLEASE SEE PICTURE SECTION IN SKIN PHYSICAL EXAM. Patient's white spread rash plaque-like try lesions most consistent with a psoriasis flare. She has changed her new disease biologic medication recently. Will supply patient with a prednisone taper for what seems to be a psoriasis flare. (2) Immunocompromised: Code(s): D84.9 - Immunodeficiency, unspecified Category: Medical Plan: Patient's seems to be somewhat immunocompromised due to her biologics for her psoriatic arthritis and psoriasis. Medications: New 2 prednisone Take 3 tablets x3 days, 2 tablets x3 days, 1 tablet x3 days 10 mg PO DIRECTED 18 tabs 0RF 9 days L40.9 - Psoriasis, unspecified
== END 2024-06-24 16:12 | disposition home or self-care (01) ==
PROVIDERS: PCP Physician Assistant; Visit Provider Physician Assistant
DX: L40.9 Psoriasis, unspecified (principal); D84.9 Immunodeficiency, unspecified

== ENCOUNTER → 2024-06-24 15:28 | Outpatient (BNVA) | payer OTHER, SELFPAY | PROVIDERS: PCP Physician Assistant; Visit Provider Physician Assistant | DX: L40.9 Psoriasis, unspecified (principal); D84.9 Immunodeficiency, unspecified | CPT/HCPCS: 96127; 99212 ==

== ENCOUNTER 2024-07-07 12:53 | Outpatient (AMB) | payer OTHER, SELFPAY ==
[2024-07-07 13:09] VITALS: BMI 31.0
--- NOTE | 2024-07-07 13:09 | A.OFFVIS_ITS ---
Vital Signs 07/07/24 13:09 Height 5 ft 7 in Weight 198 lb BMI 31.0 Intake Visit Reasons: PATIENT ACCOUNTS CLERK/ PCP ref for VV w/ pain Intake Note: PATIENT ACCOUNTS CLERK/PCP referral for bilateral LE VV. Left LE has bigger VV than the right LE but Right LE is more painful. Has had them for years but states just started bothering her recently. 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 Complaints include pain over varicosities, swelling of lower extremities, cramping, fatigue, and heaviness of the lower extremities. It has been affecting their daily activities including walking, standing, and physical activity. She states that her left shows more varicosities but her right leg is more painful. She is a former smoker, quit more than 20 years ago. She states she is not diabetic but does take daily metformin. Patient denies any previous venous surgery or injections. Patient denies any history of DVT/ PE. Patient denies any history of phlebitis. Trial of compression includes - elevation daily, sometimes compression stockings. They now present for vascular evaluation regarding their varicose veins. [facility] Medical History History of lipoma Degenerative disc disease, cervical Neck Pain Lipoma of back (10/22/22) Hypothyroid Anemia Depression Anxiety Obesity Vitamin D deficiency Psoriasis Fibromyalgia Surgical History Hx of neck surgery History of shoulder surgery History of tooth extraction Hx of colonoscopy S/P panniculectomy History of cholecystectomy History of gastric bypass Family History Father CVD (cardiovascular disease) Stroke Hypertension Myocardial infarction Thyroid cancer Mother Hypertension Maternal Grandmother Colon cancer Glaucoma Social History Household Members: None Housing: House Housing Other:: mobile home Are you a primary clinical care leader to a significant other at home: No Do you presently have visiting nurse or other home services: No Alcohol intake: never Comment: rings appropriately Patient Tobacco Use Status: Former Tobacco user Tobacco use type: Cigarette Cigarette Packs Per Day: 1 Years Smoked: 30 e-Cigarette/Vaping Use: Never Used Second Hand Smoke Exposure: No service: No Current occupational status: unemployed Cognitive needs: No Hearing needs: No Vision needs: No Review of Systems Const Reports as per HPI and Denies weakness ENT Reports Normal hearing present and Denies dizziness Card Reports as per HPI, Denies chest pain, Denies chest pain at rest, Denies chest pain with activity, Denies dyspnea and Denies dyspnea on exertion Resp Reports as per HPI, Denies cough, Denies dyspnea and Denies dyspnea on exertion GI Reports as per HPI, Denies abdominal pain, Denies nausea and Denies vomiting Musc Denies numbness Skin/Breast Reports as per HPI, Denies erythema and Denies wounds Neuro Reports Normal hearing present, Denies dizziness, Denies numbness, Denies Sensory deficit (Neuro) and Denies weakness Psych Reports no additional complaints Endo Reports no additional complaints Physical Exam Vital Signs: BMI result Body Mass Index 31.0 Const General: healthy appearing and no acute distress Orientation/consciousness: patient oriented x3 HEENT Head: Yes normal to inspection Ears: hearing grossly normal bilaterally Mouth: Normal oral and palatal mucosa present Resp Effort & Inspection: normal respiratory effort and able to speak in complete sentences Auscultation: clear to auscultation bilaterally Cardio Jugular venous distension: no JVD Rate: regular rate Rhythm: regular rhythm Heart sounds: S1 normal heart sound present and S2 normal heart sound present Bruits: no abdominal aortic bruits, no carotid bruits, no femoral bruits and no renal bruits Peripheral pulses: Peripheral pulses 2+ throughout GI Inspection: Yes normal to inspection Palpation (GI): No Abdominal aortic bruit present Skin General skin exam: no rashes or lesions noted Wounds: no wounds Hair: normal Neuro General: patient oriented x3 Cranial nerves: Yes Normal hearing present Cognition (Neuro): normal cognition Gait exam (Neuro): Normal gait present Motor exam (neuro): 5/5 motor strength present throughout Sensory Exam: No Sensory deficit (Neuro) Extrem Other: Left lower extremity: Varicosity, proximally 6 cm long, noted on the medial aspect of the left lower leg. Smaller varicosities noted behind the knee. Right lower extremity: Small spider veins and small varicosities noted behind the knee. Bilateral lower extremities: Trace peripheral edema noted. CEAP: C - 3 E - primary A - superficial P - reflux General: Yes normal to inspection, Yes full ROM, Yes capillary refill normal and Yes normal gait Assessment & Plan Assessment & Plan (1) Varicose veins of both lower extremities with inflammation: Code(s): I83.11 - Varicose veins of right lower extremity with inflammation; I83.12 - Varicose veins of left lower extremity with inflammation Category: Medical Plan: Teri is presenting today as a referral from PCP for ongoing varicose veins, getting worse over the last year. She states she is having increased pain and swelling with walking or any physical activity. She states the pain usually goes away when she elevates her legs or stops the activity. In short, the patient has evidence of venous insufficiency. I have discussed the pathophysiology with the patient. In addition I have provided informational material regarding venous disease to the patient. We have discussed conservative measures including compression, elevation, and exercise. I have also provided a handout regarding appropriate use of compression stockings and where to purchase good compression stockings as well. I have taken the liberty of ordering venous insufficiency testing with the patient. They will follow up with me after testing. The patient had an opportunity to ask questions regarding the treatment plan. All questions were answered. Imaging studies, laboratory studies and physical exam results were discussed and reviewed in detail. No major barriers to understanding were identified. The patient expressed understanding and agreement with the above treatment plan. The patient is aware they should contact our office by phone for worsening of the current condition or the appearance of new symptoms. Thank you for allowing me to participate in the vascular care of this patient. If you have any questions or concerns regarding the treatment for the above condition please do not hesitate to contact me. The office telephone contact is [phone]. This note is constructed using voice recognition software. While every effort has been made to ensure accuracy, coin machine service repairer errors may have been included. Thank you for allowing me to participate in the care of your patient. Yours sincerely, TEJAL Mckee Orders: Orders US venous duplex LE BI 1 Week I83.11 - Varicose veins of right lower extremity with inflammation, I83.12 - Varicose veins of left lower extremity with infla mmation Coding Level of Care Code New Pt Level 4 (49179) Diagnoses Varicose veins of both lower extremities with inflammation I83.11; I83.12
== END 2024-07-07 14:07 | disposition home or self-care (01) ==
PROVIDERS: PCP Physician Assistant; Visit Provider Physician Assistant Surgical
DX: I83.11 Varicose veins of right lower extremity with inflammation (principal); I83.12 Varicose veins of left lower extremity with inflammation
CPT/HCPCS: 99204

== ENCOUNTER → 2024-07-07 12:53 | Outpatient (BNVA) | payer OTHER, SELFPAY | PROVIDERS: PCP Physician Assistant; Visit Provider Physician Assistant Surgical | DX: I83.11 Varicose veins of right lower extremity with inflammation (principal); I83.811 Varicose veins of right lower extremity with pain; I83.12 Varicose veins of left lower extremity with inflammation; Z87.891 Personal history of nicotine dependence | CPT/HCPCS: 99202 ==

== ENCOUNTER 2024-07-08 14:04 | Outpatient (REF) | payer OTHER, SELFPAY ==
--- NOTE | ~2024-07-08 | MM_ITS ---
EXAMINATION: MM SCREENING DIGITAL BREAST TOMOSYNTHESIS, BILATERAL CLINICAL INFORMATION: Screening. Asymptomatic. COMPARISON: Mammography: Comparison is made with available priors TECHNIQUE: Digital breast mammography with tomosynthesis is performed in both the craniocaudal and mediolateral oblique views along with computer-aided detection (CAD). FINDINGS: There are scattered areas of fibroglandular density (ACR BI-RADS breast composition Category b). There are no significant masses, abnormal calcifications, or other abnormalities. MM/MM tomosynthesis screening BI IMPRESSION: No mammographic evidence of malignancy. ASSESSMENT: BI-RADS BI-RADS 1 - Negative RECOMMENDATION: Routine annual mammography screening. 1 year F/U This examination should not preclude the clinical evaluation of a suspicious palpable abnormality. This patient's information was entered into a reminder system with a target due date for their next mammogram. Electronically signed by: Felicity Samuels DO 07/15/2024 08:46 AM [email or web address]
== END 2024-07-08 14:05 | disposition home or self-care (01) ==
LOC: HO.MAMMO 14:04
PROVIDERS: PCP Physician Assistant; Visit Provider Physician Assistant
DX: Z12.31 Encounter for screening mammogram for malignant neoplasm of breast (principal)
CPT/HCPCS: 77063; 77067

== ENCOUNTER → 2024-07-08 14:15 | Outpatient (BNV) | payer OTHER, SELFPAY | PROVIDERS: PCP Physician Assistant; Visit Provider Internal Medicine | DX: Z12.31 Encounter for screening mammogram for malignant neoplasm of breast (principal) | CPT/HCPCS: 77063; 77067 ==

== ENCOUNTER 2024-07-17 12:35 | Outpatient (REF) | payer OTHER, SELFPAY | END 2024-07-17 12:36 | disposition home or self-care (01) | LOC: HO.US 12:35 | PROVIDERS: PCP Physician Assistant; Visit Provider Physician Assistant Surgical | DX: I83.11 Varicose veins of right lower extremity with inflammation (principal); I83.12 Varicose veins of left lower extremity with inflammation | CPT/HCPCS: 93970 ==

== ENCOUNTER 2024-07-20 08:47 | Outpatient (REF) | payer OTHER, SELFPAY ==
[2024-07-20 09:34] LABS: Hematocrit 39.7 % (37.0-47.0); Hemoglobin 12.4 g/dl (12.0-16.0); Mean Corpuscular HGB Conc 31.2 g/dl (31.0-35.0); Mean Corpuscular Hemoglobin 28.5 pg (27.0-33.0); Mean Corpuscular Volume 91.3 fL (80.0-98.0); Mean Platelet Volume 10.3 fL (9.4-12.3); Platelet Count 381 X10*3/uL (160-400); Red Blood Count 4.35 X10*6/uL (4.20-5.50); Red Cell Distribution Width 14.8 % (11.0-16.0); White Blood Count 6.9 X10*3/uL (4.8-10.8)
[2024-07-20 10:15] LABS: Alanine Aminotransferase 37 U/L (0-31); Albumin Level 4.1 g/dL (3.5-5.0); Alkaline Phosphatase 126 U/L (39-117); Anion Gap 11 (12-20); Aspartate Amino Transferase 30 U/L (5-31); Bilirubin Total 0.3 mg/dL (0.0-1.0); Blood Urea Nitrogen 10 mg/dL (9-16); Calcium 9.8 mg/dL (8.4-10.2); Carbon Dioxide 28 mmol/L (22-29); Chloride 108 mmol/L (96-108); Estimated Glomerular Filt Rate > 60; Glucose Fasting 106 mg/dL (60-99); Iron 45 mcg/dL (30-160); Magnesium 2.2 mg/dL (1.6-2.6); Percent Iron Saturation 14 % (15-50); Potassium 4.1 mmol/L (3.3-5.1); Sodium 143 mmol/L (135-145); Total Iron Binding Capacity 316 mcg/dL (228-428); Total Protein 7.7 g/dL (6.5-8.0); Unsaturated Iron Binding 271 ug/dL
[2024-07-20 10:20] LABS: TSH reflex Free T4 2.75 uIU/mL (0.32-4.0)
[2024-07-20 10:33] LABS: Thyroid Stimulating Hormone 2.75 uIU/mL (0.32-4.0)
[2024-07-20 11:41] LABS: Microalbum/Creatinine Ratio Ur 4.8 ug/mg cr (<30)
== END 2024-07-20 08:48 | disposition home or self-care (01) ==
LOC: HO.LAB 08:47
PROVIDERS: PCP Physician Assistant; Visit Provider Internal Medicine Endocrinology, Diabetes & Metabolism
DX: I10 Essential (primary) hypertension (principal); E03.9 Hypothyroidism, unspecified; D50.9 Iron deficiency anemia, unspecified; E83.41 Hypermagnesemia
CPT/HCPCS: 36415; 80053; 82043; 82570; 83540; 83735; 84439; 84443; 85027

== ENCOUNTER 2024-09-24 13:49 | Outpatient (AMB) | payer OTHER, SELFPAY ==
--- NOTE | 2024-09-24 13:53 | MHC.OFFVIS ---
Vital Signs 09/24/24 13:55 Height 5 ft 7 in Weight 198 lb BMI 31.0 Intake Visit Reasons: Follow up 07/17 US Intake Note: follow up US 07/17/24, pt states Left LE is worse than Right LE Infrastructure Administrator Required: No Accompanied by: Self / Same As Patient Allergies morphine [MORPHINE] Allergy (Intermediate, Verified 09/24/24 13:57) NIGHTMARES oxycodone [Percocet] Allergy (Intermediate, Verified 09/24/24 13:57) nausea and vomiting Penicillins Allergy (Intermediate, Verified 09/24/24 13:57) rash,sob Sulfa (Sulfonamide Antibiotics) [SULFA (SULFONAMIDE ANTIBIOTICS)] Allergy (Intermediate, Verified 09/24/24 13:57) RASH HPI HPI Follow up 07/17 US: Details: Very pleasant 59-year-old female presents for follow-up regarding venous insufficiency. She is quite active and reports swelling and discomfort. It has been affecting her daily activities including skiing and being an active outdoor hiker. In addition she has significant psoriasis and a history of fibromyalgia. She now presents for follow-up with venous insufficiency testing. Of note she has used compression with minimal relief. [facility] Medical History History of lipoma Degenerative disc disease, cervical Neck Pain Lipoma of back (10/22/22) Hypothyroid Anemia Depression Anxiety Obesity Vitamin D deficiency Psoriasis Fibromyalgia Surgical History Hx of neck surgery History of shoulder surgery History of tooth extraction Hx of colonoscopy S/P panniculectomy History of cholecystectomy History of gastric bypass Family History Father CVD (cardiovascular disease) Stroke Hypertension Myocardial infarction Thyroid cancer Mother Hypertension Maternal Grandmother Colon cancer Glaucoma Social History Household Members: None Housing: House Housing Other:: mobile home Are you a primary personal caregiver to a significant other at home: No Do you presently have visiting nurse or other home services: No Alcohol intake: never Comment: rings appropriately Patient Tobacco Use Status: Former Tobacco user Tobacco use type: Cigarette Cigarette Packs Per Day: 1 Years Smoked: 30 e-Cigarette/Vaping Use: Never Used Second Hand Smoke Exposure: No service: No Current occupational status: unemployed Cognitive needs: No Hearing needs: No Vision needs: No Review of Systems Const All systems reviewed & are unremarkable except as noted in HPI and below Reports no additional complaints ENT Reports Normal hearing present Card Denies chest pain, Denies chest pain at rest, Denies chest pain with activity and Denies pedal edema Resp Denies cough GI Denies abdominal pain Musc Denies abnormal gait, Denies muscle cramps and Denies radiating pain into limb Skin/Breast Denies skin ulcer and Denies wounds Neuro Reports Normal hearing present and Denies abnormal gait Psych Reports no additional complaints Physical Exam Vital Signs: BMI result Body Mass Index 31.0 Const General: cooperative, healthy appearing and comfortable Orientation/consciousness: oriented to person, oriented to place and oriented to time HEENT Head: Yes normal to inspection Neck Neck: Yes normal visual inspection Carotids: no bruits Chest Chest palpation & inspection: normal inspection of the chest Resp Effort & Inspection: normal respiratory effort and able to speak in complete sentences Auscultation: clear to auscultation bilaterally, no crackles, no rales, no rhonchi and no wheezes Cardio Rate: regular rate Rhythm: regular rhythm Heart sounds: S1 normal heart sound present and S2 normal heart sound present Bruits: no carotid bruits Peripheral pulses: Peripheral pulses 2+ throughout GI Inspection: Yes normal to inspection Skin Other: Psoriasis of skin Wounds: no wounds Hair: normal Neuro General: oriented to person, oriented to place and oriented to time Cranial nerves: Yes CN's II-XII intact bilaterally and Yes Normal hearing present Cognition (Neuro): normal cognition Motor exam (neuro): 5/5 motor strength present throughout Extrem Other: venous exam: No significant superficial varicosities or spider telangiectasias, minimal edema General: No clubbing, No cyanosis and No edema Psych Appearance: grossly normal Mental Status: mental status grossly normal Speech and movement: Normal speech and movement present Results Reviewed Results Reviewed: Brief summary of venous insufficiency testing is as follows: right great saphenous vein: Positive right small saphenous vein: negative right accessory vein: none present left great saphenous vein: Positive left small saphenous vein: negative left accessory vein: none present Please note there is no evidence of any venous aneurysms or significant tortuosity Assessment & Plan Assessment & Plan (1) Varicose veins of left lower extremity with inflammation: Code(s): I83.12 - Varicose veins of left lower extremity with inflammation Category: Medical Plan: This patient has varicose veins with inflammation. They continue to be a source of discomfort for the patient. The patient has tried conservative treatment with compression, leg elevation and exercise program for over 3 months time. They have been compliant with all treatment. This has provided minimal relief for the patient. I do not anticipate this course of treatment will alter the underlying etiology. The patient has been scheduled for lower extremity venous treatment inclusive of --- left great saphenous vein radiofrequency ablation. Risks, benefits, and complications of this procedure has been discussed in detail with the patient including but not limited to bleeding, infection, and the development of a DVT. The patient has demonstrated a clear understanding and has consented. We will schedule the patient as soon as possible. Thank you for allowing us to participate in this patient's care. If there are any questions or concerns please do not hesitate to contact us. Coding Level of Care Code Est Pt Level 4 (71018) Diagnoses Varicose veins of left lower extremity with inflammation I83.12
[2024-09-24 13:55] VITALS: BMI 31.0
--- OUTSIDE RECORDS SUMMARY | 2024-09-24 14:51 | XMS_ITS | Data Portability ---
Author Organization [place] - [facility], Allergy Address [address] [place] [phone] Care Team Providers Care Rag Sorter And Cutter Name Role Phone JOSÉ PATRICK Primary Care Provider [phone] Assessment No assessment recorded. Plan of Treatment Reminders Order Date Submit Date Provider Last Modified By Organization Details Last Modified Time Details Appointments None record ed. Lab None record ed. Referral None record ed. Procedures None record ed. Surgeries None record ed. Imaging None record ed. Medication Orders None record ed. Patient TargetsNo targets recorded. Patient InstructionsNo instructions recorded. Reason for Referral None Reported. Results Created Date Observation Date Name Description Value Unit Range Abnormal Flag Note LastModifiedBy Organization Detail LastModifiedTime 09/01/19 25 audio gram No observ ation record ed. BARCODE Not Available 2024 09:52:09 Result Notes None recorded. Problems Name Problem SNOMED Code Status Onset Date Resolution Date Notes Provider Name and Address Organization Details Recorded Time Bilateral earache 854528295 Active 2016 Otalgi a, bilate ral; Note: Date Diagno sed: 03/08/20 17 4:42 PM (H92.0 3) Not Available [facility] 4 02:16:43 Abnormal auditory perception 16393126 Active 2024 MENDOZA HARDY MD [address] [place] [address],[place] [address], [address] , [place] - [facility] 5 14:09:25 Foreign body in auditory canal 44656790 Active 2024 MENDOZA HARDY MD [address] [facility],[place] [address], [address] , [place] - [facility] 5 14:09:31 Abnormal auditory perception 08309180 Active 2024 MENDOZA HRADY MD [address] [facility],[place] [address], [place], [address] , [facility] - [facility] 5 14:09:44 Chronic rhinitis 99928083 Active 2024 MENDOZA HARDY MD [address] [facility],[place] [address], [place], [address] , [facility] - [facility] 14:10:07 Problem Notes None recorded. Procedures Surgical History Date Name Laterality Status Provider Name and Address Organization Details Recorded Time Removal of foreign body from ear canal completed MENDOZA HODGSON MD [address] [facility],[place] [address], [place], [address], [facility] - [facility] 08/31/2024 14:09:10 Air & Speech Audio with Tymps (44893, 33890 & 35702) completed SLADE MCKENNA [address] [facility],[place] [address], [place], [address], [facility] 08/31/2024 14:14:34 Imaging Results Imaging Date Name Status LastModified by Organiz ation Details LastModified Time 09/01/2024 audiogram completed BARCODE Information no t available 09/01/2024 09:52:09 Procedure Notes None recorded. Medical Equipment None Reported. Allergies Allergen ID Allergen Name Allergen Category Reaction Reaction Severity Criticality Documentation Date Start Date Code Code System Note Provider Name and Address Organization Details Recorded Time 64370 morphine medicatio n other Not available Not available 12/17/2023 7052 RxNorm React ion: unkno wn, unspe cifie d;; Not Available [facility] 4 00:48:28 15751 penicilli n V potassium medicatio n other Not available Not available 12/17/2023 64642 5 RxNorm React ion: unkno wn, unspe cifie d;; Not Available [facility] 4 00:48:53 87489 acetamino phen / oxycodone medicatio n other Not available Not available 12/17/2023 71667 3 RxNorm React ion: unkno wn, unspe lupee d;; Not Available [facility] 4 00:49:20 Medications Name Sig Start Date Stop Date Status Note LastModified by Organization Details LastModified Time prednison e 10 mg tablet TAKE 3 TABLETS BY MOUTH FOR 3 DAYS THEN 2 TABLETS FOR 3 DAYS, THEN 1 TABLET FOR 3 DAYS 08/31 completed Not Available Not Available Not Available clindamyc in HCl 300 mg capsule TAKE 1 CAPSULE BY MOUTH EVERY 12 HOURS UNTIL FINISHED 08/31 completed Not Available Not Available Not Available triazolam 0.25 mg tablet TAKE 1 TABLET BY MOUTH 90 MINUTES PRIOR TO DENTAL VISIT 08/31 completed Not Available Not Available Not Available azithromy urmila 250 mg tablet TAKE 2 TABLETS BY MOUTH TODAY, THEN TAKE 1 TABLET DAILY FOR 4 DAYS DIRECTED 08/31 completed Not Available Not Available Not Available ibuprofen 800 mg tablet TAKE 1 TABLET BY MOUTH EVERY 8 HOURS NEEDED FOR PAIN 08/31 completed Not Available Not Available Not Available clindamyc in HCl 150 mg capsule TAKE 1 CAPSULE 3 TIMES A DAY FOR 10 DAYS 08/31 completed Not Available Not Available Not Available fluocinon shania 0.05 % topical ointment APPLY TO THE AFFECTED AREAS OF THE ARM TWICE DAILY FOR 2 WEEKS, BREAK FOR ONE WEEK, REPEAT NEEDED 08/31 completed Not Available Not Available Not Available amitripty line 50 mg tablet 08/31 completed Medicati on ID: [id number] D uration Value: 30 Brand Name: amitript yline Se nd Method: E-Prescr ibed Sub s Allowed: subs OK Speci al Instruct ion: TAKE 1 TABLET BY MOUTH EVERY DAY Medi cationGe nericNam e: amitript yline Not Available Not Available Not Available acetamino phen 500 mg tablet TAKE 1 TABLET EVERY 6 HOURS NEEDED FOR PAIN 08/31 completed Not Available Not Available Not Available triamcino lone acetonide 0.1 % topical cream APPLY TO AFFECTED AREAS IN GROIN TWICE DAILY FOR ONE WEEK, BREAK ONE WEEK REPEAT NEEDED 08/31 completed Not Available Not Available Not Available acetamino phen ER 650 mg tablet,ex tended release TAKE 1 TABLET EVERY 6 HOURS NEEDED FOR PAIN 08/31 completed Not Available Not Available Not Available levothyro xine 75 mcg tablet 08/31 completed Medicati on ID: [id number] D uration Value: 30 Brand Name: levothyr oxine Se nd Method: E-Prescr ibed Sub s Allowed: subs OK Speci al Instruct ion: TAKE 1 TAB BY MOUTH DAILY Me dication GenericN tessy: levothyr oxine Not Available Not Available Not Available doxycycli ne monohydra te 100 mg capsule TAKE 1 CAPSULE BY MOUTH 2 TIMES A DAY FOR 7 DAYS 08/31 completed Not Available Not Available Not Available cyanocoba perry (vit B-12) 1,000 mcg/mL injection solution INJECT 1 ML (1000MCG ) INTRANMU SCULARY EVERY MONTH 08/31 completed Not Available Not Available Not Available tacrolimu s 0.1 % topical ointment APPLY TO AFFECTED AREAS IN GROIN TWICE DAILY NEEDED 08/31 completed Not Available Not Available Not Available ferrous sulfate 325 mg (65 mg iron) tablet TAKE 1 TABLET BY MOUTH EVERY DAY 08/31 completed Not Available Not Available Not Available levothyro xine 125 mcg tablet TAKE 1 TABLET BY MOUTH EVERY DAY. ALTERNAT E WITH 112MG active Not Available Not Available No t Available triamcino lone acetonide 0.1 % topical ointment PLEASE SEE ATTACHED FOR DETAILED DIRECTIO NS 08/31 completed Not Available Not Available Not Available gabapenti n 300 mg capsule TAKE 1 CAPSULE ORALLY 3 TIMES A DAY FOR PAIN FOR 30 DAYS active Not Available Not Available No t Available betametha sone dipropion ate 0.05 % topical ointment APPLY TOPICALL Y TO THE FEET TWICE DAILY FOR TWO WEEKS, BREAK ONE WEEK, REPEAT NEEDED 08/31 completed Not Available Not Available Not Available metformin ER 500 mg tablet,ex tended release 24 hr TAKE 1 TABLET BY MOUTH EVERY DAY active Not Available Not Available No t Available BD Luer-Chalo Syringe 3 mL 21 gauge x 1 USE FOR B12 INJECTIO N active Not Available Not Available No t Available levothyro xine 112 mcg tablet TAKE 1 TABLET BY MOUTH EVERY DAY 08/31 completed Not Available Not Available Not Available calcipotr iene 0.005 % topical ointment APPLY TO AFFECTED AREAS OF PSORIASI S ONCE TO TWICE DAILY. 08/31 completed Not Available Not Available Not Available Alcohol Prep Pads USE 1 DIRECTED FOR WIPE PRIOR TO THE B12 INJECTIO N active Not Available Not Available No t Available hydrocodo ne 5 mg-acetam inophen 300 mg tablet TAKE 1 TABLET BY MOUTH EVERY 4 TO 6 HOURS NEEDED FOR PAIN 08/31 completed Not Available Not Available Not Available Cimzia 400 mg/2 mL (200 mg/mL x 2) subcutane ous syringe kit 08/31 completed Not Available Not Available Not Available Skyrizi 150 mg/mL subcutane ous pen injector active Not Available Not Available Not Available Wegovy 1.7 mg/0.75 mL subcutane ous pen injector INJECT 1.7 MG (0.75 ML) SUBCUTAN EOUSLY EVERY WEEK FOR 4 WEEKS active Not Available Not Available No t Available Wegovy 1 mg/0.5 mL subcutane ous pen injector INJECT 1 MG SUBCUTAN EOUS EVERY WEEK active Not Available Not Available No t Available Wegovy 0.25 mg/0.5 mL subcutane ous pen injector INJECT 0.5ML SUBCUTAN EOUSLY EVERY 4 WEEKS WEEKS 1 THROUGH 4 OF THERAPY 08/31 completed Not Available Not Available Not Available Wegovy 0.5 mg/0.5 mL subcutane ous pen injector INJECT 0.5 MG (0.5 ML) SUBCUTAN EOUSLY EVERY WEEK FOR 4 WEEKS ADMINIST ER WEEKS 5 THROUGH 8 OF THERAPY active Not Available Not Available No t Available Zepbound 5 mg/0.5 mL subcutane ous pen injector INJECT 0.5 ML SUBCUTAN EOUSLY EVERY WEEK FOR 4 WEEKS 08/31 completed Not Available Not Available Not Available Vitals Date Recorded Body weight Body mass index (BMI) Body height Provider Name and Address Organization Details Last Updated DateTime 08/31/2024 99246.63 g 28.2 kg/m2 170.18 cm Aurora Troncoso [place] - [facility] 08/31/2024 13:59:27 Social History None recorded. Functional Status None recorded. Mental Status None recorded. Family History Nothing Reported. Medical History Condition Response Emphysema Y Thyroid Problems Y Anemia Y Arthritis Y Hypertension Y Gynecological HistoryNo gynecological history recorded. Obstetrics History GPAL:G 0 P 0 0 0 0 Past Encounters Encounter ID Performer Location Encounter Start Date Encounter Closed Date Diagnosis/Indication Diagnosis SNOMED-CT Code Diagnosis ICD10 Code Diagnosis Note [id number] MENDOZA HARDY MD [facility] [address] [place] [address] 08/31/2024 13:40:32 08/31/2024 14:45:18 Foreign body in auditory canal 01392923 T16.1XXA T16.2XXA Abnormal a uditory perception 47956538 H93.293 Cerumen and bilateral silicone foreign bodies were noted. These were removed with the operative microscope . She still noticed some fullness in the left ear. Audiometri c testing was performed. Right Ear:Normal hearing with excellent speech discrimina tion.Type A tympanogra m.Left Ear:Normal hearing with excellent speech discrimina tion.Type A tympanogra m. Chronic rhinitis 7773694 6 J31.0 Patient complained of postnasal drip. I suggested saline solution and saline irrigation s as needed Health Concerns Section Related Observation LastModified by Organization Detai ls LastModified Time None Recorded Concern Status LastModified by Organization Details LastModified Time None Recorded Advance Directives Directive None Recorded Payers Encounter Date Sequence Insurance Name Policy Number Policy Abraham Covered Member ID Abraham Member ID Guarantor Name 08/31/2024 1 [facility] Teri Robertson [id number] Teri Robertson Notes Date Note Type Note Provider Name and Address Organization Details Recorded Time 08/31/2024 text/html Patient seen for hearing loss and possible lesion in her right ear. MENDOZA HODGSON MD [address] [place] [address], [place], [address], [facility] - [facility] 08/31/2024 14:41:44 OBGyn Episode No OBEpisode recorded.
--- OUTSIDE RECORDS SUMMARY | 2024-09-24 14:51 | XMS_ITS | Clinical Summary ---
Author Organization [facility] ity Address [address] [place] [address] Care Team Providers Care Curtain Framer Name Role Phone Unavailable Primary Care Provider Unavailabl e Social History Tobacco Use Types Packs/Day Years Used Date Smoking Tobacco: Never Assessed Comments Unknown Sex and Gender Information Value Date Recorded Sex Assigned at Not on file Legal Sex Female 4:42 AM EST Gender Identity Not on file Sexual Orientation Not on file Plan of Treatment Upcoming Encounters Date Type Department Care Team (Late st Contact Info) Description 10/15/2024 1:30 PM EDT Consult Bariatric Surgery - [place] [address] [facility] [address] [place] [phone] Wally Wiggins MD [address] [facility] [address] [place] [address] Health Maintenance Due Date Last Done Comments Breast Cancer Screening 1965 DTaP,Tdap,and Td Vaccines (1 - Tdap) 1983 Cervical Cancer Screening: P ap Smear 1985 Pneumococcal Vaccine: 50+ Ye ars (1 of 1 - PCV) 2014 Zoster Vaccines (1 of 2) 2014 COVID-19 Vaccine ( - 2023-2 5 season) 2024 Influenza Vaccine (#1) 2024 Colorectal Cancer Screening: Colonoscopy 07/13/2024 Depression Screening 07/13/2024 HIV Screening 07/13/2024 Hepatitis C Screening 07/13/2024 Social Influencers of Health Screening 07/13/2024 RSV Immunization Patients 60 + Years Old (1 - 1-dose 75+ series) 2039 HIB Vaccines Aged Out No longer eligi ble based on patient's age to complete this topic HPV Vaccines Aged Out No longer eligi ble based on patient's age to complete this topic Hepatitis A Vaccines Aged Out No long er eligible based on patient's age to complete this topic Hepatitis B Vaccines Aged Out No long er eligible based on patient's age to complete this topic IPV Vaccines Aged Out No longer eligi ble based on patient's age to complete this topic MMR Vaccines Aged Out No longer eligi ble based on patient's age to complete this topic Meningococcal ACWY Vaccine Aged Out N o longer eligible based on patient's age to complete this topic Meningococcal B Vacine Aged Out No lo nger eligible based on patient's age to complete this topic Pneumococcal Vaccine: Pediat rics (0 to 5 Years) and At-Risk Patients (6 to 64 Years) Aged Out No longer eligible b ased on patient's age to complete this topic RSV Immunization Patients Un ilene 20 months Aged Out No longer eligible b ased on patient's age to complete this topic Varicella Vaccines Aged Out No longer eligible based on patient's age to complete this topic
--- OUTSIDE RECORDS SUMMARY | 2024-09-24 14:52 | XMS_ITS | Continuity of Care Document ---
Author Organization [place] - [facility], [facility] Address [address] [place] [phone] Care Team Providers Care Cream Dumper Name Role Phone PATRICK KUMAR Primary Care Provider Assessment No assessment recorded. Plan of Treatment [...] Address Organization Details Recorded Time Bilateral earache 748140821 Active 2016 Otalgi a, bilate ral; Note: Date Diagno sed: 03/08/20 17 4:42 PM (H92.0 3) Not Available [facility] 4 02:16:43 Abnormal auditory perception 22979828 Active 2024 MENDOZA HARDY MD [address] [place], [place] [address], [phone] , [place] - [facility] 5 14:09:25 Foreign body in auditory canal 72615777 Active 2024 MENDOZA HARDY MD [address] [place] [address],[place] [address], [address] , [facility] - [facility] 5 14:09:31 Abnormal auditory perception 85880784 Active 2024 MENDOZA HARDY MD [address] [facility],[place] [address], [place], [address] , [facility] - [facility] 5 14:09:44 Chronic rhinitis 59840473 Active 2024 MENDOZA HARDY MD [address] [facility],[place] [address], [place], [address] , [facility] 5 14:10:07 Problem Notes None recorded. Procedures Surgical History Date Name Laterality Status Provider Name and Address Organization Details Recorded Time 5 Removal of foreign body from ear canal completed MENDOZA HODGSON MD [address] [facility],[place] [address], [place], [address], [facility] 08/31/2024 14:09:10 Air & Speech Audio with Tymps (84247, 34608 & 19799) completed SLADE MCKENNA [address] [facility],[place] [address], [place], [address], [facility] 08/31/2024 14:14:34 Imaging Results None recorded. Procedure Notes None recorded. Medical Equipment None Reported. Allergies Allergen ID Allergen Name Allergen Category Reaction Reaction Severity Criticality Documentation Date Start Date Code Code System Note Provider Name and Address Organization Details Recorded Time 65540 morphine medicatio n other Not available Not available 12/17/2023 7052 RxNorm React ion: unkno wn, unspe cifie d;; Not Available [facility] 4 00:48:28 88572 penicilli n V potassium medicatio n other Not available Not available 12/17/202379958 5 RxNorm React ion: unkno wn, unspe cifie d;; Not Available [facility] 4 00:48:53 50510 acetamino phen / oxycodone medicatio n other Not available Not available 12/17/202313292 3 RxNorm React ion: unkno wn, unspe cifie d;; Not Available [facility] 4 00:49:20 Medications Name Sig Start Date [...] mg tablet 08/31 completed Medicati on ID: [id number] D uration Value: 30 Brand Name: amitript [...] mcg tablet 08/31 completed Medicati on ID: [id number] D uration Value: 30 Brand Name: levothyr [...] Address Organization Details Last Updated DateTime 08/31/2024 36133.63 g 28.2 kg/m2 170.18 cm Aurora Troncoso [place] - [facility] 08/31/2024 13:59:27 Social History None recorded. Functional Status None recorded. Mental Status None recorded. Family History Nothing Reported. Medical History Condition Response Arthritis Y Emphysema Y Thyroid Problems Y Anemia Y Hypertension Y Gynecological HistoryNo gynecological history recorded. Obstetrics History GPAL:G 0 P 0 0 0 0 Past Encounters Encounter ID Performer Location Encounter Start Date Encounter Closed Date Diagnosis/Indication Diagnosis SNOMED-CT Code Diagnosis ICD10 Code Diagnosis Note [id number] MENDOZA HARDY MD [facility] [address] [address] 08/31/2024 13:40:32 08/31/2024 14:45:18 Foreign body in auditory canal 62519435 T16.1XXA T16.2XXA Abnormal a uditory perception 57827323 H93.293 Cerumen and bilateral silicone foreign bodies were noted. These were removed with the operative microscope . She still noticed some fullness in the left ear. Audiometri c testing was performed. Right Ear:Normal hearing with excellent speech discrimina tion.Type A tympanogra m.Left Ear:Normal hearing with excellent speech discrimina tion.Type A tympanogra m. Chronic rhinitis 4802851 6 J31.0 Patient complained of postnasal drip. I suggested saline solution and saline irrigation s as needed Health Concerns Section Related Observation LastModified by Organization Detai ls LastModified Time None Recorded Concern Status LastModified by Organization Details LastModified Time None Recorded Payers Encounter Date Sequence Insurance Name Policy Number Policy Abraham Covered Member ID Abraham Member ID Guarantor Name 08/31/2024 1 [facility] Teri Robertson [id number] Teri Robertson Notes Date Note Type Note Provider Name and Address Organization Details Recorded Time 08/31/2024 text/html Patient seen for hearing loss and possible lesion in her right ear. MENDOZA HODGSON MD [address] [place] [address], [place], [address], [facility] - [facility] 08/31/2024 14:41:44 OBGyn Episode No OBEpisode recorded.
== END 2024-09-24 14:20 | disposition home or self-care (01) ==
PROVIDERS: PCP Physician Assistant; Visit Provider Surgery Vascular Surgery
DX: I83.12 Varicose veins of left lower extremity with inflammation (principal)
CPT/HCPCS: 99214

== ENCOUNTER → 2024-09-24 13:49 | Outpatient (BNVA) | payer OTHER, SELFPAY | PROVIDERS: PCP Physician Assistant; Visit Provider Surgery Vascular Surgery | DX: I83.12 Varicose veins of left lower extremity with inflammation (principal) | CPT/HCPCS: 99212 ==

== ENCOUNTER 2024-09-29 11:42 | Outpatient (AMB) | payer OTHER, SELFPAY ==
--- NOTE | 2024-09-29 11:47 | MHC.PC.OV ---
Vital Signs 09/29/24 11:49 Height 5 ft 7 in Weight 189 lb 8 oz BMI 29.7 BP 130/62 Blood Pressure Location Lt brachial Position Sitting Pulse 60 Pulse Source Pulse Oximeter Temp 97.5 F Temp Source Temporal Artery Scan Pulse Oximetry (%) 97 Oxygen Delivery Method Room Air Intake Visit Reasons: 6 Month F/U Intake Note: Patient is here to follow up on HTN, Chronic pain. Forestry Adviser Required: No Earthmoving Plant Operator: Not Required per policy Accompanied by: Self / Same As Patient Allergies morphine [MORPHINE] Allergy (Intermediate, Verified 09/29/24 12:00) NIGHTMARES oxycodone [Percocet] Allergy (Intermediate, Verified 09/29/24 12:00) nausea and vomiting Penicillins Allergy (Intermediate, Verified 09/29/24 12:00) rash,sob Sulfa (Sulfonamide Antibiotics) [SULFA (SULFONAMIDE ANTIBIOTICS)] Allergy (Intermediate, Verified 09/29/24 12:00) RASH Medication List - Last Reconciled 09/29/24 by Ayad Brewer PA-C acetaminophen 1,000 mg (2 x 500 mg) PO Q8H alcohol swabs (Alcohol Wipes) 1 pad topical DIRECTED cyanocobalamin (vitamin B-12) 1,000 mcg IM QMONTH docusate sodium 100 mg PO BID ferrous sulfate 325 mg PO DAILY gabapentin 300 mg PO TID 30 days levothyroxine 125 mcg PO DAILY levothyroxine 112 mcg PO DAILY metformin ER 500 mg PO DAILY 90 days miscellaneous medical supply (Blood Pressure Cuff) As directed risankizumab-rzaa (Skyrizi) mg subcut syringe with needle (Syringe) As Directed syringe with needle (Syringe) As Directed tirzepatide (weight loss) (Zepbound) 7.5 mg (0.5 mL) subcut QWEEK 4 weeks Tobacco use date assessed: 09/29/24 Dental Screening Dental Screen Date: 09/29/24 Did you have a dental visit in the last 12 months?: Yes Did you have a dental problem in the last 6 months where you did not have access to dental care?: No Was dental information given to patient?: Patient has dentist HPI 6 Month F/U HPI Details Patient is a 59 year-old female here today for follow-up visit.? Patient has a past medical history significant for hypothyroidism, fibromyalgia, obesity Concern--> has been having some left shoulder pain decreased range of motion. She usually gets cortisone injections which do help reduce her pain. She will be calling her Orthopedics about a cortisone injection left shoulder. She does not recall any acute trauma recently to her left shoulder. .. Hypertension: Blood pressure acceptable today in office. Managing her blood pressure without medication at this time. . Psoriasis: Continues to have psoriasis patches worse on her palms of her hands. She continues on Rinvoq .. Hypothyroidism:? Has been more consistent with the use of her levothyroxine. Most recent TSH elevated due to not using levothyroxine med. Patient continues to follow Endocrinology and most recent TSH stable.? Continues on levothyroxine 125 mcg. .. Fibromyalgia:? Has seen rheumatology and continues on gabapentin 300 mg t.i.d though reports she only takes gabapentin on an as-needed basis at night for sleep. ? Obesity:? Patient is now in zepbound due to insurance reasons. She was doing well on Wegovy. She has lost weight since last office visit. Will like to continue up titrating dose of zepbound. She continues on a low inflammatory diet Laboratory Tests 09/16/24 14:17 RBC 4.25 Iron 32 TIBC 304 Vitamin B12 727 PFSH Medical History (Updated 09/29/24 @ 16:12 by Ayad Brewer PA-C) History of lipoma Degenerative disc disease, cervical Neck Pain Lipoma of back (10/22/22) Hypothyroid Anemia Depression Anxiety Vitamin D deficiency Psoriasis Fibromyalgia Surgical History Hx of neck surgery History of shoulder surgery History of tooth extraction Hx of colonoscopy S/P panniculectomy History of cholecystectomy History of gastric bypass Family History Father CVD (cardiovascular disease) Stroke Hypertension Myocardial infarction Thyroid cancer Mother Hypertension Maternal Grandmother Colon cancer Glaucoma Social History Household Members: None Housing: House Housing Other:: mobile home Are you a primary healthcare administrator to a significant other at home: No Do you presently have visiting nurse or other home services: No Alcohol intake: never Comment: rings appropriately Patient Tobacco Use Status: Former Tobacco user Tobacco use type: Cigarette Cigarette Packs Per Day: 1 Years Smoked: 30 e-Cigarette/Vaping Use: Never Used Second Hand Smoke Exposure: Yes service: No Current occupational status: unemployed Cognitive needs: No Hearing needs: No Vision needs: No Questionnaire PHQ-9 Over the last 2 weeks, how often have you been bothered by any of the following problems? 1. Little interest or pleasure in doing things: not at all 2. Feeling down, depressed, or hopeless: not at all 3. Trouble falling or staying asleep, or sleeping too much: not at all 4. Feeling tired or having little energy: not at all 5. Poor appetite or overeating: not at all 6. Feeling bad about yourself - or that you are a failure or have let yourself or your family down: not at all 7. Trouble concentrating on things, such as reading the newspaper or watching television: not at all 8. Moving or speaking so slowly that other people could have noticed. Or the opposite - being so fidgety or restless that you have been moving around a lot more than usual: not at all 9. Thoughts that you would be better off or of hurting yourself in some way: not at all Total score: 0 Depression Screening Interpretation: Negative Depression Screening Done: Yes 70160 - PHQ-9 Billing: Yes Source: Developed by Drs. Fish Damon, Marguerite Thompson, Vishal Churchill and colleagues, with an educational shea from [employer]. Thrive Questionnaire Date Thrive assessed: 09/29/24 I am a: Patient What is your living situation today?: I have a steady place to live Within the past 12 months, did the food you bought not last and you didn't have the money to get more?: Never true Within the past 12 months, did you worry whether your food would run out before you got money to buy more?: Never true Do you have trouble paying for medicines?: No Do you have trouble getting transportation to medical appointments?: No Do you have trouble paying your heating and electricity bill?: No Do you have trouble taking care of your child, family member or friend?: No Do you have trouble with day-to-day activities such as bathing, preparing meals, shopping, managing finances, etc.?: No Are you currently unemployed and looking for a job?: No Are you interested in more education?: No Please select the resources that you would like help with: None Currently or been in a relationship where the following occur: No concerns reported THRIVE Score: 0 AUDIT C Alcohol Use Questionnaire (AUDIT-C) 1. How often do you have a drink containing alcohol?: Monthly or less 2. How many drinks containing alcohol do you have on a typical day when you are drinking?: 1 or 2 Total Score: 1 BESSY-7 AMB Questionnaire BESSY-7 Date BESSY - 7 assessed: 09/29/24 Feeling nervous, anxious, or on edge: 0 = Not at all Not being able to stop or control worryin = Not at all Worrying too much about different things: 0 = Not at all Trouble relaxin = Not at all Being so restless that it is hard to sit still: 0 = Not at all Becoming easily annoyed or irritable: 0 = Not at all Feeling afraid as if something awful might happen: 0 = Not at all Total BESSY-7 score (0-4 normal; 5-9 mild; 10-14 moderate; 15-21 severe): 0 Source: Developed by Drs. Fish Damon, Marguerite Thompson, Vishal Churchill and colleagues, with an educational shea from [employer]. BESSY-7 Assessment Billing BESSY-7 Assessment Tool: BESSY-7 Assessment 82462 Review of Systems Const Denies headache(s) Eyes Denies loss of vision ENT Denies vertigo, Denies dizziness, Denies headache(s) and Denies sore throat Card Denies chest pain, Denies leg edema and Denies lightheadedness Resp Denies cough, Denies hemoptysis and Denies wheezing GI Denies abdominal pain, Denies melena, Denies constipation, Denies diarrhea and Denies vomiting Denies urinary frequency, Denies dysuria and Denies urinary urgency Musc Denies arthralgias, Denies joint swelling, Denies numbness and Denies tingling Neuro Denies Abnormal speech present, Denies behavioral changes, Denies vertigo, Denies dizziness, Denies headache(s), Denies loss of vision, Denies memory loss, Denies numbness and Denies tingling Psych Denies anxiety, Denies behavioral changes, Denies depression, Denies memory loss and Denies panic attacks Uli/Lymph Denies easy bleeding and Denies easy bruising Aller/Immun Denies wheezing Physical exam (Primary Care) Vital Signs: Last Vital Signs Temp 97.5 F 09/29/24 11:49 Pulse 60 09/29/24 11:49 BP 130/62 09/29/24 11:49 Pulse Ox 97 09/29/24 11:49 Oxygen Delivery Method Room Air 09/29/24 11:49 BMI result Body Mass Index 29.7 Tobacco/Smoking Status: Tobacco use Status Tobacco use date assessed 09/29/24 09/29/24 11:56 Patient Tobacco Use Status Former Tobacco user 09/29/24 11:56 Tobacco use type Cigarette 09/29/24 11:56 e-Cigarette/Vaping Use Never Used 09/29/24 11:56 PHQ-9: PHQ-9 Score PHQ-9: Total score 0 09/29/24 16:13 Depression Screening Interpretation: Negative Thrive Assessment: Date of Thrive Assessment Date Thrive assessed 09/29/24 09/29/24 11:56 Currently or been in a relationship where the following occur: No concerns reported Const General: healthy appearing, no acute distress, alert and awake Nutritional Appearance: well nourished Orientation/consciousness: oriented to person, oriented to place and oriented to time HENMT Ears: TM's normal bilaterally General nose exam: Normal nasal mucous membranes and turbinates present Eyes Conjunctivae: conjunctivae normal Sclerae: sclerae normal Pupils: Equal, round and reactive pupils present Neck Neck: Yes no lymphadenopathy and Yes no JVD Thyroid: Thyroid normal Carotids: no bruits Resp Effort & Inspection: normal respiratory effort and not tachypneic Auscultation: no crackles, no rales, no rhonchi and no wheezes Cardio Rate: regular rate Rhythm: regular rhythm Heart sounds: no murmurs and normal S1 and S2 GI Palpation (GI): Soft to palpation, nontender, no hepatomegaly and no splenomegaly Auscultation: normal bowel sounds Skin Other: PALMS WITH PSORIATIC SKIN MANIFESTATION General skin exam: no rashes or lesions noted and dry skin Neuro General: oriented to person, oriented to place and oriented to time Cranial nerves: Yes Equal, round and reactive pupils present Speech: No Abnormal speech present Gait exam (Neuro): Normal gait present Motor exam (neuro): no tremor noted Extrem Other: RIGHT SHOULDER: SOME LIMITED RANGE OF MOTION DUE TO PAIN AND STIFFNESS Right upper extremity: full ROM Left upper extremity: full ROM Right lower extremity: full ROM; no edema Left lower extremity: full ROM; no edema Psych Mental Status: mental status grossly normal Speech and movement: Normal speech and movement present Affect: normal affect Attitude: cooperative Thought process: Normal thought process present Coding Level of Care Code Est Pt Level 4 (85847) Diagnoses Psoriatic arthritis L40.50 Hypothyroidism, unspecified type E03.9 Hypothyroidism type: unspecified Class 1 obesity E66.811 Psoriasis L40.9 Additional Codes BESSY-7 Assessment Billing - BESSY-7 Assessment Tool: BESSY-7 Assessment 45648 ([id number]) PHQ-9 - 35375 - PHQ-9 Billing: Yes ([id number]) Assessment & Plan Assessment & Plan (1) Psoriatic arthritis: Code(s): L40.50 - Arthropathic psoriasis, unspecified Category: Medical Plan: Patient continues to follow rheumatology. Continues on Rinvoq for her psoriasis skin manifestations and her arthritis. (2) Hypothyroid: Code(s): E03.9 - Hypothyroidism, unspecified Category: Medical Qualifiers: Hypothyroidism type: unspecified Qualified Code(s): E03.9 - Hypothyroidism, unspecified Plan: Patient continues with levothyroxine 112 mcg. Most recent TSH has been stable. (3) Class 1 obesity: Code(s): E66.811 - Obesity, class 1 Category: Medical Plan: Patient continues to maintain her weight loss with GLP 1. She has a history of bariatric surgery and has not been able to manage weight loss for quite some time even with strict dietary modifications. Wegovy was very effective for her though due to insurance needed to switch over to alternative GLP 1. She would like to up titrate Zepbound. She continues on a strict low inflammatory diet at this time (4) Psoriasis: Comment: dx 2016 MTX ineffective Humira Ilumya effective insurance issues Cimzia approx 09/2023 Code(s): L40.9 - Psoriasis, unspecified Category: Medical Plan: Patient continues to follow a application administrator. Continues on Rinvoq that has been helpful in reducing her psoriatic skin manifestations. Medications: New tirzepatide (weight loss) (Zepbound) 7.5 mg (0.5 mL) subcut QWEEK 2 mL 0RF 4 weeks E66.09 - Other obesity due to excess calories, I10 - Essential (primary) hypertension, Z68.37 - Body mass index [BMI] 37.0-37.9, adult Discontinued tirzepatide (weight loss) (Zepbound) Discontinued Reason: Doctor's Order 5 mg (0.5 mL) subcut QWEEK 4 weeks 2 mL 0RF E66.09 - Other obesity due to excess calories, I10 - Essential (primary) hypertension, R73.01 - Impaired fasting glucose, Z68.37 - Body mass index [BMI] 37.0-37.9, adult
[2024-09-29 11:49] VITALS: BP 130/62; PULSE 60; TEMP 36.4; O2SAT 97; BMI 29.7
--- OUTSIDE RECORDS SUMMARY | 2024-09-29 14:21 | XMS_ITS | Clinical Summary ---
Author Organization [facility] ity Address [address] [place] [address] Care Team Providers Care Floorworker Lasting Name Role Phone Unavailable Primary Care Provider [...] 1:30 PM EDT Consult Bariatric Surgery - [place] [address] [facility] [address] [place] [id number] Wally Wiggins MD [address] [facility] [address] [place] [address] Health Maintenance Due Date Last Done Comments [...]
--- OUTSIDE RECORDS SUMMARY | 2024-09-29 14:21 | XMS_ITS | Data Portability ---
Author Organization [place] - [facility], Allergy Address [address] [place] [phone] Care Team Providers Care Awning Frame Maker Name Role Phone JOSÉ PATRICK Primary Care Provider [phone] Assessment No assessment recorded. Plan of Treatment [...] Address Organization Details Recorded Time Bilateral earache 260579041 Active 2016 Otalgi a, bilate ral; Note: Date Diagno sed: 03/08/20 17 4:42 PM (H92.0 3) Not Available [facility] 4 02:16:43 Abnormal auditory perception 79363597 Active 2024 MENDOZA HARDY MD [address] [facility],[place] [address], [address] , [place] - [facility] 5 14:09:25 Foreign body in auditory canal 40852526 Active 2024 MENDOZA HARDY MD [address] [facility],[place] [address], [address] , [place] - [facility] [place] 5 14:09:31 Abnormal auditory perception 01724526 Active 2024 MENDOZA HARDY MD [address] [facility],[place] [address], [place], [address] , [facility] - [facility] [place] 5 14:09:44 Chronic rhinitis 73158024 Active 2024 MENDOZA HARDY MD [address] [facility],[place] [address], [place], [address] , [facility] - [facility] [place] 14:10:07 Problem Notes None recorded. Procedures Surgical History Date Name Laterality Status Provider Name and Address Organization Details Recorded Time Removal of foreign body from ear canal completed MENDOZA HODGSON MD [address] [facility],[place] [address], [place], [address], [facility] - [facility] 08/31/2024 14:09:10 Air & Speech Audio with Tymps (82994, 26529 & 08954) completed SLADE MCKENNA [address] [facility],[place] [address], [place], [address], [facility] 08/31/2024 14:14:34 Imaging Results Imaging Date Name Status LastModified by Organiz ation Details LastModified Time 09/01/2024 audiogram completed BARCODE Information no t available 09/01/2024 09:52:09 Procedure Notes None recorded. Medical Equipment None Reported. Allergies Allergen ID Allergen Name Allergen Category Reaction Reaction Severity Criticality Documentation Date Start Date Code Code System Note Provider Name and Address Organization Details Recorded Time 57666 morphine medicatio n other Not available Not available 12/17/2023 7052 RxNorm React ion: unkno wn, unspe cifie d;; Not Available [facility] 4 00:48:28 09478 penicilli n V potassium medicatio n other Not available Not available 12/17/2023 81818 5 RxNorm React ion: unkno wn, unspe cifie d;; Not Available [facility] 4 00:48:53 35864 acetamino phen / oxycodone medicatio n other Not available Not available 12/17/2023 11741 3 RxNorm React ion: unkno wn, unspe lupee d;; Not Available [facility] 4 00:49:20 Medications Name Sig Start Date [...] mg tablet 08/31 completed Medicati on ID: [id number] D uration Value: 30 Brand Name: amitript [...] mcg tablet 08/31 completed Medicati on ID: [id number] D uration Value: 30 Brand Name: levothyr [...] Address Organization Details Last Updated DateTime 08/31/2024 34880.63 g 28.2 kg/m2 170.18 cm Aurora Troncoso [place] - [facility] 08/31/2024 13:59:27 Social History None recorded. Functional Status None recorded. Mental Status None recorded. Family History Nothing Reported. Medical History Condition Response Anemia Y Arthritis Y Emphysema Y Thyroid Problems Y Hypertension Y Gynecological HistoryNo gynecological history recorded. Obstetrics History GPAL:G 0 P 0 0 0 0 Past Encounters Encounter ID Performer Location Encounter Start Date Encounter Closed Date Diagnosis/Indication Diagnosis SNOMED-CT Code Diagnosis ICD10 Code Diagnosis Note [id number] MENDOZA HARDY MD [facility] [address] [place] [address] 08/31/2024 13:40:32 08/31/2024 14:45:18 Foreign body in auditory canal 81748187 T16.1XXA T16.2XXA Abnormal a uditory perception 04628386 H93.293 Cerumen and bilateral silicone foreign bodies were noted. These were removed with the operative microscope . She still noticed some fullness in the left ear. Audiometri c testing was performed. Right Ear:Normal hearing with excellent speech discrimina tion.Type A tympanogra m.Left Ear:Normal hearing with excellent speech discrimina tion.Type A tympanogra m. Chronic rhinitis 1302248 6 J31.0 Patient complained of postnasal drip. [...] Abraham Member ID Guarantor Name 08/31/2024 1 [facility] Teri Robertson [id number] Teri Robertson Notes Date Note Type Note Provider Name and Address Organization Details Recorded Time 08/31/2024 text/html Patient seen for hearing loss and possible lesion in her right ear. MENDOZA HODGSON MD [address] [place] [address], [place], [address], [facility] - [facility] 08/31/2024 14:41:44 OBGyn Episode No OBEpisode recorded.
--- OUTSIDE RECORDS SUMMARY | 2024-09-29 14:21 | XMS_ITS | Continuity of Care Document ---
Author Organization [place] - [facility], [facility] Address [address] [place] [address] Care Team Providers Care Custodial Manager Name Role Phone PATRICK KUMAR Primary Care [...] Address Organization Details Recorded Time Bilateral earache 123028432 Active 2016 Otalgi a, bilate ral; Note: Date Diagno sed: 03/08/20 17 4:42 PM (H92.0 3) Not Available [facility] 4 02:16:43 Abnormal auditory perception 60903976 Active 2024 MENDOZA HARDY MD [address] [place], [place] [address], [address] , [place] - [facility] 5 14:09:25 Foreign body in auditory canal 95878426 Active 2024 MENDOZA HARDY MD [address] [place] [address],[place] [address], [address] , [facility] - [facility] [place] 5 14:09:31 Abnormal auditory perception 45160906 Active 2024 MENDOZA HARDY MD [address] [facility],[place] [address], [place], [address] , [facility] - [facility] 5 14:09:44 Chronic rhinitis 82893520 Active 2024 MENDOZA HARDY MD [address] [facility],[place] [address], [place], [address] , [facility] [place] 5 14:10:07 Problem Notes None recorded. Procedures Surgical History Date Name Laterality Status Provider Name and Address Organization Details Recorded Time 5 Removal of foreign body from ear canal completed MENDOZA HODGSON MD [address] [facility],[place] [address], [place], [address], [facility] 08/31/2024 14:09:10 Air & Speech Audio with Tymps (37735, 19963 & 52439) completed SLADE MCKENNA [address] [facility],[place] [address], [place], [address], [facility] 08/31/2024 14:14:34 Imaging Results None recorded. Procedure Notes None recorded. Medical Equipment None Reported. Allergies Allergen ID Allergen Name Allergen Category Reaction Reaction Severity Criticality Documentation Date Start Date Code Code System Note Provider Name and Address Organization Details Recorded Time 22185 morphine medicatio n other Not available Not available 12/17/2023 7052 RxNorm React ion: unkno wn, unspe cifie d;; Not Available [facility] 4 00:48:28 85155 penicilli n V potassium medicatio n other Not available Not available 12/17/202381347 5 RxNorm React ion: unkno wn, unspe cifie d;; Not Available [facility] 4 00:48:53 11302 acetamino phen / oxycodone medicatio n other Not available Not available 12/17/202395406 3 RxNorm React ion: unkno wn, unspe cifie d;; Not Available [facility] 4 00:49:20 Medications Name Sig Start Date [...] mg tablet 08/31 completed Medicati on ID: [id number] D uration Value: 30 Brand Name: amitript [...] mcg tablet 08/31 completed Medicati on ID: [id number] D uration Value: 30 Brand Name: levothyr [...] Address Organization Details Last Updated DateTime 08/31/2024 36530.63 g 28.2 kg/m2 170.18 cm Aurora Troncoso [place] - [facility] 08/31/2024 13:59:27 Social History None recorded. Functional Status None recorded. Mental Status None recorded. Family History Nothing Reported. Medical History Condition Response Emphysema Y Anemia Y Arthritis Y Thyroid Problems Y Hypertension Y Gynecological HistoryNo gynecological history recorded. Obstetrics History GPAL:G 0 P 0 0 0 0 Past Encounters Encounter ID Performer Location Encounter Start Date Encounter Closed Date Diagnosis/Indication Diagnosis SNOMED-CT Code Diagnosis ICD10 Code Diagnosis Note [id number] MENDOZA HARDY MD [facility] [address] [address] 08/31/2024 13:40:32 08/31/2024 14:45:18 Foreign body in auditory canal 55506091 T16.1XXA T16.2XXA Abnormal a uditory perception 02841339 H93.293 Cerumen and bilateral silicone foreign bodies were noted. These were removed with the operative microscope . She still noticed some fullness in the left ear. Audiometri c testing was performed. Right Ear:Normal hearing with excellent speech discrimina tion.Type A tympanogra m.Left Ear:Normal hearing with excellent speech discrimina tion.Type A tympanogra m. Chronic rhinitis 8159842 6 J31.0 Patient complained of postnasal drip. I suggested saline solution and saline irrigation s as needed Health Concerns Section Related Observation LastModified by Organization Detai ls LastModified Time None Recorded Concern Status LastModified by Organization Details LastModified Time None Recorded Payers Encounter Date Sequence Insurance Name Policy Number Policy Abraham Covered Member ID Abraham Member ID Guarantor Name 08/31/2024 1 [facility] Teri Robertson [id number] Teri Robertson Notes Date Note Type Note Provider Name and Address Organization Details Recorded Time 08/31/2024 text/html Patient seen for hearing loss and possible lesion in her right ear. MENDOZA HODGSON MD [address] [place] [address], [place], [address], [facility] - [facility] 08/31/2024 14:41:44 OBGyn Episode No OBEpisode recorded.
== END 2024-09-29 12:28 | disposition home or self-care (01) ==
PROVIDERS: PCP Physician Assistant; Visit Provider Physician Assistant
DX: E03.9 Hypothyroidism, unspecified (principal); L40.50 Arthropathic psoriasis, unspecified; E66.811 Obesity, class 1; Z68.29 Body mass index [BMI] 29.0-29.9, adult; L40.9 Psoriasis, unspecified

== ENCOUNTER → 2024-09-29 11:42 | Outpatient (BNVA) | payer OTHER, SELFPAY | PROVIDERS: PCP Physician Assistant; Visit Provider Physician Assistant | DX: L40.50 Arthropathic psoriasis, unspecified (principal); E03.9 Hypothyroidism, unspecified; E66.811 Obesity, class 1; L40.9 Psoriasis, unspecified; Z68.29 Body mass index [BMI] 29.0-29.9, adult; Z71.3 Dietary counseling and surveillance | CPT/HCPCS: 96127; 99212 ==

== ENCOUNTER 2024-10-21 11:32 | Outpatient (AMB) | payer OTHER, SELFPAY ==
--- NOTE | 2024-10-21 11:43 | MHC.OFFVIS ---
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/do not elle Intake Note: no concerns Cable Mechanic Required: No Information Interpreted: non-clinical & clinical Mine Motor Operator: Mine Motor Operator Present (Leia LUND) Accompanied by: Self / Same As Patient Allergies morphine [MORPHINE] Allergy (Intermediate, Verified 10/21/24 11:48) NIGHTMARES oxycodone [Percocet] Allergy (Intermediate, Verified 10/21/24 11:48) nausea and vomiting Penicillins Allergy (Intermediate, Verified 10/21/24 11:48) rash,sob Sulfa (Sulfonamide Antibiotics) [SULFA (SULFONAMIDE ANTIBIOTICS)] Allergy (Intermediate, Verified 10/21/24 11:48) RASH Post menopausal: Yes HPI Comments Details: Presenting for annual exam. No complaints. Last Pap/HPV was negative in 04/19 Last Mammogram BI-RADS 1 in 07/28 Last Colonoscopy PFSH Medical History History of lipoma Degenerative disc disease, cervical Neck Pain Lipoma of back (10/22/22) Hypothyroid Anemia Depression Anxiety Vitamin D deficiency Psoriasis Fibromyalgia Surgical History Hx of neck surgery History of shoulder surgery History of tooth extraction Hx of colonoscopy S/P panniculectomy History of cholecystectomy History of gastric bypass Family History Father CVD (cardiovascular disease) Stroke Hypertension Myocardial infarction Thyroid cancer Mother Hypertension Maternal Grandmother Colon cancer Glaucoma Social History Household Members: None Housing: House Housing Other:: mobile home Are you a primary behavioral health care coordinator to a significant other at home: No Do you presently have visiting nurse or other home services: No Alcohol intake: never Comment: rings appropriately Patient Tobacco Use Status: Former Tobacco user Tobacco use type: Cigarette Cigarette Packs Per Day: 1 Years Smoked: 30 e-Cigarette/Vaping Use: Never Used Second Hand Smoke Exposure: Yes service: No Current occupational status: unemployed Cognitive needs: No Hearing needs: No Vision needs: No Female Reproductive History Menstrual Date of Mammogram: 07/08/24 Review of Systems Const All systems reviewed & are unremarkable except as noted in HPI and below Card Reports as per HPI Resp Reports as per HPI GI Reports as per HPI and Reports no additional complaints Reports as per HPI Physical Exam Const General: cooperative, healthy appearing and comfortable Chest Chest palpation & inspection: normal inspection of the chest and normal palpation of entire chest wall Breast/axilla inspection: normal inspection of the breasts and normal inspection of the axillae Breast/axilla palpation: normal palpation of the breasts, normal palpation of the axillae and no axillary lymphadenopathy Resp Effort & Inspection: normal respiratory effort Auscultation: clear to auscultation bilaterally Percussion: percussion normal Cardio Palpation: normal PMI Rate: regular rate Rhythm: regular rhythm Heart sounds: no murmurs and no rubs Peripheral pulses: Peripheral pulses 2+ throughout GI Inspection: Yes normal to inspection Palpation (GI): Soft to palpation, nontender, no guarding, not rigid and No hepatosplenomegaly present Percussion: Yes normal to percussion Auscultation: normal bowel sounds Rectal Exam - Female: deferred General: Yes bladder normal to palpation External Female Exam: No lesion Speculum Exam - Vagina: normal appearance of the vagina, normal palpation, normal vaginal discharge and not erythematous Speculum Exam - Cervix: normal appearance of the cervix and normal palpation Bimanual exam- vagina & uterus: normal bimanual exam, normal palpation, uterine size normal, bladder normal to palpation, consistency normal and normal palpation Bimanual Exam- Adnexa, other: normal adnexae, no masses and no tenderness Assessment & Plan Assessment & Plan (1) Well woman exam: Code(s): Z01.419 - Encounter for gynecological examination (general) (routine) without abnormal findings Category: Medical Plan: Co testing done. Counseled the patient about the recommended dietary allowance of 1200 mg of Calcium & 600 IU of vitamin D. Instructions given the patient to schedule next screening Mammogram in 07/29. The patient was referred to GI for screening colonoscopy . The patient was instructed to perform monthly self-breast exams and schedule annual exam in a year. All questions answered and the patient verbalized understanding. Orders: Referrals Gastroenterology Referral Z12.11 - Encounter for screening for malignant neoplasm of colon Coding Level of Care Code Est Pt Prev Care 40-64y(75978) Diagnoses Well woman exam Z01.419
[2024-10-21 11:47] VITALS: BP 110/70; BMI 29.6
== END 2024-10-21 12:01 | disposition home or self-care (01) ==
LOC: HO.HWS 11:33
PROVIDERS: PCP Physician Assistant; Visit Provider Obstetrics & Gynecology
DX: Z01.419 Encounter for gynecological examination (general) (routine) without abnormal findings (principal)
CPT/HCPCS: 99396; 99459

== ENCOUNTER 2024-10-21 11:32 | Outpatient (REF) | payer OTHER, SELFPAY ==
[2024-10-28 13:59] LABS: HPV Genotype 16 Negative (Negative); HPV Genotype 18 Negative (Negative); HPV High Risk Negative (Negative)
== END 2024-10-21 11:33 | disposition home or self-care (01) ==
LOC: HO.LNP 11:32
PROVIDERS: PCP Physician Assistant; Visit Provider Obstetrics & Gynecology
DX: Z01.419 Encounter for gynecological examination (general) (routine) without abnormal findings (principal); R87.612 Low grade squamous intraepithelial lesion on cytologic smear of cervix (LGSIL); Z11.51 Encounter for screening for human papillomavirus (HPV)
CPT/HCPCS: 87626; 88175; 99396; 99459

== ENCOUNTER 2024-10-30 12:29 | Outpatient (AMB) | payer OTHER, SELFPAY ==
[2024-11-02 08:01] VITALS: BMI 29.6
--- NOTE | 2024-11-02 08:01 | MHC.OFFVIS ---
Vital Signs 11/02/24 08:01 Height 5 ft 7 in Weight 189 lb BMI 29.6 Intake Visit Reasons: L GSV RFA Medical Grade Shoemaker Required: No Accompanied by: Self / Same As Patient Allergies morphine [MORPHINE] Allergy (Intermediate, Verified 11/02/24 08:01) NIGHTMARES oxycodone [Percocet] Allergy (Intermediate, Verified 11/02/24 08:01) nausea and vomiting Penicillins Allergy (Intermediate, Verified 11/02/24 08:01) rash,sob Sulfa (Sulfonamide Antibiotics) [SULFA (SULFONAMIDE ANTIBIOTICS)] Allergy (Intermediate, Verified 11/02/24 08:01) RASH PFSH Medical History History of lipoma Degenerative disc disease, cervical Neck Pain Lipoma of back (10/22/22) Hypothyroid Anemia Depression Anxiety Vitamin D deficiency Psoriasis Fibromyalgia Surgical History Hx of neck surgery History of shoulder surgery History of tooth extraction Hx of colonoscopy S/P panniculectomy History of cholecystectomy History of gastric bypass Family History Father CVD (cardiovascular disease) Stroke Hypertension Myocardial infarction Thyroid cancer Mother Hypertension Maternal Grandmother Colon cancer Glaucoma Social History Household Members: None Housing: House Housing Other:: mobile home Are you a primary child care center administrator to a significant other at home: No Do you presently have visiting nurse or other home services: No Alcohol intake: never Comment: rings appropriately Patient Tobacco Use Status: Former Tobacco user Tobacco use type: Cigarette Cigarette Packs Per Day: 1 Years Smoked: 30 e-Cigarette/Vaping Use: Never Used Second Hand Smoke Exposure: Yes service: No Current occupational status: unemployed Cognitive needs: No Hearing needs: No Vision needs: No Physical Exam Vital Signs: BMI result Body Mass Index 29.6 Office Procedures Vascular Office Procedure Details Details: Diagnosis: Varicose veins with inflammation of left leg Procedure: Endovenous radiofrequency ablation of the left great saphenous vein(s) of the lower extremity. Anesthesia: Local infiltration 5 cc, Tumescent 250 cc. Estimated Blood Loss: minimal Specimen: Varicose veins The patient was transferred to the procedure suite and the insufficient saphenous vein was mapped by ultrasound and diagrammed on the overlying skin. The depth and diameter of the vein(s) to be treated was documented. The varicose tributary veins and suitable access sites were identified and mapped as well. The patient was then positioned supine on the procedure table. The affected limb was prepped and draped in the usual sterile fashion. The RF catheter was placed on the sterile field, flushed and wiped down, prepared, and connected by a sterile cable. The patient was placed in supine position and local anesthesia was instilled in the skin overlying the access site. A skin incision was made overlying the identified and mapped great saphenous vein entry site. The vein was accessed using ultrasound guidance and the Seldinger technique, a guide wire was introduced through the needle, which was then exchanged over the guide wire for a 6F sheath, which was secured in place. The guide wire was removed and the sheath was flushed. The RF catheter was placed into the vein through the sheath and preferentially, imaging was used to place the catheter tip just inferior to the superficial epigastric vein to preserve normal physiological flow in that vein. Additionally, it was confirmed by ultrasound guidance that the catheter tip was also placed a minimum of 1.5cm distal to the saphenofemoral junction. After the RF catheter position was verified by ultrasound, tumescent anesthesia was infiltrated, under ultrasound guidance, precisely into the perivenous compartment along the entire length of vein from the entry site to the saphenofemoral junction until a halo of fluid was noted around the vein. The patient was then placed in supine position to further exsanguinate the superficial venous system. After RF catheter position was again confirmed with ultrasound imaging, and under direct external compression along the length of the heating element, RF energy was applied. The vein was segmentally ablated by heating a 8 cm segment and then indexing the catheter forward by 7.5 cm until the treatment length is completed. Device temperature was maintained at 120 plus or minus 5 degrees C with an initial power level of 40W dropping to below 20W for each treatment. Total vein length treated 16 cm Total cycles of RF 3. Repeat ultrasound of the saphenous vein was performed, confirming successful treatment. The catheter and sheath were withdrawn and hemostasis established with direct pressure. After assuring hemostasis, the skin incision over the saphenous vein was closed with a bandage and a compression wrap, and/ or graduated compression stocking was applied from the level of the foot to the most proximal level of the thigh. 15914 - Endovenous RF, 1st Vein All charges added?: Procedure code (CPT) selection complete Assessment & Plan Assessment & Plan (1) Varicose veins of left lower extremity with inflammation: Comment: 10/30/2024 - left GSV Radiofrequency ablation Code(s): I83.12 - Varicose veins of left lower extremity with inflammation Category: Medical Plan: See op note Coding Level of Care Code Procedure Only Diagnoses Varicose veins of left lower extremity with inflammation I83.12 CPT Codes Details - Vascular 1: 67651 - Endovenous RF, 1st Vein ([id number])
== END 2024-10-30 13:31 | disposition home or self-care (01) ==
LOC: HO.HVS 12:30
PROVIDERS: PCP Physician Assistant; Visit Provider Surgery Vascular Surgery
DX: I83.12 Varicose veins of left lower extremity with inflammation (principal)
CPT/HCPCS: 36475

== ENCOUNTER → 2024-10-30 12:29 | Outpatient (BNVA) | payer OTHER, SELFPAY | PROVIDERS: PCP Physician Assistant; Visit Provider Surgery Vascular Surgery | DX: I83.12 Varicose veins of left lower extremity with inflammation (principal) | CPT/HCPCS: 36475; J2003; J2004 ==

== ENCOUNTER 2024-11-12 10:49 | Outpatient (AMB) | payer OTHER, SELFPAY ==
--- NOTE | 2024-11-12 10:53 | MHC.OFFVIS ---
Intake Visit Reasons: 2w follow up s/p L GSV RFA 08/22/24 Intake Note: Patient presents for follow up left gsv RFA. No complaints. Accompanied by: Self / Same As Patient Allergies morphine [MORPHINE] Allergy (Intermediate, Verified 11/12/24 10:55) NIGHTMARES oxycodone [Percocet] Allergy (Intermediate, Verified 11/12/24 10:55) nausea and vomiting Penicillins Allergy (Intermediate, Verified 11/12/24 10:55) rash,sob Sulfa (Sulfonamide Antibiotics) [SULFA (SULFONAMIDE ANTIBIOTICS)] Allergy (Intermediate, Verified 11/12/24 10:55) RASH HPI HPI 2w follow up s/p L GSV RFA 08/22/24: Details: The patient is a 59-year-old female presenting with follow-up status post-radiofrequency ablation of the left great saphenous vein, which was completed on 10/30/2024. She reports mild bruising at the treatment site which healed appropriately, and notes significant improvement in symptoms with no ongoing pain. Acknowledging a small visible vein on the left leg, she is not concerned about it. On the right side, previous episodes of pain that resolved without intervention are noted, and there is no current pain. She now presents for routine postprocedure follow-up [facility] Medical History History of lipoma Degenerative disc disease, cervical Neck Pain Lipoma of back (10/22/22) Hypothyroid Anemia Depression Anxiety Vitamin D deficiency Psoriasis Fibromyalgia Surgical History Hx of neck surgery History of shoulder surgery History of tooth extraction Hx of colonoscopy S/P panniculectomy History of cholecystectomy History of gastric bypass Family History Father CVD (cardiovascular disease) Stroke Hypertension Myocardial infarction Thyroid cancer Mother Hypertension Maternal Grandmother Colon cancer Glaucoma Social History Household Members: None Housing: House Housing Other:: mobile home Are you a primary respiratory care faculty to a significant other at home: No Do you presently have visiting nurse or other home services: No Alcohol intake: never Comment: rings appropriately Patient Tobacco Use Status: Former Tobacco user Tobacco use type: Cigarette Cigarette Packs Per Day: 1 Years Smoked: 30 e-Cigarette/Vaping Use: Never Used Second Hand Smoke Exposure: Yes service: No Current occupational status: unemployed Cognitive needs: No Hearing needs: No Vision needs: No Review of Systems Const All systems reviewed & are unremarkable except as noted in HPI and below Reports no additional complaints ENT Reports Normal hearing present Card Denies chest pain, Denies chest pain at rest, Denies chest pain with activity and Denies pedal edema Resp Denies cough GI Denies abdominal pain Musc Denies abnormal gait, Denies muscle cramps and Denies radiating pain into limb Skin/Breast Denies skin ulcer and Denies wounds Neuro Reports Normal hearing present and Denies abnormal gait Psych Reports no additional complaints Physical Exam Const General: cooperative, healthy appearing and comfortable Orientation/consciousness: oriented to person, oriented to place and oriented to time HEENT Head: Yes normal to inspection Neck Neck: Yes normal visual inspection Carotids: no bruits Chest Chest palpation & inspection: normal inspection of the chest Resp Effort & Inspection: normal respiratory effort and able to speak in complete sentences Auscultation: clear to auscultation bilaterally, no crackles, no rales, no rhonchi and no wheezes Cardio Rate: regular rate Rhythm: regular rhythm Heart sounds: S1 normal heart sound present and S2 normal heart sound present Bruits: no carotid bruits Peripheral pulses: Peripheral pulses 2+ throughout GI Inspection: Yes normal to inspection Skin Wounds: no wounds Hair: normal Neuro General: oriented to person, oriented to place and oriented to time Cranial nerves: Yes CN's II-XII intact bilaterally and Yes Normal hearing present Cognition (Neuro): normal cognition Motor exam (neuro): 5/5 motor strength present throughout Extrem Other: venous exam: No significant superficial varicosities or spider telangiectasias, minimal edema General: No clubbing, No cyanosis and No edema Psych Appearance: grossly normal Mental Status: mental status grossly normal Speech and movement: Normal speech and movement present Assessment & Plan Assessment & Plan (1) Varicose veins of left lower extremity with inflammation: Comment: 10/30/2024 - left GSV Radiofrequency ablation Code(s): I83.12 - Varicose veins of left lower extremity with inflammation Category: Medical Plan: In discussions, we reviewed the current status post-ablation and agreed on a follow-up plan in three months to reassess the small residual vein in the left leg and possible right great saphenous vein ablation.. Continued use of compression stockings was emphasized due to the genetic risk factors. We discussed the monitoring benefits and potential future interventions if needed, highlighting the conservative approach for current management. Follow-up was highlighted for ongoing monitoring, with assurances provided regarding the conservative management strategy currently in place. Thank you for allowing us to assist in her care Plan Patient was informed and verbally consented to the use of an ambient scribe for clinic note documentation during this visit. Patient Instructions: - Wear compression stockings regularly to help manage venous health. - Return for a follow-up visit in three months for reassessment. - Monitor for any new symptoms or changes in the leg and report if noticed. - Maintain a healthy, active lifestyle and continue vegetarian diet. - Contact the clinic sooner if there any concerns arise with the legs or other health issues. Coding Level of Care Code Est Pt Level 4 (41718) Diagnoses Varicose veins of left lower extremity with inflammation I83.12
--- OUTSIDE RECORDS SUMMARY | 2024-11-12 12:55 | XMS_ITS | Patient Health Record ---
Author Organization [facility] Address [address] [place] [address] Care Team Providers Care Call Center Coordinator Name Role Phone EMMY DOUGLASS Primary Care Provider Fish Frias [phone] Allergies Allergen (clinical drug ingredient) Drug/Non Drug Allergy documented on EMR Reaction Allergy Type Onset Date Status Penicillin Unknown Drug Allergy Active acetaminophen / oxycodone Percocet Unknown Drug Allergy Active mold (uncoded) Unknown Allergy Activ e Cat dander cat dander (uncoded) Unknown Allergy Active ragweed (uncoded) Unknown Allergy Ac tive Reason For Referral No Information Medications Medication SIG (Take, Route, Frequency, Duration) Notes Start Date End Date Status Folic Acid Not-Takin g Milk Thistle 500 MG 1 Orally prn Active Niacin 100 MG 1 tablet with food Orally Once a day Active Nac 600 600 MG 1 capsule Orally Onc e a day Active Multivitamin - 1 tablet Orally once a day Active Gabapentin 300 MG 1 capsule Orally Thr ee times a day Active Levothyroxine Sodium 75 MCG 1 tablet on an empty stomach in the morning Orally Once a day Active Vitamin D 1000 UNIT 1 tablet Orally Once a day Active Cosentyx 150 MG/ML 2 ml Subcutaneous monthly Active Cyanocobalamin 1000 MCG/ML 1 ml Orally monthly Active Immunizations Vaccine Route Administration Date Status Comme nts Influenza Unknown 05/21/2018 Administered Social History Tobacco Use: Social History Observation Description Date Details (start date - stop date) Current Smoker NA - NA Tobacco Use/Smoking Question Answer Notes Patient is a current smoker How often do you smoke cigarettes? every day How many cigarettes a day do you smoke? 5 or les s How soon after you wake up d o you smoke your first cigarette? after 60 minutes Are you interested in quitting? Thinking about q uitting Section Notes: Stopped smoking in 05/2014; no sig alcohol Smoking; no sig alcohol Problems Problem Type SNOMED Code ICD Code Onset Dates Problem Status W/U Status Risk Notes Problem [id number] Abdominal pain, generalized (R10.84) Active confirmed Plan Of Treatment Future Test Test Name Order Date COLONOSCOPY 04/28/2015 Next Appt Details Provider Name:Fish Jeffries , 02/16/2025 02:20:00 PM, [address], [address], [place], [address], Insurance Providers Payer Name Payer Address Payer Phone Subscriber Number Group Number Insured Name Patient Relationship to Insured Coverage Start Date Coverage End Date MEDICARE OF [place] [address] [place] [address] [id number] OMAR HURTADO Self - patient is the insured MEDICAID OF [facility] [address] [place] [address] [id number] OMAR HURTADO Self - patient is the insured Medical (General) History Medical History History ICD Code Negative colonoscopy 008 and 07/2015---sigmoid diverticulosis and internal hemorrhoids Denies LA,DM,CVA,Lung disease,renal dise ase Anemia in relation to the ga stric bypass-sees Dr. Christianson and Dr. 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 Wiggins-1999--lost ab out 200 # Panniculectomy Cholecystectomy
== END 2024-11-12 11:13 | disposition home or self-care (01) ==
LOC: HO.HVS 10:49
PROVIDERS: PCP Physician Assistant; Visit Provider Surgery Vascular Surgery
DX: I83.12 Varicose veins of left lower extremity with inflammation (principal)
CPT/HCPCS: 99214

== ENCOUNTER → 2024-11-12 10:49 | Outpatient (BNVA) | payer OTHER, SELFPAY | PROVIDERS: PCP Physician Assistant; Visit Provider Surgery Vascular Surgery | DX: I83.12 Varicose veins of left lower extremity with inflammation (principal); Z87.891 Personal history of nicotine dependence | CPT/HCPCS: 99212 ==

== ENCOUNTER 2024-11-18 15:16 | Outpatient (AMB) | payer OTHER, SELFPAY ==
[2024-11-18 15:26] VITALS: BP 144/80; BMI 29.6
--- NOTE | 2024-11-18 15:26 | MHC.OFFVIS ---
Vital Signs 11/18/24 15:26 Height 5 ft 7 in Weight 189 lb BMI 29.6 BP 144/80 H Intake Visit Reasons: Colposcopy Accounts Payable Administrator Required: No Information Interpreted: non-clinical & clinical Global Sales Executive: Global Sales Executive Present (Leia Bonilla KEVON) Accompanied by: Self / Same As Patient Allergies morphine [MORPHINE] Allergy (Intermediate, Verified 11/18/24 15:34) NIGHTMARES oxycodone [Percocet] Allergy (Intermediate, Verified 11/18/24 15:34) nausea and vomiting Penicillins Allergy (Intermediate, Verified 11/18/24 15:34) rash,sob Sulfa (Sulfonamide Antibiotics) [SULFA (SULFONAMIDE ANTIBIOTICS)] Allergy (Intermediate, Verified 11/18/24 15:34) RASH Post menopausal: Yes HPI Comments Details: Presenting for abnormal Pap smear showing SYLVESTER 1, HPV negative [facility] Medical History History of lipoma Degenerative disc disease, cervical Neck Pain Lipoma of back (10/22/22) Hypothyroid Anemia Depression Anxiety Vitamin D deficiency Psoriasis Fibromyalgia Surgical History Hx of neck surgery History of shoulder surgery History of tooth extraction Hx of colonoscopy S/P panniculectomy History of cholecystectomy History of gastric bypass Family History Father CVD (cardiovascular disease) Stroke Hypertension Myocardial infarction Thyroid cancer Mother Hypertension Maternal Grandmother Colon cancer Glaucoma Social History Household Members: None Housing: House Housing Other:: mobile home Are you a primary grounds caretaker to a significant other at home: No Do you presently have visiting nurse or other home services: No Alcohol intake: never Comment: rings appropriately Patient Tobacco Use Status: Former Tobacco user Tobacco use type: Cigarette Cigarette Packs Per Day: 1 Years Smoked: 30 e-Cigarette/Vaping Use: Never Used Second Hand Smoke Exposure: Yes service: No Current occupational status: unemployed Cognitive needs: No Hearing needs: No Vision needs: No Review of Systems Const All systems reviewed & are unremarkable except as noted in HPI and below Reports as per HPI and Reports no additional complaints GI Reports no additional complaints Reports no additional complaints Physical Exam Vital Signs: Last Vital Signs BP 144/80 H 11/18/24 15:26 BMI result Body Mass Index 29.6 Office Procedures Colposcopy Colposcopy: Pre-Procedure Counseling: Before beginning the procedure, I conducted comprehensive counseling with the patient. We thoroughly discussed the procedure itself, including its details, alternatives, and all associated risks. This included but not limited to the following complications such as bleeding, infection, and injury to the vagina, bladder, and vessels, as well as the potential need for transfusion with all its associated risks. Subsequently, the patient sign the consent. Pap smear result: LSIL. Procedure: During the procedure, the following steps were performed: A speculum was inserted, and acetic acid was applied. Colposcopy was conducted, allowing visualization of the transformation zone. Acetowhite lesions were identified at the 3+11+1 o'clock position. Cervical biopsies were obtained from the 3+11+1 o'clock position, followed by an endocervical curettage (ECC). Vaginoscopy of the upper vagina revealed no evidence of aceto-white lesions. Hemostasis was achieved using Monsel solution, and the patient tolerated the procedure well. Post-Procedure Instructions: The patient was advised to promptly contact the office or the after hours answering service or go to the emergency room if experiencing a temperature exceeding 100.4?F, abdominal pain, nausea/vomiting, or bleeding. Additionally, the patient was instructed to abstain from vaginal intercourse and bathtub use. The patient confirmed understanding of these instructions. Discharge Instructions: The patient was instructed to schedule a follow-up appointment in 2 weeks for further evaluation and management. Please note that this note was generated using a voice recognition program, and errors may have occurred during manager market. 52042-Ejrjoeqxr of cervix including upper vagina with biopsy and ECC Procedure code (CPT) selection complete Assessment & Plan Assessment & Plan (1) LGSIL on Pap smear of cervix: Code(s): R87.612 - Low grade squamous intraepithelial lesion on cytologic smear of cervix (LGSIL) Category: Medical Plan: Discussed with the patient the result of her abnormal pap, its significance, risk of progression, persistence, and regression. the false positive/negative rate of a Pap smear as a screening test in detecting cervical cancer and the indication for a diagnostic test -colposcopy, biopsy, endocervical curettage. The patient verbalized understanding and agreed with the plan, all questions answered. Colpo biopsy ECC done, see procedure note Orders: Orders AMB Colposcopy Today R87.612 - Low grade squamous intraepithelial lesion on cytologic smear of cervix (LGSIL) Coding Level of Care Code Procedure Only Diagnoses LGSIL on Pap smear of cervix R87.612 CPT Codes Colposcopy - CPT: 29584-Oaptqztvi of cervix including upper vagina with biopsy and ECC ([id number])
--- OUTSIDE RECORDS SUMMARY | 2024-11-18 17:49 | XMS_ITS | Continuity of Care Document ---
Author Organization [facility], PAULINE Martin Clinical Address [address] [place] [address] Care Team Providers Care Applications Support Engineer Name Role Phone PATRICK KUMAR Primary Care [...] instructions recorded. Reason for Referral None Reported. Problems Name Problem SNOMED Code Status Onset Date Resolution Date Notes Provider Name and Address Organization Details Recorded Time No complaints 572234640 Active Status : 'A'; Not Available [facility] 4 09:12:17 Impingement syndrome of shoulder region 920878584 Active 2023 Glenys Jean PA-C [address], [place], [address] , [facility] 4 11:17:58 Impingement syndrome of shoulder region 226431823 Active 2023 Glenys Jean PA-C [address], [place], [address] , [facility] 4 11:19:29 Inflammation of joint of left shoulder region Active 2024 Matheus Thakkar PA-C [address], [place], [address] , [facility] 5 07:53:43 Subacromial impingement 500795829 Active 2024 Matheus Thakkar PA-C [address], [place], [address] , [facility] 07:53:55 Problem Notes None recorded. Procedures Surgical History Date Name Laterality Status Provider Name and Address Organization Details Recorded Time 11/18/19 25 Sports Shoulder completed Matheus Thakkar PA-C [address], [place], [address], [facility] 11/18/2024 07:53:13 11/04/19 25 Vascular Surgery completed Juana Brink [facility] 11/17/2024 14:33:01 06/26/20 24 Sports Shoulder completed Glenys Jean PA-C [address], [place], [address], [facility] 06/26/2024 11:17:30 03/20/20 24 Head [facility] Neck [facility] 11/17/2024 14:33:01 08/05/19 00 Bariatric Surgery completed Juana [facility] 11/17/2024 14:33:01 08/05/19 00 Gastrointestinal Surgery completed [facility] 11/17/2024 14:33:01 Imaging Results None recorded. Procedure Notes None recorded. Medical Equipment None Reported. Allergies Allergen ID Allergen Name Allergen Category Reaction Reaction Severity Criticality Documentation Date Start Date Code Code System Note Provider Name and Address Organization Details Recorded Time 74236 morphine sulfate medicatio n Not available Not available Not available 10/07/20232015 61803 RxNorm Not Available [facility] 4 11:09:45 00455 acetamino phen / oxycodone medicatio n Not available Not available Not available 10/07/20232015 04921 3 RxNorm Not Available [facility] 4 11:09:45 83558 Product containin g penicilli n (product) medicatio n Not available Not available Not available 10/07/20232015 79193 8001 SNOMED Not Available [facility] 4 11:09:45 Medications Name Sig Start Date Stop Date Status Note LastModified by Organization Details LastModified Time prednisone 10 mg tablet 11/16 completed Not Available Not Available Not Available clindamycin HCl 300 mg capsule TAKE 1 CAPSULE BY MOUTH EVERY 12 HOURS UNTIL FINISHED active Not Available Not Available No t Available triazolam 0.25 mg tablet TAKE 1 TABLET BY MOUTH 90 MINUTES PRIOR TO DENTAL VISIT 06/26 completed Not Available Not Available Not Available azithromyci n 250 mg tablet TAKE 2 TABLETS BY MOUTH TODAY, THEN TAKE 1 TABLET DAILY FOR 4 DAYS DIRECTED 11/16 completed Not Available Not Available Not Available ibuprofen 800 mg tablet TAKE 1 TABLET BY MOUTH EVERY 8 HOURS NEEDED FOR PAIN active Not Available Not Available No t Available clindamycin HCl 150 mg capsule TAKE 1 CAPSULE 3 TIMES A DAY FOR 10 DAYS 06/26 completed Not Available Not Available Not Available fluocinonid e 0.05 % topical ointment PLEASE SEE ATTACHED FOR DETAILED DIRECTION S active Not Available Not Available No t Available acetaminoph en 500 mg tablet TAKE 1 TABLET EVERY 6 HOURS NEEDED FOR PAIN active Not Available Not Available No t Available triamcinolo ne acetonide 0.1 % topical cream APPLY TO AFFECTED AREAS IN GROIN TWICE DAILY FOR ONE WEEK, BREAK ONE WEEK REPEAT NEEDED active Not Available Not Available No t Available acetaminoph en ER 650 mg tablet,exte nded release 11/16 completed Not Available Not Available Not Available doxycycline monohydrate 100 mg capsule TAKE 1 CAPSULE BY MOUTH 2 TIMES A DAY FOR 7 DAYS 06/26 completed Not Available Not Available Not Available cyanocobala min (vit B-12) 1,000 mcg/mL injection solution INJECT 1 ML (1000MCG) INTRANMUS CULARY EVERY MONTH active Not Available Not Available No t Available tacrolimus 0.1 % topical ointment APPLY TO AFFECTED AREAS IN GROIN TWICE DAILY NEEDED active Not Available Not Available No t Available ferrous sulfate 325 mg (65 mg iron) tablet TAKE 1 TABLET BY MOUTH EVERY DAY active Not Available Not Available No t Available levothyroxi ne 125 mcg tablet TAKE 1 TABLET BY MOUTH EVERY DAY. ALTERNATE WITH 112MG 11/16 completed Not Available Not Available Not Available triamcinolo ne acetonide 0.1 % topical ointment active Not Available Not Available Not Available gabapentin 300 mg capsule TAKE 1 CAPSULE ORALLY 3 TIMES A DAY FOR PAIN FOR 30 DAYS active Not Available Not Available No t Available betamethaso ne dipropionat e 0.05 % topical ointment APPLY TOPICALLY TO THE FEET TWICE DAILY FOR TWO WEEKS, BREAK ONE WEEK, REPEAT NEEDED active Not Available Not Available No t Available metformin ER 500 mg tablet,exte nded release 24 hr TAKE 1 TABLET BY MOUTH EVERY DAY active Not Available Not Available No t Available BD Luer-Chalo Syringe 3 mL 21 gauge x 1 FOR B 12 INJECTION DIRECTED active Not Available Not Available No t Available levothyroxi ne 112 mcg tablet TAKE 1 TABLET BY MOUTH EVERY DAY active Not Available Not Available No t Available calcipotrie ne 0.005 % topical ointment APPLY TO AFFECTED AREAS OF PSORIASIS ONCE TO TWICE DAILY. active Not Available Not Available No t Available Alcohol Prep Pads USE 1 DIRECTED FOR WIPE PRIOR TO THE B12 INJECTION active Not Available Not Available No t Available hydrocodone 5 mg-acetamin ophen 300 mg tablet TAKE 1 TABLET BY MOUTH EVERY 4 TO 6 HOURS NEEDED FOR PAIN 06/26 completed Not Available Not Available Not Available Cimzia 400 mg/2 mL (200 mg/mL x 2) subcutaneou s syringe kit 11/16 completed Not Available Not Available Not Available Skyrizi 150 mg/mL subcutaneou s pen injector active Not Available Not Available Not Available Wegovy 1.7 mg/0.75 mL subcutaneou s pen injector INJECT 1.7 MG (0.75 ML) SUBCUTANE OUSLY EVERY WEEK FOR 4 WEEKS 11/16 completed Not Available Not Available Not Available Wegovy 1 mg/0.5 mL subcutaneou s pen injector INJECT 1 MG SUBCUTANE OUS EVERY WEEK 06/26 completed Not Available Not Available Not Available Wegovy 0.25 mg/0.5 mL subcutaneou s pen injector INJECT 0.5ML SUBCUTANE OUSLY EVERY 4 WEEKS WEEKS 1 THROUGH 4 OF THERAPY 06/26 completed Not Available Not Available Not Available Wegovy 0.5 mg/0.5 mL subcutaneou s pen injector INJECT 0.5 MG (0.5 ML) SUBCUTANE OUSLY EVERY WEEK FOR 4 WEEKS ADMINISTE R WEEKS 5 THROUGH 8 OF THERAPY 06/26 completed Not Available Not Available Not Available Vtama 1 % topical cream APPLY TO AFFECTED AREAS OF PSORIASIS ONCE DAILY NEEDED. active Not Available Not Available No t Available Zepbound 10 mg/0.5 mL subcutaneou s pen injector 10 MG (0.5 ML) SUBCUTANE OUSLY EVERY WEEK FOR 4 WEEKS active Not Available Not Available No t Available Zepbound 5 mg/0.5 mL subcutaneou s pen injector INJECT 0.5 ML SUBCUTANE OUSLY EVERY WEEK FOR 4 WEEKS active Not Available Not Available No t Available Zepbound 7.5 mg/0.5 mL subcutaneou s pen injector INJECT 7.5 MG (0.5 ML) SUBCUTANE OUSLY EVERY WEEK FOR 4 WEEKS active Not Available Not Available No t Available Vitals Date Recorded Body height Body mass index (BMI) Body weight Provider Name and Address Organization Details Last Updated DateTime 11/17/2024 170.18 cm 31.3 kg/m2 78420.47 g Juana Brink [facility] 11/17/2024 14:36:04 Social History Question Answer Notes LastModified by Organizat ion Details LastModified Time Tobacco Smoking Status Former Smoker Juana Brink [facility] 11/17/2024 14:33:01 How Many Times Per Week Do You Consume Alcohol? Less Than 1 Time Per Week [email or web address] Information not available 11/17/2024 Do You Or Have You Ever Used E-cigarettes Or Vape? Never Used Electronic Cigarettes [email or web address] Information not available 11/17/2024 When Did You Quit Smoking? 1-5yearssincel astciarturo [email or web address] Information not available 11/17/2024 What Is Your Relationship Status? [email or web address] Information not available 11/17/2024 Do You Use Any Illicit Or Recreational Drugs? No [email or web address] Information not available 11/17/2024 How Many Years Have You Smoked Tobacco? 20 [email or web address] Information not available 11/17/2024 Do You Or Have You Ever Used Any Other Forms Of Tobacco Or Nicotine? No Information not available 11/17/2024 Sex: Unknown Functional Status None recorded. Mental Status None recorded. Family History Nothing Reported. Medical History Condition Response Allergies/Hayfever Y Anxiety/Depression Y COPD Y Anemia Y Autoimmune disease Y Arthritis Y Peripheral Vascular Disease Y Sleep Apnea Y Gynecological HistoryNo gynecological history recorded. Obstetrics History GPAL:G 0 P 0 0 0 0 Past Encounters Encounter ID Performer Location Encounter Start Date Encounter Closed Date Diagnosis/Indication Diagnosis SNOMED-CT Code Diagnosis ICD10 Code Diagnosis Note [id number] [facility] [address] [place], [place] [address] 11/17/2024 14:23:18 11/18/2024 07:54:21 Inflammation of joint of left shoulder region 1735862814 06639 M19.012 Subacromia l impingement 290024957 M75.42 Health Concerns Section Related Observation LastModified by Organization Detai ls LastModified Time None Recorded Concern Status LastModified by Organization Details LastModified Time None Recorded Payers Encounter Date Sequence Insurance Name Policy Number Policy Abraham Covered Member ID Abraham Member ID Guarantor Name 11/17/2024 1 [facility] - DOS ON OR AFTER 2022 - MEDICARE [place]ANTAGE [place] ([place]ARE REPLACEMENT/ADV ANTAGE - PPO) Teri Robertson [id number] Teri Robertson Notes Date Note Type Note Provider Name and Address Organization Details Recorded Time 11/17/2024 text/html I am seeing the patient today under the supervision of {{ Guy #}} who was available but who did not see the patient. Patient comes to the office with known {{Left* Right Bi-lat eral}} shoulder osteoarthritis and impingement syndrome. The patient has done fairly well with conservative management for their shoulder pain. Patient reports that the previous cortisone injection 06/26/2024 did not give her much benefit. Has had increasing discomfort over the past several weeks without injury. Pain is generalized about the shoulder. Off and on discomfort is noted at night. PFMSH and ROS has been reviewed, updated, and signed by me and is located in the patient's chart. PHYSICAL FINDINGS: The patient is well appearing, in no apparent distress, alert and oriented to person, place and time. Gait is symmetric. No significant swelling, warmth or erythema about either shoulder. There is mild tenderness to palpation about the shoulder and AC joint. Active range of motion of the shoulder is near full with mild to moderate pain through mid range manipulations. 4/5 strength of the shoulder, but the rotator cuff seems to fire well. Good stability of the shoulder. Peripheral, vascular, lymphatic examination, skin, neurologic coordination, reflexes, sensation are within normal limits. ASSESSMENT: Impingement Syndrome and osteoarthritis {{Left* Right Bi-lat eral}}shoulder. PLAN: The patient has done well with conservative management in regards to the {{Left* Right Bi-lat eral}} shoulder. We discussed the role of medications, physical therapy, injections, and potential surgical interventions depending on conservative outcome Continued conservative management recommended. Along with cortisone injection today. Injection performed from a posterior approach to the subacromial space directed anteriorly at the AC joint. Please see procedure note. Patient will follow up as directed. Matheus Thakkar PA-C [address], [place], [address], [facility] 11/18/2024 07:54:20 OBGyn Episode No OBEpisode recorded.
--- OUTSIDE RECORDS SUMMARY | 2024-11-18 17:49 | XMS_ITS | Data Portability ---
Author Organization [facility], [facility] Address [address] [place] [address] Care Team Providers Care Displayer Merchandise Name Role Phone PATRICK KUMAR Primary Care [...] Address Organization Details Recorded Time No complaints 602161483 Active Status : 'A'; Not Available [facility] 4 09:12:17 Impingement syndrome of shoulder region 929785064 Active 2023 Glenys Jean PA-C [address], [place], [address] , [facility] 4 11:17:58 Impingement syndrome of shoulder region 423678586 Active 2023 Glenys Jean PA-C [address], [place], [address] , [facility] 4 11:19:29 Inflammation of joint of left shoulder region Active 2024 Matheus Thakkar PA-C [address], [place], [address] , [facility] 5 07:53:43 Subacromial impingement 434927450 Active 2024 Matheus Thakkar PA-C [address], [place], [address] , [facility] 07:53:55 Problem Notes None recorded. Procedures Surgical History Date Name Laterality Status Provider Name and Address Organization Details Recorded Time 11/18/19 25 Sports Shoulder completed Matheus Thakkar PA-C [address], [place], [address], [facility] 11/18/2024 07:53:13 11/04/19 25 [facility] 11/17/2024 14:33:01 06/26/20 24 Sports Shoulder completed Glenys Jean PA-C [address], [place], [address], [facility] 06/26/2024 11:17:30 03/20/20 24 Head [facility] Neck [facility] 11/17/2024 14:33:01 08/05/19 00 Bariatric Surgery completed [facility] 11/17/2024 14:33:01 08/05/19 00 Gastrointestinal Surgery completed [facility] [place] 11/17/2024 14:33:01 Imaging Results None recorded. Procedure Notes None recorded. Medical Equipment None Reported. Allergies Allergen ID Allergen Name Allergen Category Reaction Reaction Severity Criticality Documentation Date Start Date Code Code System Note Provider Name and Address Organization Details Recorded Time 59248 morphine sulfate medicatio n Not available Not available Not available 10/07/20232015 41031 RxNorm Not Available [facility] 4 11:09:45 66085 acetamino phen / oxycodone medicatio n Not available Not available Not available 10/07/20232015 69036 3 RxNorm Not Available [facility] 4 11:09:45 35287 Product containin g penicilli n (product) medicatio n Not available Not available Not available 10/07/20232015 27123 8001 SNOMED Not Available [facility] 4 11:09:45 Medications Name Sig Start Date [...] and Address Organization Details Last Updated DateTime 06/26/2024 170.18 cm 31.3 kg/m2 39931.47 g Kelsi payan [facility] 06/26/2024 10:46:43 Date Recorded Body height Body mass index (BMI) Body weight Provider Name and Address Organization Details Last Updated DateTime 11/17/2024 170.18 cm 31.3 kg/m2 08351.47 g Juana Brink [facility] 11/17/2024 14:36:04 Social History Question Answer Notes LastModified by Organizat ion Details LastModified Time Tobacco Smoking Status [facility] 11/17/2024 14:33:01 How Many Times Per Week Do You Consume Alcohol? Less Than 1 Time Per Week [email or web address] Information not available 11/17/2024 Do You Or Have You Ever Used E-cigarettes Or Vape? Never Used Electronic Cigarettes [email or web address] Information not available 11/17/2024 When Did You Quit Smoking? 1-5yearssindonaldo van [email or web address] Information not available 11/17/2024 What Is Your Relationship Status? Information not available 11/17/2024 Do You Use Any Illicit Or Recreational Drugs? No [email or web address] Information not available 11/17/2024 How Many Years Have You Smoked Tobacco? 20 [email or web address] Information not available 11/17/2024 Do You Or Have You Ever Used Any Other Forms Of Tobacco Or Nicotine? No [email or web address] Information not available 11/17/2024 Sex: Unknown Functional [...] SNOMED-CT Code Diagnosis ICD10 Code Diagnosis Note [id number] Glenys Jean PA-C [facility] [address] [place] [address] 06/26/2024 10:15:23 07/27/2024 15:53:01 Localized, primary osteoarthritis of the shoulder region 221805179 M19.019 Impingemen t syndrome of left shoulder region 9646404897 21448 M75.42 PLAN: Patient has positive impingemen t testing with subsequent limited range of motion. I discussed nature patient's diagnosis and imaging in detail with the patient. I recommend rest, ice, and activity modificati ons. I also recommend corticoste roid injection into the subacromia l space to help improve pain and symptoms so that patient is better able to participat e in range of motion exercises. Patient was provided with formal physical therapy prescripti on to help improve shoulder kinetics, strength and overall function. Patient was advised to make use of oral anti-infla mmatories and participat e with home range of motion exercises as well. Patient will follow up with us in {{6-8 weeks as needed*}}, or if symptoms worsen/do not improve with conservati ve care. [id number] [place] [address] [place] [address] 11/17/2024 14:23:18 11/18/2024 07:54:21 Inflammation of joint of left shoulder region 0295568396 67896 M19.012 Subacromia l impingement 809998845 M75.42 Health Concerns Section Related Observation LastModified by Organization Detai ls LastModified Time None Recorded Concern Status LastModified by Organization Details LastModified Time None Recorded Advance Directives Directive None Recorded Payers Encounter Date Sequence Insurance Name Policy Number Policy Abraham Covered Member ID Abraham Member ID Guarantor Name 06/26/2024 1 [facility] - DOS ON OR AFTER 2022 - MEDICARE [place]AGE [place]/ADV ANTAGE - PPO) Teri Robertson [id number] Teri Robertson 11/17/2024 1 [facility] - DOS ON OR AFTER 2022 - MEDICARE [place]/ADV ANTAGE - PPO) Teri Robertson [id number] Teri Robertson Notes Date Note Type Note Provider Name and Address Organization Details Recorded Time 06/26/2024 text/html I am seeing the patient under the general supervision of {{Dr. Adalberto An*}} who was available but who did not see the patient. History of Present Illness:Patient comes to the office for acute exacerbation left shoulder pain. She was last seen by me in September 2023 with multifactorial left shoulder pain localized to the anterior chest wall, AC joint and lateral brachium. Differential diagnosis included myofascial pain syndrome, AC joint arthritis, SC joint arthritis and cervical radiculopathy. We attempted diagnostic and therapeutic subacromial and AC joint injections and she reports injection was extremely helpful. She had minimal to no pain to the shoulder over the last several months. Reports symptoms began recurring over the last couple of weeks. Presents today requesting repeat injection. Localizes the pain along the clavicle and lateral brachium. Denies any new fall, trauma or injury. Started noticing increasing pain after she was walking her dogs regularly holding the leash. Glenys Jean PA-C [address], [place], [address], [facility] [place] 06/26/2024 11:20:15 11/17/2024 text/html I am seeing the patient today under the supervision of {{ Brooks #}} who was available but who did [...] up as directed. Matheus Thakkar PA-C [address], [place], [address], [facility] [place] [facility] 11/18/2024 07:54:20 OBGyn Episode No OBEpisode recorded.
--- OUTSIDE RECORDS SUMMARY | 2024-11-18 17:49 | XMS_ITS | Patient Health Record ---
Author Organization [facility] Address [address] [place] [address] Care Team Providers Care Vac Press Operator Name Role Phone EMMY DOUGLASS Primary Care Provider Fish Frias [phone] Allergies Allergen (clinical drug ingredient) Drug/Non Drug [...] Problem Status W/U Status Risk Notes Problem [id number] Abdominal pain, generalized (R10.84) Active confirmed Plan Of Treatment Future Test Test Name Order Date COLONOSCOPY 04/28/2015 Next Appt Details Provider Name:Fish Jeffries , 02/16/2025 02:20:00 PM, [address], [address], [place], [address], Insurance Providers Payer Name Payer Address Payer Phone Subscriber Number Group Number Insured Name Patient Relationship to Insured Coverage Start Date Coverage End Date MEDICARE OF [place] [address] [place] [address] [id number] OMAR HURTADO Self - patient is the insured MEDICAID OF [facility] [address] [place] [address] [id number] OMAR HURTADO Self - patient is the insured Medical (General) History Medical History History ICD Code Negative colonoscopy 008 and 07/2015---sigmoid diverticulosis and internal hemorrhoids Denies NC,DM,CVA,Lung disease,renal dise ase Anemia in relation to the ga stric bypass-sees Dr. Christianson and Dr. 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 Wiggins-1999--lost ab out 200 # Panniculectomy Cholecystectomy
--- OUTSIDE RECORDS SUMMARY | 2024-11-18 17:49 | XMS_ITS | Data Portability ---
Author Organization [place] - [facility], Allergy Address [address] [place] [address] Care Team Providers Care Supervisor Nut Processing Name Role Phone JOSÉ PATRICK Primary Care Provider Assessment No assessment recorded. [...] Address Organization Details Recorded Time Bilateral earache 241219268 Active 2016 Otalgi a, bilate ral; Note: Date Diagno sed: 03/08/20 17 4:42 PM (H92.0 3) Not [facility] 4 02:16:43 Abnormal auditory perception 74569473 Active 2024 MENDOZA HARDY MD [address] [facility],[place] [address], [address] , [place] [facility] 5 14:09:25 Foreign body in auditory canal 46951917 Active 2024 MENDOZA HARDY MD [address] [facility],[place] [address], [address] , [place] [facility] [place] 5 14:09:31 Abnormal auditory perception 43886091 Active 2024 MENDOZA HARDY MD [address] [facility],[place] [address], [place], [address] , [facility] - [facility] [place] 5 14:09:44 Chronic rhinitis 48130374 Active 2024 MENDOZA HARDY MD [address] [facility],[place] [address], [place], [address] , [facility] - [facility] [place] 14:10:07 Problem Notes None recorded. Procedures Surgical History Date Name Laterality Status Provider Name and Address Organization Details Recorded Time Removal of foreign body from ear canal completed MENDOZA HODGSON MD [address] [facility],[place] [address], [place], [address], [facility] - [facility] 08/31/2024 14:09:10 Air & Speech Audio with Tymps (83050, 49639 & 12383) completed SLADE MCKENNA [address] [facility],[place] [address], [place], [address], [facility] 08/31/2024 14:14:34 Imaging Results Imaging Date Name Status LastModified by Organiz ation Details LastModified Time 09/01/2024 audiogram completed BARCODE Information no t available 09/01/2024 09:52:09 Procedure Notes None recorded. Medical Equipment None Reported. Allergies Allergen ID Allergen Name Allergen Category Reaction Reaction Severity Criticality Documentation Date Start Date Code Code System Note Provider Name and Address Organization Details Recorded Time 05329 morphine medicatio n other Not available Not available 12/17/2023 7052 RxNorm React ion: unkno wn, unspe cifie d;; Not Available [facility] 4 00:48:28 93097 penicilli n V potassium medicatio n other Not available Not available 12/17/2023 64987 5 RxNorm React ion: unkno wn, unspe cifie d;; Not Available [facility] 4 00:48:53 42128 acetamino phen / oxycodone medicatio n other Not available Not available 12/17/2023 64502 3 RxNorm React ion: unkno wn, unspe lupee d;; Not Available [facility] 4 00:49:20 Medications Name Sig Start Date [...] mg tablet 08/31 completed Medicati on ID: [id number] D uration Value: 30 Brand Name: amitript [...] mcg tablet 08/31 completed Medicati on ID: [id number] D uration Value: 30 Brand Name: levothyr [...] Address Organization Details Last Updated DateTime 08/31/2024 91108.63 g 28.2 kg/m2 170.18 cm Aurora Troncoso [place] - [facility] 08/31/2024 13:59:27 Social History None recorded. [...] SNOMED-CT Code Diagnosis ICD10 Code Diagnosis Note [id number] MENDOZA HARDY MD [facility] [address] [place] [address] 08/31/2024 13:40:32 08/31/2024 14:45:18 Foreign body in auditory canal 45990996 T16.1XXA T16.2XXA Abnormal a uditory perception 95372531 H93.293 Cerumen and bilateral silicone foreign bodies were noted. These were removed with the operative microscope . She still noticed some fullness in the left ear. Audiometri c testing was performed. Right Ear:Normal hearing with excellent speech discrimina tion.Type A tympanogra m.Left Ear:Normal hearing with excellent speech discrimina tion.Type A tympanogra m. Chronic rhinitis 8751405 6 J31.0 Patient complained of postnasal drip. [...] Abraham Member ID Guarantor Name 08/31/2024 1 [facility] Teri Robertson [id number] Teri Robertson Notes Date Note Type Note Provider Name and Address Organization Details Recorded Time 08/31/2024 text/html Patient seen for hearing loss and possible lesion in her right ear. MENDOZA HODGSON MD [address] [place] [address], [place], [address], [facility] - [facility] 08/31/2024 14:41:44 OBGyn Episode No OBEpisode recorded.
== END 2024-11-18 16:47 | disposition home or self-care (01) ==
LOC: HO.HWS 15:16
PROVIDERS: PCP Physician Assistant; Visit Provider Obstetrics & Gynecology
DX: R87.612 Low grade squamous intraepithelial lesion on cytologic smear of cervix (LGSIL) (principal)
CPT/HCPCS: 57454

== ENCOUNTER 2024-11-18 15:16 | Outpatient (REF) | payer OTHER, SELFPAY | END 2024-11-18 15:17 | disposition home or self-care (01) | LOC: HO.LNP 15:16 | PROVIDERS: PCP Physician Assistant; Visit Provider Obstetrics & Gynecology | DX: R87.612 Low grade squamous intraepithelial lesion on cytologic smear of cervix (LGSIL) (principal) | CPT/HCPCS: 57454; 88305 ==

== ENCOUNTER 2024-12-07 12:39 | Outpatient (AMB) | payer OTHER, SELFPAY ==
--- NOTE | 2024-12-07 12:41 | MHC.OFFVIS ---
Intake Visit Reasons: colpo results Allergies morphine [MORPHINE] Allergy (Intermediate, Verified 11/18/24 15:34) NIGHTMARES oxycodone [Percocet] Allergy (Intermediate, Verified 11/18/24 15:34) nausea and vomiting Penicillins Allergy (Intermediate, Verified 11/18/24 15:34) rash,sob Sulfa (Sulfonamide Antibiotics) [SULFA (SULFONAMIDE ANTIBIOTICS)] Allergy (Intermediate, Verified 11/18/24 15:34) RASH HPI Comments Details: The patient is schedule telehealth visit post colpo for follow-up. The patient is doing well with no complaints. The pathology showed the following: A. Endocervix, curettage: Scant strips of benign endocervical epithelium with degenerative changes; mucoinflammatory material; no atypia identified. B. Cervix, 1 o'clock, biopsy: Low-grade squamous intraepithelial lesion (SYLVESTER 1); no endocervical epithelium identified. C. Cervix, 3 o'clock, biopsy: Scant fragments of inflamed squamous and endocervical epithelium; mucoinflammatory material; no atypia identified. D. Cervix, 11 o'clock, biopsy: Low-grade squamous intraepithelial lesion (SYLVESTER 1); no endocervical epithelium identified. COMMENT: The findings are concordant with the patient's recent Pap/cytology specimen ([id number]; LSIL with negative HPV) - slide reviewed [facility] Medical History History of lipoma Degenerative disc disease, cervical Neck Pain Lipoma of back (10/22/22) Hypothyroid Anemia Depression Anxiety Vitamin D deficiency Psoriasis Fibromyalgia Surgical History Hx of neck surgery History of shoulder surgery History of tooth extraction Hx of colonoscopy S/P panniculectomy History of cholecystectomy History of gastric bypass Family History Father CVD (cardiovascular disease) Stroke Hypertension Myocardial infarction Thyroid cancer Mother Hypertension Maternal Grandmother Colon cancer Glaucoma Social History Household Members: None Housing: House Housing Other:: mobile home Are you a primary child caregiver private home to a significant other at home: No Do you presently have visiting nurse or other home services: No Alcohol intake: never Comment: rings appropriately Patient Tobacco Use Status: Former Tobacco user Tobacco use type: Cigarette Cigarette Packs Per Day: 1 Years Smoked: 30 e-Cigarette/Vaping Use: Never Used Second Hand Smoke Exposure: Yes service: No Current occupational status: unemployed Cognitive needs: No Hearing needs: No Vision needs: No Review of Systems Const All systems reviewed & are unremarkable except as noted in HPI and below Reports as per HPI and Reports no additional complaints GI Reports no additional complaints Reports no additional complaints Telehealth Telehealth Telehealth Platform: Telephone Location of provider rendering services: practice address Location of patient: address on file Patient Identification confirmed using: Name, : No Telehealth method: video Patient verbally consented to treatment: Yes Patient verbally consented to billing insurance company: Yes Patient informed of any privacy concerns related to visit: Yes Minutes spent on Phone/Video with Pt.: 4 Assessment & Plan Assessment & Plan (1) Dysplasia of cervix, low grade (SYLVESTER 1): Code(s): N87.0 - Mild cervical dysplasia Category: Medical Plan: Discussed with the patient the pathology results of the colposcopy biopsies & endocervical curettage ( mild dysplasia-SYLVESTER 1). Discussed with the patient the sensitivity specificity, positive and negative predictive value in detecting cervical cancer in addition discussed the regression, persistence and progression rates. Recommended co-testing in 12 months, if cytology and or HPV are abnormal will proceed was colposcopy biopsy and endocervical curettage, if lesions gets worse or stays persistent for 2 years will proceed with loop electric excision procedure. Instructions given to the patient to schedule a co test appointment in 1 year. All questions answered the patient verbalized understanding. I spent a total of 20 minutes reviewing the chart, talking to the patient via video and documenting in the medical record. Coding Level of Care Code Tele Est Pt Level 3 (47274) Diagnoses Dysplasia of cervix, low grade (SYLVESTER 1) N87.0
--- OUTSIDE RECORDS SUMMARY | 2024-12-07 14:07 | XMS_ITS | Patient Health Record ---
Author Organization [facility] Address [address] [place] [address] Care Team Providers Care Tunnel Form Placing Supervisor Name Role Phone EVONNE EMMY Primary Care Provider Fish Frias [phone] Allergies Allergen (clinical drug ingredient) Drug/Non Drug [...] Problem Status W/U Status Risk Notes Problem [id number] Abdominal pain, generalized (R10.84) Active confirmed Plan Of Treatment Future Test Test Name Order Date COLONOSCOPY 04/28/2015 Next Appt Details Provider Name:Fish Jeffries , 02/16/2025 02:20:00 PM, [address], [address], [place], [address], Insurance Providers Payer Name Payer Address Payer Phone Subscriber Number Group Number Insured Name Patient Relationship to Insured Coverage Start Date Coverage End Date MEDICARE OF [place] [address] [place] [address] [phone] [id number] OMAR HURTADO Self - patient is the insured MEDICAID OF [facility] [address] [place] [address] [id number] OMAR HURTADO Self - patient is the insured Medical (General) History Medical History History ICD Code Negative colonoscopy 008 and 07/2015---sigmoid diverticulosis and internal hemorrhoids Denies [place],DM,CVA,Lung disease,renal dise ase Anemia in relation to the ga stric bypass-sees Dr. Christianson and Dr. 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 Wiggins-1999--lost ab out 200 # Panniculectomy Cholecystectomy
--- OUTSIDE RECORDS SUMMARY | 2024-12-07 14:08 | XMS_ITS | Data Portability ---
Author Organization [place] - [facility], Allergy Address [address] [place] [address] Care Team Providers Care Photogrammetric Surveyor Name Role Phone JOSÉ PATRICK Primary Care Provider [phone] Assessment No assessment recorded. Plan of Treatment [...] Address Organization Details Recorded Time Bilateral earache 087670712 Active 2016 Otalgi a, bilate ral; Note: Date Diagno sed: 03/08/20 17 4:42 PM (H92.0 3) Not Available [facility] 4 02:16:43 Abnormal auditory perception 08230046 Active 2024 MENDOZA HARDY MD [address] [facility],[place] [address], [address] , [place] [facility] 5 14:09:25 Foreign body in auditory canal 58134603 Active 2024 MENDOZA HARDY MD [address] [facility],[place] [address], [address] , [place] [facility] [place] 14:09:31 Abnormal auditory perception 46388430 Active 2024 MENDOZA HARDY MD [address] [facility],[place] [address], [place], [address] , [facility] - [facility] [place] 5 14:09:44 Chronic rhinitis 04059447 Active 2024 MENDOZA HARDY MD [address] [facility],[place] [address], [place], [address] , [facility] - [facility] [place] 14:10:07 Problem Notes None recorded. Procedures Surgical History Date Name Laterality Status Provider Name and Address Organization Details Recorded Time Removal of foreign body from ear canal completed MENDOZA HODGSON MD [address] [facility],[place] [address], [place], [address], [facility] - [facility] 08/31/2024 14:09:10 Air & Speech Audio with Tymps - 33836, 16636 & 75427 completed SLADE MCKENNA [address] [facility],[place] [address], [place], [address], [facility] - [facility] [place] 08/31/2024 14:14:34 Imaging Results Imaging Date Name Status LastModified by Organiz ation Details LastModified Time 09/01/2024 audiogram completed BARCODE Information no t available 09/01/2024 09:52:09 Procedure Notes None recorded. Medical Equipment None Reported. Allergies Allergen ID Allergen Name Allergen Category Reaction Reaction Severity Criticality Documentation Date Start Date Code Code System Note Provider Name and Address Organization Details Recorded Time 68580 morphine medicatio n other Not available Not available 12/17/2023 7052 RxNorm React ion: unkno wn, unspe cifie d;; Not Available [facility] 4 00:48:28 74832 penicilli n V potassium medicatio n other Not available Not available 12/17/2023 31346 5 RxNorm React ion: unkno wn, unspe cifie d;; Not Available [facility] 4 00:48:53 91658 acetamino phen / oxycodone medicatio n other Not available Not available 12/17/2023 67790 3 RxNorm React ion: unkno wn, unspe lupee d;; Not Available [facility] 4 00:49:20 Medications Name Sig [...] mg tablet 08/31 completed Medicati on ID: [id number] D uration Value: 30 Brand Name: amitript [...] mcg tablet 08/31 completed Medicati on ID: [id number] D uration Value: 30 Brand Name: levothyr [...] Address Organization Details Last Updated DateTime 08/31/2024 37670.63 g 28.2 kg/m2 170.18 cm Aurora Troncoso [place] - [facility] 08/31/2024 13:59:27 Social History None recorded. [...] SNOMED-CT Code Diagnosis ICD10 Code Diagnosis Note [id number] MENDOZA HARDY MD [facility] [address] [place] [address] 08/31/2024 13:40:32 08/31/2024 14:45:18 Foreign body in auditory canal 19390472 T16.1XXA T16.2XXA Abnormal a uditory perception 18780851 H93.293 Cerumen and bilateral silicone foreign bodies were noted. These were removed with the operative microscope . She still noticed some fullness in the left ear. Audiometri c testing was performed. Right Ear:Normal hearing with excellent speech discrimina tion.Type A tympanogra m.Left Ear:Normal hearing with excellent speech discrimina tion.Type A tympanogra m. Chronic rhinitis 9115439 6 J31.0 Patient complained of postnasal drip. [...] Abraham Member ID Guarantor Name 08/31/2024 1 [facility] Teri Robertson [id number] Teir Robertson Notes Date Note Type Note Provider Name and Address Organization Details Recorded Time 08/31/2024 text/html Patient seen for hearing loss and possible lesion in her right ear. MENDOZA HODGSON MD [address] [place] [address], [place], [address], [facility] - [facility] 08/31/2024 14:41:44 OBGyn Episode No OBEpisode recorded.
== END 2024-12-07 13:38 | disposition home or self-care (01) ==
LOC: HO.HWS 12:39
PROVIDERS: PCP Physician Assistant; Visit Provider Obstetrics & Gynecology
DX: N87.0 Mild cervical dysplasia (principal)
CPT/HCPCS: 99213

== ENCOUNTER 2024-12-22 11:17 | Outpatient (AMB) | payer OTHER, SELFPAY ==
[2024-12-22 11:23] VITALS: BP 138/88; PULSE 65; TEMP 36.3; O2SAT 99; BMI 27.1
--- NOTE | 2024-12-22 11:23 | A.OFFPC_ITS ---
Vital Signs 3 12/22/24 11:23 Height 5 ft 7 in Weight 173 lb 4 oz BMI 27.1 BP 138/88 Blood Pressure Location Lt brachial Position Sitting Pulse 65 Pulse Source Pulse Oximeter Temp 97.3 F Temp Source Temporal Artery Scan Pulse Oximetry (%) 99 Oxygen Delivery Method Room Air Intake Visit Reasons: protrusion near umbilicus Nurses' Association Counselor Required: No Accompanied by: Self / Same As Patient Allergies morphine [MORPHINE] Allergy (Intermediate, Verified 12/22/24 11:28) NIGHTMARES oxycodone [Percocet] Allergy (Intermediate, Verified 12/22/24 11:28) nausea and vomiting Penicillins Allergy (Intermediate, Verified 12/22/24 11:28) rash,sob Sulfa (Sulfonamide Antibiotics) [SULFA (SULFONAMIDE ANTIBIOTICS)] Allergy (Intermediate, Verified 12/22/24 11:28) RASH Medication List - Last Reconciled 12/22/24 by Ayad Brewer PA-C acetaminophen 1,000 mg (2 x 500 mg) PO Q8H alcohol swabs (Alcohol Wipes) 1 pad topical DIRECTED calcipotriene 0.005% 1 appl topical BID cyanocobalamin (vitamin B-12) 1,000 mcg IM QMONTH docusate sodium 100 mg PO BID ferrous sulfate 325 mg PO DAILY gabapentin 300 mg PO TID 30 days levothyroxine 112 mcg PO DAILY metformin ER 500 mg PO DAILY 90 days miscellaneous medical supply (Blood Pressure Cuff) As directed risankizumab-rzaa (Skyrizi) mg subcut syringe with needle (Syringe) As Directed syringe with needle (Syringe) As Directed tirzepatide (weight loss) (Zepbound) 10 mg (0.5 mL) subcut QWEEK 4 weeks Tobacco use date assessed: 09/29/24 Dental Screening Dental Screen Date: 09/29/24 HPI protrusion near umbilicus 2 HPI0 Details The patient is a 59-year-old female presenting with abdominal pain and a palpable lump indicative of a hernia. She noticed the symptoms intensifying after lifting heavy objects over the weekend, which led to increased hernial protrusion. She has a complex surgical history, including a penilectomy and gastrointestinal bypass surgery, which may contribute to abdominal adhesions. The hernia's pain increases with movement, particularly with lifting, and subsides with supportive garments. The patient has an extensive history of abdominal surgeries, which might indicate adhesions, and she is concerned about the risk of hernia strangulation. Her medical history includes concern about hernia complications due to family members' experiences with failed mesh repairs. [facility] Medical History History of lipoma Degenerative disc disease, cervical Neck Pain Lipoma of back (10/22/22) Hypothyroid Anemia Depression Anxiety Vitamin D deficiency Psoriasis Fibromyalgia Surgical History Hx of neck surgery History of shoulder surgery History of tooth extraction Hx of colonoscopy S/P panniculectomy History of cholecystectomy History of gastric bypass Family History Father CVD (cardiovascular disease) Stroke Hypertension Myocardial infarction Thyroid cancer Mother Hypertension Maternal Grandmother Colon cancer Glaucoma Social History Household Members: None Housing: House Housing Other:: mobile home Are you a primary personal care aide to a significant other at home: No Do you presently have visiting nurse or other home services: No Alcohol intake: never Comment: rings appropriately Patient Tobacco Use Status: Former Tobacco user Tobacco use type: Cigarette Cigarette Packs Per Day: 1 Years Smoked: 30 e-Cigarette/Vaping Use: Never Used Second Hand Smoke Exposure: Yes service: No Current occupational status: unemployed Cognitive needs: No Hearing needs: No Vision needs: No Questionnaire PHQ-9 Over the last 2 weeks, how often have you been bothered by any of the following problems? 1. Little interest or pleasure in doing things: not at all 2. Feeling down, depressed, or hopeless: not at all 3. Trouble falling or staying asleep, or sleeping too much: not at all 4. Feeling tired or having little energy: not at all 5. Poor appetite or overeating: not at all 6. Feeling bad about yourself - or that you are a failure or have let yourself or your family down: not at all 7. Trouble concentrating on things, such as reading the newspaper or watching television: not at all 8. Moving or speaking so slowly that other people could have noticed. Or the opposite - being so fidgety or restless that you have been moving around a lot more than usual: not at all 9. Thoughts that you would be better off or of hurting yourself in some way: not at all Total score: 0 Depression Screening Interpretation: Negative Depression Screening Done: Yes 31431 - PHQ-9 Billing: Yes Source: Developed by Drs. Fish Damon, Marguerite Thompson, Vishal Churchill and colleagues, with an educational shea from [employer]. Thrive Questionnaire Date Thrive assessed: 09/29/24 I am a: Patient What is your living situation today?: I have a steady place to live Within the past 12 months, did the food you bought not last and you didn't have the money to get more?: Sometimes True Within the past 12 months, did you worry whether your food would run out before you got money to buy more?: Never true Do you have trouble paying for medicines?: Yes Do you have trouble getting transportation to medical appointments?: Yes Do you have trouble paying your heating and electricity bill?: No Do you have trouble taking care of your child, family member or friend?: No Do you have trouble with day-to-day activities such as bathing, preparing meals, shopping, managing finances, etc.?: No Are you currently unemployed and looking for a job?: Yes Are you interested in more education?: No Please select the resources that you would like help with: Food Currently or been in a relationship where the following occur: No concerns reported THRIVE Score: 2 AUDIT C Alcohol Use Questionnaire (AUDIT-C) 1. How often do you have a drink containing alcohol?: Never Total Score: 0 BESSY-7 AMB Questionnaire BESSY-7 Date BESSY - 7 assessed: 09/29/24 Feeling nervous, anxious, or on edge: 2 = More than half the days Not being able to stop or control worryin = Not at all Worrying too much about different things: 2 = More than half the days Trouble relaxin = More than half the days Being so restless that it is hard to sit still: 0 = Not at all Becoming easily annoyed or irritable: 3 = Nearly every day Feeling afraid as if something awful might happen: 0 = Not at all Total BESSY-7 score (0-4 normal; 5-9 mild; 10-14 moderate; 15-21 severe): 9 Source: Developed by Drs. Fish Damon, Marguerite Thompson, Vishal Churchill and colleagues, with an educational shea from [employer]. Review of Systems Const Denies headache(s) Eyes Denies loss of vision ENT Denies vertigo, Denies dizziness, Denies headache(s) and Denies sore throat Card Denies chest pain, Denies leg edema and Denies lightheadedness Resp Denies cough, Denies hemoptysis and Denies wheezing GI Denies abdominal pain, Denies melena, Denies constipation, Denies diarrhea and Denies vomiting Denies urinary frequency, Denies dysuria and Denies urinary urgency Musc Denies arthralgias, Denies joint swelling, Denies numbness and Denies tingling Neuro Denies Abnormal speech present, Denies behavioral changes, Denies vertigo, Denies dizziness, Denies headache(s), Denies loss of vision, Denies memory loss, Denies numbness and Denies tingling Psych Denies anxiety, Denies behavioral changes, Denies depression, Denies memory loss and Denies panic attacks Uli/Lymph Denies easy bleeding and Denies easy bruising Aller/Immun Denies wheezing Physical exam (Primary Care) Vital Signs: Last Vital Signs Temp 97.3 F 12/22/24 11:23 Pulse 65 12/22/24 11:23 BP 138/88 12/22/24 11:23 Pulse Ox 99 12/22/24 11:23 Oxygen Delivery Method Room Air 12/22/24 11:23 BMI result Body Mass Index 27.1 Tobacco/Smoking Status: Tobacco use Status Tobacco use date assessed 09/29/24 12/22/24 11:25 Patient Tobacco Use Status Former Tobacco user 12/22/24 11:25 Tobacco use type Cigarette 12/22/24 11:25 e-Cigarette/Vaping Use Never Used 12/22/24 11:25 PHQ-9: PHQ-9 Score PHQ-9: Total score 0 12/22/24 11:25 Depression Screening Interpretation: Negative Thrive Assessment: Date of Thrive Assessment Date Thrive assessed 09/29/24 12/22/24 11:25 Currently or been in a relationship where the following occur: No concerns reported Const General: healthy appearing, no acute distress, alert and awake Nutritional Appearance: well nourished Orientation/consciousness: oriented to person, oriented to place and oriented to time HENMT Ears: TM's normal bilaterally General nose exam: Normal nasal mucous membranes and turbinates present Eyes Conjunctivae: conjunctivae normal Sclerae: sclerae normal Pupils: Equal, round and reactive pupils present Neck Neck: Yes no lymphadenopathy and Yes no JVD Thyroid: Thyroid normal Carotids: no bruits Resp Effort & Inspection: normal respiratory effort and not tachypneic Auscultation: no crackles, no rales, no rhonchi and no wheezes Cardio Rate: regular rate Rhythm: regular rhythm Heart sounds: no murmurs and normal S1 and S2 GI Palpation (GI): Soft to palpation, nontender, no hepatomegaly and no splenomegaly Auscultation: normal bowel sounds Abdomen image: 2 1. PALPABLE LUMP NOTED JUST SUPERIOR TO UMBILICUS Skin General skin exam: no rashes or lesions noted and dry skin Neuro General: oriented to person, oriented to place and oriented to time Cranial nerves: Yes Equal, round and reactive pupils present Speech: No Abnormal speech present Gait exam (Neuro): Normal gait present Motor exam (neuro): no tremor noted Extrem Right upper extremity: full ROM Left upper extremity: full ROM Right lower extremity: full ROM; no edema Left lower extremity: full ROM; no edema Psych Mental Status: mental status grossly normal Speech and movement: Normal speech and movement present Affect: normal affect Attitude: cooperative Thought process: Normal thought process present Coding Level of Care Code Est Pt Level 3 (00080) Diagnoses Umbilical hernia with obstruction, without gangrene K42.0 Obstruction and gangrene presence: with obstruction but without gangrene Additional Codes PHQ-9 - 57649 - PHQ-9 Billing: Yes ([id number]) Assessment & Plan Assessment & Plan (1) Umbilical hernia: Code(s): K42.9 - Umbilical hernia without obstruction or gangrene Category: Medical Qualifiers: Obstruction and gangrene presence: with obstruction but without gangrene Qualified Code(s): K42.0 - Umbilical hernia with obstruction, without gangrene Plan: The patient will be referred to a general surgeon for further evaluation of her abdominal hernia. A CT scan of the abdomen with contrast is scheduled to determine the hernia's extent and any associated complications, with possible surgical intervention to be considered based on findings. Orders: Orders 2 CT abdomen pelvis w IV con Today K42.0 - Umbilical hernia with obstruction, without gangrene Referrals 2 General Surgery Referral K42.0 - Umbilical hernia with obstruction, without gangrene Medications: Refilled 2 tirzepatide (weight loss) (Zepbound) 10 mg (0.5 mL) subcut QWEEK 4 weeks 2 mL 2RF E66.811 - Obesity, class 1, I10 - Essential (primary) hypertension
--- OUTSIDE RECORDS SUMMARY | 2024-12-22 12:34 | XMS_ITS | Data Portability ---
Author Organization [facility], [facility] Address [address] [place] [address] Care Team Providers Care Personal Lines Agent Name Role Phone PATRICK KUMAR Primary Care Provider [phone] Assessment No assessment recorded. Plan of Treatment [...] Address Organization Details Recorded Time No complaints [id number] Active Status : 'A'; Not Available [facility] 4 09:12:17 Impingement syndrome of shoulder region 162434942 Active 2023 Glenys Jean PA-C [address], [place], [address] , [facility] 4 11:17:58 Impingement syndrome of shoulder region 257140847 Active 2023 Glenys Jean PA-C [address], [place], [address] , [facility] 4 11:19:29 Inflammation of joint of left shoulder region Active 2024 Matheus Thakkar PA-C [address], [place], [address] , [facility] 5 07:53:43 Subacromial impingement 270183253 Active 2024 Matheus Thakkar PA-C [address], [place], [address] , [facility] 07:53:55 Problem Notes None recorded. Procedures Surgical History Date Name Laterality Status Provider Name and Address Organization Details Recorded Time 11/18/19 25 Sports Shoulder completed Matheus Thakkar PA-C [address], [place], [address], [facility] 11/18/2024 07:53:13 11/04/19 25 [facility] 11/17/2024 14:33:01 06/26/20 24 Sports Shoulder completed Glenys Jean PA-C [address], [place], [address], [facility] 06/26/2024 11:17:30 03/20/20 24 [facility] 11/17/2024 14:33:01 08/05/19 00 Bariatric Surgery completed [facility] 11/17/2024 14:33:01 08/05/19 00 Gastrointestinal Surgery completed [facility] 11/17/2024 14:33:01 Imaging Results None recorded. Procedure Notes None recorded. Medical Equipment None Reported. Allergies Allergen ID Allergen Name Allergen Category Reaction Reaction Severity Criticality Documentation Date Start Date Code Code System Note Provider Name and Address Organization Details Recorded Time 25371 morphine sulfate medicatio n Not available Not available Not available 10/07/20232015 25482 RxNorm Not Available [facility] 4 11:09:45 44324 acetamino phen / oxycodone medicatio n Not available Not available Not available 10/07/20232015 04018 3 RxNorm Not Available [facility] 4 11:09:45 58988 Product containin g penicilli n (product) medicatio n Not available Not available Not available 10/07/20232015 49055 8001 SNOMED Not Available [facility] 4 11:09:45 Medications Name Sig Start Date [...] Updated DateTime 06/26/2024 170.18 cm 31.3 kg/m2 06132.47 g Kelsi payan [facility] 06/26/2024 10:46:43 Date Recorded Body height Body mass index (BMI) Body weight Provider Name and Address Organization Details Last Updated DateTime 11/17/2024 170.18 cm 31.3 kg/m2 61550.47 g Juana Brink [facility] 11/17/2024 14:36:04 Social History Question Answer Notes LastModified by [employer] Details LastModified Time Tobacco Smoking Status Former Smoker [facility] 11/17/2024 14:33:01 When Did You Quit Smoking? 1-5yearssinc elastcigaret te [email or web address] Information not available 11/17/2024 What Is Your Relationship Status? [email or web address] Information not available 11/17/2024 How Many Years Have You Smoked Tobacco? 20 [email or web address] Information not available 11/17/2024 Sex: Unknown Functional Status Question Answer Note LastModified by [employer] Details LastModified Time How many times per week do you consume alcohol? Less than 1 time per week [email or web address] Information not available 11/17/2024 Do you use any illicit or recreational drugs? No [email or web address] Information not available 11/17/2024 Do you or have you ever used any other forms of tobacco or nicotine? No [email or web address] Information not available 11/17/2024 Do you or have you ever used e-cigarettes or vape? Never used electronic cigarettes [email or web address] Information not available 11/17/2024 Mental Status None recorded. Family History Nothing Reported. Medical History Condition Response Anxiety/Depression Y COPD Y Autoimmune disease Y Arthritis Y Allergies/Hayfever Y Anemia Y Peripheral Vascular Disease Y Sleep Apnea Y Gynecological HistoryNo gynecological history recorded. Obstetrics History GPAL:G 0 P 0 0 0 0 Past Encounters Encounter ID Performer Location Encounter Start Date Encounter Closed Date Diagnosis/Indication Diagnosis SNOMED-CT Code Diagnosis ICD10 Code Diagnosis Note [id number] Glenys Jean PA-C [facility] [address] [place] [address] 06/26/2024 10:15:23 07/27/2024 15:53:01 Localized, primary osteoarthritis of the shoulder region 524010714 M19.019 Impingemen t syndrome of left shoulder region 5915343128 92040 M75.42 PLAN: Patient has positive impingemen t [...] worsen/do not improve with conservati ve care. [id number] [facility] [address] [place] [address] 11/17/2024 14:23:18 12/07/2024 09:50:35 Inflammation of joint of left shoulder region 0714034217 76554 M19.012 Subacromia l impingement 223429750 M75.42 Health Concerns Section Related Observation LastModified by Organization Detai ls LastModified Time None Recorded Concern Status LastModified by Organization Details LastModified Time None Recorded Advance Directives Directive None Recorded Payers Encounter Date Sequence Insurance Name Policy Number Policy Abraham Covered Member ID Abraham Member ID Guarantor Name 06/26/2024 1 [facility] - DOS ON OR AFTER 2022 - MEDICARE [place]VANTAGE [place]/ADV ANTAGE - PPO) Teri Robertson [id number] Teri Robertson 11/17/2024 1 [facility] - DOS ON OR AFTER 2022 - [place]ICARE [place] ([place] RE[place]/ADV ANTAGE - PPO) Teri Robertson [id number] Teri Robertson Notes Date Note Type Note [...] holding the leash. Glenys Jean PA-C [address], [place], [address], [facility] 06/26/2024 11:20:15 11/17/2024 text/html [...] up as directed. Matheus Thakkar PA-C [address], [place], [address], [facility] 11/18/2024 07:54:20 OBGyn Episode No OBEpisode recorded.
--- OUTSIDE RECORDS SUMMARY | 2024-12-22 12:34 | XMS_ITS | Patient Health Record ---
Author Organization [facility] Address [address] [place] [address] Care Team Providers Care Credit Administration Officer Name Role Phone EVONNE EMMY Primary Care Provider Fish Frias [phone] Allergies Allergen (clinical drug ingredient) Drug/Non Drug Allergy documented on EMR Reaction Allergy Type Onset Date Status acetaminophen / oxycodone Percocet Unknown Drug Allergy Active mold (uncoded) Unknown Allergy Activ e Cat dander cat dander (uncoded) Unknown Allergy Active ragweed (uncoded) Unknown Allergy Ac tive Penicillin Unknown Drug Allergy Active Reason For Referral No Information Medications Medication [...] Problem Status W/U Status Risk Notes Problem [id number] Abdominal pain, generalized (R10.84) Active confirmed Plan Of Treatment Future Test Test Name Order Date COLONOSCOPY 04/28/2015 Next Appt Details Provider Name:Fish Jeffries , 02/16/2025 02:20:00 PM, [address], [address], [place], [address], Insurance Providers Payer Name Payer Address Payer Phone Subscriber Number Group Number Insured Name Patient Relationship to Insured Coverage Start Date Coverage End Date MEDICARE OF [place] [address] [place] [address] [id number] OMAR HURTADO Self - patient is the insured MEDICAID OF [facility] [address] [place] [address] [id number] OMAR HURTADO Self - patient is the insured Medical (General) History Medical History History ICD Code Negative colonoscopy 008 and 07/2015---sigmoid diverticulosis and internal hemorrhoids Denies IA,DM,CVA,Lung disease,renal dise ase Anemia in relation to the ga stric bypass-sees Dr. Christianson and Dr. 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 Wiggins-1999--lost ab out 200 # Panniculectomy Cholecystectomy
--- OUTSIDE RECORDS SUMMARY | 2024-12-22 12:34 | XMS_ITS | Data Portability ---
Author Organization [place] - [facility], Allergy Address [address] [address] Care Team Providers Care Websphere Consultant Name Role Phone PATRICK KUMAR Primary Care [...] Address Organization Details Recorded Time Bilateral earache 984514400 Active 2016 Otalgi a, bilate ral; Note: Date Diagno sed: 03/08/20 17 4:42 PM (H92.0 3) Not Available [facility] 4 02:16:43 Abnormal auditory perception 27867572 Active 2024 MENDOZA HARDY MD [address] [facility] 100, [place], [address] , [facility] - [facility] 5 14:09:25 Foreign body in auditory canal 59149252 Active 2024 MENDOZA HARDY MD 100 [facility] [address], [address] , [facility] - [facility] [place] 14:09:31 Abnormal auditory perception 85229633 Active 2024 MENDOZA HARDY MD 100 [facility],[place] [address], [place], [address] , [facility] - [facility] [place] 14:09:44 Chronic rhinitis 20992331 Active 2024 MENDOZA HARDY MD 100 [facility] [address], [facility] [place], [address] , [facility] - [facility] [place] 14:10:07 Problem Notes None recorded. Procedures Surgical History Date Name Laterality Status Provider Name and Address Organization Details Recorded Time Removal of foreign body from ear canal completed MENDOZA HODGSON MD [address] [facility],[place] [address], [place], [address], [facility] - [facility] 08/31/2024 14:09:10 Air & Speech Audio with Tymps - 39717, 66324 & 42829 completed SLADE MCKENNA 100 [facility],[place] [address], [place], [address], [facility] [place] 08/31/2024 14:14:34 Imaging Results Imaging Date Name Status LastModified by Organiz ation Details LastModified Time 09/01/2024 audiogram completed BARCODE Information no t available 09/01/2024 09:52:09 Procedure Notes None recorded. Medical Equipment None Reported. Allergies Allergen ID Allergen Name Allergen Category Reaction Reaction Severity Criticality Documentation Date Start Date Code Code System Note Provider Name and Address Organization Details Recorded Time 64812 morphine medicatio n other Not available Not available 12/17/2023 7052 RxNorm React ion: unkno wn, unspe cifie d;; Not Available [facility] 4 00:48:28 96289 penicilli n V potassium medicatio n other Not available Not available 12/17/2023 68554 5 RxNorm React ion: unkno wn, unspe cifie d;; Not Available [facility] 4 00:48:53 92402 acetamino phen / oxycodone medicatio n other Not available Not available 12/17/2023 42370 3 RxNorm React ion: unkno wn, unspe kathy d;; Not Available [facility] 4 00:49:20 Medications Name Sig Start Date [...] mg tablet 08/31 completed Medicati on ID: [id number] D uration Value: 30 Brand Name: amitript [...] mcg tablet 08/31 completed Medicati on ID: [id number] D uration Value: 30 Brand Name: levothyr [...] Address Organization Details Last Updated DateTime 08/31/2024 53628.63 g 28.2 kg/m2 170.18 cm Aurora Troncoso [place] - [facility] 08/31/2024 13:59:27 Social History None recorded. Functional [...] SNOMED-CT Code Diagnosis ICD10 Code Diagnosis Note [id number] MENDOZA HARDY MD [facility] [address] [place] [address] 08/31/2024 13:40:32 08/31/2024 14:45:18 Foreign body in auditory canal 29018738 T16.1XXA T16.2XXA Abnormal a uditory perception 26640451 H93.293 Cerumen and bilateral silicone foreign bodies were noted. These were removed with the operative microscope . She still noticed some fullness in the left ear. Audiometri c testing was performed. Right Ear:Normal hearing with excellent speech discrimina tion.Type A tympanogra m.Left Ear:Normal hearing with excellent speech discrimina tion.Type A tympanogra m. Chronic rhinitis 7974324 6 J31.0 Patient complained of postnasal drip. I suggested saline solution and saline irrigation s as needed Health Concerns Section Related Observation LastModified by Organization Detai ls LastModified Time None Recorded Concern Status LastModified by Organization Details LastModified Time None Recorded Advance Directives Directive None Recorded Payers Insurance Date Sequence Insurance Name Policy Number Policy Abraham Covered Member ID Abraham Member ID Guarantor Name 12/16/2024 1 [facility] Teri Robertson [id number] Teri Robertson 12/16/2024 1 [facility] - DOS ON OR AFTER 2022 - MEDICARE ADVANTAGE [place] ([place]ARE [place]PLACEMENT/ADV ANTAGE - PPO) Teri Robertson [id number] Trei Robertson Notes Date Note Type Note Provider Name and Address Organization Details Recorded Time 08/31/2024 text/html Patient seen for hearing loss and possible lesion in her right ear. MENDOZA HODGSON MD [address] [place] [address], [place], [address], [facility] - [facility] 08/31/2024 14:41:44 OBGyn Episode No OBEpisode recorded.
== END 2024-12-22 11:39 | disposition home or self-care (01) ==
LOC: HO.HMCH 11:18
PROVIDERS: PCP Physician Assistant; Visit Provider Physician Assistant
DX: K42.0 Umbilical hernia with obstruction, without gangrene (principal)

== ENCOUNTER → 2024-12-22 11:17 | Outpatient (BNVA) | payer OTHER, SELFPAY | PROVIDERS: PCP Physician Assistant; Visit Provider Physician Assistant | DX: K42.0 Umbilical hernia with obstruction, without gangrene (principal); E66.811 Obesity, class 1; I10 Essential (primary) hypertension; Z68.27 Body mass index [BMI] 27.0-27.9, adult | CPT/HCPCS: 96127; 99212 ==

== ENCOUNTER 2024-12-30 09:18 | Outpatient (REF) | payer OTHER, SELFPAY ==
--- OUTSIDE RECORDS SUMMARY | 2024-12-30 09:58 | XMS_ITS | Data Portability ---
Author Organization [facility], [facility] Address [address] [place] [address] Care Team Providers Care Ios Software Engineer Name Role Phone PATRICK KUMAR Primary [...] Address Organization Details Recorded Time No complaints [id number] Active Status : 'A'; Not Available [facility] 4 09:12:17 Impingement syndrome of shoulder region 170325245 Active 2023 Glenys Jean PA-C [address], [place], [address] , [facility] 4 11:17:58 Impingement syndrome of shoulder region 061014639 Active 2023 Glenys Jean PA-C [address], [place], [address] , [facility] 4 11:19:29 Inflammation of joint of left shoulder region Active 2024 Matheus Thakkar PA-C [address], [place], [address] , [facility] 5 07:53:43 Subacromial impingement 514321805 Active 2024 Matheus Thakkar PA-C [address], [place], [address] , [facility] 07:53:55 Problem Notes None recorded. Procedures Surgical History Date Name Laterality Status Provider Name and Address Organization Details Recorded Time 11/18/19 25 Sports Shoulder completed Matheus Thakkar PA-C [address], [place], [address], [facility] 11/18/2024 07:53:13 11/04/19 25 [facility] 11/17/2024 14:33:01 06/26/20 24 Sports Shoulder completed Glenys Jean PA-C [address], [place], [address], [facility] 06/26/2024 11:17:30 03/20/20 24 Head or Neck Surgery [facility] 11/17/2024 14:33:01 08/05/19 00 Bariatric Surgery completed [facility] 11/17/2024 14:33:01 08/05/19 00 Gastrointestinal Surgery completed [facility] 11/17/2024 14:33:01 Imaging Results None recorded. Procedure Notes None recorded. Medical Equipment None Reported. Allergies Allergen ID Allergen Name Allergen Category Reaction Reaction Severity Criticality Documentation Date Start Date Code Code System Note Provider Name and Address Organization Details Recorded Time 46884 morphine sulfate medicatio n Not available Not available Not available 10/07/20232015 42750 RxNorm Not Available [facility] 4 11:09:45 22697 acetamino phen / oxycodone medicatio n Not available Not available Not available 10/07/20232015 54797 3 RxNorm Not Available [facility] 4 11:09:45 75633 Product containin g penicilli n (product) medicatio n Not available Not available Not available 10/07/20232015 12712 8001 SNOMED Not Available [facility] 4 11:09:45 Medications Name Sig Start Date [...] Updated DateTime 11/17/2024 170.18 cm 31.3 kg/m2 10498.47 g Juana [facility] 11/17/2024 14:36:04 Date Recorded Body height Body mass index (BMI) Body weight Provider Name and Address Organization Details Last Updated DateTime 06/26/2024 170.18 cm 31.3 kg/m2 39373.47 g Kelsi payan [facility] 06/26/2024 10:46:43 Social History Question Answer Notes LastModified by [employer] Details LastModified Time Tobacco Smoking Status Former Smoker Juana Brink [facility] 11/17/2024 14:33:01 When Did You Quit Smoking? 1-5yearssinc elastcigaret te [email or web address] Information not available 11/17/2024 What Is Your Relationship Status? Information not available 11/17/2024 How Many Years Have You Smoked Tobacco? 20 [email or web address] Information not available 11/17/2024 Sex: Unknown Functional Status Question Answer Note LastModified by [employer] Details LastModified Time How many times per week do you consume alcohol? Less than 1 time per week [email or web address] Information not available 11/17/2024 Do you use any illicit or recreational drugs? No Information not available 11/17/2024 Do you or have you ever used any other forms of tobacco or nicotine? No [email or web address] Information not available 11/17/2024 Do you or have you ever used e-cigarettes or vape? Never used electronic cigarettes [email or web address] Information not available 11/17/2024 Mental Status None [...] SNOMED-CT Code Diagnosis ICD10 Code Diagnosis Note [id number] Glenys Jean PA-C [facility] [address] [place] [address] 06/26/2024 10:15:23 07/27/2024 15:53:01 Localized, primary osteoarthritis of the shoulder region 874912021 M19.019 Impingemen t syndrome of left shoulder region 0991732290 45700 M75.42 PLAN: Patient has positive impingemen t [...] Patient will follow up with us in as needed, or if symptoms worsen/do not improve with conservati ve care. [id number] [place] [address] 11/17/2024 14:23:18 12/07/2024 09:50:35 Inflammation of joint of left shoulder region 7755662566 75386 M19.012 Subacromia l impingement 842599878 M75.42 Health Concerns Section Related Observation LastModified by Organization Detai ls LastModified Time None Recorded Concern Status LastModified by Organization Details LastModified Time None Recorded Advance Directives Directive None Recorded Payers Encounter Date Sequence Insurance Name Policy Number Policy Abraham Covered Member ID Abraham Member ID Guarantor Name 06/26/2024 1 [facility] - DOS ON OR AFTER 2022 - [place]IC[place]V ANTAGE - PPO) Teri Robertson [id number] Teri Robertson 11/17/2024 1 [facility] - DOS ON OR AFTER 2022 - [place]/ADV ANTAGE - PPO) Teri Robertson [id number] Teri Robertson Notes Date Note Type Note Provider Name and Address Organization Details Recorded Time 06/26/2024 text/html I am seeing the patient under the general supervision of Dr. An who was available but who did not [...] holding the leash. Glenys Jean PA-C [address] [facility] [address], [place], [address], [facility] 06/26/2024 11:20:15 11/17/2024 text/html I am seeing the patient today under the supervision of Dr. Guy who was available but who did not see the patient. Patient comes to the office with known Left shoulder osteoarthritis and impingement syndrome. The patient [...] normal limits. ASSESSMENT: Impingement Syndrome and osteoarthritis Leftshoulder. PLAN: The patient has done well with conservative management in regards to the Left shoulder. We discussed the role of medications, physical therapy, injections, and potential surgical interventions depending on conservative outcome Continued conservative management recommended. Along with cortisone injection today. Injection performed from a posterior approach to the subacromial space directed anteriorly at the AC joint. Please see procedure note. Patient will follow up as directed. Matheus Thakkar PA-C [address] [facility] [address], [place], [address], [facility] 11/18/2024 07:54:20 OBGyn Episode No OBEpisode recorded.
[2024-12-30 10:50] LABS: Hematocrit 41.6 % (37.0-47.0); Hemoglobin 13.8 g/dl (12.0-16.0); Mean Corpuscular HGB Conc 33.2 g/dl (31.0-35.0); Mean Corpuscular Hemoglobin 30.8 pg (27.0-33.0); Mean Corpuscular Volume 92.9 fL (80.0-98.0); Mean Platelet Volume 10.7 fL (9.4-12.3); Platelet Count 456 X10*3/uL (160-400); Red Blood Count 4.48 X10*6/uL (4.20-5.50); White Blood Count 5.3 X10*3/uL (4.8-10.8)
[2024-12-30 10:57] LABS: Estimated Average Glucose 103 mg/dL; Hemoglobin A1C 118.6828 umol/L; Hemoglobin A1c % 5.2 % (<6.0); Total Hemoglobin (HGBA1C) 3598.9078 umol/L
[2024-12-30 11:29] LABS: Creatinine Urine 204.86 mg/dL; Microalbum/Creatinine Ratio Ur 4.3 ug/mg cr (<30)
[2024-12-30 11:41] LABS: Alanine Aminotransferase 35 U/L (0-31); Albumin Level 4.2 g/dL (3.5-5.0); Alkaline Phosphatase 82 U/L (39-117); Anion Gap 11 (12-20); Aspartate Amino Transferase 28 U/L (5-31); Bilirubin Total 0.5 mg/dL (0.0-1.0); Blood Urea Nitrogen 13 mg/dL (9-16); Calcium 9.6 mg/dL (8.4-10.2); Carbon Dioxide 29 mmol/L (22-29); Chloride 108 mmol/L (96-108); Estimated Glomerular Filt Rate > 60; Glucose Fasting 83 mg/dL (60-99); Iron 126 mcg/dL (30-160); Percent Iron Saturation 45 % (15-50); Potassium 3.7 mmol/L (3.3-5.1); Sodium 144 mmol/L (135-145); Total Iron Binding Capacity 278 mcg/dL (228-428); Total Protein 7.2 g/dL (6.5-8.0); Unsaturated Iron Binding 152 ug/dL
[2024-12-30 11:45] LABS: TSH reflex Free T4 2.74 uIU/mL (0.32-4.0)
== END 2024-12-30 09:19 | disposition home or self-care (01) ==
LOC: HO.LAB 09:18
PROVIDERS: PCP Physician Assistant; Visit Provider Physician Assistant
DX: R73.09 Other abnormal glucose (principal); E03.9 Hypothyroidism, unspecified; I10 Essential (primary) hypertension; D50.9 Iron deficiency anemia, unspecified
CPT/HCPCS: 36415; 80053; 82043; 82570; 83036; 83540; 84443; 85027

== ENCOUNTER 2025-01-12 15:43 | Outpatient (AMB) | payer OTHER, SELFPAY ==
[2025-01-12 15:48] VITALS: BP 104/76; PULSE 84; TEMP 36.4; O2SAT 97; BMI 27.3
--- NOTE | 2025-01-12 15:48 | MHC.PC.OV ---
Vital Signs 01/12/25 15:48 Height 5 ft 7 in Weight 174 lb 2 oz BMI 27.3 BP 104/76 Blood Pressure Location Lt brachial Position Sitting Pulse 84 Pulse Source Pulse Oximeter Temp 97.5 F Temp Source Temporal Artery Scan Pulse Oximetry (%) 97 Oxygen Delivery Method Room Air Intake Visit Reasons: f/u IGM/ weigh check Rn Care Manager Required: No Information Interpreted: non-clinical & clinical Glass Artist: Not Required per policy Accompanied by: Self / Same As Patient Allergies morphine [MORPHINE] Allergy (Intermediate, Verified 01/12/25 16:13) NIGHTMARES oxycodone [Percocet] Allergy (Intermediate, Verified 01/12/25 16:13) nausea and vomiting Penicillins Allergy (Intermediate, Verified 01/12/25 16:13) rash,sob Sulfa (Sulfonamide Antibiotics) [SULFA (SULFONAMIDE ANTIBIOTICS)] Allergy (Intermediate, Verified 01/12/25 16:13) RASH Medication List - Last Reconciled 01/12/25 by Ayad Brewer PA-C acetaminophen 1,000 mg (2 x 500 mg) PO Q8H alcohol swabs (Alcohol Wipes) 1 pad topical DIRECTED calcipotriene 0.005% 1 appl topical BID cyanocobalamin (vitamin B-12) 1,000 mcg IM QMONTH docusate sodium 100 mg PO BID ferrous sulfate 325 mg PO DAILY gabapentin 300 mg PO TID 30 days levothyroxine 112 mcg PO DAILY metformin ER 500 mg PO DAILY 90 days miscellaneous medical supply (Blood Pressure Cuff) As directed risankizumab-rzaa (Skyrizi) mg subcut syringe with needle (Syringe) As Directed syringe with needle (Syringe) As Directed tirzepatide (weight loss) (Zepbound) 10 mg (0.5 mL) subcut QWEEK 4 weeks Tobacco use date assessed: 09/29/24 Dental Screening Dental Screen Date: 09/29/24 HPI f/u IGM/ weigh check HPI Details Patient is a 59 year-old female here today for follow-up visit.? Patient has a past medical history significant for hypothyroidism, fibromyalgia, obesity Concern--> has been having some left shoulder pain decreased range of motion. She usually gets cortisone injections which do help reduce her pain. She has gotten a recent orthopedic evaluation and got cortisone injection in her left shoulder which only minimally helped her pain. .. ? Umbilical hernia: Has upcoming CT scan to evaluate her abdominal lump. She reports her lump has not as tender to palpation. She also has upcoming appointment with general surgeon for evaluation . Hypertension: Blood pressure acceptable today in office. Managing her blood pressure without medication at this time. . Psoriasis: Continues to have psoriasis patches worse on her palms of her hands. She continues on Rinvoq which has significantly cleared her skin issue. .. Hypothyroidism:? Has been more consistent with the use of her levothyroxine. Most recent TSH elevated due to not using levothyroxine med. Patient continues to follow Endocrinology and most recent TSH stable.? Continues on levothyroxine 125 mcg. .. Fibromyalgia:? Has seen rheumatology and continues on gabapentin 300 mg t.i.d though reports she only takes gabapentin on an as-needed basis at night for sleep. ? Obesity:? Patient is now in zepbound due to insurance reasons. We have transitioned to Zepbound and she has done well. She has lost significant amount of weight over the last several months. She now feels really good. She continues to follow a vegetarian diet in his very physically active. She is interested in increasing dose of her Zepbound to 12 mg weekly. She continues on a low inflammatory diet [facility] Medical History Immunocompromised History of lipoma Degenerative disc disease, cervical Neck Pain Lipoma of back (10/22/22) Hypothyroid Anemia Depression Anxiety Vitamin D deficiency Psoriasis Fibromyalgia Surgical History Hx of neck surgery History of shoulder surgery History of tooth extraction Hx of colonoscopy S/P panniculectomy History of cholecystectomy History of gastric bypass Family History Father CVD (cardiovascular disease) Stroke Hypertension Myocardial infarction Thyroid cancer Mother Hypertension Maternal Grandmother Colon cancer Glaucoma Social History Household Members: None Housing: House Housing Other:: mobile home Are you a primary career technology teacher to a significant other at home: No Do you presently have visiting nurse or other home services: No Alcohol intake: never Comment: rings appropriately Patient Tobacco Use Status: Former Tobacco user Tobacco use type: Cigarette Cigarette Packs Per Day: 1 Years Smoked: 30 e-Cigarette/Vaping Use: Never Used Second Hand Smoke Exposure: Yes service: No Current occupational status: unemployed Cognitive needs: No Hearing needs: No Vision needs: No Questionnaire Thrive Questionnaire Date Thrive assessed: 12/22/24 I am a: Patient What is your living situation today?: I have a steady place to live Within the past 12 months, did the food you bought not last and you didn't have the money to get more?: Sometimes True Within the past 12 months, did you worry whether your food would run out before you got money to buy more?: Never true Do you have trouble paying for medicines?: Yes Do you have trouble getting transportation to medical appointments?: Yes Do you have trouble paying your heating and electricity bill?: No Do you have trouble taking care of your child, family member or friend?: No Do you have trouble with day-to-day activities such as bathing, preparing meals, shopping, managing finances, etc.?: No Are you currently unemployed and looking for a job?: Yes Are you interested in more education?: No Please select the resources that you would like help with: Food Currently or been in a relationship where the following occur: No concerns reported THRIVE Score: 2 BESSY-7 AMB Questionnaire BESSY-7 Date BESSY - 7 assessed: 09/29/24 Source: Developed by Drs. Fish Damon, Marguerite Thompson, Vishal Churchill and colleagues, with an educational shea from [employer]. Physical exam (Primary Care) Vital Signs: Last Vital Signs Temp 97.5 F 01/12/25 15:48 Pulse 84 01/12/25 15:48 BP 104/76 01/12/25 15:48 Pulse Ox 97 01/12/25 15:48 Oxygen Delivery Method Room Air 01/12/25 15:48 BMI result Body Mass Index 27.3 Tobacco/Smoking Status: Tobacco use Status Tobacco use date assessed 09/29/24 01/12/25 15:48 Patient Tobacco Use Status Former Tobacco user 01/12/25 15:48 Tobacco use type Cigarette 01/12/25 15:48 e-Cigarette/Vaping Use Never Used 01/12/25 15:48 Thrive Assessment: Date of Thrive Assessment Date Thrive assessed 12/22/24 01/12/25 15:48 Currently or been in a relationship where the following occur: No concerns reported Coding Level of Care Code Est Pt Level 4 (49902) Diagnoses Psoriatic arthritis L40.50 Hypothyroidism, unspecified type E03.9 Hypothyroidism type: unspecified Class 1 obesity E66.811 MDD (major depressive disorder), recurrent episode, moderate F33.1 Assessment & Plan Assessment & Plan (1) Psoriatic arthritis: Code(s): L40.50 - Arthropathic psoriasis, unspecified Category: Medical Plan: Patient continues to follow rheumatology. Continues on Rinvoq for her psoriasis skin manifestations and her arthritis. (2) Hypothyroid: Code(s): E03.9 - Hypothyroidism, unspecified Category: Medical Qualifiers: Hypothyroidism type: unspecified Qualified Code(s): E03.9 - Hypothyroidism, unspecified Plan: Continues to follow Endocrinology.. Patient continues with levothyroxine 112 mcg. Most recent TSH has been stable. (3) Class 1 obesity: Code(s): E66.811 - Obesity, class 1 Category: Medical Plan: Patient continues to maintain her weight loss with GLP 1. She has a history of bariatric surgery and has not been able to manage weight loss for quite some time even with strict dietary modifications. Wegovy was very effective for her though due to insurance needed to switch over to alternative GLP 1. She would like to up titrate Zepbound. She continues on a strict low inflammatory diet at this time (4) MDD (major depressive disorder), recurrent episode, moderate: Code(s): F33.1 - Major depressive disorder, recurrent, moderate Category: Medical Plan: Patient has a history of depression though is not depressed at this moment. Not interested in mental health therapy at this time Orders: Orders IRON PROFILE 01/12/25 D50.9 - Iron deficiency anemia, unspecified Comprehensive [place]. Panel Fast 01/12/25 I10 - Essential (primary) hypertension TSH reflex Free T4 01/12/25 E03.9 - Hypothyroidism, unspecified Complete Blood Count no Diff 01/12/25 I10 - Essential (primary) hypertension Medications: New tirzepatide (weight loss) (Zepbound) 12.5 mg (0.5 mL) subcut QWEEK 2 mL 2RF 4 weeks E66.811 - Obesity, class 1 On Hold tirzepatide (weight loss) (Zepbound) Hold Comment: Doctor's Order 10 mg (0.5 mL) subcut QWEEK 4 weeks 2 mL 2RF E66.811 - Obesity, class 1, I10 - Essential (primary) hypertension
--- OUTSIDE RECORDS SUMMARY | 2025-01-12 18:46 | XMS_ITS | Data Portability ---
Author Organization [facility], [facility] Address [address] [place] [address] Care Team Providers Care Supervisor Engine Repair Name Role Phone PATRICK KUMAR Primary Care Provider [phone] Assessment No assessment recorded. Plan of Treatment [...] Address Organization Details Recorded Time No complaints 618374040 Active Status : 'A'; Not Available [facility]ly [facility], 1928–1983 4 09:12:17 Impingement syndrome of shoulder region 711030055 Active 2023 Glenys Jean PA-C [address], [place], [address] , [facility] 4 11:17:58 Impingement syndrome of shoulder region 846593275 Active 2023 Glenys Jean PA-C [address], [place], [address] , [facility] 4 11:19:29 Inflammation of joint of left shoulder region Active 2024 Matheus Thakkar PA-C [address], [place], [address] , [facility] 5 07:53:43 Subacromial impingement 972557764 Active 2024 Matheus Thakkar PA-C [address], [place], [address] , [facility] 07:53:55 Problem Notes None recorded. Procedures Surgical History Date Name Laterality Status Provider Name and Address Organization Details Recorded Time 11/18/19 25 Sports Shoulder completed Matheus Thakkar PA-C [address], [place], [address], [facility] 11/18/2024 07:53:13 11/04/19 25 [facility] 11/17/2024 14:33:01 06/26/20 24 Sports Shoulder completed Glenys Jean PA-C [address], [place], [address], [facility] 06/26/2024 11:17:30 03/20/20 24 Head [facility] Neck [facility] 11/17/2024 14:33:01 08/05/19 00 Bariatric Surgery completed [facility] 11/17/2024 14:33:01 08/05/19 00 Gastrointestinal Surgery completed [facility] 11/17/2024 14:33:01 Imaging Results None recorded. Procedure Notes None recorded. Medical Equipment None Reported. Allergies Allergen ID Allergen Name Allergen Category Reaction Reaction Severity Criticality Documentation Date Start Date Code Code System Note Provider Name and Address Organization Details Recorded Time 33438 morphine sulfate medicatio n Not available Not available Not available 10/07/20232015 63983 RxNorm Not Available [facility] 4 11:09:45 42752 acetamino phen / oxycodone medicatio n Not available Not available Not available 10/07/20232015 49262 3 RxNorm Not Available [facility] 4 11:09:45 68928 Product containin g penicilli n (product) medicatio n Not available Not available Not available 10/07/20232015 56966 8001 SNOMED Not Available [facility] 4 11:09:45 Medications Name Sig Start Date [...] Updated DateTime 11/17/2024 170.18 cm 31.3 kg/m2 37489.47 g Juana Keena [facility] 11/17/2024 14:36:04 Date Recorded Body height Body mass index (BMI) Body weight Provider Name and Address Organization Details Last Updated DateTime 06/26/2024 170.18 cm 31.3 kg/m2 12421.47 g Kelsi payan [facility] 06/26/2024 10:46:43 Social History Question Answer Notes LastModified by [employer] Details LastModified Time Tobacco Smoking Status Former Smoker Juana Brink [facility] 11/17/2024 14:33:01 When Did You Quit Smoking? 1-5yearssinc elastcigaret te [email or web address] Information not available 11/17/2024 What Is Your Relationship Status? [email or web address] Information not available 11/17/2024 How Many Years Have You Smoked Tobacco? 20 [email or web address] Information not available 11/17/2024 Sex: Unknown Functional Status Question Answer Note LastModified by [employer] Details LastModified Time How many times per week do you consume alcohol? Less than 1 time per week [email or web address] Information not available 11/17/2024 Do you use any illicit or recreational drugs? No [email or web address] Information not available 11/17/2024 Do you or have you ever used any other forms of tobacco or nicotine? No [email or web address] Information not available 11/17/2024 Do you or have you ever used e-cigarettes or vape? Never used electronic cigarettes [email or web address] Information not available 11/17/2024 Mental Status None recorded. Family History Nothing Reported. Medical History Condition Response Allergies/Hayfever Y Autoimmune disease Y Anxiety/Depression Y Peripheral Vascular Disease Y Anemia Y Arthritis Y Sleep Apnea Y COPD Y Gynecological HistoryNo gynecological history recorded. Obstetrics History GPAL:G 0 P 0 0 0 0 Past Encounters Encounter ID Performer Location Encounter Start Date Encounter Closed Date Diagnosis/Indication Diagnosis SNOMED-CT Code Diagnosis ICD10 Code Diagnosis Note [id number] Glenys Jean PA-C [facility] Clinical [address] [place] [address] 06/26/2024 10:15:23 07/27/2024 15:53:01 Localized, primary osteoarthritis of the shoulder region 254136560 M19.019 Impingemen t syndrome of left shoulder region 0286652358 06635 M75.42 PLAN: Patient has positive impingemen t [...] worsen/do not improve with conservati ve care. [id number] [place] [address] [place] [address] 11/17/2024 14:23:18 12/07/2024 09:50:35 Inflammation of joint of left shoulder region 4955452235 37631 M19.012 Subacromia l impingement 679616081 M75.42 Health Concerns Section Related Observation LastModified by Organization Detai ls LastModified Time None Recorded Concern Status LastModified by Organization Details LastModified Time None Recorded Advance Directives Directive None Recorded Payers Encounter Date Sequence Insurance Name Policy Number Policy Abraham Covered Member ID Abraham Member ID Guarantor Name 06/26/2024 1 [facility] - DOS ON OR AFTER 2022 - [place]V ANTAGE - PPO) Teri Robertson [id number] Teri Robertson 11/17/2024 1 [facility] - DOS ON OR AFTER 2022 - [place]V ANTAGE - PPO) Teri Robertson [id number] Teri Robertson Notes Date Note Type Note [...] holding the leash. Glenys Jean PA-C [address] [facility] [address], [place], [address], [facility] [place] 06/26/2024 11:20:15 11/17/2024 text/html [...] up as directed. Matheus Thakkar PA-C [address] [facility], [place], [address], [facility] [place] [facility] 11/18/2024 07:54:20 OBGyn Episode No OBEpisode recorded.
== END 2025-01-12 16:29 | disposition home or self-care (01) ==
LOC: HO.HMCH 15:44
PROVIDERS: PCP Physician Assistant; Visit Provider Physician Assistant
DX: L40.50 Arthropathic psoriasis, unspecified (principal); F33.1 Major depressive disorder, recurrent, moderate; E66.811 Obesity, class 1; Z68.27 Body mass index [BMI] 27.0-27.9, adult; E03.9 Hypothyroidism, unspecified

== ENCOUNTER → 2025-01-12 15:43 | Outpatient (BNVA) | payer OTHER, SELFPAY | PROVIDERS: PCP Physician Assistant; Visit Provider Physician Assistant | DX: M79.7 Fibromyalgia (principal); E03.9 Hypothyroidism, unspecified; K42.9 Umbilical hernia without obstruction or gangrene; I10 Essential (primary) hypertension; L40.50 Arthropathic psoriasis, unspecified; E66.811 Obesity, class 1; F33.1 Major depressive disorder, recurrent, moderate; D50.9 Iron deficiency anemia, unspecified; Z68.27 Body mass index [BMI] 27.0-27.9, adult | CPT/HCPCS: 99212 ==

== ENCOUNTER → 2025-01-27 12:49 | Outpatient (REF) | payer OTHER, SELFPAY ==
--- OUTSIDE RECORDS SUMMARY | 2025-01-27 14:54 | XMS_ITS | Data Portability ---
Author Organization [facility], [facility] Address [address] [place] [address] Care Team Providers Care Installation Technician Name Role Phone PATRICK KUMAR Primary Care [...] Address Organization Details Recorded Time No complaints 527647725 Active Status : 'A'; Not Available [facility] 4 09:12:17 Impingement syndrome of shoulder region 958431252 Active 2023 Glenys Jean PA-C [address], [place], [address] , [facility] 4 11:17:58 Impingement syndrome of shoulder region 866705321 Active 2023 Glenys Jean PA-C [address], [place], [address] , [facility] 4 11:19:29 Inflammation of joint of left shoulder region Active 2024 Matheus Thakkar PA-C [address], [place], [address] , [facility] 5 07:53:43 Subacromial impingement 075569307 Active 2024 Matheus Thakkar PA-C [address], [place], [address] , [facility] 07:53:55 Problem Notes None recorded. Procedures Surgical History Date Name Laterality Status Provider Name and Address Organization Details Recorded Time 11/18/19 25 Sports Shoulder completed Matheus Thakkar PA-C [address], [place], [address], [facility] 11/18/2024 07:53:13 11/04/19 25 Vascular Surgery completed Juana Brink [facility] 11/17/2024 14:33:01 06/26/20 24 Sports Shoulder completed Glenys Jean PA-C [address], [place], [address], [facility] 06/26/2024 11:17:30 03/20/20 24 [facility]ck [facility] 11/17/2024 14:33:01 08/05/19 00 Bariatric Surgery completed [facility] 11/17/2024 14:33:01 08/05/19 00 Gastrointestinal Surgery completed [facility] 11/17/2024 14:33:01 Imaging Results None recorded. Procedure Notes None recorded. Medical Equipment None Reported. Allergies Allergen ID Allergen Name Allergen Category Reaction Reaction Severity Criticality Documentation Date Start Date Code Code System Note Provider Name and Address Organization Details Recorded Time 18730 morphine sulfate medicatio n Not available Not available Not available 10/07/20232015 47323 RxNorm Not Available [facility] 4 11:09:45 96535 acetamino phen / oxycodone medicatio n Not available Not available Not available 10/07/20232015 27856 3 RxNorm Not Available [facility] 4 11:09:45 06473 Product containin g penicilli n (product) medicatio n Not available Not available Not available 10/07/20232015 15663 8001 SNOMED Not Available [facility] 4 11:09:45 Medications Name Sig [...] Updated DateTime 11/17/2024 170.18 cm 31.3 kg/m2 73656.47 g Juana [facility] 11/17/2024 14:36:04 Date Recorded Body height Body mass index (BMI) Body weight Provider Name and Address Organization Details Last Updated DateTime 06/26/2024 170.18 cm 31.3 kg/m2 93745.47 g Kelsi payan [facility] 06/26/2024 10:46:43 Social History Question Answer Notes LastModified by [employer] Details LastModified Time Tobacco Smoking Status Former Smoker Juana Brink [facility] 11/17/2024 14:33:01 When Did You Quit Smoking? 1-5yearssinc elastcigaret te [email or web address] Information not available 11/17/2024 What Is Your Relationship Status? Information not available 11/17/2024 How Many Years Have You Smoked Tobacco? 20 [email or web address] Information not available 11/17/2024 Sex: Unknown Functional Status Question Answer Note LastModified by [employer] Details LastModified Time How many times per week do you consume alcohol? Less than 1 time per week [email or web address] Information not available 11/17/2024 Do you use any illicit or recreational drugs? No Information not available 11/17/2024 Do you or have you ever used any other forms of tobacco or nicotine? No [email or web address] Information not available 11/17/2024 Do you or have you ever used e-cigarettes or vape? Never used electronic cigarettes [email or web address] Information not available 11/17/2024 Mental Status None [...] SNOMED-CT Code Diagnosis ICD10 Code Diagnosis Note [id number] Glenys Jean PA-C [facility] Clinical [address] [place] [address] 06/26/2024 10:15:23 07/27/2024 15:53:01 Localized, primary osteoarthritis of the shoulder region 372356589 M19.019 Impingemen t syndrome of left shoulder region 7074343999 73130 M75.42 PLAN: Patient has positive impingemen t [...] worsen/do not improve with conservati ve care. [id number] [facility] [address] [place] [address] 11/17/2024 14:23:18 12/07/2024 09:50:35 Inflammation of joint of left shoulder region 5658904652 12610 M19.012 Subacromia l impingement 677540192 M75.42 Health Concerns Section Related Observation LastModified by Organization Detai ls LastModified Time None Recorded Concern Status LastModified by Organization Details LastModified Time None Recorded Advance Directives Directive None Recorded Payers Insurance Date Sequence Insurance Name Policy Number Policy Abraham Covered Member ID Abraham Member ID Guarantor Name 12/07/2024 1 [facility] - DOS ON OR AFTER 2022 - MEDIC[place]V ANTAGE - PPO) Teri Robertson [id number] Teri Robertson Notes Date Note Type Note [...] regularly holding the leash. Glenys Jean PA-C [address] [place] [address] [address], [place], [address], [facility] [place] [facility] 06/26/2024 11:20:15 11/17/2024 text/html [...] up as directed. Matheus Thakkar PA-C [address], [place], [address], [facility] [place] [facility] 11/18/2024 07:54:20 OBGyn Episode No OBEpisode recorded.
== END ==
LOC: HO.SL 12:49
PROVIDERS: PCP Physician Assistant; Visit Provider Physician Assistant
DX: R06.81 Apnea, not elsewhere classified (principal); R06.83 Snoring
CPT/HCPCS: 95806

== ENCOUNTER 2025-01-29 10:54 | Outpatient (REF) | payer OTHER, SELFPAY ==
--- NOTE | ~2025-01-29 | CT_ITS ---
CLINICAL HISTORY: K42.0 - Umbilical hernia with obstruction, without gangrene CT abdomen and pelvis with contrast Comparison: None provided Findings: Lung bases are clear. No acute bony abnormalities. Mild degenerative change spine and hips. Moderate hiatal hernia with surrounding sutures. Liver and spleen within normal limits. Pancreas and adrenal glands unremarkable. Cholecystectomy. No significant focal renal abnormalities. No renal stones or hydronephrosis. Abdominal aorta is normal in caliber. No free fluid or adenopathy in the pelvis. No diverticulitis. Appendix unremarkable. Uterus normal size. No adnexal abnormality. Impression: No acute process This document has been electronically signed by: Jorge Luis Sterling MD on 01/30/2025 20:08:06
--- OUTSIDE RECORDS SUMMARY | 2025-01-29 12:03 | XMS_ITS | Data Portability ---
Author Organization [facility], [facility] Address [address] [place] [address] Care Team Providers Care Order Picker/Assembler Name Role Phone PATRICK KUMAR Primary Care [...] Address Organization Details Recorded Time No complaints 312725799 Active Status : 'A'; Not Available [facility] 4 09:12:17 Impingement syndrome of shoulder region 210636650 Active 2023 Glenys Jean PA-C [address], [place], [address] , [facility] 4 11:17:58 Impingement syndrome of shoulder region 303097710 Active 2023 Glenys Jean PA-C [address], [place], [address] , [facility] 4 11:19:29 Inflammation of joint of left shoulder region Active 2024 Matheus Thakkar PA-C [address], [place], [address] , [facility] 5 07:53:43 Subacromial impingement 058750241 Active 2024 Matheus Thakkar PA-C [address], [place], [address] , [facility] 07:53:55 Problem Notes None recorded. Procedures Surgical History Date Name Laterality Status Provider Name and Address Organization Details Recorded Time 11/18/19 25 Sports Shoulder completed Matheus Thakkar PA-C [address], [place], [address], [facility] 11/18/2024 07:53:13 11/04/19 25 Vascular Surgery completed Juana Brink [facility] 11/17/2024 14:33:01 06/26/20 24 Sports Shoulder completed Glenys Jean PA-C [address], [place], [address], [facility] 06/26/2024 11:17:30 03/20/20 24 [facility] 11/17/2024 14:33:01 08/05/19 00 Bariatric Surgery completed Juana [facility] 11/17/2024 14:33:01 08/05/19 00 Gastrointestinal Surgery completed [facility] 11/17/2024 14:33:01 Imaging Results None recorded. Procedure Notes None recorded. Medical Equipment None Reported. Allergies Allergen ID Allergen Name Allergen Category Reaction Reaction Severity Criticality Documentation Date Start Date Code Code System Note Provider Name and Address Organization Details Recorded Time 78740 morphine sulfate medicatio n Not available Not available Not available 10/07/20232015 25626 RxNorm Not Available [facility] 4 11:09:45 61504 acetamino phen / oxycodone medicatio n Not available Not available Not available 10/07/20232015 53103 3 RxNorm Not Available [facility] 4 11:09:45 74817 Product containin g penicilli n (product) medicatio n Not available Not available Not available 10/07/20232015 73965 8001 SNOMED Not Available [facility] 4 11:09:45 Medications Name Sig Start [...] Updated DateTime 11/17/2024 170.18 cm 31.3 kg/m2 52496.47 g Juana [facility] 11/17/2024 14:36:04 Date Recorded Body height Body mass index (BMI) Body weight Provider Name and Address Organization Details Last Updated DateTime 06/26/2024 170.18 cm 31.3 kg/m2 93351.47 g Kelsi payan [facility] 06/26/2024 10:46:43 Social History Question Answer Notes LastModified by [employer] Details LastModified Time Tobacco Smoking Status Former Smoker Juana Brink [facility] 11/17/2024 14:33:01 When Did You Quit Smoking? 1-5yearssinc elastcigaret te [email or web address] Information not available 11/17/2024 What Is Your Relationship Status? Information not available 11/17/2024 How Many Years Have You Smoked Tobacco? 20 [email or web address] Information not available 11/17/2024 Sex: Unknown Functional Status Question Answer Note LastModified by [employer] Details LastModified Time How many times per week do you consume alcohol? Less than 1 time per week [email or web address] Information not available 11/17/2024 Do you use any illicit or recreational drugs? No [email or web address] Information not available 11/17/2024 Do you or have you ever used any other forms of tobacco or nicotine? No [email or web address] Information not available 11/17/2024 Do you or have you ever used e-cigarettes or vape? Never used electronic cigarettes [email or web address] Information not available 11/17/2024 Mental Status None recorded. Family History Nothing Reported. Medical History Condition Response Allergies/Hayfever Y Autoimmune disease Y Anxiety/Depression Y Anemia Y Peripheral Vascular Disease Y Arthritis Y Sleep Apnea Y COPD Y Gynecological HistoryNo gynecological history recorded. Obstetrics History GPAL:G 0 P 0 0 0 0 Past Encounters Encounter ID Performer Location Encounter Start Date Encounter Closed Date Diagnosis/Indication Diagnosis SNOMED-CT Code Diagnosis ICD10 Code Diagnosis Note [id number] Glenys Jean PA-C [facility] Clinical [address] [place] [address] 06/26/2024 10:15:23 07/27/2024 15:53:01 Localized, primary osteoarthritis of the shoulder region 665210231 M19.019 Impingemen t syndrome of left shoulder region 4964283501 43044 M75.42 PLAN: Patient has positive impingemen t [...] worsen/do not improve with conservati ve care. [id number] [facility] [address] [place] [address] 11/17/2024 14:23:18 12/07/2024 09:50:35 Inflammation of joint of left shoulder region 6383446311 57373 M19.012 Subacromia l impingement 099638054 M75.42 Health Concerns Section Related Observation LastModified by Organization Detai ls LastModified Time None Recorded Concern Status LastModified by Organization Details LastModified Time None Recorded Advance Directives Directive None Recorded Payers Insurance Date Sequence Insurance Name Policy Number Policy Abraham Covered Member ID Abraham Member ID Guarantor Name 12/07/2024 1 [facility] - DOS ON OR AFTER 2022 - MEDICARE [place]/ADV ANTAGE - PPO) Teri Robertson [id number] Teri Robertson Notes Date Note Type Note [...] regularly holding the leash. Glenys Jean PA-C [address] [place] [address] [address], [place], [address], [facility] [place] [facility] 06/26/2024 11:20:15 11/17/2024 text/html [...] Thakkar PA-C [address], [place], [address], [facility] [place] [facility] 11/18/2024 07:54:20 OBGyn Episode No OBEpisode recorded.
[2025-01-29] MEDS: iohexoL 350 MG/ML 100 ML INFUS..BTL IV (14:08)
[2025-01-29] MEDS: Barium Sulfate Oral (Berry) 450 ML ORAL.SUSP 900 ML PO (14:09)
== END 2025-01-29 10:55 | disposition home or self-care (01) ==
LOC: HO.CT 10:54
PROVIDERS: PCP Physician Assistant; Visit Provider Physician Assistant
DX: K42.0 Umbilical hernia with obstruction, without gangrene (principal)
CPT/HCPCS: 74177; Q9967

== ENCOUNTER → 2025-01-29 10:56 | Outpatient (BNV) | payer OTHER, SELFPAY | PROVIDERS: PCP Physician Assistant; Visit Provider Radiology Diagnostic Radiology | DX: K44.9 Diaphragmatic hernia without obstruction or gangrene (principal) | CPT/HCPCS: 74177 ==

== ENCOUNTER 2025-02-01 09:28 | Outpatient (AMB) | payer OTHER, SELFPAY ==
--- NOTE | 2025-02-01 09:31 | MHC.OFFVIS ---
Vital Signs 02/01/25 09:32 Height 5 ft 7 in Weight 172 lb 6.424 oz BMI 27.0 BP 133/75 Blood Pressure Location Rt brachial Position Sitting Pulse 73 Pulse Source Pulse Oximeter Temp 98.7 F Temp Source Temporal Artery Scan Pulse Oximetry (%) 99 Oxygen Delivery Method Room Air Intake Visit Reasons: Umbilical hernia with obstruction Intake Note: Patient is seen in office for evaluation and treatment of an umbilical hernia. Pt c/o: occasional pressure and pain with certain movements. CT:01/29/25 Allergies morphine (MORPHINE) Allergy (Intermediate, Verified 02/01/25 09:33) NIGHTMARES oxycodone (Percocet) Allergy (Intermediate, Verified 02/01/25 09:33) nausea and vomiting Penicillins Allergy (Intermediate, Verified 02/01/25 09:33) rash,sob Sulfa (Sulfonamide Antibiotics) (SULFA (SULFONAMIDE ANTIBIOTICS)) Allergy (Intermediate, Verified 02/01/25 09:33) RASH Medication List - Last Reconciled 02/01/25 by Dariusz Schmidt MD acetaminophen 1,000 mg (2 x 500 mg) PO Q8H alcohol swabs (Alcohol Wipes) 1 pad topical DIRECTED calcipotriene 0.005% 1 appl topical BID cyanocobalamin (vitamin B-12) 1,000 mcg IM QMONTH ferrous sulfate 325 mg PO DAILY gabapentin 300 mg PO TID 30 days levothyroxine 112 mcg PO DAILY metformin ER 500 mg PO DAILY 90 days miscellaneous medical supply (Blood Pressure Cuff) As directed risankizumab-rzaa (Skyrizi) mg subcut syringe with needle (Syringe) As Directed syringe with needle (Syringe) As Directed tirzepatide (weight loss) (Zepbound) 10 mg (0.5 mL) subcut QWEEK 4 weeks Held on 01/12/25. Instructions: Doctor's Order tirzepatide (weight loss) (Zepbound) 12.5 mg (0.5 mL) subcut QWEEK 4 weeks HPI Comments Details: 59-year-old female patient presenting for evaluation of an umbilical hernia. She reports her symptoms beginning approximately 1 month ago when working on her pool and noting a swelling just above the umbilicus. This lasted for several days but then subsequently resolved. She currently denies any significant pain or swelling in the umbilicus. She has a prior history of laparoscopic cholecystectomy and laparoscopic gastric bypass surgery. She denies any nausea, vomiting, fever or chills. Bowels have been normal as well. A CT abdomen and pelvis was reviewed and revealed normal abdominal wall musculature with no evidence of incisional/ventral/umbilical hernias. [facility] Medical History Immunocompromised History of lipoma Degenerative disc disease, cervical Neck Pain Lipoma of back (10/22/22) Hypothyroid Anemia Depression Anxiety Vitamin D deficiency Psoriasis Fibromyalgia Surgical History Hx of neck surgery History of shoulder surgery History of tooth extraction Hx of colonoscopy S/P panniculectomy History of cholecystectomy History of gastric bypass Family History Father CVD (cardiovascular disease) Stroke Hypertension Myocardial infarction Thyroid cancer Mother Hypertension Maternal Grandmother Colon cancer Glaucoma Social History Household Members: None Housing: House Housing Other:: mobile home Are you a primary behavioral health care manager to a significant other at home: No Do you presently have visiting nurse or other home services: No Alcohol intake: never Comment: rings appropriately Patient Tobacco Use Status: Former Tobacco user Tobacco use type: Cigarette Cigarette Packs Per Day: 1 Years Smoked: 30 e-Cigarette/Vaping Use: Never Used Second Hand Smoke Exposure: Yes service: No Current occupational status: unemployed Cognitive needs: No Hearing needs: No Vision needs: No Review of Systems Const All systems reviewed & are unremarkable except as noted in HPI and below Physical Exam Vital Signs: Last Vital Signs Temp 98.7 F 02/01/25 09:32 Pulse 73 02/01/25 09:32 BP 133/75 02/01/25 09:32 Pulse Ox 99 02/01/25 09:32 Oxygen Delivery Method Room Air 02/01/25 09:32 BMI result Body Mass Index 27.0 Const General: cooperative and no acute distress Nutritional Appearance: well nourished Orientation/consciousness: patient oriented x3 Limitations: no limitations HEENT Head: Yes normocephalic and Yes atraumatic Ears: hearing grossly normal bilaterally Resp Effort & Inspection: normal respiratory effort, no audible wheezes, no cough and no respiratory distress Cardio Jugular venous distension: no JVD GI Other: Soft and nondistended, well-healed incisions in the midline near the umbilicus. No hernia noted with Valsalva maneuvers. Inspection: Yes normal to inspection Skin Other: Warm, dry, no rash Neuro General: patient oriented x3 Extrem General: Yes no clubbing, cyanosis or edema Results Reviewed Results Reviewed: CT abdomen and pelvis: Assessment & Plan Assessment & Plan (1) Umbilical hernia: Code(s): K42.9 - Umbilical hernia without obstruction or gangrene Category: Medical Qualifiers: Obstruction and gangrene presence: with obstruction but without gangrene Qualified Code(s): K42.0 - Umbilical hernia with obstruction, without gangrene Plan 59-year-old female patient presenting with a history of swelling near her umbilicus suspicious for umbilical hernia. This occurred approximately 1 month ago while working on her pool. The lump has subsequently subsided and she currently is unable to feel any further swelling. Examination today reveals no palpable umbilical hernia and review of a CT abdomen and pelvis performed on 01/29/2025 reveals no evidence of a ventral/incisional/or umbilical hernia. I recommended observation at this time with follow-up as needed. No surgical intervention is recommended. Coding Level of Care Code New Pt Level 4 (21223) Diagnoses Umbilical hernia with obstruction, without gangrene K42.0 Obstruction and gangrene presence: with obstruction but without gangrene
[2025-02-01 09:32] VITALS: BP 133/75; PULSE 73; TEMP 37.1; O2SAT 99; BMI 27.0
--- OUTSIDE RECORDS SUMMARY | 2025-02-01 09:48 | XMS_ITS | Data Portability ---
Author Organization [facility], [facility] Address [address] [place] [address] Care Team Providers Care Liquor Merchant Name Role Phone PATRICK KUMAR Primary Care Provider [phone] Assessment No assessment recorded. Plan of Treatment [...] Address Organization Details Recorded Time No complaints 164481211 Active Status : 'A'; Not Available [facility] 4 09:12:17 Impingement syndrome of shoulder region 176124455 Active 2023 Glenys Jean PA-C [address], [place], [address] , [facility] 4 11:17:58 Impingement syndrome of shoulder region 753002658 Active 2023 Glenys Jean PA-C [address], [place], [address] , [facility] 4 11:19:29 Inflammation of joint of left shoulder region Active 2024 Matheus Thakkar PA-C [address], [place], [address] , [facility] 5 07:53:43 Subacromial impingement 666776282 Active 2024 Matheus Thakkar PA-C [address], [place], [address] , [facility] 07:53:55 Problem Notes None recorded. Procedures Surgical History Date Name Laterality Status Provider Name and Address Organization Details Recorded Time 11/18/19 25 Sports Shoulder completed Matheus Thakkar PA-C [address], [place], [address], [facility] 11/18/2024 07:53:13 11/04/19 25 Vascular Surgery completed Juana Brink [facility] 11/17/2024 14:33:01 06/26/20 24 Sports Shoulder completed Glenys Jean PA-C [address], [place], [address], [facility] 06/26/2024 11:17:30 03/20/20 24 Head [facility] Neck [facility] 11/17/2024 14:33:01 08/05/19 00 Bariatric Surgery completed Juana [facility] 11/17/2024 14:33:01 08/05/19 00 Gastrointestinal Surgery completed [facility] 11/17/2024 14:33:01 Imaging Results None recorded. Procedure Notes None recorded. Medical Equipment None Reported. Allergies Allergen ID Allergen Name Allergen Category Reaction Reaction Severity Criticality Documentation Date Start Date Code Code System Note Provider Name and Address Organization Details Recorded Time 81893 morphine sulfate medicatio n Not available Not available Not available 10/07/20232015 42253 RxNorm Not Available [facility] 4 11:09:45 95646 acetamino phen / oxycodone medicatio n Not available Not available Not available 10/07/20232015 55969 3 RxNorm Not Available [facility] 4 11:09:45 95664 Product containin g penicilli n (product) medicatio n Not available Not available Not available 10/07/20232015 01917 8001 SNOMED Not Available [facility] 4 11:09:45 Medications Name [...] Updated DateTime 11/17/2024 170.18 cm 31.3 kg/m2 17574.47 g Juana Weatherford [facility] 11/17/2024 14:36:04 Date Recorded Body height Body mass index (BMI) Body weight Provider Name and Address Organization Details Last Updated DateTime 06/26/2024 170.18 cm 31.3 kg/m2 25852.47 g Kelsi payan [facility] 06/26/2024 10:46:43 Social History Question Answer Notes LastModified by [employer] Details LastModified Time Tobacco Smoking Status Former Smoker Juana Brink [facility] 11/17/2024 14:33:01 When Did You Quit Smoking? 1-5yearssinc [email or web address] te Information not available 11/17/2024 What Is Your Relationship Status? [email or web address] Information not available 11/17/2024 How Many Years Have You Smoked Tobacco? 20 [email or web address] Information not available 11/17/2024 Sex: Unknown Functional Status Question Answer Note LastModified by [employer] Details LastModified Time How many times per week do you consume alcohol? Less than 1 time per week [email or web address] Information not available 11/17/2024 Do you use any illicit or recreational drugs? No [email or web address] Information not available 11/17/2024 Do you or have you ever used any other forms of tobacco or nicotine? No [email or web address] Information not available 11/17/2024 Do you or have you ever used e-cigarettes or vape? Never used electronic cigarettes [email or web address] Information not available 11/17/2024 Mental Status None [...] SNOMED-CT Code Diagnosis ICD10 Code Diagnosis Note [id number] Glenys Jean PA-C [facility] [address] [place] [address] 06/26/2024 10:15:23 07/27/2024 15:53:01 Localized, primary osteoarthritis of the shoulder region 847832389 M19.019 Impingemen t syndrome of left shoulder region [id number] 56293 M75.42 PLAN: Patient has positive impingemen t [...] worsen/do not improve with conservati ve care. [id number] [facility] [address] [place] [address] 11/17/2024 14:23:18 12/07/2024 09:50:35 Inflammation of joint of left shoulder region 8613531778 74129 M19.012 Subacromia l impingement 559824865 M75.42 Health Concerns Section Related Observation LastModified by Organization Detai ls LastModified Time None Recorded Concern Status LastModified by Organization Details LastModified Time None Recorded Advance Directives Directive None Recorded Payers Insurance Date Sequence Insurance Name Policy Number Policy Abraham Covered Member ID Abraham Member ID Guarantor Name 12/07/2024 1 [facility] - DOS ON OR AFTER 2022 - MEDICARE ADVANTAGE [place] (MEDICARE REPLACEMENT/ADV ANTAGE - PPO) Teri Robertson [id number] Teri Robertson Notes Date Note Type Note [...] holding the leash. Glenys Jean PA-C [address] [place] [address] [address], [place], [address], [facility] 06/26/2024 11:20:15 11/17/2024 text/html [...] Thakkar PA-C [address], [place], [address], [facility] 11/18/2024 07:54:20 OBGyn Episode No OBEpisode recorded.
== END 2025-02-01 09:48 | disposition home or self-care (01) ==
LOC: HO.HGS 09:29
PROVIDERS: PCP Physician Assistant; Visit Provider Surgery
DX: K42.0 Umbilical hernia with obstruction, without gangrene (principal)
CPT/HCPCS: 99204

== ENCOUNTER → 2025-02-01 09:28 | Outpatient (BNVA) | payer OTHER, SELFPAY | PROVIDERS: PCP Physician Assistant; Visit Provider Surgery | DX: K42.0 Umbilical hernia with obstruction, without gangrene (principal) | CPT/HCPCS: 99202 ==

== ENCOUNTER 2025-03-04 10:29 | Outpatient (AMB) | payer OTHER, SELFPAY ==
--- NOTE | 2025-03-04 10:40 | MHC.OFFVIS ---
Intake Visit Reasons: 3m L leg check Intake Note: Patient presents for 3 month leg check. Patient states she has pain in her left leg. Warm at times. Feels like a bubble Accompanied by: Self / Same As Patient Allergies morphine (MORPHINE) Allergy (Intermediate, Verified 03/04/25 10:43) NIGHTMARES oxycodone (Percocet) Allergy (Intermediate, Verified 03/04/25 10:43) nausea and vomiting Penicillins Allergy (Intermediate, Verified 03/04/25 10:43) rash,sob Sulfa (Sulfonamide Antibiotics) (SULFA (SULFONAMIDE ANTIBIOTICS)) Allergy (Intermediate, Verified 03/04/25 10:43) RASH HPI HPI 3m L leg check: Details: Very complex 59-year-old female presents for routine venous follow-up. She did have a prior history of left great saphenous vein radiofrequency ablation. She was very sensitive to it and had difficulty with it. She now presents for re-evaluation. She has a cluster of varicosities in the left calf. At the current time does not have any significant complaints of the right lower extremity. Of note she did have a recent fall and had multiple bruises. [facility], [facility] Medical History Immunocompromised History of lipoma Degenerative disc disease, cervical Neck Pain Lipoma of back (10/22/22) Hypothyroid Anemia Depression Anxiety Vitamin D deficiency Psoriasis Fibromyalgia Surgical History Hx of neck surgery History of shoulder surgery History of tooth extraction Hx of colonoscopy S/P panniculectomy History of cholecystectomy History of gastric bypass Family History Father CVD (cardiovascular disease) Stroke Hypertension Myocardial infarction Thyroid cancer Mother Hypertension Maternal Grandmother Colon cancer Glaucoma Social History Household Members: None Housing: House Housing Other:: mobile home Are you a primary resident care provider to a significant other at home: No Do you presently have visiting nurse or other home services: No Alcohol intake: never Comment: rings appropriately Patient Tobacco Use Status: Former Tobacco user Tobacco use type: Cigarette Cigarette Packs Per Day: 1 Years Smoked: 30 e-Cigarette/Vaping Use: Never Used Second Hand Smoke Exposure: Yes service: No Current occupational status: unemployed Cognitive needs: No Hearing needs: No Vision needs: No Review of Systems Const Reports as per HPI ENT Reports no additional complaints Card Denies chest pain, Denies chest pain at rest and Denies chest pain with activity Resp Denies chest congestion and Denies cough GI Reports no additional complaints Musc Details: pain over varicosities, aching of lower extremities, swelling, cramping, heaviness and tiredness, itching Denies abnormal gait Skin/Breast Reports pruritus and Denies wounds Neuro Reports no additional complaints and Denies abnormal gait Psych Denies no additional complaints Physical Exam Const General: cooperative, healthy appearing and comfortable Orientation/consciousness: oriented to person, oriented to place and oriented to time Neck Carotids: no bruits Chest Chest palpation & inspection: normal inspection of the chest and normal palpation of entire chest wall Resp Effort & Inspection: normal respiratory effort and able to speak in complete sentences Cardio Rate: regular rate Heart sounds: S1 normal heart sound present and S2 normal heart sound present Peripheral pulses: Peripheral pulses 2+ throughout GI Inspection: Yes normal to inspection Skin Other: +2 edema, large rope-like varicosities greater than 4 mm left calf CEAP Classification C4 - skin color changes Ep - Etiology Primary As - superficial veins P - reflux General skin exam: dry skin Neuro General: oriented to person, oriented to place and oriented to time Extrem Right lower extremity: full ROM, normal capillary refill and edema Left lower extremity: full ROM, normal capillary refill and edema Psych Mental Status: mental status grossly normal Assessment & Plan Assessment & Plan (1) Varicose veins of left lower extremity with inflammation: Comment: 10/30/2024 - left GSV Radiofrequency ablation Code(s): I83.12 - Varicose veins of left lower extremity with inflammation Category: Medical Plan: At the current time has a cluster of varicosities in the left calf which seemed to be her biggest concern. Due to her recent fall I would like the bruising to resolve. She will follow up with us in approximately 2 months' time. At that time we will consider microphlebectomy. The concern here was she was extremely sensitive to an office procedure. We will have to consider location of surgery at that time. She will follow up with us once again in approximately 2 months' time. Thank you for allowing us to assist in her care. The patient had an opportunity to ask questions regarding the treatment plan. All questions were answered. Imaging studies, laboratory studies and physical exam results were discussed and reviewed in detail. No major barriers to understanding were identified. The patient expressed understanding and agreement with the above treatment plan. The patient is aware they should contact our office by phone for worsening of the current condition or the appearance of new symptoms. Thank you for allowing me to participate in the vascular care of this patient. If you have any questions or concerns regarding the treatment for the above condition please do not hesitate to contact me. The office telephone contact is [phone]. This note is constructed using voice recognition software. While every effort has been made to ensure accuracy, boatswain mate errors may have been included. Thank you for allowing me to participate in the care of your patient. Yours sincerely, Jimbo Golden MD, FACS, R.P.V.I. Coding Level of Care Code Est Pt Level 3 (88023) Diagnoses Varicose veins of left lower extremity with inflammation I83.12
--- OUTSIDE RECORDS SUMMARY | 2025-03-04 11:12 | XMS_ITS | Patient Health Record ---
Author Organization [facility] Address [address] [place] [address] Care Team Providers Care Merchandise Manager Name Role Phone Ayad Brewer Primary Care Provider Fish Salgado [phone] Allergies Allergen (clinical drug ingredient) Drug/Non Drug [...] Duration) Notes Start Date End Date Status Gabapentin 300 MG 1 capsule Orally Thr ee times a day Active Levothyroxine Sodium 75 MCG 1 tablet on an empty stomach in the morning Orally Once a day Active Skyrizi 150 MG/ML 1 mL Subcutaneous Active Zepbound 12.5 MG/0.5ML 0.5 mL Subcutaneous 024 Active [place] 3 1000 MG 1 capsule Orally Thr ee times a day Active Cod Liver Oil 4000-200 UNIT as directed Orally Active metFORMIN HCl 500 MG 1 tablet with a kiran l Orally Once a day 02/16/2025 Active Folic Acid Not-Takin g Vitamin D 1000 UNIT 1 tablet Orally Once a day Active Cyanocobalamin 1000 MCG/ML 1 ml Orally monthly Active Multivitamin - 1 tablet Orally once a day Active Immunizations Vaccine Route Administration Date Status Comme nts Influenza Unknown 05/21/2018 Administered Influenza Unknown 05/26/2024 Administered Social History Tobacco Use: Social History Observation Description Date Details (start date - stop date) Former Smoker NA - NA Tobacco Control (Standard) Question Answer Notes Tobacco use: Former smoker Section Notes: Stopped smoking in 05/2014; no sig alcohol Smoking; no sig alcohol Smoking; no sig alcohol Problems Problem Type SNOMED Code ICD Code Onset Dates Problem Status W/U Status Risk Notes Problem Colon cancer screening (200172886) Colon cancer screening (Z12.11) Active confirmed Problem Preprocedural examination (981663073033100) Preprocedural examination (Z01.818) Active confirmed Problem 094348212 Abdominal pain, generalized (R10.84) Active confirmed Vital Signs Temperature 98.9 degrees Fahrenheit 02/16/2025 Blood pressure diastolic 01 mm Hg 02/16/2025 Height 67 in 02/16/2025 Blood pressure systolic 001 mm Hg 02/16/2025 Weight 171 lbs 02/16/2025 BMI 26.78 kg/m2 02/16/2025 Procedures Procedure Date Ordered Date Performed Result Body Sit e COLONOSCOPY 02/16/2025 N/A Encounters Encounter Location Date Provider Diagnosis [facility] [address] [place] [address] 02/16/2025 Fish Jeffries Colon cancer screeni ng Z12.11 and Preprocedural examination Z01.818 Assessments Encounter Date Diagnosis (ICD Code) Assessment Notes Treatment Notes Treatment Clinical Notes Section Notes 02/16/2025 Colon cancer screening (ICD-10 - Z12.11) Overall, Teri appears well and is not having any new or worrisome GI complaints. Given her age, good clinical appearance, and her last colonoscopy being almost 10 years ago in July 2015, I did recommend a follow-up colonoscopy for further screening purposes. We did review the rationale for this in regard to colon cancer prevention.. Full consent has been taken from her for this, including risks of bleeding and perforation. The procedure will be done with monitored anesthesia care. She was given the below instructions regarding adjustment of her medications for the procedure. Teri was comfortable with this plan. Thank you again for allowing me to participate in Teri's care. I shall continue to keep you advised of her progress. 02/16/2025 Preprocedural examination (ICD-10 - Z01.818) Overall, Teri appears well and is not having any new or worrisome GI complaints. Given her age, good clinical appearance, and her last colonoscopy being almost 10 years ago in July 2015, I did recommend a follow-up colonoscopy for further screening purposes. We did review the rationale for this in regard to colon cancer prevention.. Full consent has been taken from her for this, including risks of bleeding and perforation. The procedure will be done with monitored anesthesia care. She was given the below instructions regarding adjustment of her medications for the procedure. Teri was comfortable with this plan. Thank you again for allowing me to participate in Teri's care. I shall continue to keep you advised of her progress. Plan Of Treatment Pending Test Test Name Order Date COLONOSCOPY 02/16/2025 Future Test Test Name Order Date COLONOSCOPY 04/28/2015 Next Appt Details Provider Name:Fish Jeffries , 05/10/2025 01:30:00 PM, [address] [place] [address], [phone], Insurance Providers Payer Name Payer Address Payer Phone Subscriber Number Group Number Insured Name Patient Relationship to Insured Coverage Start Date Coverage End Date [facility] [address] [place] [address] [id number] TERI HURTADO Self - patient is the insured 4 Medical (General) History Medical History History ICD Code Negative colonoscopy 008 and 07/2015---sigmoid diverticulosis and internal hemorrhoids Denies DE,DM,CVA,,renal disease Anemia in relation to the ga stric bypass-sees Dr. Christianson and Dr. 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 Hyatt 03/2024 Cholecystectomy Panniculectomy Gastric bypass--Dr. Wiggins-1999--lost ab out 200 _#
== END 2025-03-04 10:53 | disposition home or self-care (01) ==
LOC: HO.HVS 10:30
PROVIDERS: PCP Physician Assistant; Visit Provider Surgery Vascular Surgery
DX: I83.12 Varicose veins of left lower extremity with inflammation (principal)
CPT/HCPCS: 99213

== ENCOUNTER → 2025-03-04 10:29 | Outpatient (BNVA) | payer OTHER, SELFPAY | PROVIDERS: PCP Physician Assistant; Visit Provider Surgery Vascular Surgery | DX: I83.12 Varicose veins of left lower extremity with inflammation (principal) | CPT/HCPCS: 99212 ==

== ENCOUNTER 2025-03-08 14:43 | Outpatient (AMB) | payer OTHER, SELFPAY ==
--- OUTSIDE RECORDS SUMMARY | 2025-03-08 14:46 | XMS_ITS | Patient Health Record ---
Author Organization [facility] Address [address] [place] [address] Care Team Providers Care Gunnery/Ordnance Officer Name Role Phone Ayad Brewer Primary Care Provider Fish Salgado [phone] Allergies Allergen (clinical drug ingredient) Drug/Non Drug [...] 12.5 MG/0.5ML 0.5 mL Subcutaneous 024 Active [place] 3 1000 MG 1 capsule Orally Thr [...] Status Risk Notes Problem Colon cancer screening (Z12.11) Active confirmed Problem Preprocedural examination (829823624109190) Preprocedural examination (Z01.818) Active confirmed Problem 168352256 Abdominal pain, generalized (R10.84) Active confirmed Vital Signs Temperature 98.9 degrees Fahrenheit 02/16/2025 Blood pressure diastolic 01 mm Hg 02/16/2025 Height 67 in 02/16/2025 Blood pressure systolic 001 mm Hg 02/16/2025 Weight 171 lbs 02/16/2025 BMI 26.78 kg/m2 02/16/2025 Procedures Procedure Date Ordered Date Performed Result Body Sit e COLONOSCOPY 02/16/2025 N/A Encounters Encounter Location Date Provider Diagnosis [facility] [address] [place] [address] 02/16/2025 Fish Jeffries Colon cancer screeni ng [...] Provider Name:Fish Jeffries , 05/10/2025 01:30:00 PM, [address] [place] [address], [id number], Insurance Providers Payer Name Payer Address Payer Phone Subscriber Number Group Number Insured Name Patient Relationship to Insured Coverage Start Date Coverage End Date [facility] [address] Attn Claims FelipeTEJAL nicole [id number] TERI HURTADO Self - patient is the insured 4 Medical (General) History Medical History History ICD Code Negative colonoscopy 008 and 07/2015---sigmoid diverticulosis and internal hemorrhoids Denies [place],DM,CVA,,renal disease Anemia in relation to the ga stric bypass-sees Dr. Christianson and Dr. 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 Hyatt 03/2024 Cholecystectomy Panniculectomy Gastric bypass--Dr. Wiggins-1999--lost ab out 200 _#
[2025-03-08 14:53] VITALS: BP 130/78; PULSE 67; O2SAT 98; BMI 26.9
--- NOTE | 2025-03-08 14:53 | A.OFFVIS_ITS ---
Vital Signs 03/08/25 14:53 Height 5 ft 7 in Weight 171 lb 15.369 oz BMI 26.9 BP 130/78 Blood Pressure Location Rt brachial Position Sitting Pulse 67 Pulse Source Pulse Oximeter Pulse Oximetry (%) 98 Oxygen Delivery Method Room Air Intake Visit Reasons: F/U Hypothyroidism Intake Note: Patient presents today for Hypothyroidism follow up. Accompanied by: Self / Same As Patient Allergies morphine (MORPHINE) Allergy (Intermediate, Verified 03/04/25 10:43) NIGHTMARES oxycodone (Percocet) Allergy (Intermediate, Verified 03/04/25 10:43) nausea and vomiting Penicillins Allergy (Intermediate, Verified 03/04/25 10:43) rash,sob Sulfa (Sulfonamide Antibiotics) (SULFA (SULFONAMIDE ANTIBIOTICS)) Allergy (Inter mediate, Verified 03/04/25 10:43) RASH Medication List - Last Reconciled 03/08/25 by Fish Costa MD acetaminophen 1,000 mg (2 x 500 mg) PO Q8H alcohol swabs (Alcohol Wipes) 1 pad topical DIRECTED calcipotriene 0.005% 1 appl topical BID cyanocobalamin (vitamin B-12) 1,000 mcg IM QMONTH ferrous sulfate 325 mg PO DAILY gabapentin 300 mg PO TID 30 days levothyroxine 112 mcg PO DAILY metformin ER 500 mg PO DAILY 90 days miscellaneous medical supply (Blood Pressure Cuff) As directed risankizumab-rzaa (Skyrizi) mg subcut syringe with needle (Syringe) As Directed syringe with needle (Syringe) As Directed tirzepatide (weight loss) (Zepbound) 12.5 mg (0.5 mL) subcut QWEEK 4 weeks HPI Comments Details: 58 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 First diagnosed with Hypothyroidism in 2013. Currently using Levothyroxine 112 mcg PO daily. She takes this in the evening approximately 2-3 hours after dinner. Does report difficulty losing weight and fatigue. Menses: Postmenopausal Biotin: Denies using this. She is frustrated by her inability to lose weight. Labs: Laboratory Tests 11/28/21 11/28/21 11:55 11:55 25-OH Vitamin D Total 46.2 TSH 2.47 Free T4 1.04 Had lost 20 lbs . Takes L-t4 every morning on empty stomach and away from other meds . No sx of hyperthyroidism , PFSH Medical History Immunocompromised History of lipoma Degenerative disc disease, cervical Neck Pain Lipoma of back (10/22/22) Hypothyroid Anemia Depression Anxiety Vitamin D deficiency Psoriasis Fibromyalgia Surgical History (Updated 03/08/25 @ 14:56 by KEVON Plata) Hx of neck surgery History of shoulder surgery History of tooth extraction Hx of colonoscopy S/P panniculectomy History of cholecystectomy History of gastric bypass Family History Father CVD (cardiovascular disease) Stroke Hypertension Myocardial infarction Thyroid cancer Mother Hypertension Maternal Grandmother Colon cancer Glaucoma Social History Household Members: None Housing: House Housing Other:: mobile home Are you a primary child care attendant to a significant other at home: No Do you presently have visiting nurse or other home services: No Alcohol intake: never Comment: rings appropriately Patient Tobacco Use Status: Former Tobacco user Tobacco use type: Cigarette Cigarette Packs Per Day: 1 Years Smoked: 30 e-Cigarette/Vaping Use: Never Used Second Hand Smoke Exposure: Yes service: No Current occupational status: unemployed Cognitive needs: No Hearing needs: No Vision needs: No Physical Exam Vital Signs: Last Vital Signs Pulse 67 03/08/25 14:53 BP 130/78 03/08/25 14:53 Pulse Ox 98 03/08/25 14:53 Oxygen Delivery Method Room Air 03/08/25 14:53 BMI result Body Mass Index 26.9 Const Other: Thyroid gland is of normal size weighs about 15 g. There are no thyroid nodules palpated Assessment & Plan Assessment & Plan (1) Hypothyroid: Code(s): E03.9 - Hypothyroidism, unspecified Category: Medical Qualifiers: Hypothyroidism type: unspecified Qualified Code(s): E03.9 - Hypothyroidism, unspecified Plan: This 58-year-old white female with a history of hypothyroidism being treated with levothyroxine 112 mcg q.d.. She appears to be clinically and biochemically euthyroid on 112 mcg levothyroxine Plan is to continue the current therapy. At this point, patient returned to the care of her primary care provider returned back to endocrinology as needed Coding Level of Care Code Est Pt Level 3 (48036) Diagnoses Hypothyroidism, unspecified type E03.9 Hypothyroidism type: unspecified
== END 2025-03-08 15:17 | disposition home or self-care (01) ==
LOC: HO.ENCR 14:43
PROVIDERS: PCP Physician Assistant; Visit Provider Internal Medicine Endocrinology, Diabetes & Metabolism
DX: E03.9 Hypothyroidism, unspecified (principal)
CPT/HCPCS: 99213

== ENCOUNTER → 2025-03-08 14:43 | Outpatient (BNVA) | payer OTHER, SELFPAY | PROVIDERS: PCP Physician Assistant; Visit Provider Internal Medicine Endocrinology, Diabetes & Metabolism | DX: E06.3 Autoimmune thyroiditis (principal); E03.9 Hypothyroidism, unspecified | CPT/HCPCS: 99212 ==

== ENCOUNTER 2025-04-26 08:21 | Outpatient (REF) | payer OTHER, SELFPAY ==
[2025-04-26 09:15] LABS: Hematocrit 39.8 % (37.0-47.0); Hemoglobin 13.1 g/dl (12.0-16.0); Mean Corpuscular HGB Conc 32.9 g/dl (31.0-35.0); Mean Corpuscular Hemoglobin 30.4 pg (27.0-33.0); Mean Corpuscular Volume 92.3 fL (80.0-98.0); NRBC Abs Auto 0.000 X10*3/uL (0.0-0.012); NRBC Pct Auto 0.0 /100WBC (0.0-0.2); Platelet Count 375 X10*3/uL (160-400); Red Blood Count 4.31 X10*6/uL (4.20-5.50); White Blood Count 6.1 X10*3/uL (4.8-10.8)
--- OUTSIDE RECORDS SUMMARY | 2025-04-26 09:32 | XMS_ITS | Patient Health Record ---
Author Organization [facility] Address [address] [place] [address] Care Team Providers Care Japanese Tutor Name Role Phone Ayad Brewer Primary Care Provider Fish Salgado [phone] Allergies Allergen (clinical drug ingredient) Drug/Non Drug [...] 12.5 MG/0.5ML 0.5 mL Subcutaneous 024 Active [place] 3 1000 MG 1 capsule Orally Thr [...] Status Risk Notes Problem Colon cancer screening (064354243) Colon cancer screening (Z12.11) Active confirmed Problem Preprocedural examination (986090633259834) Preprocedural examination (Z01.818) Active confirmed Problem 469288126 Abdominal pain, generalized (R10.84) Active confirmed Vital Signs Temperature 98.9 degrees Fahrenheit 02/16/2025 Blood pressure diastolic 01 mm Hg 02/16/2025 Height 67 in 02/16/2025 Blood pressure systolic 001 mm Hg 02/16/2025 Weight 171 lbs 02/16/2025 BMI 26.78 kg/m2 02/16/2025 Procedures Procedure Date Ordered Date Performed Result Body Sit e COLONOSCOPY 02/16/2025 N/A Encounters Encounter Location Date Provider Diagnosis [facility] [address] [place] [address] 02/16/2025 Fish Jeffries Colon cancer screeni ng [...] Provider Name:Fish Jeffries , 05/10/2025 01:30:00 PM, [address] [place] [address], [id number], Insurance Providers Payer Name Payer Address Payer Phone Subscriber Number Group Number Insured Name Patient Relationship to Insured Coverage Start Date Coverage End Date [facility] [address] [place] [address] [id number] TERI HURTADO Self - patient is the insured 4 Medical (General) History Medical History History ICD Code Negative colonoscopy 008 and 07/2015---sigmoid diverticulosis and internal hemorrhoids Denies AR,DM,CVA,,renal disease Anemia in relation to the ga stric bypass-sees Dr. Christianson and Dr. 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 Hyatt 03/2024 Cholecystectomy Panniculectomy Gastric bypass--Dr. Wiggins-1999--lost ab out 200 _#
[2025-04-26 09:49] LABS: Alanine Aminotransferase 36 U/L (0-31); Albumin Level 4.3 g/dL (3.5-5.0); Alkaline Phosphatase 102 U/L (39-117); Anion Gap 8 (12-20); Aspartate Amino Transferase 29 U/L (5-31); Blood Urea Nitrogen 10 mg/dL (9-16); Calcium 9.8 mg/dL (8.4-10.2); Carbon Dioxide 31 mmol/L (22-29); Chloride 109 mmol/L (96-108); Estimated Glomerular Filt Rate > 60; Iron 90 mcg/dL (30-160); Percent Iron Saturation 31 % (15-50); Potassium 4.2 mmol/L (3.3-5.1); Sodium 144 mmol/L (135-145); Total Iron Binding Capacity 286 mcg/dL (228-428); Total Protein 7.2 g/dL (6.5-8.0); Unsaturated Iron Binding 196 ug/dL
[2025-04-28 22:29] LABS: Quantiferon TB Gold Plus 1 NEGATIVE (NEGATIVE); TB Test (QFT) Mitogen -Nil >10.00 IU/mL; TB Test (QFT) Nil 0.03 IU/mL; TB Test (QFT) Plus TB1 -Nil 0.01 IU/mL; TB Test (QFT) Plus TB2 -Nil 0.04 IU/mL
== END 2025-04-26 08:22 | disposition home or self-care (01) ==
LOC: HO.LAB 08:21
PROVIDERS: Absent Provider Dermatology; PCP Physician Assistant; Visit Provider Physician Assistant
DX: L40.0 Psoriasis vulgaris (principal); I10 Essential (primary) hypertension; E03.9 Hypothyroidism, unspecified; D50.9 Iron deficiency anemia, unspecified
CPT/HCPCS: 36415; 80053; 83540; 84443; 85027; 86480

== ENCOUNTER 2025-04-27 10:24 | Outpatient (AMB) | payer OTHER, SELFPAY ==
--- NOTE | 2025-04-27 10:46 | MHC.PC.OV ---
Vital Signs 04/27/25 10:47 Height 5 ft 7 in Weight 163 lb 2 oz BMI 25.5 BP 110/70 Blood Pressure Location Lt brachial Position Sitting Pulse 59 Pulse Source Pulse Oximeter Temp 97.1 F Temp Source Temporal Artery Scan Pulse Oximetry (%) 93 Oxygen Delivery Method Room Air Intake Visit Reasons: f/u weight check Intake Note: Patient is here to follow up on Weight check. Fx Artist Required: No Scientific Software Developer: Not Required per policy Accompanied by: Self / Same As Patient Allergies morphine (MORPHINE) Allergy (Intermediate, Verified 04/27/25 11:00) NIGHTMARES oxycodone (Percocet) Allergy (Intermediate, Verified 04/27/25 11:00) nausea and vomiting Penicillins Allergy (Intermediate, Verified 04/27/25 11:00) rash,sob Sulfa (Sulfonamide Antibiotics) (SULFA (SULFONAMIDE ANTIBIOTICS)) Allergy (Intermediate, Verified 04/27/25 11:00) RASH Medication List - Last Reconciled 04/27/25 by Ayad Brewer PA-C acetaminophen 1,000 mg (2 x 500 mg) PO Q8H alcohol swabs (Alcohol Wipes) 1 pad topical DIRECTED calcipotriene 0.005% 1 appl topical BID cyanocobalamin (vitamin B-12) 1,000 mcg IM QMONTH ferrous sulfate 325 mg PO DAILY gabapentin 300 mg PO TID 30 days levothyroxine 112 mcg PO DAILY metformin ER 500 mg PO DAILY 90 days miscellaneous medical supply (Blood Pressure Cuff) As directed risankizumab-rzaa (Skyrizi) mg subcut syringe with needle (Syringe) As Directed syringe with needle (Syringe) As Directed tirzepatide (weight loss) (Zepbound) 12.5 mg (0.5 mL) subcut QWEEK 4 weeks Tobacco use date assessed: 04/27/25 Dental Screening Dental Screen Date: 09/29/24 HPI f/u weight check HPI Details Patient is a 59 year-old female here today for follow-up visit.? Patient has a past medical history significant for hypothyroidism, fibromyalgia, obesity Concerns--> History of obesity: Patient has done very well on GLP 1 has been able to lose more than 5% of her total body weight. Currently on Zepbound 12.5 mg weekly and doing quite well without any side effects. The patient has a history of hypertension, which has been well-controlled with current medication, as evidenced by recent blood pressure readings of 110/70 mmHg. She also has prediabetes, managed with metformin and GLP 1 combination, resulting in improved blood glucose levels. The patient has a history of hyperlipidemia, previously noted with borderline high cholesterol levels. She maintains a diet low in sugar and fat, supplemented with omega-3 fatty acids, and has experienced significant weight loss from 240 pounds to 163 pounds, reducing her BMI from 37 to 25. At the initiation of GLP 1 therapy around September of 2023 her BMI was 37 . Psoriasis: Continues to have psoriasis patches worse on her palms of her hands. She continues on Rinvoq which has significantly cleared her skin issue. .. Hypothyroidism:? Has been more consistent with the use of her levothyroxine. Most recent TSH elevated due to not using levothyroxine med. Patient continues to follow Endocrinology and most recent TSH stable.? Continues on levothyroxine 125 mcg. .. .. Fibromyalgia:? Has seen rheumatology and continues on gabapentin 300 mg t.i.d though reports she only takes gabapentin on an as-needed basis at night for sleep. ? Laboratory Tests 10/02/21 12/18/22 09/16/24 11:13 09:29 14:17 RBC 4.25 Creatinine Hemoglobin A1c % 5.9 ALT Cholesterol 217 D 158 TSH Urine Microalbumin 12/30/24 12/30/24 04/26/25 09:32 09:35 08:47 RBC 4.31 Creatinine 0.73 Hemoglobin A1c % 5.2 ALT 35 H 36 H Cholesterol TSH 2.25 Urine Microalbumin 9.0 PFSH Medical History Right leg injury Immunocompromised History of lipoma Degenerative disc disease, cervical Neck Pain Lipoma of back (10/22/22) Hypothyroid Anemia Depression Anxiety Vitamin D deficiency Psoriasis Fibromyalgia Surgical History Hx of neck surgery History of shoulder surgery History of tooth extraction Hx of colonoscopy S/P panniculectomy History of cholecystectomy History of gastric bypass Family History Father CVD (cardiovascular disease) Stroke Hypertension Myocardial infarction Thyroid cancer Mother Hypertension Maternal Grandmother Colon cancer Glaucoma Social History Household Members: None Housing: House Housing Other:: mobile home Are you a primary home health care worker to a significant other at home: No Do you presently have visiting nurse or other home services: No Alcohol intake: never Comment: rings appropriately Patient Tobacco Use Status: Former Tobacco user Tobacco use type: Cigarette Cigarette Packs Per Day: 1 Years Smoked: 30 e-Cigarette/Vaping Use: Never Used Second Hand Smoke Exposure: Yes service: No Current occupational status: unemployed Cognitive needs: No Hearing needs: No Vision needs: No Questionnaire Thrive Questionnaire Date Thrive assessed: 12/22/24 I am a: Patient What is your living situation today?: I have a steady place to live Within the past 12 months, did the food you bought not last and you didn't have the money to get more?: Sometimes True Within the past 12 months, did you worry whether your food would run out before you got money to buy more?: Never true Do you have trouble paying for medicines?: Yes Do you have trouble getting transportation to medical appointments?: Yes Do you have trouble paying your heating and electricity bill?: No Do you have trouble taking care of your child, family member or friend?: No Do you have trouble with day-to-day activities such as bathing, preparing meals, shopping, managing finances, etc.?: No Are you currently unemployed and looking for a job?: Yes Are you interested in more education?: No Please select the resources that you would like help with: Food Currently or been in a relationship where the following occur: No concerns reported THRIVE Score: 2 BESSY-7 AMB Questionnaire BESSY-7 Date BESSY - 7 assessed: 09/29/24 Source: Developed by Drs. Fish Damon, Marguerite Thompson, Vishal Churchill and colleagues, with an educational shea from [employer]. Review of Systems Const Denies headache(s) Eyes Denies loss of vision ENT Denies vertigo, Denies dizziness, Denies headache(s) and Denies sore throat Card Denies chest pain, Denies leg edema and Denies lightheadedness Resp Denies cough, Denies hemoptysis and Denies wheezing GI Denies abdominal pain, Denies melena, Denies constipation, Denies diarrhea and Denies vomiting Denies urinary frequency, Denies dysuria and Denies urinary urgency Musc Denies arthralgias, Denies joint swelling, Denies numbness and Denies tingling Neuro Denies Abnormal speech present, Denies behavioral changes, Denies vertigo, Denies dizziness, Denies headache(s), Denies loss of vision, Denies memory loss, Denies numbness and Denies tingling Psych Denies anxiety, Denies behavioral changes, Denies depression, Denies memory loss and Denies panic attacks Uli/Lymph Denies easy bleeding and Denies easy bruising Aller/Immun Denies wheezing Physical exam (Primary Care) Vital Signs: Last Vital Signs Temp 97.1 F 04/27/25 10:47 Pulse 59 04/27/25 10:47 BP 110/70 04/27/25 10:47 Pulse Ox 93 04/27/25 10:47 Oxygen Delivery Method Room Air 04/27/25 10:47 BMI result Body Mass Index 25.5 Tobacco/Smoking Status: Tobacco use Status Tobacco use date assessed 04/27/25 04/27/25 10:51 Patient Tobacco Use Status Former Tobacco user 04/27/25 10:51 Tobacco use type Cigarette 04/27/25 10:51 e-Cigarette/Vaping Use Never Used 04/27/25 10:51 Thrive Assessment: Date of Thrive Assessment Date Thrive assessed 12/22/24 04/27/25 10:51 Currently or been in a relationship where the following occur: No concerns reported Const General: healthy appearing, no acute distress, alert and awake Nutritional Appearance: well nourished Orientation/consciousness: oriented to person, oriented to place and oriented to time [facility] Ears: TM's normal bilaterally General nose exam: Normal nasal mucous membranes and turbinates present Eyes Conjunctivae: conjunctivae normal Sclerae: sclerae normal Pupils: Equal, round and reactive pupils present Neck Neck: Yes no lymphadenopathy and Yes no JVD Thyroid: Thyroid normal Carotids: no bruits Resp Effort & Inspection: normal respiratory effort and not tachypneic Auscultation: no crackles, no rales, no rhonchi and no wheezes Cardio Rate: regular rate Rhythm: regular rhythm Heart sounds: no murmurs and normal S1 and S2 GI Palpation (GI): Soft to palpation, nontender, no hepatomegaly and no splenomegaly Auscultation: normal bowel sounds Skin General skin exam: no rashes or lesions noted and dry skin Neuro General: oriented to person, oriented to place and oriented to time Cranial nerves: Yes Equal, round and reactive pupils present Speech: No Abnormal speech present Gait exam (Neuro): Normal gait present Motor exam (neuro): no tremor noted Extrem Right upper extremity: full ROM Left upper extremity: full ROM Right lower extremity: full ROM; no edema Left lower extremity: full ROM; no edema Psych Mental Status: mental status grossly normal Speech and movement: Normal speech and movement present Affect: normal affect Attitude: cooperative Thought process: Normal thought process present Coding Level of Care Code Est Pt Level 4 (82368) Diagnoses BMI 25.0-25.9,adult Z68.25 Hypothyroidism, unspecified type E03.9 Hypothyroidism type: unspecified MDD (major depressive disorder), recurrent episode, moderate F33.1 Pre-diabetes R73.03 Primary hypertension I10 Hypertension type: primary hypertension Assessment & Plan Assessment & Plan (1) BMI 25.0-25.9,adult: Code(s): Z68.25 - Body mass index [BMI] 25.0-25.9, adult Category: Medical Plan: Patient continues to maintain her weight loss with GLP 1. She has a history of bariatric surgery and has not been able to manage weight loss for quite some time even with strict dietary modifications. Initiation of GLP 1 her BMI was 37, today's BMI at 25. She has been able to lose more than 5% of her total body weight. Suboxone seems to be very effective for patient. Currently on 12.5 mg weekly. As noted in HPI patient has a history of hyperlipidemia, prediabetes and hypertension to which all have been better managed since reducing her weight on GLP 1 Her relationship with food is been much better having lower calories. She has been much more physically active over the last year as well. (2) Hypothyroid: Code(s): E03.9 - Hypothyroidism, unspecified Category: Medical Qualifiers: Hypothyroidism type: unspecified Qualified Code(s): E03.9 - Hypothyroidism, unspecified Plan: Continues to follow Endocrinology.. Patient continues with levothyroxine 112 mcg. Most recent TSH has been stable. (3) MDD (major depressive disorder), recurrent episode, moderate: Code(s): F33.1 - Major depressive disorder, recurrent, moderate Category: Medical Plan: Patient has a history of depression though is not depressed at this moment. Not interested in mental health therapy at this time (4) Pre-diabetes: Code(s): R73.03 - Prediabetes Category: Medical Plan: Patient has a history of prediabetes though has been much better since being on GLP 1. She continues on metformin and GLP 1 combo. She continues on a vegetarian diet. (5) HTN (hypertension): Code(s): I10 - Essential (primary) hypertension Category: Medical Qualifiers: Hypertension type: primary hypertension Qualified Code(s): I10 - Essential (primary) hypertension Plan: Patient has a history of hypertension though has been able to control with weight reduction and dietary modifications. Orders: Orders TSH reflex Free T4 Today E03.9 - Hypothyroidism, unspecified Vitamin D 25-OH Total Today E55.9 - Vitamin D deficiency, unspecified Hemoglobin A1c Today R73.09 - Other abnormal glucose Microalbumin, Random (w Creat) Today I10 - Essential (primary) hypertension Comprehensive Maceo. Panel Fast Today I10 - Essential (primary) hypertension Lipid Panel Today E78.5 - Hyperlipidemia, unspecified Complete Blood Count no Diff Today E78.5 - Hyperlipidemia, unspecified Medications: Refilled tirzepatide (weight loss) (Zepbound) 12.5 mg (0.5 mL) subcut QWEEK 2 mL 3RF 4 weeks E78.5 - Hyperlipidemia, unspecified, I10 - Essential (primary) hypertension, R73.03 - Prediabetes
[2025-04-27 10:47] VITALS: BP 110/70; PULSE 59; TEMP 36.2; O2SAT 93; BMI 25.5
== END 2025-04-27 11:26 | disposition home or self-care (01) ==
LOC: HO.HMCH 10:25
PROVIDERS: PCP Physician Assistant; Visit Provider Physician Assistant
DX: Z68.25 Body mass index [BMI] 25.0-25.9, adult (principal); E03.9 Hypothyroidism, unspecified; F33.1 Major depressive disorder, recurrent, moderate; R73.03 Prediabetes; I10 Essential (primary) hypertension

== ENCOUNTER → 2025-04-27 10:24 | Outpatient (BNVA) | payer OTHER, SELFPAY | PROVIDERS: PCP Physician Assistant; Visit Provider Physician Assistant | DX: M79.7 Fibromyalgia (principal); E66.9 Obesity, unspecified; E78.5 Hyperlipidemia, unspecified; E03.9 Hypothyroidism, unspecified; L40.9 Psoriasis, unspecified; F33.1 Major depressive disorder, recurrent, moderate; R73.03 Prediabetes; I10 Essential (primary) hypertension; E55.9 Vitamin D deficiency, unspecified; R73.09 Other abnormal glucose; Z68.25 Body mass index [BMI] 25.0-25.9, adult | CPT/HCPCS: 99212 ==

== ENCOUNTER 2025-05-10 12:11 | Day surgery (SDC) | payer OTHER, SELFPAY ==
--- OUTSIDE RECORDS SUMMARY | 2025-04-27 14:49 | XMS_ITS | Patient Health Record ---
Author Organization [facility] Address [address] [place] [address] Care Team Providers Care Sourcing Associate Name Role Phone Ayad Brewer Primary Care Provider Fish Salgado [phone] Allergies Allergen (clinical drug ingredient) Drug/Non Drug [...] 12.5 MG/0.5ML 0.5 mL Subcutaneous 024 Active [place] 3 1000 MG 1 capsule Orally Thr [...] Status Risk Notes Problem Colon cancer screening (602129657) Colon cancer screening (Z12.11) Active confirmed Problem Preprocedural examination (073048540719899) Preprocedural examination (Z01.818) Active confirmed Problem 920539849 Abdominal pain, generalized (R10.84) Active confirmed Vital Signs Temperature 98.9 degrees Fahrenheit 02/16/2025 Blood pressure diastolic 01 mm Hg 02/16/2025 Height 67 in 02/16/2025 Blood pressure systolic 001 mm Hg 02/16/2025 Weight 171 lbs 02/16/2025 BMI 26.78 kg/m2 02/16/2025 Procedures Procedure Date Ordered Date Performed Result Body Sit e COLONOSCOPY 02/16/2025 N/A Encounters Encounter Location Date Provider Diagnosis [facility] [address] [place] [address] 02/16/2025 Fish Jeffries Colon cancer screeni ng [...] Provider Name:Fish Jeffries , 05/10/2025 01:30:00 PM, [address] [place] [address], [phone], Insurance Providers Payer Name Payer Address Payer Phone Subscriber Number Group Number Insured Name Patient Relationship to Insured Coverage Start Date Coverage End Date [facility] [address] [place] [address] [id number] TERI HURTADO Self - patient is the insured 4 Medical (General) History Medical History History ICD Code Negative colonoscopy 008 and 07/2015---sigmoid diverticulosis and internal hemorrhoids Denies PA,DM,CVA,,renal disease Anemia in relation to the ga stric bypass-sees Dr. Christianson and Dr. 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 Hyatt 03/2024 Cholecystectomy Panniculectomy Gastric bypass--Dr. Wiggins-1999--lost ab out 200 _#
[2025-05-06 14:49] VITALS: BMI 26.8
--- NOTE | 2025-05-07 09:15 | HO.ANESPROP2 ---
Documented by User: Kamala Adam NP 05/07/25 09:16 HPI - Anesthesia Eval Consult details Narrative: 59yo F for Colonoscopy Anesthesia Pre-Procedure Meds Is the patient on any of the following meds?: GLP1/DPP4 PMFSH Active Problems Active Problems: All Active Problems BMI 25.0-25.9,adult (Acute) HLD (hyperlipidemia) (Acute) Pre-diabetes (Acute) Umbilical hernia (Acute) Dysplasia of cervix, low grade (SYLVESTER 1) (Acute) LGSIL on Pap smear of cervix (Acute) Witnessed episode of apnea (Acute) Well woman exam (Acute) Class 1 obesity (Acute) Varicose veins of left lower extremity with inflammation (Acute) Varicose veins of both lower extremities with inflammation (Acute) Colon cancer screening (Acute) Annual wellness visit (Acute) Symptomatic varicose veins (Acute) Folliculitis (Acute) Mass of lower extremity (Acute) Strain of left pectoralis muscle (Acute) Otitis media (Acute) Psoriatic arthritis (Acute) Impaired glucose metabolism (Acute) Elevated fasting glucose (Acute) S/P spinal surgery (Acute) Microalbuminuria (Acute) History of cervical spinal surgery (Acute) Spinal stenosis, cervical region (Acute) HTN (hypertension) (Acute) Chronic pain syndrome (Acute) Cubital tunnel syndrome (Acute) Carpal tunnel syndrome (Acute) Radiculopathy, cervical (Acute) Lump of skin (Acute) MDD (major depressive disorder), recurrent episode, moderate (Acute) BESSY (generalized anxiety disorder) (Acute) Iron deficiency anemia (Chronic) Deficiency anemia (Acute) Hypermagnesemia (Acute) Medicare annual wellness visit, initial (Acute) Screening for hypercholesterolemia (Acute) Screening for diabetes mellitus (DM) (Acute) Breast cancer screening (Acute) Cervical cancer screening (Acute) Depression (Acute) Thyromegaly (Acute) Psoriasis (Acute) Hypothyroid (Acute) Right leg injury (Acute) Degenerative disc disease, cervical (Acute) Neck Pain (Acute) Vitamin D deficiency (Acute) Psoriasis (Acute) Fibromyalgia (Acute) Past Medical History Medical History HTN (hypertension) Right leg injury Immunocompromised Degenerative disc disease, cervical Neck Pain Lipoma of back (10/22/22) Hypothyroid Anemia Depression Anxiety Vitamin D deficiency Psoriasis Fibromyalgia Family History Family History Father CVD (cardiovascular disease) Stroke Hypertension Myocardial infarction Thyroid cancer Mother Hypertension Maternal Grandmother Colon cancer Glaucoma Family history of problems with anesthesia: No Surgical History Surgical History History of surgery Hx of neck surgery History of shoulder surgery History of tooth extraction Hx of colonoscopy S/P panniculectomy History of cholecystectomy History of gastric bypass History of Problems with Anesthesia: No Social History Social History Household Members: None Housing: House Housing Other:: mobile home Are you a primary medical care administrator to a significant other at home: No Do you presently have visiting nurse or other home services: No Alcohol intake: never Comment: rings appropriately Patient Tobacco Use Status: Former Tobacco user Tobacco use type: Cigarette Cigarette Packs Per Day: 1 Years Smoked: 30 e-Cigarette/Vaping Use: Never Used Second Hand Smoke Exposure: Yes Use of substances other than those prescribed or required for medical reasons: No Are you DNR?: No Advance Directives: No Advance Directives Information Provided: Yes Patient : No : No Poor oral hygiene: No service: No Current occupational status: unemployed Cognitive needs: No Hearing needs: No Vision needs: No Meds Allergies Allergy/AdvReac Type Severity Reaction Status Date / Time morphine (MORPHINE) Allergy Intermediate NIGHTMARES Verified 04/27/25 11:00 oxycodone (Percocet) Allergy Intermediate nausea and Verified 04/27/25 11:00 vomiting Penicillins Allergy Intermediate rash,sob Verified 04/27/25 11:00 Sulfa (Sulfonamide Allergy Intermediate RASH Verified 04/27/25 11:00 Antibiotics) (SULFA (SULFONAMIDE ANTIBIOTICS)) Home Medications ?Medication ?Instructions ?Recorded ?Confirmed ?Last Taken ?Type risankizumab-rzaa 150 mg/mL mg subcut 09/29/24 04/27/25 Unknown History subcutaneous pen injector (Cleoizalex) calcipotriene 0.005 % topical 1 appl topical BID 12/22/24 04/27/25 Unknown History ointment Exam Height,Weight and Vital Signs: Height 5 ft 7 in Weight 77.564 kg Assessment and Plan Assessment Anesthesia Assessment: Chart Reviewed Final Anesthetic Review Family History of Problems with Anesthesia: No History of Problems with Anesthesia: No Documented by User: Westley Perrin MD 05/10/25 14:15 [facility] Past Medical History Medical History HTN (hypertension) Right leg injury Immunocompromised Degenerative disc disease, cervical Neck Pain Lipoma of back (10/22/22) Hypothyroid Anemia Depression Anxiety Vitamin D deficiency Psoriasis Fibromyalgia Functional capacity: independent ambulation Family History Family History Father CVD (cardiovascular disease) Stroke Hypertension Myocardial infarction Thyroid cancer Mother Hypertension Maternal Grandmother Colon cancer Glaucoma Surgical History Surgical History History of surgery Hx of neck surgery History of shoulder surgery History of tooth extraction Hx of colonoscopy S/P panniculectomy History of cholecystectomy History of gastric bypass Social History Social History Household Members: None Housing: House Housing Other:: mobile home Are you a primary medical care administrator to a significant other at home: No Do you presently have visiting nurse or other home services: No Alcohol intake: never Comment: rings appropriately Patient Tobacco Use Status: Former Tobacco user Tobacco use type: Cigarette Cigarette Packs Per Day: 1 Years Smoked: 30 e-Cigarette/Vaping Use: Never Used Second Hand Smoke Exposure: Yes Use of substances other than those prescribed or required for medical reasons: No Are you DNR?: No Advance Directives: No Advance Directives Information Provided: Yes Patient : No : No Poor oral hygiene: No service: No Current occupational status: unemployed Cognitive needs: No Hearing needs: No Vision needs: No Meds Allergies Allergy/AdvReac Type Severity Reaction Status Date / Time morphine (MORPHINE) Allergy Intermediate NIGHTMARES Verified 04/27/25 11:00 oxycodone (Percocet) Allergy Intermediate nausea and Verified 04/27/25 11:00 vomiting Penicillins Allergy Intermediate rash,sob Verified 04/27/25 11:00 Sulfa (Sulfonamide Allergy Intermediate RASH Verified 04/27/25 11:00 Antibiotics) (SULFA (SULFONAMIDE ANTIBIOTICS)) Home Medications ?Medication ?Instructions ?Recorded ?Confirmed ?Last Taken ?Type risankizumab-rzaa 150 mg/mL mg subcut 09/29/24 04/27/25 Unknown History subcutaneous pen injector (Jin) calcipotriene 0.005 % topical 1 appl topical BID 12/22/24 04/27/25 Unknown History ointment Exam Exam Date and Time: 05/10/25 Airway Mallampati Class: II TM Dist: >3cm Neck ROM: Full Heart: rrr Lungs: cta Other: none Assessment and Plan Assessment Anesthesia Assessment: Anesthesia Plan Discussed Final Anesthetic Review NPO: Yes ASA Class: II Final Preanesthetic Review: No Changes in Pt Med Stat, Meds/Allgs Chart Reviewed and Anes Risks/Benef Reviewed Patient Risk: Low Procedure Risk: Low Anesthetic Plan Anesthetic Plan: MAC: Disposition: Standard PACU
[2025-05-10 13:32] VITALS: BMI 25.9
[2025-05-10 13:34] VITALS: BP 137/71; PULSE 52; RESP 16; TEMP 36.9; O2SAT 99
[2025-05-10 13:51] LABS: Glucose, Whole Blood 85 mg/dL (60-115)
[2025-05-10] MEDS: Lactated Ringers 1,000 ML 100 ML IVCONT (13:55)
[2025-05-10 15:05] VITALS: BP 111/66; PULSE 70; RESP 16; TEMP 36.2; O2SAT 100
--- NOTE | 2025-05-10 15:05 | PM.OP ---
Brief Operative Note Date of Service: 05/10/25 Pre-op diagnosis: Screening Post-op diagnosis: other (Diverticulosis) Procedure: Colonoscopy to the cecum and TI Surgeon: Fish Jeffries MD Anesthesia: MAC Was an Entry Level Account Manager used for this Procedure?: No Estimated blood loss (mL): 0 Pathology: none sent Condition: stable Disposition: PACU
[2025-05-10 15:23] VITALS: BP 125/68; PULSE 60; RESP 18; TEMP 36.1; O2SAT 99
--- NOTE | 2025-05-11 01:13 | OP_ITS ---
DATE OF SERVICE: 05/10/2025 SURGEON: Fish Jeffries MD INDICATIONS: The patient presents for evaluation of colorectal cancer screening. Full consent has been obtained from her for this, including risks of bleeding and perforation. PREOPERATIVE DIAGNOSIS: POSTOPERATIVE DIAGNOSIS: PROCEDURE PERFORMED: Colonoscopy to the cecum and terminal ileum. ESTIMATED BLOOD LOSS: COMPLICATIONS: ANESTHESIA: Medication used, monitored anesthesia care. ASSISTANTS: SPECIMENS: PREOPERATIVE DIAGNOSES: Colorectal cancer screening, family history of colorectal cancer and polyps. POSTOPERATIVE DIAGNOSES: Colorectal cancer screening, family history of colorectal cancer and polyps, diverticulosis, and internal hemorrhoids. DESCRIPTION OF PROCEDURE: The patient was placed in the left lateral decubitus position. The digital rectal exam revealed no abnormalities. The Olympus video pediatric colonoscope was entered into the rectum and advanced easily to the cecum. Once in the cecum, I did identify normal-appearing cecal pouch with appendiceal orifice and a normal-appearing ileocecal valve. The terminal ileum was cannulated and appeared normal. The scope was withdrawn back in the colon. The entire cecum and ileocecal valve appeared normal, including the appendiceal orifice. The scope was then slowly withdrawn assessing all mucosal surfaces carefully. For the most part, preparation was excellent, but did require some irrigation and suctioning. I did not visualize any sign of polyps, colitis, nor angiodysplasia. There was a mild amount of sigmoid diverticulosis. In the rectum, scope was retroflexed visualizing internal hemorrhoids but no other pathology. The rectal mucosa appeared normal. The scope was straightened and withdrawn from the patient. She tolerated the procedure well and was returned to the recovery area in stable condition. IMPRESSION: 1. Diverticulosis. 2. Internal hemorrhoids. PLAN: Given the negative colonoscopy, negative colonoscopies in 2007 and 2014, and the family history of colon cancer, being an elderly non first-degree relatives, I would recommend a next colonoscopy for screening in 10 years. She would otherwise see me on a p.r.n. basis. MD DAYAMI López/NILAM / [phone]
== END 2025-05-10 15:58 | disposition home or self-care (01) ==
PROVIDERS: PCP Physician Assistant; Visit Provider Internal Medicine
PROC: 0DJD8ZZ Inspection of Lower Intestinal Tract, Via Natural or Artificial Opening Endoscopic (ICD-10-PCS; CPT 45378; principal; 2025-05-10 13:30)
DX: Z12.11 Encounter for screening for malignant neoplasm of colon (principal); K57.30 Diverticulosis of large intestine without perforation or abscess without bleeding; K64.8 Other hemorrhoids; Z80.0 Family history of malignant neoplasm of digestive organs; Z83.719 Family history of colon polyps, unspecified; J44.9 Chronic obstructive pulmonary disease, unspecified; Z98.84 Bariatric surgery status
CPT/HCPCS: G0105; 82947; J2003; J2704; J3010

== ENCOUNTER 2025-05-13 10:59 | Outpatient (AMB) | payer OTHER, SELFPAY ==
[2025-05-13 11:07] VITALS: BMI 25.8
--- NOTE | 2025-05-13 11:07 | A.OFFVIS_ITS ---
Vital Signs 05/13/25 11:07 Height 5 ft 7 in Weight 165 lb BMI 25.8 Intake Visit Reasons: 2 month vein check- no testing Intake Note: 2 mo vein check for Left LE w/ VV w/ pain while ambulating. Hx of Left GSV RFA 10/30/24. 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 The patient has a history of varicose veins, specifically a varicosity in the left calf, which was the primary reason for the visit. She underwent a left leg ablation procedure on October 30, which has resulted in some improvemen. The patient also reports having fibromyalgia, which contributes to her overall pain experience. She mentioned a previous incident where she fell between a ladder, causing leg pain, but this has since resolved without any significant tissue damage. [facility] Medical History HTN (hypertension) Right leg injury Immunocompromised Degenerative disc disease, cervical Neck Pain Lipoma of back (10/22/22) Hypothyroid Anemia Depression Anxiety Vitamin D deficiency Psoriasis Fibromyalgia Surgical History History of surgery Hx of neck surgery History of shoulder surgery History of tooth extraction Hx of colonoscopy S/P panniculectomy History of cholecystectomy History of gastric bypass Family History Father CVD (cardiovascular disease) Stroke Hypertension Myocardial infarction Thyroid cancer Mother Hypertension Maternal Grandmother Colon cancer Glaucoma Social History Household Members: None Housing: House Housing Other:: mobile home Are you a primary director career to a significant other at home: No Do you presently have visiting nurse or other home services: No Alcohol intake: never Comment: rings appropriately Patient Tobacco Use Status: Former Tobacco user Tobacco use type: Cigarette Cigarette Packs Per Day: 1 Years Smoked: 30 e-Cigarette/Vaping Use: Never Used Second Hand Smoke Exposure: Yes service: No Current occupational status: unemployed Cognitive needs: No Hearing needs: No Vision needs: No Review of Systems Const All systems reviewed & are unremarkable except as noted in HPI and below Reports no additional complaints ENT Reports Normal hearing present Card Denies chest pain, Denies chest pain at rest, Denies chest pain with activity and Denies pedal edema Resp Denies cough GI Denies abdominal pain Musc Denies abnormal gait, Denies muscle cramps and Denies radiating pain into limb Skin/Breast Denies skin ulcer and Denies wounds Neuro Reports Normal hearing present and Denies abnormal gait Psych Reports no additional complaints Physical Exam Vital Signs: BMI result Body Mass Index 25.8 Const General: cooperative, healthy appearing and comfortable Orientation/consciousness: oriented to person, oriented to place and oriented to time HEENT Head: Yes normal to inspection Neck Neck: Yes normal visual inspection Carotids: no bruits Chest Chest palpation & inspection: normal inspection of the chest Resp Effort & Inspection: normal respiratory effort and able to speak in complete sentences Auscultation: clear to auscultation bilaterally, no crackles, no rales, no rhonchi and no wheezes Cardio Rate: regular rate Rhythm: regular rhythm Heart sounds: S1 normal heart sound present and S2 normal heart sound present Bruits: no carotid bruits Peripheral pulses: Peripheral pulses 2+ throughout GI Inspection: Yes normal to inspection Skin Wounds: no wounds Hair: normal Neuro General: oriented to person, oriented to place and oriented to time Cranial nerves: Yes CN's II-XII intact bilaterally and Yes Normal hearing present Cognition (Neuro): normal cognition Motor exam (neuro): 5/5 motor strength present throughout Extrem Other: venous exam: +1 edema, single varicosity in left posterior calf General: No clubbing, No cyanosis and Yes edema Psych Appearance: grossly normal Mental Status: mental status grossly normal Speech and movement: Normal speech and movement present Assessment & Plan Assessment & Plan (1) Varicose veins of left lower extremity with inflammation: Comment: 10/30/2024 - left GSV Radiofrequency ablation Code(s): I83.12 - Varicose veins of left lower extremity with inflammation Category: Medical Plan: In short patient has done well since her left great saphenous vein ablation. She does have a single varicosity in the left posterior calf. I do not believe that is the source of her pain and discomfort. May be more fibromyalgia related. That single varicosity would be more cosmetic in nature. I did discuss this with her and did discuss continued conservative measures including compression elevation and exercise. She will follow up with us on an as-needed basis. Thank you for allowing us to assist in her care. Coding Level of Care Code Est Pt Level 4 (31226) Diagnoses Varicose veins of left lower extremity with inflammation I83.12
== END 2025-05-13 11:22 | disposition home or self-care (01) ==
LOC: HO.HVS 10:59
PROVIDERS: PCP Physician Assistant; Visit Provider Surgery Vascular Surgery
DX: I83.12 Varicose veins of left lower extremity with inflammation (principal)
CPT/HCPCS: 99214

== ENCOUNTER → 2025-05-13 10:59 | Outpatient (BNVA) | payer OTHER, SELFPAY | PROVIDERS: PCP Physician Assistant; Visit Provider Surgery Vascular Surgery | DX: I83.12 Varicose veins of left lower extremity with inflammation (principal) | CPT/HCPCS: 99212 ==

== ENCOUNTER 2025-07-27 11:05 | Outpatient (AMB) | payer OTHER, SELFPAY ==
--- OUTSIDE RECORDS SUMMARY | 2025-05-10 08:30 | XMS_ITS ---
Author Organization [facility] Address [address] [place] [address] Care Team Providers Care Head Of Visual Merchandising Name Role Phone Ayad Brewer Primary Care Provider Unavailab Fish Patel [phone] REASON FOR VISIT screening Encounters Encounter Location Date Provider Diagnosis [facility] [address] [place] [address] [phone] 05/10/2025 Fish Jeffries Plan Of Treatment No Information Progress Notes * CHRIS HURTADOORAH ADOB:1965 (59 yo F)Acc No.[id number]:05/10/2025 COLON WITH MAC Patient: Romeo QUEEN OMAR Jacques Provider: Romeo Jeffries MD :1965 A ge:59 Y S ex:Female Date:05/10/2025 Address:[address] [place] [address] [address] [id number] Pcp:Ayad Brewer Subjective: * Chief Complaints: * S creening * The named appointment provid er may or may not be the originator of this progress note, and it is not deemed complete until electronically signed by the appointment provider. Sign off status: Pending * Provider: Romeo Jeffries MD Date: Generated for Claudy cedeño/[place]/eTransmitting on: 09/27/2024 12:26 PM EST
--- NOTE | 2025-07-27 11:14 | A.OFFPC_ITS ---
Vital Signs 07/27/25 11:15 Height 5 ft 7 in Weight 178 lb 8 oz BMI 28.0 BP 120/66 Blood Pressure Location Lt brachial Position Sitting Pulse 57 Pulse Source Pulse Oximeter Temp 96.9 F Temp Source Temporal Artery Scan Pulse Oximetry (%) 95 Oxygen Delivery Method Room Air Intake Visit Reasons: f/u Weight check / pre- DM/ HLD Intake Note: Patient is here to follow up on Weight check, preDM, HLD. 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: Not Required per policy Accompanied by: Self / Same As Patient Allergies morphine (MORPHINE) Allergy (Intermediate, Verified 07/27/25 11:32) NIGHTMARES oxycodone (Percocet) Allergy (Intermediate, Verified 07/27/25 11:32) nausea and vomiting Penicillins Allergy (Intermediate, Verified 07/27/25 11:32) rash,sob Sulfa (Sulfonamide Antibiotics) (SULFA (SULFONAMIDE ANTIBIOTICS)) Allergy (Intermediate, Verified 07/27/25 11:32) RASH Medication List - Last Reconciled 07/27/25 by Ayad Brewer PA-C acetaminophen 1,000 mg (2 x 500 mg) PO Q8H alcohol swabs (Alcohol Wipes) 1 pad topical DIRECTED calcipotriene 0.005% 1 appl topical BID cyanocobalamin (vitamin B-12) 1,000 mcg IM QMONTH ferrous sulfate 325 mg PO DAILY gabapentin 300 mg PO TID 30 days levothyroxine 112 mcg PO DAILY metformin ER 500 mg PO DAILY 90 days miscellaneous medical supply (Blood Pressure Cuff) As directed risankizumab-rzaa (Skyrizi) mg subcut syringe with needle (Syringe) As Directed syringe with needle (Syringe) As Directed Tobacco use date assessed: 07/27/25 Dental Screening Dental Screen Date: 09/29/24 HPI f/u Weight check / pre- DM/ HLD HPI Details Patient is a 59 year-old female here today for follow-up visit.? Patient has a past medical history significant for hypothyroidism, fibromyalgia, obesity Concerns--> History of obesity: Patient had done very well on Zepbound weekly injections, which she was able to lose significant amount of weight starting from 240 lb and was able to get down to 163 lb. She reports feeling much better. She reports having a good balance diet and is regularly exercising. Unfortunately insurance has not covered GLP 1 therapy for her and she has gained weight back since being off of therapy over last few months. We currently at 178 lb The patient has a history of hypertension, which has been well-controlled with current medication, as evidenced by recent blood pressure readings of 110/70 mmHg. She also has prediabetes, managed with metformin and GLP 1 combination, resulting in improved blood glucose levels. The patient has a history of hyperlipidemia, previously noted with borderline high cholesterol levels. She maintains a diet low in sugar and fat, supplemented with omega-3 fatty acids. . Psoriasis: Continues to have psoriasis patches worse on her palms of her hands. She continues on Rinvoq which has significantly cleared her skin issue. .. Hypothyroidism:? Has been more consistent with the use of her levothyroxine. Most recent TSH stable ? Continues on levothyroxine 125 mcg. .. .. Fibromyalgia:? Has seen rheumatology and continues on gabapentin 300 mg t.i.d though reports she only takes gabapentin on an as-needed basis at night for sleep. ? Laboratory Tests 12/30/24 04/26/25 05/10/25 09:35 08:47 13:47 RBC 4.31 POC Glucose 85 ALT 35 H 36 H TSH 2.25 PFSH Medical History HTN (hypertension) Right leg injury Immunocompromised Degenerative disc disease, cervical Neck Pain Lipoma of back (10/22/22) Hypothyroid Anemia Depression Anxiety Vitamin D deficiency Psoriasis Fibromyalgia Surgical History History of surgery Hx of neck surgery History of shoulder surgery History of tooth extraction Hx of colonoscopy S/P panniculectomy History of cholecystectomy History of gastric bypass Family History Father CVD (cardiovascular disease) Stroke Hypertension Myocardial infarction Thyroid cancer Mother Hypertension Maternal Grandmother Colon cancer Glaucoma Social History Household Members: None Housing: House Housing Other:: mobile home Are you a primary hemodialysis patient care specialist to a significant other at home: No Do you presently have visiting nurse or other home services: No Alcohol intake: never Comment: rings appropriately Patient Tobacco Use Status: Former Tobacco user Tobacco use type: Cigarette Cigarette Packs Per Day: 1 Years Smoked: 30 e-Cigarette/Vaping Use: Never Used Second Hand Smoke Exposure: Yes service: No Current occupational status: unemployed Cognitive needs: No Hearing needs: No Vision needs: No Questionnaire Thrive Questionnaire Date Thrive assessed: 12/22/24 I am a: Patient What is your living situation today?: I have a steady place to live Within the past 12 months, did the food you bought not last and you didn't have the money to get more?: Sometimes True Within the past 12 months, did you worry whether your food would run out before you got money to buy more?: Never true Do you have trouble paying for medicines?: Yes Do you have trouble getting transportation to medical appointments?: Yes Do you have trouble paying your heating and electricity bill?: No Do you have trouble taking care of your child, family member or friend?: No Do you have trouble with day-to-day activities such as bathing, preparing meals, shopping, managing finances, etc.?: No Are you currently unemployed and looking for a job?: Yes Are you interested in more education?: No Please select the resources that you would like help with: Food Currently or been in a relationship where the following occur: No concerns reported THRIVE Score: 2 BESSY-7 AMB Questionnaire BESSY-7 Date BESSY - 7 assessed: 09/29/24 Source: Developed by Drs. Fish Damon, Marguerite Thompson, Vishal Churchill and colleagues, with an educational shea from [employer]. Review of Systems Const Denies headache(s) Eyes Denies loss of vision ENT Denies vertigo, Denies dizziness, Denies headache(s) and Denies sore throat Card Denies chest pain, Denies leg edema and Denies lightheadedness Resp Denies cough, Denies hemoptysis and Denies wheezing GI Denies abdominal pain, Denies melena, Denies constipation, Denies diarrhea and Denies vomiting Denies urinary frequency, Denies dysuria and Denies urinary urgency Musc Denies arthralgias, Denies joint swelling, Denies numbness and Denies tingling Neuro Denies Abnormal speech present, Denies behavioral changes, Denies vertigo, Denies dizziness, Denies headache(s), Denies loss of vision, Denies memory loss, Denies numbness and Denies tingling Psych Denies anxiety, Denies behavioral changes, Denies depression, Denies memory loss and Denies panic attacks Uli/Lymph Denies easy bleeding and Denies easy bruising Aller/Immun Denies wheezing Physical exam (Primary Care) Vital Signs: Last Vital Signs Temp 96.9 F 07/27/25 11:15 Pulse 57 07/27/25 11:15 BP 120/66 07/27/25 11:15 Pulse Ox 95 07/27/25 11:15 Oxygen Delivery Method Room Air 07/27/25 11:15 BMI result Body Mass Index 28.0 Tobacco/Smoking Status: Tobacco use Status Tobacco use date assessed 07/27/25 07/27/25 11:20 Patient Tobacco Use Status Former Tobacco user 07/27/25 11:20 Tobacco use type Cigarette 07/27/25 11:20 e-Cigarette/Vaping Use Never Used 07/27/25 11:20 Thrive Assessment: Date of Thrive Assessment Date Thrive assessed 12/22/24 07/27/25 11:20 Currently or been in a relationship where the following occur: No concerns reported Const General: healthy appearing, no acute distress, alert and awake Nutritional Appearance: well nourished Orientation/consciousness: oriented to person, oriented to place and oriented to time HENMT Ears: TM's normal bilaterally General nose exam: Normal nasal mucous membranes and turbinates present Eyes Conjunctivae: conjunctivae normal Sclerae: sclerae normal Pupils: Equal, round and reactive pupils present Neck Neck: Yes no lymphadenopathy and Yes no JVD Thyroid: Thyroid normal Carotids: no bruits Resp Effort & Inspection: normal respiratory effort and not tachypneic Auscultation: no crackles, no rales, no rhonchi and no wheezes Cardio Rate: regular rate Rhythm: regular rhythm Heart sounds: no murmurs and normal S1 and S2 GI Palpation (GI): Soft to palpation, nontender, no hepatomegaly and no splenomegaly Auscultation: normal bowel sounds Skin General skin exam: no rashes or lesions noted and dry skin Neuro General: oriented to person, oriented to place and oriented to time Cranial nerves: Yes Equal, round and reactive pupils present Speech: No Abnormal speech present Gait exam (Neuro): Normal gait present Motor exam (neuro): no tremor noted Extrem Right upper extremity: full ROM Left upper extremity: full ROM Right lower extremity: full ROM; no edema Left lower extremity: full ROM; no edema Psych Mental Status: mental status grossly normal Speech and movement: Normal speech and movement present Affect: normal affect Attitude: cooperative Thought process: Normal thought process present Coding Level of Care Code Est Pt Level 4 (92366) Diagnoses BMI 25.0-25.9,adult Z68.25 Hypothyroidism, unspecified type E03.9 Hypothyroidism type: unspecified MDD (major depressive disorder), recurrent episode, moderate F33.1 Pre-diabetes R73.03 Primary hypertension I10 Hypertension type: primary hypertension Assessment & Plan Assessment & Plan (1) BMI 25.0-25.9,adult: Code(s): Z68.25 - Body mass index [BMI] 25.0-25.9, adult Category: Medical Plan: Patient continues to maintain her weight loss with GLP 1. She has a history of bariatric surgery and has not been able to manage weight loss for quite some time even with strict dietary modifications. Initiation of GLP 1 her BMI was 37, today's BMI at 25. She has been able to lose more than 5% of her total body weight. Zepbound seem to has been effective, was previously up to 12.5 mg weekly dose As noted in HPI patient has a history of hyperlipidemia, prediabetes and hypertension to which all have been better managed since reducing her weight on GLP 1 Her relationship with food is been much better having lower calories. She has been much more physically active over the last year as well. She is willing to reestablish care with weight management program (2) Hypothyroid: Code(s): E03.9 - Hypothyroidism, unspecified Category: Medical Qualifiers: Hypothyroidism type: unspecified Qualified Code(s): E03.9 - Hypothyroidism, unspecified Plan: Continues to follow Endocrinology.. Patient continues with levothyroxine 112 mcg. Most recent TSH has been stable. (3) MDD (major depressive disorder), recurrent episode, moderate: Code(s): F33.1 - Major depressive disorder, recurrent, moderate Category: Medical Plan: Patient has a history of depression though is not depressed at this moment. Not interested in mental health therapy at this time (4) Pre-diabetes: Code(s): R73.03 - Prediabetes Category: Medical Plan: Patient has a history of prediabetes though has been much better since being on GLP 1. She continues on metformin and GLP 1 combo. She continues on a vegetarian diet. (5) HTN (hypertension): Code(s): I10 - Essential (primary) hypertension Category: Medical Qualifiers: Hypertension type: primary hypertension Qualified Code(s): I10 - Essential (primary) hypertension Plan: Patient has a history of hypertension though has been able to control with weight reduction and dietary modifications. Orders: Referrals Medical Weight Management Referral E66.811 - Obesity, class 1
[2025-07-27 11:15] VITALS: BP 120/66; PULSE 57; TEMP 36.1; O2SAT 95; BMI 28.0
--- OUTSIDE RECORDS SUMMARY | 2025-07-27 12:27 | XMS_ITS | Continuity of Care Document ---
Author Organization [facility], PAULINE Swartz Clinical Address [address] [place] [address] Care Team Providers Care Military Lawyer Name Role Phone Ayad Brewer Primary Care Provider Assessment No assessment recorded. Plan of Treatment Reminders Order Date Submit Date Provider Name Organization Details Last Modified By Last Modified Time Details Appointments None recor ded. Lab None recor ded. Referral physi deujan thera pist refer ral 2024 10:09: 06 025 Matheus Thakkar PA-C [facility] ([facility]) [address] [facility], [place], [address], [place] 5 08:13:39 Procedures None recor ded. Surgeries None recor ded. Imaging None recor ded. MedicationOrder s None recor ded. VaccineOrders None recor ded. Patient TargetsNo targets recorded. Patient Instructions Encounter Date Encounter Id Patient Instructions Last Modified By Organization Details Last Modified Time 06/02/2025 [id number] You have been provided with a cortisone injection in order to reduce the pain and inflammation that you are experiencing. The injection consists of two medications. Cortisone (an anti-inflammatory that will take 48-72 hours to take effect) and Lidocaine (a numbing agent that will last 2-3 hours). Please note that not everyone will have a lasting response following the injection. PATIENT INSTRUCTIONS Once the Lidocaine wears off, you may have an increase in your pain. I recommend icing the affected area for 20 minutes 3-4 times per day. It is recommended that you refrain from any high level activities using the joint or limb that was injected for approximately 24-48 hours. Normal day-to-day activities are generally not a problem. POSSIBLE SIDE EFFECTS Individuals with dark complexions may experience some skin discoloration locally at the site of the injection. There is the possibility of an increase in discomfort within 48 hours following the injection. This is called a jaxson gudino . To help minimize the chances of this, please see the post-injection instructions above. There is a less than 1% chance of an infection. If you notice any signs of infection (redness, warmth, drainage, fever greater than 100 degrees) please call our office or contact us through the portal ASAP. purvis Not available 06/02/2025 11:45:37 Reason for Referral Physical Therapist Referral for Pain of left shoulder blade eval and treat periscapular pain and muscle spasms Referring Physician: Matheus Thakkar, Orthopedic Surgery, Encounter Date: 06/02/2025 Problems Name Problem SNOMED Code Status Onset Date Resolution Date Notes Provider Name and Address Organization Details Recorded Time No complaints 825162933 Active Status : 'A'; Not Available [facility] 4 09:12:17 Impingement syndrome of shoulder region 139870989 Active 2023 Glenys Jean PA-C [address], [place], [address] , [place] - [facility] 4 11:17:58 Impingement syndrome of shoulder region 811749592 Active 2023 Glenys Jean PA-C [address], [place], [address] , [place] - [facility] 4 11:19:29 Inflammation of joint of left shoulder region Active 2024 Matheus Thakkar PA-C [address], [place], [address] , [facility] 5 07:53:43 Subacromial impingement 351302912 Active 2024 Matheus Thakkar PA-C [address], [place], [address] , [facility] 07:53:55 Problem Notes None recorded. Procedures Surgical History Date Name Laterality Status Provider Name and Address Organization Details Recorded Time 06/02/20 25 Sports Shoulder completed Matheus Thakkar PA-C [address], [place], [address], [facility] 06/02/2025 11:45:26 11/18/19 25 Sports Shoulder completed Matheus Thakkar PA-C [address], [place], [address], [facility] 11/18/2024 07:53:13 11/04/19 25 [facility] 11/17/2024 14:33:01 06/26/20 24 Sports Shoulder completed Glenys Jean PA-C [address], [place], [address], [facility] 06/26/2024 11:17:30 03/20/20 24 Head or Neck Surgery completed Juana [facility] 11/17/2024 14:33:01 08/05/19 00 Bariatric Surgery completed [facility] 11/17/2024 14:33:01 08/05/19 00 Gastrointestinal Surgery completed [facility] 11/17/2024 14:33:01 Imaging Results None recorded. Procedure Notes None recorded. Medical Equipment None Reported. Allergies Allergen ID Allergen Name Allergen Category Reaction Reaction Severity Criticality Documentation Date Start Date Code Code System Note Provider Name and Address Organization Details Recorded Time 82130 morphine sulfate medicatio n Not available Not available Not available 10/07/20232015 98151 RxNorm Not Available [facility] 11:09:45 92271 acetamino phen / oxycodone medicatio n Not available Not available Not available 10/07/20232015 01933 3 RxNorm Not Available [facility] 4 11:09:45 93602 Product containin g penicilli n (product) medicatio n Not available Not available Not available 10/07/20232015 54128 8001 SNOMED Not Available [facility] 4 11:09:45 Medications Name Authored On Sig Start Date Stop Date Status Note Indication Fill Status Repeat Number Dispense Quantity LastModified by Organization Details LastModified Time paulino us sulfa te 325 mg (65 mg iron) table t 4 08:40:26 TAKE 1 TABL ET BY MOUT H EVER Y DAY active Not Available Not availab le 0 Not Available Not Available [facility] 06/25/2024 08:40:26 clind amyci n HCl 150 mg capsu le 4 08:40:26 TAKE 1 CAPS ULE 3 TIME S A DAY FOR 10 DAYS 06/26 aborted Not Available Not availab le 0 Not Available Kelsi payan [facility] 06/26/2024 10:47:21 doxyc yclin e monoh ydrat e 100 mg capsu le 4 08:40:26 TAKE 1 CAPS ULE BY MOUT H 2 TIME S A DAY FOR 7 DAYS 06/26 aborted Not Available Not availab le 0 Not Available Kelsi payan [facility] 06/26/2024 10:47:35 hydro codon e 5 mg-ac etami nophe n 300 mg table t 4 08:40:25 TAKE 1 TABL ET BY NOA H EVER Y 4 TO 6 HOUR S NEED ED FOR PAIN 06/26 aborted Not Available Not availab le 0 Not Available Kelsi payan [facility] 06/26/2024 10:47:52 triaz olam 0.25 mg table t 4 08:40:26 TAKE 1 TABL ET BY MOUT H 90 JOHANNY GISSEL PRIO R TO DENT AL VISI T 06/26 aborted Not Available Not availab le 0 Not Available Kelsi payan [facility] 06/26/2024 10:48:43 Wegov y 0.25 mg/0. 5 mL subcu taneo us pen injec tor 4 08:40:[address] 0.5M L SUBC UTAN EOUS LY EVER Y 4 WEEK S WEEK S 1 THRO UGH 4 OF THER APY 06/26 aborted Not Available Not availab le 0 Not Available Kelsi payan [facility] 06/26/2024 10:48:51 Wegov y 0.5 mg/0. 5 mL subcu taneo us pen injec tor 4 08:40:[address] 0.5 MG (0.5 ML) SUBC UTAN EOUS LY EVER Y WEEK FOR 4 WEEK S ADMI NIST ER WEEK S 5 THRO UGH 8 OF THER APY 06/26 aborted Not Available Not availab le 0 Not Available Kelsi payan [facility] 06/26/2024 10:48:53 Wegov y 1 mg/0. 5 mL subcu taneo us pen injec tor 4 08:40:[address] 1 MG SUBC UTAN EOUS EVER Y WEEK 06/26 aborted Not Available Not availab le 0 Not Available Kelsi payan [facility] 06/26/2024 10:48:56 ibupr ofen 800 mg table t 5 04:27:04 TAKE 1 TABL ET BY MOUT H EVER Y 8 HOUR S NEED ED FOR PAIN active Not Available Not availab le 0 Not Available Not Available nikolai - External Data Service - prod 11/17/2024 04:27:04 aceta minop hen ER 650 mg table t,ext ended relea se 4 08:40:26 11/16 aborted Not Available Not availab le 0 Not Available Juana Brink [facility] 11/17/2024 14:33:01 Cimzi a 400 mg/2 mL (200 mg/mL x 2) subcu taneo us syrin ge kit 4 08:40:26 11/16 aborted Not Available Not availab le 0 Not Available Juana Brink [facility] 11/17/2024 14:33:01 levot hyrox ine 125 mcg table t 5 04:27:04 TAKE 1 TABL ET BY MOUT H EVER Y DAY. ALTE RNAT E WITH 112M G 11/16 aborted Not Available Not availab le 0 Not Available Juana Brink [facility] 11/17/2024 14:33:01 predn isone 10 mg table t 4 08:40:26 11/16 aborted Not Available Not availab le 0 Not Available Juana Brink [facility] 11/17/2024 14:33:01 Wegov y 1.7 mg/0. 75 mL subcu taneo us pen injec tor 5 04:27:[address] 1.7 MG (0.7 5 ML) SUBC UTAN EOUS LY EVER Y WEEK FOR 4 WEEK S 11/16 aborted Not Available Not availab le 0 Not Available Juana Brink [facility] 11/17/2024 14:33:01 calci potri angi 0.005 % topic al ointm ent 5 10:14:05 APPL Y TO AFFE CTED AREA S OF PSOR IASI S ONCE TO TWIC E ROMAINE Y. active Not Available Not availab le 0 Not Available Not Available nikolai - External Data Service - prod 05/30/2025 10:14:05 BD Luer- Chalo Syrin ge 3 mL 21 gauge x 1 5 10:14:06 USE FOR B12 INJE CTIO N active Not Available Not availab le 0 Not Available Not Available nikolai - External Data Service - prod 05/30/2025 10:14:06 cyano cobal sanchez (vit B-12) 1,000 mcg/m L injec tion solut ion [address] 10:14:[address] 1 ML INTR AMUS CULA RLY EVER Y ALEKSANDAR H active Not Available Not availab le 0 Not Available Not Available nikolai - External Data Service - prod 05/30/2025 10:14:06 gabap entin 300 mg capsu le 5 10:14:06 TAKE 1 CAPS ULE BY MOUT H THRE E TIME S A DAY NEED ED FOR PAIN active Not Available Not availab le 0 Not Available Not Available nikolai - External Data Service - prod 05/30/2025 10:14:06 levot hyrox ine 112 mcg table t 5 10:14:06 TAKE 1 TABL ET BY MOUT H EVER Y DAY active Not Available Not availab le 0 Not Available Not Available nikolai - External Data Service - prod 05/30/2025 10:14:06 metfo rmin ER 500 mg table t,ext ended relea se 24 hr 5 10:14:06 TAKE 1 TABL ET BY MOUT H EVER Y DAY active Not Available Not availab le 0 Not Available Not Available nikolai - External Data Service - prod 05/30/2025 10:14:06 Skyri zi 150 mg/mL subcu taneo us pen injec tor 5 10:14:06 active Not Available Not availab le 0 Not Available Not Available nikolai - External Data Service - prod 05/30/2025 10:14:06 Alcoh ol Prep Pads 5 10:14:07 USE 1 DIRE CTED FOR WIPE PRIO R TO THE B12 INJE CTIO N active Not Available Not availab le 0 Not Available Not Available nikolai - External Data Service - prod 05/30/2025 10:14:07 azith romyc in 250 mg table t 5 10:14:07 FOLL OW INST RUCT IONS ON PACK AGE, TAKE DIRE CTED 05/30 aborted Not Available Not availab le 0 Not Available Not Available nikolai - External Data Service - prod 05/30/2025 10:14:07 aceta minop hen 500 mg table t 5 04:27:04 TAKE 1 TABL ET EVER Y 6 HOUR S NEED ED FOR PAIN 06/01 aborted Not Available Not availab le 0 Not Available Tim Head [place] - [facility] 06/02/2025 09:30:28 betam ethas one dipro piona te 0.05 % topic al ointm ent 4 08:40:25 APPL Y TOPI CALL Y TO THE FEET TWIC E ROMAINE Y FOR TWO WEEK S, JES K ONE WEEK , REPE AT NEED ED 06/01 aborted Not Available Not availab le 0 Not Available Tim Head [facility] 06/02/2025 09:30:28 clind amyci n HCl 300 mg capsu le 5 04:27:04 TAKE 1 CAPS ULE BY MOUT H EVER Y 12 HOUR S UNTI L FINI SHED 06/01 aborted Not Available Not availab le 0 Not Available Tim Head [facility] 06/02/2025 09:30:28 fluoc inoni de 0.05 % topic al ointm ent 5 04:27:02 PLEA SE SEE OMAR CHED FOR DETA ILED DIRE CTIO NS 06/01 aborted Not Available Not availab le 0 Not Available Tim Head [facility] 06/02/2025 09:30:28 tacro limus 0.1 % topic al ointm ent 5 04:27:03 APPL Y TO AFFE CTED AREA S IN GROI N TWIC E ROMAINE Y NEED ED 06/01 aborted Not Available Not availab le 0 Not Available Tim Head [facility] 06/02/2025 09:30:28 triam cinol one aceto nide 0.1 % topic al cream 4 08:40:25 APPL Y TO AFFE CTED AREA S IN GROI N TWIC E ROMAINE Y FOR ONE WEEK , JES K ONE WEEK REPE AT NEED ED 06/01 aborted Not Available Not availab le 0 Not Available Tim [facility] 06/02/2025 09:30:28 triam cinol one aceto nide 0.1 % topic al ointm ent 4 08:40:26 06/01 aborted Not Available Not availab le 0 Not Available [facility] 06/02/2025 09:30:28 Vtama 1 % topic al cream 5 04:27:02 APPL Y TO AFFE CTED AREA S OF PSOR IASI S ONCE ROMAINE Y NEED ED. 06/01 aborted Not Available Not availab le 0 Not Available Tim Head [facility] 06/02/2025 09:30:28 Zepbo und 10 mg/0. 5 mL subcu taneo us pen injec tor 5 10:14:[address] 10 MG (0.5 ML) SUBC UTAN EOUS LY EVER Y WEEK FOR 4 WEEK S 06/01 aborted Not Available Not availab le 0 Not Available Tim [facility] 06/02/2025 09:30:28 Zepbo und 12.5 mg/0. 5 mL subcu taneo us pen injec tor 5 10:14:[address] 12.5 MG (0.5 ML) SUBC UTAN EOUS LY EVER Y WEEK FOR 4 WEEK S 06/01 aborted Not Available Not availab le 0 Not Available [facility] 06/02/2025 09:30:28 Zepbo und 5 mg/0. 5 mL subcu taneo us pen injec tor 5 04:27:[address] 0.5 ML SUBC UTAN EOUS LY EVER Y WEEK FOR 4 WEEK S 06/01 aborted Not Available Not availab le 0 Not Available Tim [facility] 06/02/2025 09:30:28 Zepbo und 7.5 mg/0. 5 mL subcu taneo us pen injec tor 5 04:27:[address] 7.5 MG (0.5 ML) SUBC UTAN EOUS LY EVER Y WEEK FOR 4 WEEK S 06/01 aborted Not Available Not availab le 0 Not Available [facility] 06/02/2025 09:30:28 Vitals Date Recorded Body height Body mass index (BMI) Body weight Provider Name and Address Organization Details Last Updated DateTime 06/02/2025 170.18 cm 31.3 kg/m2 38819.47 g Tim Head [facility] 06/02/2025 09:30:39 Social History Question Answer Notes LastModified by Organizat ion Details LastModified Time Tobacco Smoking Status Former Smoker Juana Brink [facility] 11/17/2024 14:33:01 How Many Times Per Week Do You Consume Alcohol? Less Than 1 Time Per Week Juana Brink [facility] 11/17/2024 14:33:01 What is your relationship status? Juana Brink [facility] 11/17/2024 14:33:01 How many years have you smoked tobacco? 20 Juana Brink [facility] 11/17/2024 14:33:01 When did you quit smoking? 1-5 years since last cigarette Juana Brink [facility] 11/17/2024 14:33:01 Social History Observation Description Date Observed Sex Unknown 06/02/2025 Legal Sex Female Status Not (finding) 07/27/20 25 No social history survey screeners recorded No social history SDOH screeners recorded Functional Status Question Answer Note LastModified by Organizat ion Details LastModified Time Do you or have you ever used any other forms of tobacco or nicotine? No Juana Brink [facility] 11/17/2024 14:33:01 Do you or have you ever used e-cigarettes or vape? Never used electronic cigarettes Juana Brink [facility] 11/17/2024 14:33:01 How many times per week do you consume alcohol? Less than 1 time per week Juana Brink [facility] 11/17/2024 14:33:01 Do you use any illicit or recreational drugs? No Juana Brink [facility] 11/17/2024 14:33:01 No Functional Screening assessment recorded No Functional SDOH screeners recorded Mental Status None recorded. No Mental Screening assessment recorded No Mental SDOH screeners recorded Family History Nothing Reported. Medical History Condition Response Allergies/Hayfever Y Autoimmune disease Y Anxiety/Depression Y Anemia Y Peripheral Vascular Disease Y Arthritis Y Sleep Apnea Y COPD Y Gynecological HistoryNo gynecological history recorded. Obstetrics History GPAL:G 0 P 0 0 0 0 Past Encounters Encounter ID Performer Location Encounter Start Date Encounter Closed Date Diagnosis/Indication Diagnosis SNOMED-CT Code Diagnosis ICD10 Code Diagnosis IMO Codes Diagnosis Note [id number] [place] [address] 06/02/2025 09:19:14 06/10/2025 08:13:39 Pain of left shoulder blade 514003142 M25.512 [id number] Subacromia l impingement 737519514 M75.42 49338923 Health Concerns Section Related Observation LastModified by Organization Detai ls LastModified Time None Recorded Concern Status LastModified by Organization Details LastModified Time None Recorded SDOH Concern Status LastModified by Organization Detai ls LastModified Time None Recorded Payers Encounter Date Sequence Insurance Name Policy Number Policy Abraham Covered Member ID Abraham Member ID Guarantor Name 06/02/2025 1 [facility] - DOS ON OR AFTER 2022 - MEDICARE ADVANTAGE [place] (MEDICARE REPLACEMENT/ADV ANTAGE - PPO) Teri Hurtado [id number] Teri Hurtado Notes Date Note Type Note Provider Name and Address Organization Details Recorded Time 06/02/2025 text/html I am seeing the patient today under the supervision Dr. Torres who was available but who did not see the patient. REASON FOR VISIT Patient comes to the office with known impingement and rotator cuff distribution pain of the left shoulder. She is also describing parascapular pain and spasm. History of prior neck surgery. The patient has done well with conservative management for their shoulder pain. Recently reports increasing discomfort over the past several weeks without injury. Pain is generalized about the shoulder and discomfort is noted at night. PAST MEDICAL/SURGICAL HISTORY Current medications and surgeries were reviewed per intake sheet. PHYSICAL FINDINGS The patient is well appearing, in no apparent distress, alert and oriented to person, place and time. Gait is symmetric. No significant swelling, warmth or erythema about either shoulder. Left shoulder exam : ROM fairly well preserved to within 15 to 20 degrees of normal in all planes. Irritability with scapular motions and irritability to palpation parascapular musculature primarily in the trapezius and rhomboid region. there is mild tenderness to palpation about the shoulder, moderate pain through mid range manipulations. 4/5 strength of the shoulder. Good stability of the shoulder. Peripheral, vascular, lymphatic examination, skin, neurologic coordination, reflexes, sensation are within normal limits. ASSESSMENT Left shoulder impingement tendinitis/bursitis, parascapular strain and spasm with possible cervical radiculopathy component. PLAN The patient has done well with conservative management with regards to the shoulder. Continued conservative management recommended. Moderating activities with the upper extremity recommended also. Prescription provided for physical therapy to address her parascapular pain with postural training and scapular stabilization. Patient consents to repeating corticosteroid injection which was performed. Patient tolerated the injection well. Moderating activities with the upper extremity Next 48 hours recommended. The patient will follow up as symptoms require going forward. TEJAL Self-C [address] [place] [address] [address], [place], [address], [facility] 06/02/2025 11:46:02 Care Team Name Role Member ID Specialty Address Phone AYAD TOURE Primary Care Provider [id number] [place] [address] Mauro Miles [place] OBGyn Episode No OBEpisode recorded.
--- OUTSIDE RECORDS SUMMARY | 2025-07-27 12:27 | XMS_ITS | Patient Health Record ---
Author Organization [facility] Address [address] [place] [address] Care Team Providers Care Motor Scooter Repairer Name Role Phone Ayad Brewer Primary Care Provider Fish Salgado [phone] Allergies Allergen (clinical drug ingredient) Drug/Non Drug Allergy documented on EMR Reaction Allergy Type Onset Date Status Cat dander cat dander (uncoded) Unknown Allergy Active mold (uncoded) Unknown Allergy Activ e ragweed (uncoded) Unknown Allergy Ac tive acetaminophen / oxycodone Percocet Unknown Drug Allergy Active Penicillin Unknown Drug Allergy Active Results Component Value Reference Range Flag Notes Glucose, Whole Blood Reviewed date:05/10/2025 11:20:18 PM Interpretation: Performing Lab:[facility], [address] [place] [id number] Notes/Report: Glucose, Whole Blood 85 60-115 mg/dL [facility] #: [id number] Reason For Referral No Information Medications Medication SIG (Take, Route, Frequency, Duration) Notes Start Date End Date Status Gabapentin 300 MG Capsule 1 capsule Orally Three times a day Active Levothyroxine Sodium 75 MCG Tablet 1 tablet on an empty stomach in the morning Orally Once a day Active Skyrizi 150 MG/ML Solution Prefilled Syringe 1 mL Subcutaneous Active Zepbound 12.5 MG/0.5ML Solution Auto-injector 0.5 mL Subcutaneous 03/05/2024 Active Salem 3 1000 MG Capsule 1 capsule Orally Three times a day Active Cod Liver Oil 4000-200 UNIT Capsule as directed Orally Active metFORMIN HCl 500 MG Tablet 1 tablet with a meal Orally Once a day 02/16/2025 Active Folic Acid Not-Takin g/PRN Vitamin D 1000 UNIT Tablet 1 tablet Orally Once a day Active Cyanocobalamin 1000 MCG/ML Liquid 1 ml Orally monthly Active Multivitamin - 1 tablet 1 tablet Orally once a day Active Immunizations Vaccine Route Administration Date Status Comme nts Influenza Unknown 05/21/2018 Administered Influenza Unknown 05/26/2024 Administered Social History Tobacco Use: Social History Observation Description Date Details (start date - stop date) Former Smoker NA - NA Social History Drugs/Alcohol: Social Info Question Answer Notes Drugs Have you used drugs other than those for medical reasons in the past 12 months? No Tobacco Use: Social Info Question Answer Notes Tobacco Control (Standard) Tobacco use: Former smoker Additional Details Category Social Info Options Details Miscellaneous: Marital status: single Section Notes: Stopped smoking in 05/2014; no sig alcohol Smoking; no sig alcohol Smoking; no sig alcohol Problems Problem Type SNOMED Code ICD Code Onset Dates Problem Status W/U Status Risk Notes Problem Colon cancer screening (384631297) Colon cancer screening (Z12.11) Active confirmed Problem Preprocedural examination (770024248972772) Preprocedural examination (Z01.818) Active confirmed Problem Generalized abdominal pain (512792545) Abdominal pain, generalized (R10.84) Active confirmed Vital Signs Temperature 98.9 degrees Fahrenheit 02/16/2025 Blood pressure diastolic 01 mm Hg 02/16/2025 Height 67 in 02/16/2025 Blood pressure systolic 001 mm Hg 02/16/2025 Weight 171 lbs 02/16/2025 BMI 26.78 kg/m2 02/16/2025 Procedures Procedure Date Ordered Date Performed Result Body Sit e COLONOSCOPY 02/16/2025 N/A Encounters Encounter Location Date Provider Diagnosis [facility] Outpatient [address] [place], [place] [id number] 05/10/2025 Fish Jeffries [facility] [address] [place] [address] 02/16/2025 Fish Jeffries Colon cancer screeni ng [...] Test Test Name Order Date COLONOSCOPY 04/28/2015 Insurance Providers Payer Name Payer Address Payer Phone Subscriber Number Group Number Insured Name Patient Relationship to Insured Coverage Start Date Coverage End Date [facility] [address] Attn Claims TEJAL Wang [id number] TERI HURTADO Self - patient is the insured 4 Medical (General) History Medical History History ICD Code Negative colonoscopy 008 and 07/2015---sigmoid diverticulosis and internal hemorrhoids Denies LA,DM,CVA,,renal disease Anemia in relation to the ga stric bypass-sees Dr. Christianson and Dr. 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 Wiggins-1999--lost ab out 200 _# Panniculectomy Cholecystectomy C-spine-Dr. Hyatt 03/2024
--- OUTSIDE RECORDS SUMMARY | 2025-07-27 12:27 | XMS_ITS | Data Portability ---
Author Organization [facility], [facility] [place] Address [address] [place] [address] Care Team Providers Care Investigator Welfare Name Role Phone Osman Ayad Primary Care Provider Assessment No assessment recorded. Plan of Treatment Reminders Order Date Submit Date Provider Name Organization Details Last Modified By Last Modified Time Details Appointments None recor ded. Lab None recor ded. Referral physi dejuan thera pist refer ral 2024 10:09: 06 025 Matheus Thakkar PA-C [facility] [address] [place], [address], [employer] 5 08:13:39 Procedures None recor ded. Surgeries None recor ded. Imaging None recor ded. MedicationOrder s None recor ded. VaccineOrders None recor ded. Patient TargetsNo targets recorded. Patient InstructionsNo instructions recorded. Reason for Referral Physical Therapist Referral for Pain of left shoulder blade eval and treat periscapular pain and muscle spasms Referring Physician: Matheus Thakkar, Orthopedic Surgery, Encounter Date: 06/02/2025 Problems Name Problem SNOMED Code Status Onset Date Resolution Date Notes Provider Name and Address Organization Details Recorded Time No complaints 189577010 Active Status : 'A'; Not Available [facility] 4 09:12:17 Impingement syndrome of shoulder region 534119285 Active 2023 Glenys Jean PA-C [address], [place], [address] , [facility] 4 11:17:58 Impingement syndrome of shoulder region 607157058 Active 2023 Glenys Jean PA-C [address], [place], [address] , [facility] 4 11:19:29 Inflammation of joint of left shoulder region Active 2024 Matheus Thakkar PA-C [address], [place], [address] , [facility] 5 07:53:43 Subacromial impingement 294047592 Active 2024 Matheus Thakkar PA-C [address], [place], [address] , [facility] 5 07:53:55 Problem Notes None recorded. Procedures Surgical History Date Name Laterality Status Provider Name and Address Organization Details Recorded Time 06/02/20 25 Sports Shoulder completed Matheus Thakkar PA-C [address], [place], [address], [facility] 06/02/2025 11:45:26 11/18/19 25 Sports Shoulder completed Matheus Thakkar PA-C [address], [place], [address], [facility] 11/18/2024 07:53:13 11/04/19 25 Vascular Surgery completed Juana Brink [facility] 11/17/2024 14:33:01 06/26/20 24 Sports Shoulder completed Glenys Jean PA-C [address], [place], [address], [facility] 06/26/2024 11:17:30 03/20/20 24 Head or Neck Surgery completed Juana Brink [facility] 11/17/2024 14:33:01 01/01/20 00 Bariatric Surgery completed Juana Brink [facility] 11/17/2024 14:33:01 08/05/19 00 [facility] 11/17/2024 14:33:01 Imaging Results None recorded. Procedure Notes None recorded. Medical Equipment None Reported. Allergies Allergen ID Allergen Name Allergen Category Reaction Reaction Severity Criticality Documentation Date Start Date Code Code System Note Provider Name and Address Organization Details Recorded Time 79153 morphine sulfate medicatio n Not available Not available Not available 10/07/20232015 31266 RxNorm Not Available [facility] 4 11:09:45 27967 acetamino phen / oxycodone medicatio n Not available Not available Not available 10/07/20232015 26810 3 RxNorm Not Available [facility] 4 11:09:45 24889 Product containin g penicilli n (product) medicatio n Not available Not available Not available 10/07/20232015 69953 8001 SNOMED Not Available [facility] 4 11:09:45 Medications Name Authored On Sig Start Date Stop Date Status Note Indication Fill Status Repeat Number Dispense Quantity LastModified by Organization Details LastModified Time paulino us sulfa te 325 mg (65 mg iron) table t 4 08:40:26 TAKE 1 TABL ET BY MOUT H EVER Y DAY active Not Available Not availab le 0 Not Available Not Available [facility] 06/25/2024 08:40:26 clind amyci n HCl 150 mg capsu le 4 08:40:26 TAKE 1 CAPS ULE 3 TIME S A DAY FOR 10 DAYS 06/26 aborted Not Available Not availab le 0 Not Available Kelsi payan [facility] 06/26/2024 10:47:21 doxyc yclin e monoh ydrat e 100 mg capsu le 4 08:40:26 TAKE 1 CAPS ULE BY MOUT H 2 TIME S A DAY FOR 7 DAYS 06/26 aborted Not Available Not availab le 0 Not Available Kelsi payan [facility] 06/26/2024 10:47:35 hydro codon e 5 mg-ac etami nophe n 300 mg table t 4 08:40:25 TAKE 1 TABL ET BY NOA Lazar EVER Y 4 TO 6 HOUR S NEED ED FOR PAIN 06/26 aborted Not Available Not availab le 0 Not Available Kelsi payan [facility] 06/26/2024 10:47:52 triaz olam 0.25 mg table t 4 08:40:26 TAKE 1 TABL ET BY NOA Lazar 90 JOHANNY GISSEL PRIO R TO DENT AL VISI T 06/26 aborted Not Available Not availab le 0 Not Available Kelsi payan [facility] 06/26/2024 10:48:43 Wegov y 0.25 mg/0. 5 mL subcu taneo us pen injec tor 4 08:40:[address] 0.5M L SUBC UTAN EOUS LY EVER Y 4 WEEK S WEEK S 1 THRO UGH 4 OF THER APY 06/26 aborted Not Available Not availab le 0 Not Available Kelsi payan [facility] 06/26/2024 10:48:51 Wegov y 0.5 mg/0. 5 mL subcu taneo us pen injec tor 4 08:40:[address] 0.5 MG (0.5 ML) SUBC UTAN EOUS LY EVER Y WEEK FOR 4 WEEK S ADMI NIST ER WEEK S 5 THRO UGH 8 OF THER APY 06/26 aborted Not Available Not availab le 0 Not Available Kelsi payan [facility] 06/26/2024 10:48:53 Wegov y 1 mg/0. 5 mL subcu taneo us pen injec tor 4 08:40:[address] 1 MG SUBC UTAN EOUS EVER Y WEEK 06/26 aborted Not Available Not availab le 0 Not Available Kelsi payan [facility] 06/26/2024 10:48:56 ibupr ofen 800 mg table t 5 04:27:04 TAKE 1 TABL ET BY NOA Lazar EVER Y 8 HOUR S NEED ED FOR PAIN active Not Available Not availab le 0 Not Available Not Available nikolai - External Data Service - prod 11/17/2024 04:27:04 aceta minop hen ER 650 mg table t,ext ended relea se 4 08:40:26 11/16 aborted Not Available Not availab le 0 Not Available Juana Washington [facility] 11/17/2024 14:33:01 Cimzi a 400 mg/2 mL (200 mg/mL x 2) subcu taneo us syrin ge kit 4 08:40:26 11/16 aborted Not Available Not availab le 0 Not Available Juana Brink [facility] 11/17/2024 14:33:01 levot hyrox ine 125 mcg table t 5 04:27:04 TAKE 1 TABL ET BY NOA Lazar EVER Y DAY. ALTE RNAT E WITH 112M G 11/16 aborted Not Available Not availab le 0 Not Available Juana Keena [facility] 11/17/2024 14:33:01 predn isone 10 mg table t 4 08:40:26 11/16 aborted Not Available Not availab le 0 Not Available Juana Keena [facility] 11/17/2024 14:33:01 Wegov y 1.7 mg/0. 75 mL subcu taneo us pen injec tor 5 04:27:[address] 1.7 MG (0.7 5 ML) SUBC UTAN EOUS LY EVER Y WEEK FOR 4 WEEK S 11/16 aborted Not Available Not availab le 0 Not Available Juana Brink [facility] 11/17/2024 14:33:01 calci potri angi 0.005 [...] Available Not availab le 0 Not Available [facility] 06/02/2025 09:30:28 betam ethas one dipro piona te 0.05 % topic al ointm ent 4 08:40:25 APPL Y TOPI CALL Y TO THE FEET TWIC E ROMAINE Y FOR TWO WEEK S, JES K ONE WEEK , REPE AT NEED ED 06/01 aborted Not Available Not availab le 0 Not Available [facility] 06/02/2025 09:30:28 clind amyci n HCl 300 mg capsu le 5 04:27:04 TAKE 1 CAPS ULE BY MOUT H EVER Y 12 HOUR S UNTI L FINI SHED 06/01 aborted Not Available Not availab le 0 Not Available [facility] 06/02/2025 09:30:28 fluoc inoni de 0.05 % topic al ointm ent 5 04:27:02 PLEA SE SEE OMAR CHED FOR DETA ILED DIRE CTIO NS 06/01 aborted Not Available Not availab le 0 Not Available [facility] 06/02/2025 09:30:28 tacro limus 0.1 % topic al ointm ent 5 04:27:03 APPL Y TO AFFE CTED AREA S IN GROI N TWIC E ROMAINE Y NEED ED 06/01 aborted Not Available Not availab le 0 Not Available [facility] 06/02/2025 09:30:28 triam cinol one aceto nide 0.1 % topic al cream 4 08:40:25 APPL Y TO AFFE CTED AREA S IN GROI N TWIC E ROMAINE Y FOR ONE WEEK , JES K ONE WEEK REPE AT NEED ED 06/01 aborted Not Available Not availab le 0 Not Available Tim Head [facility] 06/02/2025 09:30:28 triam cinol one aceto nide 0.1 % topic al ointm ent 4 08:40:26 06/01 aborted Not Available Not availab le 0 Not Available Tim [facility] 06/02/2025 09:30:28 Vtama 1 % topic al cream 5 04:27:02 APPL Y TO AFFE CTED AREA S OF PSOR IASI S ONCE ROMAINE Y NEED ED. 06/01 aborted Not Available Not availab le 0 Not Available Tim Head [facility] 06/02/2025 09:30:28 Zepbo und 10 mg/0. 5 mL subcu taneo us pen injec tor 5 10:14:[address] 10 MG (0.5 ML) SUBC UTAN EOUS LY EVER Y WEEK FOR 4 WEEK S 06/01 aborted Not Available Not availab le 0 Not Available [facility] 06/02/2025 09:30:28 Zepbo und 12.5 mg/0. 5 mL subcu taneo us pen injec tor 5 10:14:[address] 12.5 MG (0.5 ML) SUBC UTAN EOUS LY EVER Y WEEK FOR 4 WEEK S 06/01 aborted Not Available Not availab le 0 Not Available Tim [facility] 06/02/2025 09:30:28 Zepbo und 5 mg/0. 5 mL subcu taneo us pen injec tor 5 04:27:[address] 0.5 ML SUBC UTAN EOUS LY EVER Y WEEK FOR 4 WEEK S 06/01 aborted Not Available Not availab le 0 Not Available [facility] 06/02/2025 09:30:28 Zepbo und 7.5 mg/0. 5 mL subcu taneo us pen injec tor 04:27:[address] 7.5 MG (0.5 ML) SUBC UTAN EOUS LY EVER Y WEEK FOR 4 WEEK S 06/01 aborted Not Available Not availab le 0 Not Available [facility] 06/02/2025 09:30:28 Vitals Date Recorded Body height Body mass index (BMI) Body weight Provider Name and Address Organization Details Last Updated DateTime 11/17/2024 170.18 cm 31.3 kg/m2 53744.47 g Juana Brink [facility] 11/17/2024 14:36:04 Date Recorded Body height Body mass index (BMI) Body weight Provider Name and Address Organization Details Last Updated DateTime 06/02/2025 170.18 cm 31.3 kg/m2 72768.47 g Tim [facility] 06/02/2025 09:30:39 Date Recorded Body height Body mass index (BMI) Body weight Provider Name and Address Organization Details Last Updated DateTime 06/26/2024 170.18 cm 31.3 kg/m2 56695.47 g Kelsi payan [facility] 06/26/2024 10:46:43 Social History Question Answer Notes LastModified by Organizat ion Details LastModified Time Tobacco Smoking Status Former Smoker Juana Brink [facility] 11/17/2024 14:33:01 How Many Times Per Week Do You Consume Alcohol? Less Than 1 Time Per Week Juana Brink [facility] 11/17/2024 14:33:01 What is your relationship status? Juana Brink [facility] 11/17/2024 14:33:01 How many years have you smoked tobacco? 20 Juana Brink [facility] 11/17/2024 14:33:01 When did you quit smoking? 1-5 years since last cigarette Juana Brink [facility] 11/17/2024 14:33:01 Social History Observation Description Date Observed Sex Unknown 07/01/2025 Legal Sex Female Status Not (finding) 07/27/20 25 No social history survey screeners recorded No social history SDOH screeners recorded Functional Status Question Answer Note LastModified by Organizat ion Details LastModified Time Do you or have you ever used any other forms of tobacco or nicotine? No [facility]/17/2024 14:33:01 Do you or have you ever used e-cigarettes or vape? Never used electronic cigarettes [facility] 11/17/2024 14:33:01 How many times per week do you consume alcohol? Less than 1 time per week [facility] 11/17/2024 14:33:01 Do you use any illicit or recreational drugs? No [facility] 11/17/2024 14:33:01 No Functional Screening assessment recorded [...] ICD10 Code Diagnosis IMO Codes Diagnosis Note [id number] Glenys Jean PA-C [facility] [address] [place] [address] 06/26/2024 10:15:23 07/27/2024 15:53:01 Localized, primary osteoarthritis of the shoulder region 988303098 M19.019 Impingemen t syndrome of left shoulder region 8959768446 92447 M75.42 [id number] PLAN: Patient has positive impingemen t testing [...] worsen/do not improve with conservati ve care. [id number] [facility] [address] [place] [address] 11/17/2024 14:23:18 12/07/2024 09:50:35 Inflammation of joint of left shoulder region 6183462248 95598 M19.012 796114 Subacromia l impingement 870093736 M75.42 49620868 [id number] [facility] [address] [place] [address] 06/02/2025 09:19:14 06/10/2025 08:13:39 Pain of left shoulder blade 075090013 M25.512 [id number] Subacromia l impingement 706522222 M75.42 [id number] Health Concerns Section Related Observation LastModified by Organization Detai ls LastModified Time None Recorded Concern Status LastModified by Organization Details LastModified Time None Recorded SDOH Concern Status LastModified by Organization [facility]formerly [facility] LastModified Time None Recorded Advance Directives Directive None Recorded Payers Insurance Date Sequence Insurance Name Policy Number Policy Abraham Covered Member ID Abraham Member ID Guarantor Name 06/10/2025 1 [facility] - DOS ON OR AFTER 2022 - MEDICARE ADVANTAGE [place] (MEDICARE REPLACEMENT/ADV ANTAGE - PPO) Teri Hurtado [id number] Teri Hurtado Notes Date Note Type Note Provider Name and Address Organization Details Recorded Time 06/26/2024 text/html ROS as noted in the HPI I am seeing the patient under the [...] holding the leash. Glenys Jean PA-C [address], [place], [address], [facility] 06/26/2024 11:20:15 11/17/2024 text/html I am seeing [...] up as directed. Matheus Thakkar PA-C [address], [place], [address], [facility] 11/18/2024 07:54:20 06/02/2025 text/html I am seeing the patient [...] follow up as symptoms require going forward. Matheus Thakkar PA-C [address], [place], [address], [facility] 06/02/2025 11:46:02 Care Team Name Role Member ID Specialty Address Phone AYAD TOURE Primary Care Provider [id number] [address] [facility] Ma[place] OBGyn Episode No OBEpisode recorded.
== END 2025-07-27 11:52 | disposition home or self-care (01) ==
LOC: HO.HMCH 11:06
PROVIDERS: PCP Physician Assistant; Visit Provider Physician Assistant
DX: Z68.25 Body mass index [BMI] 25.0-25.9, adult (principal); E03.9 Hypothyroidism, unspecified; F33.1 Major depressive disorder, recurrent, moderate; R73.03 Prediabetes; I10 Essential (primary) hypertension

== ENCOUNTER → 2025-07-27 11:05 | Outpatient (BNVA) | payer OTHER, SELFPAY | PROVIDERS: PCP Physician Assistant; Visit Provider Physician Assistant | DX: R73.03 Prediabetes (principal); E03.9 Hypothyroidism, unspecified; F33.1 Major depressive disorder, recurrent, moderate; I10 Essential (primary) hypertension | CPT/HCPCS: 99212 ==